=== PATIENT | female | born 1955 | race Caucasian/White ===

== ENCOUNTER → 2017-10-07 08:04 | Outpatient (CLI) | payer MEDICAID, SELFPAY ==
[2017-10-07 09:32] LABS: Alanine Aminotransferase 19 U/L (12-78); Albumin Level 3.4 gm/dL (3.4-5.0); Albumin/Globulin Ratio 0.9 (1.1-1.8); Alkaline Phosphatase 82 U/L (46-116); Anion Gap 10.1 mEq/L (5-15); Aspartate Amino Transferase 8 U/L (15-37); Bilirubin,Total 0.5 mg/dL (0.2-1.0); Blood Urea Nitrogen 14 mg/dL (7-18); Calcium 8.8 mg/dL (8.5-10.1); Carbon Dioxide 32 mmol/L (21.0-32.0); Chloride 104 mmol/L (98-107); Chol/HDL Ratio 2.2 (1-3.5); Cholesterol 122 mg/dL (140-200); Creatinine,Serum 0.78 mg/dL (0.55-1.02); Estimated Glomerular Filt Rate 75 ml/min (>60); GFR (African American) 91 ML/MIN (>60); Globulin 3.9 gm/dl (1.3-3.2); Glucose 153 mg/dL (74-106); HDL Cholesterol 55 mg/dL (29-89); LDL Cholesterol 55 mg/dL (0-130); Potassium 4.1 mmoL/L (3.5-5.1); Sodium 142 mmol/L (136-145); Total Protein,Serum 7.3 gm/dL (6.4-8.2); Triglycerides 61 mg/dL (30-200); VLDL Cholesterol 12 mg/dL (0-40)
[2017-10-07 09:44] LABS: Creatinine,Urine Random 97 mg/dL (20-320)
[2017-10-07 09:52] LABS: Hemoglobin A1C 6.4 % (0.0-7.0)
[2017-10-08 17:17] LABS: Microalbumin, Urine 3.2 ug/mL (Not Estab.)
== END ==
PROVIDERS: PCP Nurse Practitioner Family; Visit Provider Nurse Practitioner Family
DX: E11.9 Type 2 diabetes mellitus without complications (principal); E78.2 Mixed hyperlipidemia
CPT/HCPCS: 36415; 80053; 80061; 82043; 82570; 83036

== ENCOUNTER → 2017-10-20 09:16 | Outpatient (CLI) | payer MEDICAID, SELFPAY ==
--- NOTE | 2017-10-20 09:20 | MM_ITS ---
MM Dig screening mamm BI w/CAD CAD Screening ORDERING PHYSICIAN : Sheeba Peterson PATIENT AGE: 62 years GENDER: Female INDICATION: Routine screening no hormones no new complaints. Family history. Mother's half sister with breast cancer age 40s COMPARISON: Previous outside mammograms have finally arrived [facility] April 2015 and July 2011 & March 2008 TECHNIQUE: Standard CC and MLO images were obtained. R2 CAD reviewed. . Additional left breast CC and MLO with nipple in profile FINDINGS: Minimal fibroglandular elements bilaterally Low-density breast bilaterally. With Generalized fatty change. No dominant mass or suspicious calcifications. No significant new findings. No architectural distortion. RIGHT BREAST:No significant appearing findings. Follow-up in one year adequate LEFT BREAST: small most likely benign 6 mm intramammary node at the deep axillary tail left breast. Stable . Follow-up in not over one year would be adequate IMPRESSION: . -------- Basically stable appearance of the breast No new findings of significant concern. Bilateral follow-up in one recommended BI-RADS Category: 2 Benign Finding(s) RECOMMENDED FOLLOW-UP: 1YR - 1 YEAR FOLLOW-UP (A letter has been sent to the patient regarding results of the study.)
== END ==
PROVIDERS: PCP Nurse Practitioner Family; Visit Provider Nurse Practitioner Family
DX: Z12.31 Encounter for screening mammogram for malignant neoplasm of breast (principal)
CPT/HCPCS: 77067

== ENCOUNTER 2017-11-07 06:48 | Day surgery (SDC) | payer MEDICAID, SELFPAY ==
[2017-11-06 14:26] VITALS: BMI 28.1
[2017-11-07 07:16] VITALS: BP 120/80; PULSE 97; RESP 22; TEMP 37.1; O2SAT 94
[2017-11-07 07:39] VITALS: O2SAT 99
[2017-11-07 09:55] VITALS: BP 97/56; PULSE 91; RESP 22; TEMP 36.5; O2SAT 95
--- NOTE | 2017-11-07 10:00 | P.PCN_ITS ---
- Procedure: Date: 11/07/17 Procedure Performed:: Total colonoscopy to terminal ileum with numerous polypectomy by hot snare, cold snare, and biopsy forceps Indications:: Patient is a 62-year-old white female. 6 months ago she was sent for surgical consultation for colonoscopy after she had a positive colo-guard. She underwent colonoscopy at that time which revealed greater than 2 dozen polyps. Most of these were tubular adenomas although she did have serrated adenomas and a tubulovillous adenomas well. Plan was made for six-month follow-up due to the numerous precancerous polyps. Performing Provider:: Jose Luis Youssef MD Referring Provider:: Bella Peterson, Sedation:: Propofol Procedure:: Consent was obtained and patient was taken to same-day surgery endoscopy procedure room. She was positioned in a lateral decubitus position. Adequate intravenous sedation was achieved with anesthesia titration of propofol. Digital examination revealed minimal hemorrhoids. Variable stiffness Olympus colonoscope was inserted via the anus and advanced to the cecum with moderate difficulty due to floppiness of the sigmoid colon. Within the cecum the ileocecal valve and appendiceal were clearly identified. Colonoscope was advanced into the terminal ileum which was grossly normal. Within the cecum there was a small adenomatous appearing polyp removed with hot snare. Colonoscope was withdrawn through the colon and careful surveillance was carried out. Numerous polyps were encountered. Most of these were in the left call. There was an area of mucosal irregularity within the cecum which was biopsied with cold biopsy forceps. Polyps were encountered and polypectomy was performed on the cecal polyp, hepatic flexure polyp ?2, splenic flexure polyp ?3 , descending colon polyp, proximal sigmoid colon polyp ?2, sigmoid polyp ?2 #2, distal sigmoid polyp times, rectosigmoid polyps and rectal polyp ?5. She did have internal hemorrhoids. Scope was withdrawn. Findings:: Diverticulosis Around 20 polyps Mucosal irregularity at the cecum Specimens:: Numerous polyps and biopsy at cecum Recommendations:: Follow-up on histopathology. Likely plan for repeat colonoscopy within 6 months pending pathology. If there is adenomatous component to the biopsy at the cecum plan for follow-up earlier. Complications:: None immediate Estimated blood obtained (mL): 10
--- NOTE | 2017-11-07 10:04 | HMH.ANESCL ---
[facility] Anesthesia Checklist - Patient Identification Patient Identification: Arm Band - Structural Data Admitted From: Home Planned Operative Procedure/s: colonoscopy Consent for Planned Operative Procedure(s) Verified: Yes Verified Documents: Surgical Consent, History and Physical - NPO Status Verified Time NPO: 00:00 - Additional verifications Anesthesia Reactions: No - Airway Assessment C-Spine Mobility Assessed: Yes (mp2) TMJ Mobility Assessed: Yes Dentition: Dentures-good fit - Neurological Assessment Level of Consciousness: Awake, Alert - Anesthesia Plan Anesthesia Risk discussed: Yes Anesthesia Plan: Verified ASA Class: III Anesthesia Type: MAC [facility] Anesthesia HX I have reviewed the patient's past medical history: Yes Medical History: Reports:: Aneurysm (AAA per pt about 4.4cm), Chronic Obstructive Pulmonary Disease (COPD), Diabetes Mellitus Type 2, Hyperlipidemia Denies:: Diabetes Mellitus Type 1, Internal Pacemaker, Lung Disease (copd), Seizures Other Surgeries: Yes: Colonoscopy, . No: Pacemaker *Family Hx:: No significant family history
[2017-11-07 10:05] VITALS: BP 109/80; PULSE 86; RESP 20; TEMP 36.5; O2SAT 95
[2017-11-07 10:07] LABS: POC Glucose,Bedside 120 mg/dL (70-110)
[2017-11-07 10:15] VITALS: BP 113/73; PULSE 87; RESP 20; TEMP 36.5; O2SAT 93
[2017-11-07 10:25] VITALS: BP 117/67; PULSE 88; RESP 20; TEMP 36.5; O2SAT 94
== END 2017-11-07 10:25 | disposition home or self-care (01) ==
LOC: OUTP 06:49
PROVIDERS: PCP Nurse Practitioner Family; Visit Provider Surgery
PROC: 0DJD8ZZ Inspection of Lower Intestinal Tract, Via Natural or Artificial Opening Endoscopic (ICD-10-PCS; CPT 45385; principal; 2017-11-07 07:30)
DX: K63.5 Polyp of colon (principal); K64.9 Unspecified hemorrhoids; K57.30 Diverticulosis of large intestine without perforation or abscess without bleeding; Z86.010 Personal history of colon polyps
CPT/HCPCS: 45385; 45380; 82962; J2704

== ENCOUNTER → 2018-10-11 08:09 | Outpatient (CLI) | payer MEDICAID, SELFPAY ==
[2018-10-11 08:34] LABS: Basophils # 0.1 K/mm3 (0-0.2); Eosinophils # 0.1 K/mm3 (0.0-0.4); Eosinophils % 0.9 % (0.1-12.0); Hematocrit 42.5 % (37.0-47.0); Hemoglobin 13.8 g/dL (12.2-16.2); Lymphocytes # 1.4 K/mm3 (0.7-4.5); Lymphocytes % 22.8 % (10-50); Mean Corpuscular HGB Conc 32.5 g/dL (31.8-35.4); Mean Corpuscular Hemoglobin 30.6 pg (27.0-31.2); Mean Corpuscular Volume 94.1 fl (81-99); Monocytes # 0.3 K/mm3 (0.1-1.0); Monocytes % 4.8 % (1.7-9.3); Neutrophils # 4.3 K/mm3 (1.8-7.8); Neutrophils % 70.6 % (37.0-80.0); Platelet Count 205 K/mm3 (142-424); Red Blood Count 4.51 M/mm3 (4.20-5.40); Red Cell Distribution Width 15.2 % (11.5-17.5); White Blood Count 6.1 K/mm3 (4.8-10.8)
[2018-10-11 09:01] LABS: Alanine Aminotransferase 16 U/L (12-78); Albumin Level 3.5 gm/dL (3.4-5.0); Alkaline Phosphatase 87 U/L (46-116); Anion Gap 12.4 mEq/L (5-15); Aspartate Amino Transferase 7 U/L (15-37); Bilirubin,Total 0.6 mg/dL (0.2-1.0); Blood Urea Nitrogen 15 mg/dL (7-18); Calcium 8.9 mg/dL (8.5-10.1); Carbon Dioxide 31 mmol/L (21.0-32.0); Chloride 101 mmol/L (98-107); Chol/HDL Ratio 2.2 (1-3.5); Cholesterol 91 mg/dL (140-200); Creatinine,Serum 0.88 mg/dL (0.55-1.02); Estimated Glomerular Filt Rate 65 ml/min (>60); GFR (African American) 79 ML/MIN (>60); Globulin 3.4 gm/dl (1.3-3.2); Glucose 141 mg/dL (74-106); HDL Cholesterol 41 mg/dL (29-89); LDL Cholesterol 39 mg/dL (0-130); Potassium 4.4 mmoL/L (3.5-5.1); Sodium 140 mmol/L (136-145); Total Protein,Serum 6.9 gm/dL (6.4-8.2); Triglycerides 55 mg/dL (30-200); VLDL Cholesterol 11 mg/dL (0-40)
[2018-10-11 09:43] LABS: Hemoglobin A1C 7.3 % (0.0-7.0)
[2018-10-12 10:15] LABS: Creatinine, Urine 68.1 mg/dL (Not Estab.)
== END ==
PROVIDERS: Visit Provider Nurse Practitioner Family
DX: E11.9 Type 2 diabetes mellitus without complications (principal); E78.2 Mixed hyperlipidemia; J43.9 Emphysema, unspecified
CPT/HCPCS: 36415; 80053; 80061; 82043; 82570; 83036; 85025

== ENCOUNTER → 2018-10-22 08:55 | Outpatient (CLI) | payer MEDICAID, SELFPAY ==
--- NOTE | 2018-10-22 08:59 | MM_ITS ---
MM Dig screening mamm BI w/CAD CAD Screening COMPARISON: Digital mammograms with CAD 10/20/2017 and 04/24/2015 INDICATION: There is a history of breast cancer in patient's mother and half-sister both diagnosed before menopause. TECHNIQUE: Standard CC and MLO images were obtained. R2 CAD reviewed. FINDINGS: Scattered fibroglandular densities are seen throughout both breasts. There is a stable tiny nodular density upper outer quadrant left breast. There are a few benign-appearing microcalcifications in each breast. There is a small asymmetric density inner quadrant right breast only deftly seen on the cc view. This may been present previously but has shown slight interval increase in size. Recommend the patient return for spot compression view in the CC projection and 90 degrees lateral view and ultrasound may be necessary as well. There are no suspicious microcalcifications. IMPRESSION: Fibrofatty parenchyma with possible change in density right breast BI-RADS Category: 0 Need Additional Imaging Evaluation RECOMMENDED FOLLOW-UP: IMM - IMMEDIATE FOLLOW-UP RECOMMENDED (A letter has been sent to the patient regarding results of the study.)
== END ==
PROVIDERS: PCP Nurse Practitioner Family; Visit Provider Nurse Practitioner Family
DX: Z12.31 Encounter for screening mammogram for malignant neoplasm of breast (principal)
CPT/HCPCS: 77067

== ENCOUNTER → 2018-11-07 13:14 | Outpatient (CLI) | payer MEDICAID, SELFPAY ==
--- NOTE | 2018-11-07 13:18 | MM_ITS ---
MM Dig mamm DX unilat RT CAD, US breast RT complete INDICATION: Follow-up abnormal screening mammogram ORDERING PHYSICIAN: Sheeba Peterson PATIENT AGE: 63 years COMPARISON: 10/22/2018, 10/20/2017 TECHNIQUE: Problem-solving views of the right breast along with right breast ultrasound FINDINGS: Spot compression view demonstrates a 3 mm nodule in the medial aspect of the right breast at the 4:00 region. This has probably benign features. Right breast ultrasound: No cystic or solid lesions evident. There are small nodes in the axilla. IMPRESSION: Probably benign nodule medial aspect of the right breast. Suggest 6 month follow-up due to the slight increase in size BI-RADS Category: 3 Probably Benign Finding Short Term Follow-up RECOMMENDED FOLLOW-UP: 6M - 6 MONTH FOLLOW-UP (A letter has been sent to the patient regarding results of the study.)
== END ==
PROVIDERS: PCP Nurse Practitioner Family; Visit Provider Nurse Practitioner Family
DX: R92.8 Other abnormal and inconclusive findings on diagnostic imaging of breast (principal)
CPT/HCPCS: 76641; 77065

== ENCOUNTER → 2018-12-03 10:34 | Outpatient (CLI) | payer MEDICAID, SELFPAY ==
--- NOTE | 2018-12-03 12:45 | XR_ITS ---
XR chest 2V HISTORY: ITS.REASON: COPD EXACERBATION ORDERING PHYSICIAN: Jose Luis Youssef MD PATIENT AGE: 63 years COMPARISON: PA and lateral chest 08/29/2018 FINDINGS: The lung carrion are well expanded and appear clear of infiltrate. There is minimal discoid atelectasis or postinflammatory scarring at the left base. There is minimal blunting of left costophrenic angle. Cardiac size is normal and the vascularity is normal. There is generalized osteopenia the thoracic spinal with mild kyphotic curvature. There is a stable mild old compression fracture mid thoracic spine. IMPRESSION: Negative chest, no acute finding
== END ==
PROVIDERS: PCP Internal Medicine Adolescent Medicine; Visit Provider Surgery
DX: Z01.818 Encounter for other preprocedural examination (principal); Z12.11 Encounter for screening for malignant neoplasm of colon
CPT/HCPCS: 71046; 93005

== ENCOUNTER → 2019-02-04 09:31 | Outpatient (CLI) | payer MEDICAID, SELFPAY ==
[2019-02-04 10:31] LABS: Basophils # 0.1 K/mm3 (0-0.2); Basophils % 1.1 % (0.1-2.0); Eosinophils # 0.2 K/mm3 (0.0-0.4); Eosinophils % 3.4 % (0.1-12.0); Hematocrit 42.4 % (37.0-47.0); Lymphocytes # 1.6 K/mm3 (0.7-4.5); Mean Corpuscular HGB Conc 30.7 g/dL (31.8-35.4); Mean Corpuscular Hemoglobin 27.7 pg (27.0-31.2); Mean Corpuscular Volume 90.1 fl (81-99); Mean Platelet Volume 8.4 fl (7.4-10.4); Monocytes # 0.4 K/mm3 (0.1-1.0); Neutrophils % 63.5 % (37.0-80.0); Platelet Count 210 K/mm3 (142-424); Red Cell Distribution Width 13.9 % (11.5-17.5); White Blood Count 6.2 K/mm3 (4.8-10.8)
[2019-02-04 11:20] LABS: Alanine Aminotransferase 20 U/L (12-78); Albumin Level 3.6 gm/dL (3.4-5.0); Alkaline Phosphatase 89 U/L (46-116); Anion Gap 14.5 mEq/L (5-15); Aspartate Amino Transferase 15 U/L (15-37); Bilirubin,Total 0.6 mg/dL (0.2-1.0); Blood Urea Nitrogen 15 mg/dL (7-18); Calcium 9.2 mg/dL (8.5-10.1); Carbon Dioxide 30 mmol/L (21.0-32.0); Chloride 102 mmol/L (98-107); Chol/HDL Ratio 2.9 (1-3.5); Cholesterol 145 mg/dL (140-200); Creatinine,Serum 0.82 mg/dL (0.55-1.02); Estimated Glomerular Filt Rate 70 ml/min (>60); GFR (African American) 85 ML/MIN (>60); Globulin 3.5 gm/dl (1.3-3.2); Glucose 113 mg/dL (74-106); HDL Cholesterol 50 mg/dL (29-89); LDL Cholesterol 72 mg/dL (0-130); Potassium 4.5 mmoL/L (3.5-5.1); Sodium 142 mmol/L (136-145); Thyroid Stimulating Hormone 1.58 uIU/ml (0.358-3.740); Total Protein,Serum 7.1 gm/dL (6.4-8.2); Triglycerides 113 mg/dL (30-200); VLDL Cholesterol 23 mg/dL (0-40)
[2019-02-05 12:43] LABS: Hemoglobin A1C 6.6 % (0.0-7.0)
== END ==
PROVIDERS: Visit Provider Nurse Practitioner Family
DX: E11.9 Type 2 diabetes mellitus without complications (principal); Z79.84 Long term (current) use of oral hypoglycemic drugs; E78.2 Mixed hyperlipidemia; K59.04 Chronic idiopathic constipation
CPT/HCPCS: 36415; 80053; 80061; 83036; 84443; 85025

== ENCOUNTER → 2019-04-23 12:41 | Outpatient (CLI) | payer MEDICAID, SELFPAY ==
--- NOTE | 2019-04-23 12:43 | MM_ITS ---
PROCEDURE: MM DIG MAMM DX UNILAT RT CAD CLINICAL INDICATION: 6 MO FU Follow-up nodule COMPARISON: AB MAMM SCREEN BILAT DIG PNL from 04/24/2015 [facility] MM Dig screening mamm BI w/CAD from 10/20/2017 [facility] MM Dig screening mamm BI w/CAD from 10/22/2018 [facility] MM Dig mamm DX unilat RT CAD from 11/07/2018 BREASTRT US breast RT complete from 11/07/2018 US BREAST RT COMPLETE from 04/25/2019 TECHNIQUE: Standard images performed along with spot compression views and right breast ultrasound FINDINGS: Average fibroglandular tissue. Benign-appearing nodular density once again noted in the medial and inferior aspect of the right breast overall not significantly changed. No malignant appearing microcalcification or malignant-appearing mass evident. The nodule measures approximately 3 mm. Right breast ultrasound: Initially there was a 7 mm area of decreased echogenicity in the outer aspect of the right breast at 5 o'clock. This may very well represent an area of asymmetric fibroglandular tissue appearing have internal breast markings. The small nodule at the 3 o'clock region of the right breast is not demonstrated. IMPRESSION: No change in the benign-appearing nodule in the medial aspect of the right breast. On the ultrasound there is an area of decreased echogenicity in the 5 o'clock region of the right breast not previously demonstrated may be due to an area of asymmetric fibroglandular tissue. Continued six-month follow-up suggested. At that time the patient will need a screening exam on the left. BI-RAD Category: 3 Probably Benign Finding Short Term Follow-up FOLLOW-UP: 6M 6Month Follow-up (A letter has been sent to the patient regarding results of the study.) Dictated by: Zuhair Tolbert MD 04/26/2019 13:09 Electronically signed by Zuhair Tolbert MD in [place] 04/26/2019 13:09
== END ==
PROVIDERS: PCP Internal Medicine Adolescent Medicine; Visit Provider Internal Medicine Adolescent Medicine
DX: R92.8 Other abnormal and inconclusive findings on diagnostic imaging of breast (principal)
CPT/HCPCS: 77065

== ENCOUNTER → 2019-04-25 09:23 | Outpatient (CLI) | payer MEDICAID, SELFPAY ==
--- NOTE | 2019-04-25 09:28 | US_ITS ---
PROCEDURE: US BREAST RT COMPLETE CLINICAL INDICATION: ABN MAMM COMPARISON: BREASTRT US breast RT complete from 11/07/2018 MM DIG MAMM DX UNILAT RT CAD from 04/23/2019 FINDINGS: At the 5 o'clock region of the right breast there is an area of decreased echogenicity that measures 7 x 4 mm. This shows enhanced through transmission of sound. Under of visualization this had more the appearance of fibroglandular tissue as a compared to a breast nodule along gating in the sagittal plane and having some internal echogenicity similar to the surrounding breast tissue. No other significant anomalies are evident IMPRESSION: Probable hypoechoic fibroglandular tissue 5 o'clock region of the right breast. No sonographic abnormality that would correspond to the 3 mm mammographic abnormality. Probably benign. Recommend six-month sonographic follow-up Dictated by: Zuhair Tolbert MD 04/26/2019 13:13 Electronically signed by Zuhair Tolbert MD in [place] 04/26/2019 13:13
== END ==
PROVIDERS: PCP Internal Medicine Adolescent Medicine; Visit Provider Internal Medicine Adolescent Medicine
DX: R92.8 Other abnormal and inconclusive findings on diagnostic imaging of breast (principal)
CPT/HCPCS: 76641

== ENCOUNTER → 2019-06-06 09:16 | Outpatient (CLI) | payer OTHER, SELFPAY ==
--- NOTE | 2019-06-06 09:23 | XR_ITS ---
PROCEDURE: XR KNEE LT 3V CLINICAL INDICATION: ACUTE LT KNEE PAIN COMPARISON: No exams were available for comparison FINDINGS: No fracture or dislocation. No lytic or blastic change. There is normal mineralization. There are minimal osteoarthritic changes of the medial compartment and patellofemoral joint. Other findings:Vascular calcification IMPRESSION: Minimal osteoarthritic change Dictated by: Zuhair Tolbert MD 06/06/2019 15:31 Electronically signed by Zuhair Tolbert MD in [place] 06/06/2019 15:31
== END ==
PROVIDERS: PCP Internal Medicine Adolescent Medicine; Visit Provider Nurse Practitioner Family
DX: M25.562 Pain in left knee (principal)
CPT/HCPCS: 73562

== ENCOUNTER → 2019-06-18 08:15 | Outpatient (CLI) | payer OTHER, SELFPAY ==
[2019-06-18 08:43] LABS: Basophils # 0.1 K/mm3 (0-0.2); Basophils % 0.9 % (0.1-2.0); Eosinophils # 0.2 K/mm3 (0.0-0.4); Eosinophils % 2.2 % (0.1-12.0); Hemoglobin 12.8 g/dL (12.2-16.2); Lymphocytes # 2.5 K/mm3 (0.7-4.5); Lymphocytes % 27.9 % (10-50); Mean Corpuscular Hemoglobin 30.4 pg (27.0-31.2); Mean Corpuscular Volume 95.2 fl (81-99); Mean Platelet Volume 8.9 fl (7.4-10.4); Monocytes # 0.4 K/mm3 (0.1-1.0); Monocytes % 4.7 % (1.7-9.3); Neutrophils # 5.7 K/mm3 (1.8-7.8); Neutrophils % 64.2 % (37.0-80.0); Platelet Count 218 K/mm3 (142-424); Red Cell Distribution Width 14.6 % (11.5-17.5); White Blood Count 8.9 K/mm3 (4.8-10.8)
[2019-06-18 09:21] LABS: Alanine Aminotransferase 17 U/L (12-78); Albumin Level 3.7 gm/dL (3.4-5.0); Albumin/Globulin Ratio 1.2 (1.1-1.8); Alkaline Phosphatase 86 U/L (46-116); Anion Gap 13.3 mEq/L (5-15); Aspartate Amino Transferase 6 U/L (15-37); Bilirubin,Total 0.5 mg/dL (0.2-1.0); Blood Urea Nitrogen 27 mg/dL (7-18); Calcium 9.2 mg/dL (8.5-10.1); Carbon Dioxide 29 mmol/L (21.0-32.0); Chloride 104 mmol/L (98-107); Cholesterol 120 mg/dL (140-200); Creatinine,Serum 0.97 mg/dL (0.55-1.02); Estimated Glomerular Filt Rate 58 ml/min (>60); GFR (African American) 70 ML/MIN (>60); Globulin 3.2 gm/dl (1.3-3.2); Glucose 133 mg/dL (74-106); HDL Cholesterol 60 mg/dL (29-89); LDL Cholesterol 40 mg/dL (0-130); Potassium 4.3 mmoL/L (3.5-5.1); Sodium 142 mmol/L (136-145); Total Protein,Serum 6.9 gm/dL (6.4-8.2); Triglycerides 99 mg/dL (30-200); Uric Acid 4.6 mg/dL (2.6-7.2); VLDL Cholesterol 20 mg/dL (0-40)
[2019-06-18 10:11] LABS: Hemoglobin A1C 6.7 % (0.0-7.0)
[2019-06-18 10:18] LABS: Erythrocyte Sedimentation Rate 17 mm/hr (0-30)
[2019-06-19 11:10] LABS: Microalbumin, Urine 6.9 ug/mL (Not Estab.)
== END ==
PROVIDERS: Visit Provider Nurse Practitioner Family
DX: E78.5 Hyperlipidemia, unspecified (principal); E11.9 Type 2 diabetes mellitus without complications; M25.562 Pain in left knee; Z79.84 Long term (current) use of oral hypoglycemic drugs
CPT/HCPCS: 36415; 80053; 80061; 82043; 82570; 83036; 84550; 85025; 85651

== ENCOUNTER → 2019-06-27 09:05 | Outpatient (CLI) | payer OTHER, SELFPAY ==
--- NOTE | 2019-06-27 09:10 | XR_ITS ---
PROCEDURE: XR PELVIS 1-2V CLINICAL INDICATION: lower back pain Low back pain COMPARISON: No exams were available for comparison TECHNIQUE: XR Pelvis AP View FINDINGS: There are mild osteoarthritic changes of the hips and SI joints. No fracture or dislocation. Generalized vascular calcification noted. IMPRESSION: Mild osteoarthritic change, no acute Dictated by: Zuhair Tolbert MD 06/27/2019 16:20 Electronically signed by Zuhair Tolbert MD in [place] 06/27/2019 16:20
--- NOTE | 2019-06-27 09:10 | XR_ITS ---
PROCEDURE: XR KNEE LT 4V CLINICAL INDICATION: Left knee pain COMPARISON: XR KNEE LT 3V from 06/06/2019 FINDINGS: There is mild lateral patellar subluxation. No fracture or dislocation. Minimal osteoarthritic changes are present involving the medial compartment. There is generalized vascular calcification. No fracture or dislocation. No lytic or blastic change IMPRESSION: Mild osteoarthritic change medial compartment with mild lateral patellar subluxation Dictated by: Zuhair Tolbert MD 06/27/2019 16:14 Electronically signed by Zuhair Tolbert MD in [place] 06/27/2019 16:14
--- NOTE | 2019-06-27 11:02 | XR_ITS ---
PROCEDURE: XR LUMBAR SPINE 2-3V CLINICAL INDICATION: back pain COMPARISON: No exams were available for comparison FINDINGS: There is normal alignment. Degenerative disc disease is present at T12-L1. Mild wedge compression changes involve the L2. There is wedging along the inferior endplate of L2. Mild degenerative disc disease is present at L1-L2 L2-L3 L3-L4 and L5-S1. The there is an aortic stent in the upper aorta and the aortoiliac stent inferiorly within abdominal aortic aneurysm. IMPRESSION: 1. Wedge compression changes of L2 and L3 which are age indeterminate and may be better dated with MRI. 2. Degenerative changes Dictated by: Zuhair Tolbert MD 06/27/2019 15:21 Electronically signed by Zuhair Tolbert MD in [place] 06/27/2019 15:21
== END ==
PROVIDERS: PCP Internal Medicine Adolescent Medicine; Visit Provider Orthopaedic Surgery
DX: M54.9 Dorsalgia, unspecified (principal); M25.561 Pain in right knee
CPT/HCPCS: 72100; 72170; 73564

== ENCOUNTER → 2019-08-15 09:44 | Outpatient (CLI) | payer MEDICARE, SELFPAY ==
[2019-08-15 10:31] LABS: Basophils # 0.1 K/mm3 (0-0.2); Basophils % 0.9 % (0.1-2.0); Eosinophils # 0.2 K/mm3 (0.0-0.4); Eosinophils % 2.1 % (0.1-12.0); Hematocrit 39.4 % (37.0-47.0); Hemoglobin 13.2 g/dL (12.2-16.2); Lymphocytes # 1.9 K/mm3 (0.7-4.5); Lymphocytes % 25.1 % (10-50); Mean Corpuscular HGB Conc 33.5 g/dL (31.8-35.4); Mean Corpuscular Hemoglobin 30.6 pg (27.0-31.2); Mean Corpuscular Volume 91.4 fl (81-99); Mean Platelet Volume 8.8 fl (7.4-10.4); Monocytes # 0.4 K/mm3 (0.1-1.0); Monocytes % 5.2 % (1.7-9.3); Neutrophils % 66.8 % (37.0-80.0); Platelet Count 248 K/mm3 (142-424); Red Blood Count 4.31 M/mm3 (4.20-5.40); Red Cell Distribution Width 14.3 % (11.5-17.5); White Blood Count 7.5 K/mm3 (4.8-10.8)
[2019-08-15 10:41] LABS: Hemoglobin A1C 6.5 % (0.0-7.0)
[2019-08-15 11:10] LABS: Anion Gap 4.3 mEq/L (5-15); Calcium 9.1 mg/dL (8.5-10.1); Carbon Dioxide 28 mmol/L (21.0-32.0); Chloride 98 mmol/L (98-107); Creatinine,Serum 0.88 mg/dL (0.55-1.02); Estimated Glomerular Filt Rate 65 ml/min (>60); GFR (African American) 78 ML/MIN (>60); Glucose 101 mg/dL (74-106); Potassium 4.3 mmoL/L (3.5-5.1); Sodium 126 mmol/L (136-145); Thyroid Stimulating Hormone 1.45 uIU/ml (0.358-3.740)
[2019-08-15 11:23] LABS: Blood Urea Nitrogen 18 mg/dL (7-18)
== END ==
PROVIDERS: Visit Provider Nurse Practitioner Family
DX: E11.9 Type 2 diabetes mellitus without complications (principal); R53.81 Other malaise; R11.0 Nausea; Z79.84 Long term (current) use of oral hypoglycemic drugs
CPT/HCPCS: 36415; 80048; 83036; 84443; 85025

== ENCOUNTER → 2019-09-05 09:37 | Outpatient (CLI) | payer MEDICARE, SELFPAY ==
[2019-09-05 10:42] LABS: Anion Gap 15.2 mEq/L (5-15); Blood Urea Nitrogen 16 mg/dL (7-18); Calcium 8.9 mg/dL (8.5-10.1); Carbon Dioxide 25 mmol/L (21.0-32.0); Chloride 104 mmol/L (98-107); Creatinine,Serum 0.98 mg/dL (0.55-1.02); Estimated Glomerular Filt Rate 57 ml/min (>60); GFR (African American) 69 ML/MIN (>60); Glucose 137 mg/dL (74-106); Potassium 4.2 mmoL/L (3.5-5.1); Sodium 140 mmol/L (136-145)
== END ==
PROVIDERS: Visit Provider Nurse Practitioner Family
DX: E87.1 Hypo-osmolality and hyponatremia (principal); E11.9 Type 2 diabetes mellitus without complications; Z79.84 Long term (current) use of oral hypoglycemic drugs
CPT/HCPCS: 36415; 80048

== ENCOUNTER → 2019-12-12 07:59 | Outpatient (CLI) | payer MEDICARE, SELFPAY ==
[2019-12-12 08:37] LABS: Basophils # 0.1 K/mm3 (0-0.2); Basophils % 1.1 % (0.1-2.0); Eosinophils # 0.2 K/mm3 (0.0-0.4); Eosinophils % 3.5 % (0.1-12.0); Hematocrit 38.5 % (37.0-47.0); Hemoglobin 12.5 g/dL (12.2-16.2); Lymphocytes # 1.3 K/mm3 (0.7-4.5); Lymphocytes % 25.2 % (10-50); Mean Corpuscular HGB Conc 32.5 g/dL (31.8-35.4); Mean Corpuscular Hemoglobin 29.8 pg (27.0-31.2); Mean Corpuscular Volume 91.6 fl (81-99); Mean Platelet Volume 9.2 fl (7.4-10.4); Monocytes # 0.3 K/mm3 (0.1-1.0); Monocytes % 5.1 % (1.7-9.3); Neutrophils # 3.4 K/mm3 (1.8-7.8); Platelet Count 188 K/mm3 (142-424); Red Blood Count 4.21 M/mm3 (4.20-5.40); White Blood Count 5.3 K/mm3 (4.8-10.8)
[2019-12-12 08:52] LABS: Chloride 101 mmol/L (98-107); Sodium 138 mmol/L (136-145)
[2019-12-12 08:53] LABS: Potassium 4.7 mmoL/L (3.5-5.1)
[2019-12-12 08:55] LABS: Alanine Aminotransferase 13 U/L (12-78); Albumin/Globulin Ratio 1.5 (1.1-1.8); Alkaline Phosphatase 87 U/L (38-126); Anion Gap 11.7 mEq/L (5-15); Aspartate Amino Transferase 19 U/L (14-36); Bilirubin,Total 0.5 mg/dl (0.2-1.3); Blood Urea Nitrogen 10 mg/dl (7-17); Carbon Dioxide 30 mmol/L (22.0-30.0); Cholesterol 86 mg/dl (140-200); Estimated Glomerular Filt Rate 84 ml/min (>60); GFR (African American) 102 ML/MIN (>60); Globulin 2.6 g/dL (1.3-3.2); Total Protein,Serum 6.6 g/dl (6.3-8.2); Triglycerides 58 mg/dl (30-150); VLDL Cholesterol 12 mg/dL (0-40)
[2019-12-12 08:56] LABS: Calcium 9.5 mg/dl (8.4-10.2); Chol/HDL Ratio 1.5 (1-3.5); Glucose 151 mg/dl (74-100); HDL Cholesterol 56 mg/dl (40-60)
[2019-12-12 09:05] LABS: Hemoglobin A1C 5.9 % (4.0-6.0)
[2019-12-12 09:07] LABS: Direct LDL Cholesterol 36.18 mg/dL (100-129)
[2019-12-13 09:29] LABS: Creatinine, Urine 70.7 mg/dL (Not Estab.); Microalbumin, Urine 3.6 ug/mL (Not Estab.)
== END ==
PROVIDERS: Visit Provider Nurse Practitioner Family
DX: E78.2 Mixed hyperlipidemia (principal); J43.9 Emphysema, unspecified; E11.9 Type 2 diabetes mellitus without complications; Z79.4 Long term (current) use of insulin
CPT/HCPCS: 36415; 80053; 80061; 82043; 82570; 83036; 85025

== ENCOUNTER → 2019-12-26 08:36 | Outpatient (CLI) | payer MEDICARE, SELFPAY ==
--- NOTE | 2019-12-26 08:41 | MM_ITS ---
PROCEDURE: MM DIG SCREENING MAMM BI W/CAD Digital Breast Tomosynthesis Included CLINICAL INDICATION: SCREENING There is a history of breast cancer patient's mother's half sister diagnosed in her 40s. COMPARISON: [facility] MM Dig screening mamm BI w/CAD from 10/22/2018 DXRT MM Dig mamm DX unilat RT CAD from 11/07/2018 MM DIG MAMM DX UNILAT RT CAD from 04/23/2019 TECHNIQUE: Standard CC and MLO images and 3D Tomosynthesis was obtained. R2 CAD reviewed. FINDINGS: Scattered fibroglandular densities are seen throughout both breasts. There is a stable tiny nodular density near the axillary tail left breast. There is a stable small nodular density inner quadrant right breast. There couple of benign-appearing microcalcifications right breast. There is no suspicious lesion and no suspicious microcalcifications. IMPRESSION: Fibrofatty parenchyma with no suspicious lesions seen BI-RAD Category: 2 Benign Finding(s) FOLLOW-UP: 1YR 1 Year Follow-up (A letter has been sent to the patient regarding results of the study.) Dictated by: Dr. Arslan Chamorro MD 12/26/2019 16:[address] Arslan Chamorro MD in [place] 12/26/2019 16:42
== END ==
PROVIDERS: PCP Internal Medicine Adolescent Medicine; Visit Provider Nurse Practitioner Family
DX: Z12.31 Encounter for screening mammogram for malignant neoplasm of breast (principal)
CPT/HCPCS: 77063; 77067

== ENCOUNTER → 2020-02-17 08:40 | Outpatient (CLI) | payer MEDICARE, SELFPAY ==
[2020-02-17 10:40] LABS: Coronavirus 19 IgG Antibody Negative (Negative); Coronavirus 19 IgM Antibody Negative (Negative)
== END ==
PROVIDERS: Visit Provider Surgery
DX: Z01.818 Encounter for other preprocedural examination (principal)
CPT/HCPCS: 36415; 86328

== ENCOUNTER 2020-02-18 06:22 | Day surgery (SDC) | payer MEDICARE, SELFPAY ==
--- NOTE | 2020-02-14 09:36 | SUR.PREOP ---
02/14/2020 @ 4630--PHONE CALL MADE TO PATIENT. PATIENT UNDERSTANDS THAT LAB WORK AND COVID TESTING NEEDS TO BE COMPLETED @ 0900 ON 02/17/2020 . PATIENT UNDERSTANDS IF LAB WORK AND COVID-19 TESTS ARE NOT COMPLETED BY 12PM ON THAT DATE, THE SURGERY SCHEDULED WILL BE CANCELLED AND RESCHEDULED FOR ANOTHER TIME.
[2020-02-17 12:00] VITALS: BMI 27.1
[2020-02-18 06:41] VITALS: BP 133/64; PULSE 103; RESP 22; TEMP 36.8; O2SAT 96
[2020-02-18 06:52] LABS: POC Glucose,Bedside 123 (70-110)
[2020-02-18 07:23] VITALS: O2SAT 98
--- NOTE | 2020-02-18 07:45 | HMH.ANESCL ---
[facility] Anesthesia Checklist - Patient Identification Patient Identification: Arm Band - Structural Data Admitted From: Home Planned Operative Procedure/s: colonoscopy Consent for Planned Operative Procedure(s) Verified: Yes Verified Documents: Surgical Consent, History and Physical - NPO Status Verified Time NPO: 00:00 - Additional verifications Anesthesia Reactions: No - Airway Assessment C-Spine Mobility Assessed: Yes (mp2) TMJ Mobility Assessed: Yes Dentition: Dentures-good fit - Neurological Assessment Level of Consciousness: Awake, Alert - Anesthesia Plan Anesthesia Risk discussed: Yes Anesthesia Plan: Verified ASA Class: III Anesthesia Type: MAC [facility] History I have reviewed the patient's past medical history: Yes Medical History: Reports:: Aneurysm, Asthma, Chronic Obstructive Pulmonary Disease (COPD), Diabetes Mellitus Type 2, Hyperlipidemia, Lung Disease Denies:: Cancer, Diabetes Mellitus Type 1, Internal Pacemaker, MRSA, Seizures *Have you ever received a pneumonia vaccine?: Yes *Have you received a flu vaccine this season?: Yes Anesthesia experience/problems:: nac Other Surgeries: Yes: Colonoscopy, , Other. No: Pacemaker Amputation: No Fractures: No - *Social History Last grade of school completed: Some college Smoking Status: Current every day smoker Tobacco Type: cigarettes # Packs/Day (cigarettes): 1 Alcohol Intake: never Substance Use Type: denies use *Occupational Status:: disabled Housing: house Household Members: family *Travel in the last 8 weeks: None Family Hx:: No significant family history
[2020-02-18 08:30] VITALS: BP 117/75; PULSE 97; RESP 18; TEMP 36.8; O2SAT 97
--- NOTE | 2020-02-18 08:33 | HMH.SCOPE ---
- Procedure: Date: 02/18/20 Procedure Performed:: Total colonoscopy to terminal ileum with multiple polypectomy Indications:: Patient presents for scheduled colonoscopy. Her primary care provider is Alex Zepeda MD. She is a 64-year-old white female who is well known to me. She has multiple comorbidities. I had originally seen her for a positive Cologuard test. Colonoscopy on 04/18/17 and she had greater than 2 dozen adenomatous polyps. Colonoscopy on 11/07/17 revealed a half dozen tubular adenomas. Colonoscopy on 04/17/18 revealed a total of 5 serrated adenomas in 2 tubular adenomas. Most notable was some irregularity at the hepatic flexure likely from prior polypectomy which was biopsied and returned as tubular adenoma. Colonoscopy on 12/18/18 revealed multiple polyps, total of approximately 23. However, she only had 6 tubular adenomas. Most distal polyps were hyperplastic, lymphoid aggregate, and mucosal prolapse. Recommendation was for colonoscopy in one year. Performing Provider:: Jose Luis Youssef MD Referring Provider:: Alex Zepeda MD Sedation:: Propofol Procedure:: Patient was taken to endoscopy procedure room. She was positioned in a lateral decubitus position. Adequate intravenous sedation was achieved with anesthesia titration of propofol. Variable stiffness Olympus colonoscope was inserted via the anus. Upon advancement small polyp was encountered and removed with cold cutting snare. This was proven to be in the sigmoid colon. With some difficulty due to floppiness of the sigmoid colon the colonoscope was ultimately advanced to the cecum. Ileocecal valve and appendiceal orifice were clearly identified. Colonoscope was advanced into the terminal ileum which appeared grossly normal. Colonoscope was slowly withdrawn through the colon with careful surveillance. Several polyps were encountered. Please see findings below. She had appreciable distal sigmoid diverticuli. Retroflexion within the rectum revealed prolapsing hemorrhoids. Colonoscope was withdrawn. Findings:: Sigmoid polyp x2 (1 removed with cold cutting snare and 1 with biopsy forceps) Proximal transverse polyp x2 (1 removed with cold snare and one removed with biopsy forceps Mid transverse polyp removed with biopsy forceps Distal sigmoid polyp removed with biopsy forceps Distal sigmoid polyp x3 removed with biopsy forceps Rectal polyp removed with biopsy forceps Total of 10 polyps removed Sigmoid diverticuli Prolapsing internal hemorrhoids Recommendations:: Likely repeat colonoscopy 1 to 2 years pending pathology Complications:: None immediately apparent Estimated blood obtained (mL): 3
[2020-02-18 08:40] VITALS: BP 116/56; PULSE 98; RESP 18; O2SAT 97
[2020-02-18 08:50] VITALS: BP 114/57; PULSE 97; RESP 18; O2SAT 96
[2020-02-18 09:00] VITALS: BP 119/74; PULSE 101; RESP 18; O2SAT 97
== END 2020-02-18 09:00 | disposition home or self-care (01) ==
LOC: OUTP 06:24
PROVIDERS: PCP Internal Medicine Adolescent Medicine; Visit Provider Surgery
PROC: 0DJD8ZZ Inspection of Lower Intestinal Tract, Via Natural or Artificial Opening Endoscopic (ICD-10-PCS; CPT 45380; principal; 2020-02-18 07:30)
DX: Z12.11 Encounter for screening for malignant neoplasm of colon (principal); K63.5 Polyp of colon; K57.30 Diverticulosis of large intestine without perforation or abscess without bleeding; K64.8 Other hemorrhoids; Z86.010 Personal history of colon polyps; Z87.19 Personal history of other diseases of the digestive system; E11.9 Type 2 diabetes mellitus without complications; J44.9 Chronic obstructive pulmonary disease, unspecified; I72.9 Aneurysm of unspecified site; E78.5 Hyperlipidemia, unspecified; Z72.0 Tobacco use; Z79.899 Other long term (current) drug therapy
CPT/HCPCS: 45380; 45385; 82962; 88305

== ENCOUNTER → 2020-08-22 08:28 | Outpatient (CLI) | payer MEDICARE, SELFPAY ==
[2020-08-22 09:55] LABS: Basophils # 0.1 K/mm3 (0-0.2); Basophils % 0.9 % (0.1-2.0); Eosinophils # 0.2 K/mm3 (0.0-0.4); Eosinophils % 2.7 % (0.1-12.0); Hematocrit 44.9 % (37.0-47.0); Hemoglobin 14.6 g/dL (12.2-16.2); Lymphocytes # 1.7 K/mm3 (0.7-4.5); Lymphocytes % 20.4 % (10-50); Mean Corpuscular HGB Conc 32.6 g/dL (31.8-35.4); Mean Corpuscular Hemoglobin 30.3 pg (27.0-31.2); Mean Corpuscular Volume 92.7 fl (81-99); Mean Platelet Volume 8.8 fl (7.4-10.4); Monocytes # 0.4 K/mm3 (0.1-1.0); Monocytes % 4.2 % (1.7-9.3); Neutrophils % 71.9 % (37.0-80.0); Platelet Count 265 K/mm3 (142-424); Red Blood Count 4.84 M/mm3 (4.20-5.40); Red Cell Distribution Width 14.9 % (11.5-17.5); White Blood Count 8.4 K/mm3 (4.8-10.8)
[2020-08-22 10:32] LABS: Hemoglobin A1C 7.1 % (4.0-6.0)
[2020-08-22 10:58] LABS: Alanine Aminotransferase 24 U/L (12-78); Albumin Level 4.6 g/dl (3.5-5.0); Albumin/Globulin Ratio 1.4 (1.1-1.8); Alkaline Phosphatase 111 U/L (38-126); Anion Gap 15.3 mEq/L (5-15); Aspartate Amino Transferase 20 U/L (14-36); Bilirubin,Total 0.7 mg/dl (0.2-1.3); Blood Urea Nitrogen 13 mg/dl (7-17); Calcium 9.7 mg/dl (8.4-10.2); Carbon Dioxide 31 mmol/L (22.0-30.0); Chloride 94 mmol/L (98-107); Chol/HDL Ratio 2.3 (1-3.5); Cholesterol 131 mg/dl (140-200); Estimated Glomerular Filt Rate 63 ml/min (>60); GFR (African American) 76 ML/MIN (>60); Globulin 3.2 g/dL (1.3-3.2); Glucose 156 mg/dl (74-100); HDL Cholesterol 56 mg/dl (40-60); Potassium 4.3 mmoL/L (3.5-5.1); Sodium 136 mmol/L (136-145); Total Protein,Serum 7.8 g/dl (6.3-8.2); Triglycerides 112 mg/dl (30-150); VLDL Cholesterol 22 mg/dL (0-40)
[2020-08-22 11:09] LABS: Direct LDL Cholesterol 51.27 mg/dL (100-129)
[2020-08-22 11:17] LABS: 25-OH Vitamin D, Total < 12.8 ng/mL (30-100); Creatinine,Urine Random 56 mg/dL (Not Estab.); Microalbumin < 6.000 mg/L (0-16.7)
== END ==
PROVIDERS: Visit Provider Nurse Practitioner Family
DX: E11.9 Type 2 diabetes mellitus without complications (principal); E78.2 Mixed hyperlipidemia; M51.36 Other intervertebral disc degeneration, lumbar region; Z79.84 Long term (current) use of oral hypoglycemic drugs; Z72.0 Tobacco use; E55.9 Vitamin D deficiency, unspecified
CPT/HCPCS: 36415; 80053; 80061; 82043; 82306; 82570; 83036; 85025

== ENCOUNTER → 2020-12-30 08:12 | Outpatient (CLI) | payer MEDICARE, SELFPAY ==
--- NOTE | 2020-12-30 08:15 | XR_ITS ---
PROCEDURE: XR DEXA AXIAL SKELETON CLINICAL HISTORY: POST MENOPAUSAL COMPARISON: No exams were available for comparison FINDINGS: The right hip BMD is 0.495 with a T-score of -3.2. The left hip BMD is 0.600 with a T-score of -2.8. The lumbar spine BMD is 0.938 with a T-score of -1.0. IMPRESSION: This patient is considered osteoporotic according to the World Health Organization criteria. Fracture risk is high. Treatment is advised. Based on these results a follow-up exam is recommended in 1 year. Dictated by: Zuhair Tolbert MD 12/31/2020 08:21 Zuhair Tolbert MD in [place] 12/31/2020 08:21
--- NOTE | 2020-12-30 08:16 | MM_ITS ---
PROCEDURE INFORMATION: Exam: MG Screening 3D Mammography Exam date and time: 12/30/2020 8:16 AM Age: 65 years old Clinical indication: Encounter for screening mammogram for malignant neoplasm of breast TECHNIQUE: Imaging protocol: Screening tomosynthesis and 2D mammography including computer-aided detection (CAD) when performed. COMPARISON: 1. MG MM DIG SCREENING MAMM BI W/CAD 12/26/2019 8:55 AM 2. MG MM DIG MAMM DX UNILAT RT CAD 04/23/2019 1:16 PM FINDINGS: MAMMOGRAPHY: Breast composition: The breast tissue is composed of scattered areas of fibroglandular density. Mass: None. Architectural distortion: None. Calcifications: No suspicious calcifications. Asymmetric density: None. Skin thickening: None. Axillary adenopathy: None. IMPRESSION: No mammographic evidence of malignancy. Annual screening is recommended unless otherwise clinically indicated. ASSESSMENT: BI-RADS Category 1: Negative
== END ==
PROVIDERS: PCP Internal Medicine Adolescent Medicine; Visit Provider Nurse Practitioner Family
DX: Z12.31 Encounter for screening mammogram for malignant neoplasm of breast (principal); Z13.820 Encounter for screening for osteoporosis; Z78.0 Asymptomatic menopausal state
CPT/HCPCS: 77063; 77067; 77080

== ENCOUNTER → 2021-03-02 09:13 | Outpatient (POV) | payer MEDICARE, SELFPAY | PROVIDERS: Visit Provider Dermatology | DX: Z00.00 Encounter for general adult medical examination without abnormal findings (principal) ==

== ENCOUNTER → 2021-04-19 07:48 | Outpatient (CLI) | payer MEDICARE, MEDICAID, SELFPAY ==
[2021-04-19 08:32] LABS: Basophils # 0.1 K/mm3 (0-0.2); Eosinophils # 0.1 K/mm3 (0.0-0.4); Hematocrit 37.9 % (37.0-47.0); Lymphocytes # 1.4 K/mm3 (0.7-4.5); Lymphocytes % 24.3 % (10-50); Mean Corpuscular HGB Conc 31.7 g/dL (31.8-35.4); Mean Corpuscular Hemoglobin 30.5 pg (27.0-31.2); Mean Platelet Volume 9.1 fl (7.4-10.4); Monocytes # 0.3 K/mm3 (0.1-1.0); Monocytes % 4.7 % (1.7-9.3); Neutrophils # 3.8 K/mm3 (1.8-7.8); Neutrophils % 67.9 % (37.0-80.0); Platelet Count 195 K/mm3 (142-424); Red Blood Count 3.94 M/mm3 (4.20-5.40); Red Cell Distribution Width 14.3 % (11.5-17.5); White Blood Count 5.6 K/mm3 (4.8-10.8)
[2021-04-19 09:02] LABS: Alanine Aminotransferase 12 U/L (12-78); Albumin Level 3.7 g/dl (3.5-5.0); Albumin/Globulin Ratio 1.3 (1.1-1.8); Anion Gap 13.5 mEq/L (5-15); Aspartate Amino Transferase 19 U/L (14-36); Blood Urea Nitrogen 8 mg/dl (7-17); Calcium 9.1 mg/dl (8.4-10.2); Carbon Dioxide 30 mmol/L (22.0-30.0); Chloride 99 mmol/L (98-107); Estimated Glomerular Filt Rate 72 ml/min (>60); GFR (African American) 87 ML/MIN (>60); Globulin 2.8 g/dL (1.3-3.2); Glucose 154 mg/dl (74-100); HDL Cholesterol 50 mg/dl (40-60); Potassium 4.5 mmoL/L (3.5-5.1); Sodium 138 mmol/L (136-145); Total Protein,Serum 6.5 g/dl (6.3-8.2)
[2021-04-19 09:05] LABS: Alkaline Phosphatase 79 U/L (38-126); Bilirubin,Total 0.6 mg/dl (0.2-1.3); Chol/HDL Ratio 2.2 (1-3.5); Cholesterol 112 mg/dl (140-200); Triglycerides 75 mg/dl (30-150); VLDL Cholesterol 15 mg/dL (0-40)
[2021-04-19 09:14] LABS: Direct LDL Cholesterol 49.52 mg/dL (100-129)
[2021-04-19 09:19] LABS: 25-OH Vitamin D, Total 47.5 ng/mL (30-100)
[2021-04-21 04:28] LABS: Hemoglobin A1C 6.7 % (4.0-6.0)
== END ==
PROVIDERS: PCP Nurse Practitioner Family; Visit Provider Nurse Practitioner Family
DX: Z20.822 Contact with and (suspected) exposure to COVID-19 (principal); J43.9 Emphysema, unspecified; E11.9 Type 2 diabetes mellitus without complications; E78.5 Hyperlipidemia, unspecified; E55.9 Vitamin D deficiency, unspecified; Z79.84 Long term (current) use of oral hypoglycemic drugs
CPT/HCPCS: 36415; 80053; 80061; 82306; 83036; 85025; U0003

== ENCOUNTER 2021-04-21 06:56 | Day surgery (SDC) | payer MEDICARE, MEDICAID, SELFPAY ==
[2021-04-14 11:08] VITALS: BMI 26.9
[2021-04-21 07:21] VITALS: BP 146/79; PULSE 81; RESP 20; TEMP 36.7; O2SAT 97
[2021-04-21 07:28] LABS: POC Glucose,Bedside 110 (70-110)
[2021-04-21 07:36] VITALS: O2SAT 97
--- NOTE | 2021-04-21 07:55 | HMH.ANESCL ---
[facility] Anesthesia Checklist - Patient Identification Patient Identification: Arm Band - Structural Data Admitted From: Home Planned Operative Procedure/s: colonoscopy Consent for Planned Operative Procedure(s) Verified: Yes Verified Documents: Surgical Consent, History and Physical - NPO Status Verified Time NPO: 00:00 - Additional verifications Anesthesia Reactions: No - Airway Assessment C-Spine Mobility Assessed: Yes (mp2) TMJ Mobility Assessed: Yes Dentition: Dentures-good fit - Neurological Assessment Level of Consciousness: Awake, Alert - Anesthesia Plan Anesthesia Risk discussed: Yes Anesthesia Plan: Verified ASA Class: III Anesthesia Type: MAC [facility] History I have reviewed the patient's past medical history: Yes Medical History: Reports:: Aneurysm, Asthma, Chronic Obstructive Pulmonary Disease (COPD), Diabetes Mellitus Type 2, Hyperlipidemia, Lung Disease Denies:: Cancer, Diabetes Mellitus Type 1, Internal Pacemaker, MRSA, Seizures *Have you ever received a pneumonia vaccine?: Yes *Have you received a flu vaccine this season?: Yes Anesthesia experience/problems:: nac Other Surgeries: Yes: Colonoscopy, Coronary Stent, , Other. No: Pacemaker Amputation: No Fractures: No - *Social History Last grade of school completed: High school graduate Smoking Status: Current every day smoker Tobacco Type: cigarettes # Packs/Day (cigarettes): 1 Alcohol Intake: never Substance Use Type: denies use *Occupational Status:: retired Housing: house Household Members: family *Travel in the last 8 weeks: None Family Hx:: Cancer, Stroke
--- NOTE | 2021-04-21 08:23 | HMH.SCOPE ---
- Procedure: Date: 04/21/21 Patient Date of :: 1955 Procedure Performed:: Total colonoscopy with polypectomy Indications:: Patient presents for follow-up colonoscopy. Her primary care provider is Alex Zepeda MD. She is a 66-year-old white female who is well known to me. She has multiple comorbidities. I had originally seen her for a positive Cologuard test and performed colonoscopy on 04/18/17 and she had greater than 2 dozen adenomatous polyps. Colonoscopy on 11/07/17 (6 months later) revealed a half dozen tubular adenomas. Colonoscopy on 04/17/18 (6 months later) revealed a total of 5 serrated adenomas and 2 tubular adenomas. Most notable was some irregularity at the hepatic flexure likely from prior polypectomy which was biopsied and returned as tubular adenoma. Colonoscopy on 12/18/18 (8 months later) revealed multiple polyps, total of approximately 23. However, she only had 6 tubular adenomas. Colonoscopy done on 02/18/2020 (14 months later) revealed some sigmoid diverticulosis and internal hemorrhoids. 10 possible polyps were removed and only 4 of these were tubular adenomas. She is without complaints. Performing Provider:: Jose Luis Youssef MD Referring Provider:: Alex Zepeda MD Sedation:: MAC sedation Procedure:: Patient was taken to endoscopy procedure room and positioned in lateral decubitus position. Adequate intravenous sedation was achieved with anesthesia titration of propofol. Variable stiffness Olympus colonoscope was inserted via the anus. Was advanced to the cecum with some minimal difficulty requiring abdominal pressure due to floppiness and redundancy of the sigmoid colon. Ileocecal valve and appendiceal orifice were identified. Within the cecum there was a diminutive polyp removed with cold biopsy forceps. In the transverse colon there was what appeared to be recurrent polyp within a scar from previous polypectomy which was removed with snare with remainder of polyp removed using biopsy forceps. Within the rectosigmoid region there were several likely hyperplastic appearing polyps removed with cold cutting snare. In the rectum there were several likely hyperplastic polyps removed with combination of biopsy and cutting snare. Retroflexion revealed nonpathologic internal hemorrhoids. She did have significant sigmoid diverticulosis. Colonoscope was withdrawn. Findings:: Polyps as noted above Significant sigmoid diverticulosis Recommendations:: Pending the pathology repeat colonoscopy 1 to 2 years Complications:: None immediately apparent Estimated blood obtained (mL): 3
[2021-04-21 08:25] VITALS: BP 158/80; PULSE 79; RESP 18; TEMP 36.6; O2SAT 96
[2021-04-21 08:35] VITALS: BP 149/94; PULSE 79; RESP 18; O2SAT 96
[2021-04-21 08:45] VITALS: BP 120/82; PULSE 85; RESP 18; O2SAT 96
[2021-04-21 08:55] VITALS: BP 146/71; PULSE 85; RESP 18; O2SAT 97
== END 2021-04-21 08:55 | disposition home or self-care (01) ==
LOC: OUTP 06:58
PROVIDERS: PCP Internal Medicine Adolescent Medicine; Visit Provider Surgery
PROC: 0DJD8ZZ Inspection of Lower Intestinal Tract, Via Natural or Artificial Opening Endoscopic (ICD-10-PCS; CPT 45378; principal; 2021-04-21 07:30)
DX: Z12.11 Encounter for screening for malignant neoplasm of colon (principal); Z86.010 Personal history of colon polyps; K63.5 Polyp of colon; K57.32 Diverticulitis of large intestine without perforation or abscess without bleeding; E11.9 Type 2 diabetes mellitus without complications; J44.9 Chronic obstructive pulmonary disease, unspecified; E78.5 Hyperlipidemia, unspecified; J98.4 Other disorders of lung; Z72.0 Tobacco use; Z82.3 Family history of stroke; Z80.9 Family history of malignant neoplasm, unspecified; Z88.1 Allergy status to other antibiotic agents
CPT/HCPCS: 45380; 45385; 82962; 88305; J2704

== ENCOUNTER 2022-03-15 19:39 | Inpatient (IN) | payer MEDICARE, MEDICAID, SELFPAY ==
[2022-03-15] VITALS (7 sets, daily range): BP systolic 91–112; BP diastolic 45–90; PULSE 108–138; RESP 20–32; TEMP 37.2–39.3; O2SAT 92–97; BMI 28.3; BMI 28.4
--- NOTE | 2022-03-15 19:58 | XR_ITS ---
PROCEDURE INFORMATION: Exam: XR Chest Exam date and time: 03/15/2022 8:14 PM Age: 67 years old Clinical indication: Patient HX: Smoker, shortness of breath. ; Additional info: Short of breath TECHNIQUE: Imaging protocol: Radiologic exam of the chest. Views: 1 view. COMPARISON: CR CXR2V XR chest 2V 08/29/2018 12:19 PM FINDINGS: Lungs: Low lung volumes with interstitial coarsening right greater than left. No lobar consolidation. Pleural spaces: No pneumothorax. Heart/Mediastinum: No cardiomegaly. Bones/joints: AC arthrosis. No acute fracture. IMPRESSION: Interstitial coarsening which may in part be hypoventilatory however pneumonitis should be clinically excluded.
--- NOTE | 2022-03-15 19:59 | HMH.EDGENADL ---
ED Disposition Clinical Impression: Severe sepsis, COVID UTI (urinary tract infection) Qualifiers: Urinary tract infection type: acute cystitis Hematuria presence: without hematuria Qualified Code(s): N30.00 - Acute cystitis without hematuria Disposition: Admitted As Inpatient Condition on Discharge: Serious Referrals: Alex Zepeda MD [Primary Care Provider] - Time of Disposition: 21:23 - Critical Care Critical Care Time: Yes Attestation: On 03/15/22, the high probability of a clinically significant, sudden or life threatening deterioration of the following system(s) required my full and direct attention, intervention and personal management. The time I documented below is in addition to time spent performing reported procedures but includes the following listed in this critical care notation. Vital system(s) involved:: Circulatory Failure, Respiratory Failure My critical care processes included: Assessment & monitoring of V/S, Initial and Re-exams, Data Review/Interpretation, Coordinating Care, Medication Orders and management, Documentation Medical Decision Making - Medical Records Medical records reviewed: Yes: I reviewed the patient's medical records. - Angel Inquiry Pt receiving controlled substance: No Vital Signs: 03/15/22 19:53 Temperature 102.7 F H Temperature Source Oral Pulse Rate [Apical] 138 H Respiratory Rate 32 H Blood Pressure [Right Arm] 107/90 L Blood Pressure Mean [Right Arm] 95 Blood Pressure Source [Right Arm] Automatic Cuff Blood Pressure Position [Right Arm] Sitting 02 Sat by Pulse Oximetry 92 L Oxygen Delivery Method Nasal Cannula Oxygen Flow Rate (LPM) 3 - Lab Data Lab Results 03/15/22 19:58: VBG pH 7.43 H, VBG pCO2 40.8, VBG pO2 26.3 L, VBG HCO3 26.3, VBG Total CO2 27.5 H, VBG O2 Saturation 48.6 L, VBG Base Excess 1.9 03/15/22 20:00: WBC 17.6 H, RBC 4.33, Hgb 12.6, Hct 39.9, MCV 92.0, MCH 29.1, MCHC 31.6 L, RDW 14.9, Plt Count 275, MPV 9.9, Neut % (Auto) 86.6 H, Lymph % (Auto) 7.4 L, Adams % (Auto) 5.2, Eos % (Auto) 0.4, Baso % (Auto) 0.4, Neut # (Auto) 15.2 H, Lymph # (Auto) 1.3, Adams # (Auto) 0.9, Eos # (Auto) 0.1, Baso # (Auto) 0.1 03/15/22 20:00: Sodium 136, Potassium 3.5, Chloride 92 L, Carbon Dioxide 34 H, Anion Gap 13.5, BUN 20 H, Creatinine 0.90, Estimated Creat Clear 65, Estimated GFR 62, Est GFR ( Amer) 76, Glucose 284 H, Calcium 8.6, Total Bilirubin 1.9 H, AST 29, ALT 26, Alkaline Phosphatase 115, Troponin I < 0.01, NT-Pro-B Natriuret Pep 614 H, Total Protein 7.2, Albumin 3.7, Globulin 3.5 H, Albumin/Globulin Ratio 1.1 03/15/22 20:00: Lactate 2.8 H 03/15/22 20:00: Procalcitonin 0.284 03/15/22 20:06: SARS-CoV-2 (PCR) Detected A, Influenza A Untype (PCR) Not detected, Influenza Type B (PCR) Not detected 03/15/22 20:40: Urine Color [place], Urine Appearance Clear, Urine pH 5.5, Ur Specific [place] >= 1.030, Urine Protein 2+, Urine Glucose (UA) Trace, Urine Ketones 1+, Urine Blood Trace-i, Urine Nitrate Positive, Urine Bilirubin Negative, Urine Urobilinogen 2.0, Ur Leukocyte Esterase Negative Result diagrams: 03/15/22 20:00 03/15/22 20:00 Orders (Tests/Meds): ED MEDICATIONS Generic Name Dose Route Start Last Admin Trade Name Jennifer PRN Reason Stop Dose Admin Sodium Chloride 1,000 mls @ 999 mls/hr 03/15/22 20:15 03/15/22 20:08 Sod Chlor 0.9% 1000ml Bag IV 03/15/22 21:15 999 mls/hr .Q1H1M GUILLE Administration Azithromycin 500 mg/ Sodium 250 mls @ 250 mls/hr 03/15/22 20:30 Chloride IV 03/29/22 20:29 Q24H GUILLE Ceftriaxone Sodium 2 gm/ 50 mls @ 100 mls/hr 03/15/22 20:30 03/15/22 20:47 Sodium Chloride IV 03/29/22 20:29 100 mls/hr Q24H GUILLE Administration Discontinued Medications Generic Name Dose Route Start Last Admin Trade Name Freq PRN Reason Stop Dose Admin Acetaminophen 650 mg 03/15/22 20:03 03/15/22 20:08 Acetaminophen 325mg Tab PO 03/15/22 20:04 650 mg ONCE ONE Administration Methylprednisolone Sodium Succin
--- NOTE | 2022-03-15 20:02 | ECG_ITS ---
APPROVED REPORT Exam: Resting ECG HR:129 bpm ECG Measurements Heart Rate 129 AXES NH 155 P 66 QRSd 90 QRS -40 QT 309 T 61 QTc 385 Conclusion SINUS TACHYCARDIA LEFT AXIS DEVIATION [QRS AXIS < -30] PATTERN CONSISTENT WITH PULMONARY DISEASE MODERATE VOLTAGE CRITERIA FOR LVH, CONSIDER NORMAL VARIANT [MEETS CRITERIA IN ONE OF: R(aVL), S(V1), R(V5), R(V5/V6)+S(V1)] MINIMAL ST DEPRESSION [0.025+ mV ST DEPRESSION] ABNORMAL ECG UNCONFIRMED REPORT Electronically signed by : Alex Zepeda MD 03/16/2022 21:03:02
[2022-03-15 20:10] LABS: Basophils # 0.1 K/mm3 (0-0.2); Basophils % 0.4 % (0.1-2.0); Eosinophils # 0.1 K/mm3 (0.0-0.4); Eosinophils % 0.4 % (0.1-12.0); Hematocrit 39.9 % (37.0-47.0); Hemoglobin 12.6 g/dL (12.2-16.2); Lymphocytes # 1.3 K/mm3 (0.7-4.5); Lymphocytes % 7.4 % (10-50); Mean Corpuscular HGB Conc 31.6 g/dL (31.8-35.4); Mean Corpuscular Hemoglobin 29.1 pg (27.0-31.2); Mean Platelet Volume 9.9 fl (7.4-10.4); Monocytes # 0.9 K/mm3 (0.1-1.0); Monocytes % 5.2 % (1.7-9.3); Neutrophils # 15.2 K/mm3 (1.8-7.8); Neutrophils % 86.6 % (37.0-80.0); Platelet Count 275 K/mm3 (142-424); Red Blood Count 4.33 M/mm3 (4.20-5.40); Red Cell Distribution Width 14.9 % (11.5-17.5); White Blood Count 17.6 K/mm3 (4.8-10.8)
[2022-03-15 20:12] LABS: MANUAL DIFFERENTIAL MANUAL DIFFERENTIAL (MANUAL DIFF)
[2022-03-15 20:12] LABS: Influenza A, PCR Not Detected (NotDetected); Influenza B, PCR Not Detected (NotDetected)
[2022-03-15 20:19] LABS: Alanine Aminotransferase 26 U/L (12-78); Albumin Level 3.7 g/dl (3.5-5.0); Albumin/Globulin Ratio 1.1 (1.1-1.8); Alkaline Phosphatase 115 U/L (38-126); Anion Gap 13.5 mEq/L (5-15); Aspartate Amino Transferase 29 U/L (14-36); Bilirubin,Total 1.9 mg/dl (0.2-1.3); Blood Urea Nitrogen 20 mg/dl (7-17); Calcium 8.6 mg/dl (8.4-10.2); Carbon Dioxide 34 mmol/L (22.0-30.0); Chloride 92 mmol/L (98-107); Creatinine Clearance Estimated 65 mL/min (50-200); Estimated Glomerular Filt Rate 62 ml/min (>60); GFR (African American) 76 ML/MIN (>60); Globulin 3.5 g/dL (1.3-3.2); Glucose 284 mg/dl (74-100); Lactic Acid 2.8 mmol/L (0.7-2.1); Potassium 3.5 mmoL/L (3.5-5.1); Sodium 136 mmol/L (136-145); Total Protein,Serum 7.2 g/dl (6.3-8.2)
[2022-03-15 20:32] LABS: NT Pro Brain Natriuretic Pep. 614 pg/mL (0-125)
[2022-03-15 20:36] LABS: Procalcitonin 0.284 ng/mL (0.0-2.0); Troponin I < 0.01 ng/ml (0.00-0.034)
[2022-03-15 20:44] LABS: VBG Base Excess 1.9 mmol/L (-2.4-2.3); VBG HCO3 26.3 mmol/L (23-30); VBG Oxygen Saturation 48.6 % (50-70); VBG PCO2 40.8 mmol/L (35-51); VBG PH 7.43 mmol/L (7.31-7.41); VBG PO2 26.3 mmol/L (28-40); VBG Total CO2 27.5 mmol/L (23-27)
[2022-03-15 20:46] LABS: Coronavirus 19, PCR Detected (NotDetected)
[2022-03-15 20:47] LABS: Microscopic, Urine URINE MICROSCOPIC (MICROSCOPIC)
[2022-03-15 21:04] LABS: Appearance,Urine CLEAR (Clear); Blood, Urine TRACE-I (Negative); Glucose,Urine (UA) TRACE (Negative); Ketones,Urine 1+ (Negative); Leukocyte Esterase,Urine Negative (Negative); Nitrate,Urine POSITIVE (Negative); PH,Urine 5.5 (5.0-8.5); Protein,Urine 2+ (Negative); Specific Gravity, Urine >= 1.030 (1.005-1.030)
[2022-03-15 21:11] LABS: Color,Urine Orange (Yellow)
[2022-03-15 21:15] LABS: Bilirubin,Urine Negative (Negative)
[2022-03-15 21:23] LABS: Bacteria,Urine 4+ /lpf; WBC,Urine Occasional #/hpf (0-3)
--- NOTE | 2022-03-15 21:32 | PC.NURSE ---
Ice water given to family member, patient states she feels much better
[2022-03-15 21:59] LABS: Lymphocytes % 11 % (10-50); Monocytes % 5 % (2-9); Neutrophils % 84 % (42-76); Total Cells Counted 100
[2022-03-15 22:00] LABS: Hypochromasia 1+; Platelet Estimate Normal
--- NOTE | 2022-03-15 22:34 | PC.NURSE ---
Dr Katelyn sharpe for ED doctor
--- NOTE | 2022-03-15 22:36 | PC.NURSE ---
Dr. Carias sawmill production worker for doctor Katelyn, ED doctor on phone with Dr. Carias at this time re: admitting
--- NOTE | 2022-03-15 22:38 | PC.NURSE ---
supervisor fabrication notified of admission
[2022-03-15 23:32] LABS: Reflex Lactic Add Lactic Reflex
--- NOTE | 2022-03-15 23:34 | PC.NURSE ---
patient up to floor via wheelchair @ this time.
[2022-03-15 23:45] LABS: Lactic Acid Follow Up (RFLX 1) 1.5 mmol/L (0.7-2.1)
[2022-03-15 23:58] LABS: Troponin I < 0.01 ng/ml (0.00-0.034)
[2022-03-16] VITALS (9 sets, daily range): BP systolic 98–125; BP diastolic 50–74; PULSE 87–115; RESP 17–23; TEMP 36.4–36.9; O2SAT 90–99; BMI 28.3
--- NOTE | 2022-03-16 05:33 | PC.NURSE ---
Patient admitted to floor this shift. Patient is A&O x4. Patient is positive for covid precautions in place. Patient tolerating 3l nc (patient baseline) with o2 sat above 90%. Wheezes noted when listening to lung sounds. Patient does have productive intermitted cough patient states this is not new for her. Patient received remaining amount of sepsis protocol fluids see oct. No temp noted since admitted to floor thus far. No other compliments voiced at this time.
[2022-03-16 06:38] LABS: Basophils % 0.2 % (0.1-2.0); Eosinophils % 0.1 % (0.1-12.0); Hematocrit 33.3 % (37.0-47.0); Lymphocytes # 0.6 K/mm3 (0.7-4.5); Lymphocytes % 6.5 % (10-50); Mean Corpuscular HGB Conc 32.1 g/dL (31.8-35.4); Mean Corpuscular Hemoglobin 29.7 pg (27.0-31.2); Mean Corpuscular Volume 92.5 fl (81-99); Mean Platelet Volume 9.9 fl (7.4-10.4); Monocytes # 0.2 K/mm3 (0.1-1.0); Monocytes % 1.8 % (1.7-9.3); Neutrophils # 8.6 K/mm3 (1.8-7.8); Neutrophils % 91.4 % (37.0-80.0); Platelet Count 196 K/mm3 (142-424); Red Cell Distribution Width 14.8 % (11.5-17.5); White Blood Count 9.4 K/mm3 (4.8-10.8)
[2022-03-16 06:43] LABS: Chloride 98 mmol/L (98-107); Sodium 136 mmol/L (136-145)
[2022-03-16 06:45] LABS: Blood Urea Nitrogen 20 mg/dl (7-17); Creatinine Clearance Estimated 65 mL/min (50-200); Estimated Glomerular Filt Rate 100 ml/min (>60); GFR (African American) 121 ML/MIN (>60); Lactic Acid 1.9 mmol/L (0.7-2.1)
[2022-03-16 06:46] LABS: Calcium 7.6 mg/dl (8.4-10.2); Carbon Dioxide 30 mmol/L (22.0-30.0); Glucose 385 mg/dl (74-100)
[2022-03-16 06:53] LABS: Hemoglobin 10.8 g/dL (12.2-16.2); MANUAL DIFFERENTIAL MANUAL DIFFERENTIAL (MANUAL DIFF)
[2022-03-16 07:05] LABS: Anisocytosis 1+; Hypochromasia 1+; Lymphocytes % 6 % (10-50); Macrocytosis 1+; Monocytes % 2 % (2-9); Neutrophils % 92 % (42-76); Ovalocytes 1+; Platelet Estimate Normal; Total Cells Counted 100
--- NOTE | 2022-03-16 07:13 | P.CONPHA_ITS ---
[facility] Pharmacy VTE Monitoring - Patient Demographics Admission date: 03/15/22 Report Date: 03/16/22 Time: 07:13 Allergies/Adverse Reactions: Patient Allergies erythromycin base [ERYTHROMYCIN BASE] Allergy (Unknown, Verified 04/21/21 07:13) NA-NAUSEA/VOMITING Height: 1.63 m Weight: 75.098 kg Patient Problems: Current Active Problems Severe sepsis (Acute) UTI (urinary tract infection) (Acute) COVID (Acute) - VTE Risk Labs: VTE Related Lab Results Hgb 10.8 g/dL (12.2-16.2) L D 03/16/22 06:24 Hct 33.3 % (37.0-47.0) L 03/16/22 06:24 Plt Count 196 K/mm3 (142-424) D 03/16/22 06:24 BUN 20 mg/dl (7-17) H 03/16/22 06:24 Creatinine 0.60 mg/dl (0.52-1.04) D 03/16/22 06:24 Estimated Creat Clear 65 mL/min (50-200) 03/16/22 06:24 Was VTE Risk Assessment Performed: Yes VTE Score: 9 VTE Risk Level: Moderate Risk - Prophylaxis VTE Prophylaxis Ordered?: Yes Types of VTE Prophylaxis: TEDS Knee High, Pharmacological Location of Applied Device: Bilateral Lower Extremeties Pharmacologic Type: Enoxaparin
--- NOTE | 2022-03-16 08:04 | HMH.PHAINT ---
MEDICATION RECONCILIATION COMPLETED ON PATIENT USING EXTERNAL FILL HISTORY FROM PHARMACY AND CECELIA REPORT. -LYNDON BOSSD
--- NOTE | 2022-03-16 08:31 | HMH.HP ---
*Admission Date: 03/15/22 *Chief complaint: Cough, shortness of air *History of present illness: In summary this is a 67-year-old female with history of COPD and CHF presenting to the emergency department with cough, shortness of breath, generalized malaise. Patient appears unwell on arrival. Elevated respiratory rate. Hypoxic on room air. She was taken to a critical room and placed on the monitor. Placed on 3 L by nasal cannula. Patient febrile to 102 Fahrenheit. Tachycardic. Blood pressure soft, but no hypotension. Will obtain CBC, CMP, chest x-ray, EKG, troponin profile, procalcitonin, lactic acid, blood cultures, COVID testing. Patient given 1 L IV fluids. 650 mg p.o. acetaminophen. EKG shows sinus tachycardia. No ST segment changes. No arrhythmia. Meeting SIRS criteria. Given 1 L IV fluids. Will cover with 2 g Rocephin and 500 mg azithromycin. Initial laboratory results show elevated white blood cell count at 17,000. Elevated lactic acid at 2.8. Renal function is adequate. Glucose elevated at 230. No anion gap. No acidosis on VBG. COVID testing positive. Urinalysis shows nitrite positive urinary tract infection. Sent for urine culture. Patient is receiving Rocephin. Reassessment, patient says she is feeling much better after fluids and acetaminophen. Tachycardia improved. Patient receiving remainder of 30 cc/kg IV fluids. No evidence of septic shock. Will cover with remdesivir. Patient has already received steroids. Will need admission Above note per ER. Agree with admission. Patient reports that she is feeling much better after 1 night of IV fluids. A little bit low potassium this morning. Otherwise has eaten breakfast well. [facility] History I have reviewed the patient's past medical history: Yes Medical History: Reports:: Aneurysm, Asthma, Congestive Heart Failure, Chronic Obstructive Pulmonary Disease (COPD), Diabetes Mellitus Type 2, Hyperlipidemia, Lung Disease Denies:: Cancer, Diabetes Mellitus Type 1, Internal Pacemaker, MRSA, Seizures *Have you ever received a pneumonia vaccine?: Yes *Have you received a flu vaccine this season?: Yes Other Medical History: Reports: Cataracts, Sinus Problems Other Surgeries: Yes: Cardiac Catheterization, Colonoscopy, Coronary Stent, , Other. No: Pacemaker Amputation: No Fractures: No - *Social History Last grade of school completed: GED Smoking Status: Current every day smoker Tobacco Type: cigarettes # Packs/Day (cigarettes): 1 Alcohol Intake: never Substance Use Type: denies use *Occupational Status:: retired Housing: house Household Members: family *Travel in the last 8 weeks: None Family Hx:: Cancer, Coronary Artery Disease, Diabetes, Stroke Review of Systems - Review of Systems Review of systems:: pertinent systems reviewed and negative unless documented below - *Neurologic Reports weakness, Denies confusion, Denies headache(s), Denies fainting, Denies dizziness Meds Home Medications Medication Instructions Recorded Confirmed Type linaclotide 72 mcg capsule 72 mcg PO Q48H 11/05/18 03/16/22 History Alendronate Sodium 70 mg PO PORTER 04/14/21 03/16/22 History Aspirin [Adult Aspirin Regimen] 81 mg PO DAILY 04/14/21 03/15/22 History Fluticasone/Umeclidin/Vilanter 1 puff IH DAILY 04/14/21 03/16/22 History [Trelegy Ellipta 100-62.5-25] Albuterol Sulfate [Albuterol 2 puff IH Q4HP PRN 04/21/21 03/16/22 History Sulfate Hfa] Cholecalciferol (Vitamin D3) 2,000 unit PO DAILY 03/15/22 03/15/22 History [Vitamin D3 1,000 Unit Cap] Atorvastatin Calcium [Lipitor 40mg 40 mg PO DAILY 03/16/22 03/16/22 History Tab] Furosemide [Furosemide 20mg Tab*] 20 mg PO DAILY 03/16/22 03/16/22 History Loratadine [Claritin 10mg 10 mg PO DAILY 03/16/22 03/16/22 History Tablet] Metformin HCl 500 mg PO BIDWMEAL 03/16/22 03/16/22 History Allergies Allergy/AdvReac Type Severity Reaction Status Date / Time erythromycin base Allergy Unknown NA
--- NOTE | 2022-03-16 11:18 | HMH.OTEV ---
OT Inpatient Evaluation Rehab OT IP Evaluation Start: 03/16/22 08:35 Freq: ONCE Status: Complete Protocol: Document 03/16/22 10:56 MAOJ (Rec: 03/16/22 11:17 MAJO [id number]) Rehab OT IP Assessment Subjective History In summary this is a 67-year- old female with history of COPD and CHF presenting to the emergency department with cough, shortness of breath, generalized malaise. Patient appears unwell on arrival. Elevated respiratory rate. Hypoxic on room air. She was taken to a critical room and placed on the monitor. Placed on 3 L by nasal cannula. Patient febrile to 102 Fahrenheit. Tachycardic. Blood pressure soft, but no hypotension. Will obtain CBC, CMP, chest x-ray, EKG, troponin profile, procalcitonin, lactic acid, blood cultures, COVID testing. Patient given 1 L IV fluids. 650 mg p.o. acetaminophen. EKG shows sinus tachycardia. No ST segment changes. No arrhythmia. Meeting SIRS criteria. Given 1 L IV fluids. Will cover with 2 g Rocephin and 500 mg azithromycin. Initial laboratory results show elevated white blood cell count at 17,000. Elevated lactic acid at 2.8. Renal function is adequate. Glucose elevated at 230. No anion gap. No acidosis on VBG. COVID testing positive. Urinalysis shows nitrite positive urinary tract infection. Sent for urine culture. Patient is receiving Rocephin. Reassessment, patient says she is feeling much better after fluids and acetaminophen. Tachycardia improved. Patient receiving remainder of
--- NOTE | 2022-03-16 11:22 | HMH.PTEV ---
Physical Therapy Evaluation Rehab PT IP Evaluation Start: 03/16/22 08:35 Freq: ONCE Status: Active Protocol: Document 03/16/22 11:18 PHORNE (Rec: 03/16/22 11:22 PHORNE [id number]) Subjective/History History History 67 yowf adm to [facility] with UTI and SOA, found to be COVID+. She reports she lives with family, 2-3 steps to enter the home, and she is generally independent with all mobility without AD at home. Subjective Subjective She reports feeling much better this am, getting stronger. remains on 3 L/min O2 via NC. Saturation 97% prior to treatment, 82% with walking, 90% after return to chair. Rehab PT IP Eval Objective Appearance Patient Behavior Appropriate Patient Orientation Person,Place,Time Difficulty following instructions none Speech Pattern Clear Ambulation Patient Able to Ambulate Yes Ambulation Observation IP General Gait Pattern Observation Wide Based Gait Ambulation Distance (feet) 30 Ambulation Assistive Device Rolling Walker Ambulation Ability Supervision/Stand by Balance Ability to Arise Able, uses arms to help Sitting Balance Steady, safe Standing Balance Steady, wide stance Dynamic Sitting Balance Ability Good Dynamic Standing Balance Ability Good Transfers Bed Transfer Ability Contact Guard/Hand Hold Chair Transfer Ability Supervision/Stand by Sit to Stand Bed Transfer Ability Supervision/Stand by Sit to Stand Chair Transfer Ability Supervision/Stand by ROM All Extremities PT ROM Status WFL MMT All Extremities PT MMT WFL Rehab PT IP prob,goals,plan Problems Date of Evaluation: 03/16/22 PT IP Problems Bed Mobility,Transfers,Gait Rehab Potential Rehab Potential Good Plan PT Intervention Plan Bed Mobility,Transfers,Gait, Therapeutic Exercise PT Plan Frequency BID Duration LOS Discharge Goals Bed Transfer Ability Independent Sit to Stand Chair Transfer Ability Independent Ambulation Assistive Device Rolling Walker Ambulation Distance (feet) 40 Discharge Plan PT Discharge Plan Pt is appropriate to return home once medically stable. G -code Required No Eval Complexity Eval Charge Codes
--- NOTE | 2022-03-16 17:40 | PC.NURSE ---
pt is A&OX4. pt. has ambulated to and from the bathroom using a walker with standby assistance. tolerating 3L O2 via nasal canula (baseline), O2 sats >90%, occasionally dropping to 80s but quickly recovering. pt has not complained of SOB or pain this shift. call light is in reach, bed in lowest position and wheels locked.
[2022-03-17] VITALS: BP 106/68; PULSE 91; RESP 19; TEMP 36.7; O2SAT 95
[2022-03-17 03:35] VITALS: BP 112/69; PULSE 97; RESP 20; TEMP 36.8; O2SAT 90
--- NOTE | 2022-03-17 04:53 | PC.NURSE ---
Patient is A&O x4. Patient tolerating 3l nc (patient baseline) with o2 sat above 90%. [place] noted when listening to lung sounds. Patient does have productive intermitted cough. Patient use is RW when ambulated to the restroom. No other compliments voiced at this time.
[2022-03-17 06:17] LABS: Basophils % 0.4 % (0.1-2.0); Eosinophils # 0.1 K/mm3 (0.0-0.4); Eosinophils % 1.2 % (0.1-12.0); Hematocrit 31.1 % (37.0-47.0); Hemoglobin 9.9 g/dL (12.2-16.2); Lymphocytes % 9.2 % (10-50); Mean Corpuscular HGB Conc 31.8 g/dL (31.8-35.4); Mean Corpuscular Hemoglobin 30.3 pg (27.0-31.2); Mean Corpuscular Volume 95.2 fl (81-99); Monocytes # 0.7 K/mm3 (0.1-1.0); Monocytes % 6.9 % (1.7-9.3); Neutrophils # 8.7 K/mm3 (1.8-7.8); Neutrophils % 82.2 % (37.0-80.0); Platelet Count 201 K/mm3 (142-424); Red Blood Count 3.26 M/mm3 (4.20-5.40); Red Cell Distribution Width 14.8 % (11.5-17.5); White Blood Count 10.5 K/mm3 (4.8-10.8)
[2022-03-17 06:38] LABS: Chloride 106 mmol/L (98-107); Potassium 3.5 mmoL/L (3.5-5.1); Sodium 137 mmol/L (136-145)
[2022-03-17 06:40] LABS: Alanine Aminotransferase 22 U/L (12-78); Aspartate Amino Transferase 34 U/L (14-36); Bilirubin,Total 0.2 mg/dl (0.2-1.3)
[2022-03-17 06:41] LABS: Albumin Level 2.5 g/dl (3.5-5.0); Alkaline Phosphatase 100 U/L (38-126); Anion Gap 8.5 mEq/L (5-15); Calcium 7.7 mg/dl (8.4-10.2); Carbon Dioxide 26 mmol/L (22.0-30.0); Globulin 2.4 g/dL (1.3-3.2); Total Protein,Serum 4.9 g/dl (6.3-8.2)
[2022-03-17 06:46] LABS: Blood Urea Nitrogen 25 mg/dl (7-17); Creatinine Clearance Estimated 65 mL/min (50-200); Estimated Glomerular Filt Rate 123 ml/min (>60); GFR (African American) 149 ML/MIN (>60)
[2022-03-17 06:47] LABS: Glucose 405 mg/dl (74-100)
--- NOTE | 2022-03-17 07:41 | HMH.DCSUM ---
General - General Admission date:: 03/15/22 Discharge date: 03/17/22 HPI HPI: In summary this is a 67-year-old female with history of COPD and CHF presenting to the emergency department with cough, shortness of breath, generalized malaise. Patient appears unwell on arrival. Elevated respiratory rate. Hypoxic on room air. She was taken to a critical room and placed on the monitor. Placed on 3 L by nasal cannula. Patient febrile to 102 Fahrenheit. Tachycardic. Blood pressure soft, but no hypotension. Will obtain CBC, CMP, chest x-ray, EKG, troponin profile, procalcitonin, lactic acid, blood cultures, COVID testing. Patient given 1 L IV fluids. 650 mg p.o. acetaminophen. EKG shows sinus tachycardia. No ST segment changes. No arrhythmia. Meeting SIRS criteria. Given 1 L IV fluids. Will cover with 2 g Rocephin and 500 mg azithromycin. Initial laboratory results show elevated white blood cell count at 17,000. Elevated lactic acid at 2.8. Renal function is adequate. Glucose elevated at 230. No anion gap. No acidosis on VBG. COVID testing positive. Urinalysis shows nitrite positive urinary tract infection. Sent for urine culture. Patient is receiving Rocephin. Reassessment, patient says she is feeling much better after fluids and acetaminophen. Tachycardia improved. Patient receiving remainder of 30 cc/kg IV fluids. No evidence of septic shock. Will cover with remdesivir. Patient has already received steroids. Will need admission Above note per ER. Agree with admission. Patient reports that she is feeling much better after 1 night of IV fluids. A little bit low potassium this morning. Otherwise has eaten breakfast well. Hospital Course Hospital Course: Patient was admitted. She was given remdesivir, IV fluids, pulmonary toilet with nebulizers and oxygen as well as antibiotics to cover community-acquired pneumonia and possible UTI. She perked up very quickly and yesterday evening was already feeling much better, eating and wishing to go home. This morning she was still improving. Sitting up in a chair, doing most of her ADLs activities and sitting comfortably with oxygen. She was eating vigorously. Exam improved. Interestingly patient has not been taking her nebulizer treatments at home because she is not sure of the location of her machine. Plan we did discharge home today. She does qualify for antiviral therapy for COVID with molnupiravir and we will treat her with this. Also treat for community-acquired pneumonia with beta-lactam and azithromycin, no steroids given her lack of wheezing. We will renew a prescription for nebulizer treatments, and her DuoNeb vials. We will schedule short-term follow-up in our office. Objective Vital signs: Temp Pulse Resp BP Pulse Ox 98.2 F 97 H 20 112/69 90 L 03/17/22 03:35 03/17/22 03:35 03/17/22 03:35 03/17/22 03:35 03/17/22 03:35 no acute distress - *Routine HEENT Exam Head: Present: normocephalic Eye: Present: EOMI, PERRL ENT: Present: mucous membranes moist - *Routine Neck Exam Present: supple - *Routine Respiratory Exam Present: rhonchi - *Routine Cardiovascular Exam Present: RRR - *Routine Abdominal Exam Present: soft, normoactive bowel sounds. Absent: tenderness - *Routine Extremities Exam Absent: cyanosis, clubbing, edema - *Routine Skin Exam Present: warm. Absent: rash - Detailed Eye Exam Eyelids: Bilateral normal inspection Results Labs on day of discharge: Labs from last 24 hours 03/17/22 03/17/22 06:04 06:04 WBC 10.5 RBC 3.26 L Hgb 9.9 L Hct 31.1 L MCV 95.2 MCH 30.3 MCHC 31.8 RDW 14.8 Plt Count 201 MPV 11.0 H Neut % (Auto) 82.2 H Lymph % (Auto) 9.2 L [place] % (Auto) 6.9 Eos % (Auto) 1.2 Baso % (Auto) 0.4 Neut # (Auto) 8.7 H Lymph # (Auto) 1.0 [place] # (Auto) 0.7 Eos # (Auto) 0.1 Baso # (Auto) 0.0 Sodium 137 Potassium 3.5 Ch
[2022-03-17 08:00] VITALS: BP 109/57; PULSE 94; RESP 26; TEMP 36.3; O2SAT 95
--- NOTE | 2022-03-17 09:53 | CARE MANAGER ---
Ordered nebulizer from [facility]. They will deliver to patient's home. PATRICK Gupta
[2022-03-17 11:02] LABS: POC Glucose,Bedside 374 (70-110)
[2022-03-17 12:00] VITALS: BP 119/63; PULSE 94; RESP 26; TEMP 36.4; O2SAT 100
--- NOTE | 2022-03-17 13:36 | PC.NURSE ---
Pt left floor approx. 1330 via WC accompanied by RN. IV was removed without difficulty with catheter intact. No bruising/swelling noted to site. Discharge instructions discussed with pt, verbalized understanding. Condition stable at D/C.
--- NOTE | 2022-03-21 15:46 | CARE MANAGER ---
Attempted to contact patient x2 goes straight to VM with not VM option. PATRICK Gupta
== END 2022-03-17 13:30 | disposition home or self-care (01) | DRG 178 ==
LOC: ER 21:23 → 2ND 23:11
PROVIDERS: Admitting Provider Family Medicine; Emergency Provider Emergency Medicine; PCP Internal Medicine Adolescent Medicine; Visit Provider Internal Medicine Adolescent Medicine
DX: U07.1 COVID-19 (principal); J44.0 Chronic obstructive pulmonary disease with (acute) lower respiratory infection; J44.1 Chronic obstructive pulmonary disease with (acute) exacerbation; N30.00 Acute cystitis without hematuria; N39.0 Urinary tract infection, site not specified; I50.9 Heart failure, unspecified; E11.8 Type 2 diabetes mellitus with unspecified complications; E78.5 Hyperlipidemia, unspecified; Z79.84 Long term (current) use of oral hypoglycemic drugs; F17.210 Nicotine dependence, cigarettes, uncomplicated; J20.9 Acute bronchitis, unspecified; E87.6 Hypokalemia; R53.81 Other malaise
CPT/HCPCS: 36415; 71045; 80048; 80053; 81001; 82803; 82962; 83605; 83880; 84145; 84484; 85007; 85025; 87040; 87070; 87086; 87205; 93005; 94640; 97162; 97165; 97530; 99285; C9803; J0456; J0696; U0003; U0005

== ENCOUNTER → 2022-09-28 08:09 | Outpatient (CLI) | payer MEDICARE, MEDICAID, SELFPAY ==
--- NOTE | 2022-09-28 08:16 | XR_ITS ---
FINAL REPORT TECHNIQUE: Bone densitometry calculations of the lumbar spine and left hip were obtained. CLINICAL HISTORY: post menopausal COMPARISON: 12/30/2020 FINDINGS: DEXA BONE DENSITY AXIAL SKELETON Using L1-4, the bone mineral density of the spine is 1.025 g/cm2, corresponding to T-score of 0.2 with a Z-score of 1.7. Previously measured 0.938 g/cm2, corresponding to T-score of -1.0 with a Z-score of 0.8. This is improved. Using the left hip, the bone mineral density of the femoral neck is 0.563 g/cm2, corresponding to a T-score of -3.1 with a Z-score of -1.7. Previously measured 0.495 g/cm2, corresponding to T-score of -3.2 with a Z-score of -1.6. This is stable. NOTE: T-score: Standard deviation compared with peak bone mass of young adult mean. *Following the recommendations of the International Society of Bone Densitometry, classification of hip BMD is based on the lower of two T-scores; total hip or femoral neck. IMPRESSION: Osteoporosis: Lowest T-score is at or below -2.5. This patient's T-score meets the World Health Organization criteria for osteoporosis. Normal bone mineral density of the lumbar spine. FRAX not reported because: Some T-score for Spine Total or hip Total or femoral neck at or below -2.5. Treated for osteoporosis. Reviewed, Interpreted and Dictated by Miryam Lawrence MD Transcribed by Ericka Segovia Authenticated and [facility]
--- NOTE | 2022-09-28 08:16 | MM_ITS ---
PROCEDURE INFORMATION: Exam: MG Bilateral Screening 3D Mammography Exam date and time: 09/28/2022 8:21 AM Age: 67 years old Clinical indication: Screening mammogram TECHNIQUE: Imaging protocol: Bilateral Screening tomosynthesis and 2D mammography including computer-aided detection (CAD) when performed. COMPARISON: 1. MG MM DIG SCREENING MAMM BI W/CAD 12/30/2020 8:32 AM 2. MG MM DIG SCREENING MAMM BI W/CAD 12/26/2019 8:55 AM 3. MG MM DIG MAMM DX UNILAT RT CAD 04/23/2019 1:16 PM 4. MG DXRT MM Dig mamm DX unilat RT CAD 11/07/2018 1:46 PM FINDINGS: MAMMOGRAPHY: Breast composition: There are scattered areas of fibroglandular density. Mass: None. Architectural distortion: No new or suspicious architectural distortion. Calcifications: No new or suspicious calcifications are present Asymmetric density: No new or suspicious asymmetric density is present Skin thickening: None. Axillary adenopathy: None. IMPRESSION: No mammographic evidence of malignancy. Recommend annual screening mammography unless otherwise clinically indicated. ASSESSMENT: BI-RADS category 1: Negative
== END ==
PROVIDERS: PCP Internal Medicine Adolescent Medicine; Visit Provider Nurse Practitioner Family
DX: Z12.31 Encounter for screening mammogram for malignant neoplasm of breast (principal); Z78.0 Asymptomatic menopausal state
CPT/HCPCS: 77063; 77067; 77080

== ENCOUNTER 2023-10-19 09:07 | Outpatient (CLI) | payer MEDICARE, MEDICAID, SELFPAY ==
[2023-10-19 09:35] LABS: Basophils # 0.1 K/mm3 (0-0.2); Basophils % 1.1 % (0.1-2.0); Eosinophils # 0.2 K/mm3 (0.0-0.4); Eosinophils % 2.8 % (0.1-12.0); Hematocrit 40.1 % (37.0-47.0); Lymphocytes # 1.4 K/mm3 (0.7-4.5); Lymphocytes % 17.9 % (10-50); Mean Corpuscular HGB Conc 32.5 g/dL (31.8-35.4); Mean Corpuscular Hemoglobin 31.5 pg (27.0-31.2); Mean Corpuscular Volume 96.9 fl (81-99); Mean Platelet Volume 9.5 fl (7.4-10.4); Monocytes # 0.3 K/mm3 (0.1-1.0); Monocytes % 3.8 % (1.7-9.3); Neutrophils % 74.5 % (37.0-80.0); Platelet Count 172 K/mm3 (142-424); Red Blood Count 4.13 M/mm3 (4.20-5.40); Red Cell Distribution Width 14.3 % (11.5-17.5); White Blood Count 8.1 K/mm3 (4.8-10.8)
[2023-10-19 10:00] LABS: Alanine Aminotransferase 16 U/L (12-78); Albumin Level 3.9 g/dl (3.5-5.0); Albumin/Globulin Ratio 1.4 (1.1-1.8); Alkaline Phosphatase 123 U/L (38-126); Anion Gap 11.5 mEq/L (5-15); Aspartate Amino Transferase 20 U/L (14-36); Bilirubin,Total 0.9 mg/dl (0.2-1.3); Blood Urea Nitrogen 12 mg/dl (7-17); Calcium 9.1 mg/dl (8.4-10.2); Carbon Dioxide 28 mmol/L (22.0-30.0); Chloride 101 mmol/L (98-107); Chol/HDL Ratio 2.3 (1-3.5); Cholesterol 107 mg/dl (140-200); Estimated Glomerular Filt Rate 99 ml/min (>60); GFR (African American) 120 ML/MIN (>60); Globulin 2.8 g/dL (1.3-3.2); Glucose 209 mg/dl (74-100); HDL Cholesterol 46 mg/dl (40-60); Potassium 4.5 mmoL/L (3.5-5.1); Sodium 136 mmol/L (136-145); Total Protein,Serum 6.7 g/dl (6.3-8.2); Triglycerides 71 mg/dl (30-150); VLDL Cholesterol 14 mg/dL (0-40)
[2023-10-19 10:07] LABS: Hemoglobin A1C 8.3 % (4.0-6.0)
[2023-10-19 10:11] LABS: Direct LDL Cholesterol 49.57 mg/dL (100-129)
[2023-10-19 10:17] LABS: 25-OH Vitamin D, Total 19.4 ng/mL (30-100)
[2023-10-19 10:33] LABS: Thyroid Stimulating Hormone < 0.02 uIU/mL (0.465-4.68)
[2023-10-23 19:05] LABS: Free T4 (Free Thyroxine) 3.24 ng/dl (0.78-2.19)
== END 2023-10-19 23:59 ==
LOC: LAB 09:10
PROVIDERS: Internal Medicine Adolescent Medicine; PCP Nurse Practitioner Family; Visit Provider Nurse Practitioner Family
DX: E11.9 Type 2 diabetes mellitus without complications (principal); E55.9 Vitamin D deficiency, unspecified; E05.90 Thyrotoxicosis, unspecified without thyrotoxic crisis or storm; E78.2 Mixed hyperlipidemia; R60.0 Localized edema; J43.9 Emphysema, unspecified
CPT/HCPCS: 36415; 80053; 80061; 82306; 83036; 84439; 84443; 85025

== ENCOUNTER 2023-12-19 08:49 | Outpatient (CLI) | payer MEDICARE, MEDICAID, SELFPAY ==
--- NOTE | 2023-12-19 08:58 | US_ITS ---
FINAL REPORT TECHNIQUE: Real-time grayscale and color ultrasound of the thyroid was performed. CLINICAL HISTORY: HYPERTHROIDISM COMPARISON: None FINDINGS: The thyroid gland measures 35 x 18 x 16 mm on the right and 28 x 18 x 16 mm on the left. The isthmus measures 5 mm. The parenchyma is unremarkable . Nodules: Right 8 x 5 x 5 mm solid hypoechoic TR 4 nodule. Right 7 x 6 x 4 mm solid hypoechoic TR 4 nodule. Left 16 x 13 x 10 mm solid hypoechoic TR 4 nodule. IMPRESSION: Bilateral TR 4 thyroid nodules. Recommend ultrasound-guided biopsy of the dominant nodule on the left per TI-RADS criteria. Reviewed, Interpreted and Dictated by Jose Luis Johnston III, MD Transcribed by Reena Fofana Authenticated and [facility]
--- NOTE | 2023-12-19 09:31 | CA_ITS ---
APPROVED REPORT EXAM: Comprehensive 2D, Doppler, and color-flow Echocardiogram Hearing Healthcare Practitioner: Carmencita Savage RVT Ht: 5 ft 3 in Wt: 144lbs BSA: 1.68 BP: 116/52 mmHg Indications: SOA,COPD,SMOKER,DM,CHF,EDEMA VERY TDS-PT SCANNED SITTING UPRIGHT R/T SEVERE SOA,BEST WINDOWS POSSIBLE 2D Dimensions IVSd 1.35 cm F: 0.6-1.0 LVEF (Visual) 65.30 % PWd 0.78 cm F: 0.6 - 1.0 LA Volume 22.50 mL LVDd 4.20 cm F: 3.9 - 5.3 LA Volume Index 13.39 mL/m2 (M/F) 16-34 LVDs 2.71 cm F: 2.2 - 3.5 M-Mode Dimensions LA Diam 3.13 cm (1.9-4.0) LV Diastology E Decel Time 150 (160-240 msec) E/A Ratio 0.6 Aortic Valve LC Index 1.52 cm2/m2 AoV Peak Ayad. 110.0 (50-130 cm/s) AO Peak GR. 4.80 mmHg AO Mean GR. 2.70 (<5 mmHg) AO VTI 20.7 (18-25 cm) LC (VTI) 2.61 (2.5-4.5 cm2) Mitral Valve MV E Max Ayad. 57.0 (40-130 cm/s) MV A Velocity 94.0 (40-130 cm/s) E/A Ratio 0.61 MV PHT 44.0 ms Pulmonary Valve PV Peak Velocity 88.0 (50-150 cm/s) Left Ventricle The left ventricle is normal size. The left ventricular systolic function is normal. The left ventricular ejection fraction is within the normal range. There is marked increase in LV wall thickness (IVSd 1.5 cm). There is no LVOT obstruction at rest or with Valsalva. There is normal LV segmental wall motion. Transmitral Doppler flow pattern suggests impaired LV relaxation. LVEF is 65%. Right Ventricle The right ventricle is normal size. The right ventricular systolic function is normal. Atria The left atrium size is normal. The right atrium size is normal. The interatrial septum is not well visualized. Aortic Valve The aortic valve is mildly thickened. There is no aortic valvular stenosis. No aortic regurgitation is present. Mitral Valve The mitral valve is mildly thickened. There is systolic anterior motion (JACKIE) but with no septal contact. No evidence of mitral valve stenosis. There is no mitral valve regurgitation noted. Tricuspid Valve The tricuspid valve leaflets are thin and pliable. Trace tricuspid regurgitation. There is insufficient TR jet to estimate RVSP. Pulmonic Valve The pulmonic valve is not well visualized. Great Vessels The aortic root is not well visualized. The IVC is not well visualized. Pericardium There is no pericardial effusion. Other Information Study Quality: Technically Difficult Conclusion Technically difficult study due to poor accoustic windows. Normal biventricular systolic function. Marked increase in LV wall thickness (IVSd 1.5 cm). JACKIE without septal contact. No significant valvular stenosis or regurgitation. In the setting of presence of CHF symptoms, marked increase in LV wall thickness, and presence of JACKIE, further evaluation with outpatient cardiac MRI (HCM protocol) is recommended. Electronically signed by : Alina Estevez MD 12/22/2023 19:45:14
== END 2023-12-19 23:59 | disposition home or self-care (01) ==
LOC: RAD 08:50
PROVIDERS: PCP Nurse Practitioner Family; Visit Provider Nurse Practitioner Family
DX: E05.90 Thyrotoxicosis, unspecified without thyrotoxic crisis or storm (principal); I10 Essential (primary) hypertension
CPT/HCPCS: 76536; 93306

== ENCOUNTER 2025-02-20 10:06 | Outpatient (CLI) | payer MEDICARE, MEDICAID, SELFPAY ==
--- OUTSIDE RECORDS SUMMARY | 2024-11-16 17:30 | XMS_ITS ---
Author Organization [facility] Address [address] [place] [address] Care Team Providers Care Mutual Fund Analyst Name Role Phone Alex Zepeda Primary Care Provider [phone] Alex Zepeda Unavailable Unavailable Migration, Provider Unavailable Unavailable Allergies Allergen (clinical drug ingredient) Drug/Non Drug Allergy documented on EMR Reaction Allergy Type Onset Date Status erythromycin Erythromycin stomach upset Drug Allergy Active [facility] Conversion Encounter Medications Medication SIG (Take, Route, [...] review and pick correct strength-formulatio n from [employer] options. If intended option is not shown, [...] review and pick correct strength-formulatio n from [employer] options. If intended option is not shown, discontinue and re-order from Quick Search* Active NEBULIZER SET-UP W/ ADULT MASK *Please review for potential replacement for e-prescription and drug interaction check* 05/03/2018 Active FREESTYLE LT/GLUCOSE MONITORING NFRS - *Please review for potential replacement for e-prescription and drug interaction check* 11/08/2018 Active Encounters Encounter Location Date Provider Diagnosis [facility] [address] [place] [address] 11/16/2024 Provider Migration Pulmonary emphysema, unspecified emphysema [...] *Please review and pick correct strength[facility]formulation [facility] options. If intended option is not shown, discontinue and re-order from Quick Search* Progress Notes * Sabra OSEI SDOB: [birth year] (69 yo F)Acc No.[id number]:11/16/2024 Patient: Sabra EDUARDO Provider: Santiago Sheets :1955 A ge:69 Y S ex:Female Date:11/16/2024 Address:[address] [place] [address] [id number] Pcp:Alex Zepeda Subjective: * Chief Complaints: * [...] *Please review and pick correct strength-formulation from [employer] options. If intended option is not shown, [...] Refills 5. * * Electronic signature of William abarca Migration on 02/20/2025 at 10:11 AM EDT Sign off status: Pending * Provider: Santiago leo Migration Date: 0 11/16/2024 Generated for Rad sampson/Eligio/Marcus on: 0 02/20/2025 10:11 AM EDT
--- OUTSIDE RECORDS SUMMARY | 2025-02-06 04:15 | XMS_ITS ---
Author Organization [facility] Address [address] [place] [address] Care Team Providers Care M[employer]ers [employer] Ac[employer] Manager Name Role Phone Alex Zepeda Primary Care Provider Alex Zepeda Unavailable Unavailable Sheeba Peterson Unavailable [phone] Allergies Allergen (clinical drug ingredient) Drug/Non Drug Allergy documented on EMR Reaction Allergy Type Onset Date Status erythromycin Erythromycin stomach upset Drug Allergy Active Results Component Value Reference Range Notes LIPID PANEL, STANDARD (7600) Reviewed date:02/10/2025 09:09:39 AM Interpretation: Performing Lab:DANIAL, [facility] [id number] [facility], [facility] CenterDuqjGB[address] Ezekiel Vered Notes/Report: NON-FASTING; NON-FASTING; NON-FASTING; NON-FASTING; NON-FAST FASTING:YES FASTING: YES CHOLESTEROL, TOTAL 104 <200 mg/dL HDL CHOLESTEROL 54 > OR = 50 mg/dL TRIGLYCERIDES 65 <150 mg/dL LDL-CHOLESTEROL 36 Reference range: <100 Desirable range <100 mg/dL for primary prevention; <70 mg/dL for patients with CHD or diabetic patients with > or = 2 CHD risk factors. LDL-C is now calculated using the Matt calculation, which is a validated novel method providing better accuracy than the Friedewald equation in the estimation of LDL-C. Cale LAWRENCE et al. HAMILTON. 2013;310(19): 6326-4294 (http://education.Conversation Media.com/faq/ZHD544) CHOL/HDLC RATIO 1.9 <5.0 (calc) NON HDL CHOLESTEROL 50 <130 mg/dL (calc) For patients with diabetes plus 1 major ASCVD risk factor, treating to a non-HDL-C goal of <100 mg/dL (LDL-C of <70 mg/dL) is considered a therapeutic option. COMPREHENSIVE METABOLIC PANMart Eckert ([id number]) Reviewed date:02/10/2025 09:09:40 AM Interpretation: Performing Lab:DANIAL, [facility] [id number] [employer] (P) [email or web address], SourcebazaarQvycXB[address] Ezekiel Verde Notes/Report: NON-FASTING; NON-FASTING; NON-FASTING; NON-FASTING; NON-FAST FASTING:YES FASTING: YES GLUCOSE 102 65-99 mg/dL Fasting reference interval For someone without known diabetes, a glucose value between 100 and 125 mg/dL is consistent with prediabetes and should be confirmed with a follow-up test. UREA NITROGEN (BUN) 14 7-25 mg/dL CREATININE 0.69 0.50-1.05 mg/dL EGFR 94 > OR = 60 mL/min/1.73m2 BUN/CREATININE RATIO SEE NOTE: 6-22 (calc) Not Reported: BUN and Creatinine are within reference range. SODIUM 138 135-146 mmol/L POTASSIUM 4.4 3.5-5.3 mmol/L CHLORIDE 97 98-110 mmol/L CARBON DIOXIDE 29 20-32 mmol/L CALCIUM 9.0 8.6-10.4 mg/dL PROTEIN, TOTAL 7.1 6.1-8.1 g/dL ALBUMIN 4.1 3.6-5.1 g/dL GLOBULIN 3.0 1.9-3.7 g/dL (calc) ALBUMIN/GLOBULIN RATIO 1.4 1.0-2.5 (calc) BILIRUBIN, TOTAL 0.5 0.2-1.2 mg/dL ALKALINE PHOSPHATASE 68 37-153 U/L AST 13 10-35 U/L ALT 10 6-29 U/L MAGNESIUM (622) Reviewed date:02/10/2025 09:09:40 AM Interpretation: Performing Lab:DANIAL, [facility] [id number] [employer] ([employer]tel Knovd, SourcebazaarOaqvAG[address] Ezekiel Verde Notes/Report: NON-FASTING; NON-FASTING; NON-FASTING; NON-FASTING; NON-FAST FASTING:YES FASTING: YES MAGNESIUM 2.0 1.5-2.5 mg/dL CBC (INCLUDES DIFF/PLT) (639 9) Reviewed date:02/10/2025 09:09:40 AM Interpretation: Performing Lab:DANIAL [facility] [id number] [employer] Ltdtel Kno, [facility] HospitalVfkpYO[address] Ezekiel eVrde Notes/Report: NON-FASTING; NON-FASTING; NON-FASTING; NON-FASTING; NON-FAST FASTING:YES FASTING: YES WHITE BLOOD CELL COUNT 8.3 3.8-10.8 Thousand/ uL RED BLOOD CELL COUNT 4.62 3.80-5.10 Million/uL HEMOGLOBIN 14.0 11.7-15.5 g/dL HEMATOCRIT 44.7 35.0-45.0 % MCV 96.8 80.0-100.0 fL MCH 30.3 27.0-33.0 pg MCHC 31.3 32.0-36.0 g/dL For adults, a slight decrease in the calculated MCHC value (in the range of 30 to 32 g/dL) is most likely not clinically significant; however, it should be interpreted with caution in correlation with other red cell parameters and the patient's clinical condition. RDW 13.2 11.0-15.0 % PLATELET COUNT 177 140-400 Thousand/uL MPV 11.2 7.5-12.5 fL ABSOLUTE NEUTROPHILS 5968 0321-9322 cells/uL ABSOLUTE LYMPHOCYTES 4336 051-7149 cells/uL ABSOLUTE MONOCYTES 415 200-950 cells/uL ABSOLUTE EOSINOPHILS 158 15-500 cells/uL ABSOLUTE BASOPHILS 66 0-200 cells/uL NEUTROPHILS 71.9 LYMPHOCYTES 20.4 MONOCYTES 5.0 EOSINOPHILS 1.9 BASOPHILS 0.8 HEMOGLOBIN A1c (496) Reviewed date:02/10/2025 09:09:40 AM Interpretation: Performing Lab:DANIAL [facility] [id number] [employer]) Ltdtel [facility], [facility] CenterHxcvFV[address] Ezekiel Verde Notes/Report: NON-FASTING; NON-FASTING; NON-FASTING; NON-FASTING; NON-FAST FASTING:YES FASTING: YES HEMOGLOBIN A1c 6.3 <5.7 % For someone without known diabetes, a hemoglobin A1c value between 5.7% and 6.4% is consistent with prediabetes and should be confirmed with a follow-up test. For someone with known diabetes, a value <7% indicates that their diabetes is well controlled. A1c targets should be individualized based on duration of diabetes, age, comorbid conditions, and other considerations. This assay result is consistent with an increased risk of diabetes. Currently, no consensus exists regarding use of hemoglobin A1c for diagnosis of diabetes for children. TSH W/REFLEX TO FT4 (25486) Reviewed date:02/10/2025 09:09:40 AM Interpretation: Performing Lab:DANIAL [address] [employer] SourcebazaarAtsoLV[address] Ezekiel Verde Notes/Report: NON-FASTING; NON-FASTING; NON-FASTING; NON-FASTING; NON-FAST FASTING:YES FASTING: YES TSH W/REFLEX TO FT4 0.50 0.40-4.50 mIU/L VITAMIN D,25-OH,TOTAL,IA (17 306) Reviewed date:02/10/2025 09:09:40 AM Interpretation: Performing Lab:DANIAL [address] [email or web address], SourcebazaarVcqdWJ[address] Ezekiel Verde Notes/Report: NON-FASTING; NON-FASTING; NON-FASTING; NON-FASTING; NON-FAST FASTING:YES FASTING: YES VITAMIN D,25-OH,TOTAL,IA 50 30-100 ng/mL Vitamin D Status 25-OH Vitamin D: Deficiency: <20 ng/mL Insufficiency: 20 - 29 ng/mL Optimal: > or = 30 ng/mL For 25-OH Vitamin D testing on patients on D2-supplementation and patients for whom quantitation of D2 and D3 fractions is required, the [facility]() 25-OH VIT D, (D2,D3), LC/MS/MS is recommended: order code 68734 (patients >2yrs). See Note 1 Note 1 For additional information, please refer to http://education.Dealflicks.com/faq/MKB309 (This link is being provided for informational/ educational purposes only.) Reason For Referral Reason CT chest without con trast Diagnosis 1 Mediastinal mass (J9 8.59) Referral Organization [facility] Referring Provider First Name Sheeba Referring Provider Last Name Kristen Referring Provider Speciality [facility] Referred Organization [facility] Referred Address [address],[address],[place] Referred Provider Specialty Diagnostic R adiology General Notes Leslie Steinberg 2024 11:23:03 AM >sent to [facility] to schedule Referral Priority Routine Reason [facility] for PT/OT/Nursing eval. and county home demonstrator if available service Diagnosis 1 Physical debility (R 53.81) Referral Organization [facility] Referring Provider First Name Sheeba Referring Provider Last Name Kristen Referring Provider Speciality Family Pra ctice Referred Organization [facility] Referred Address [address],[place], [place],[address],[place] Referred Provider Specialty Home Health General Notes Leslie Steinberg 2024 11:53:24 AM >sent to [facility] Referral Priority Routine REASON FOR VISIT Med Check and labs Medications Medication SIG (Take, Route, Frequency, Duration) Notes Start Date End Date Status Atorvastatin Calcium 40 MG 1 tab(s) orally once a day; Duration: 90 Active metFORMIN HCl 1000 MG 1 tab orally 2 times a day; Duration: 30 days Active Diclofenac Sodium 1 % as directed applied topically 4 times a day; Duration: 30 day(s) Active Trelegy Ellipta 200 MCG-62.5 MCG-25 MCG/INH INHALE 1 PUFF BY MOUTH EVERY DAY; Duration: 30 *Please review and pick correct strength-formulatio n from Publicatean options. If intended option is not shown, discontinue and re-order from Quick Search* Active Lasix 20 MG 1 tab(s) orally every other day; Duration: 30 days Active FREESTYLE LANCET - USE TO CHECKBLOOD SUGAR ONCE DAILY; Duration: 30 DAYS Dx:E11.9 *Please review for potential replacement for e-prescription and drug interaction check* 11/09/2018 Active GLUCOMETER NA USE FOR ONCE A DAY FSBS TESTING NA ONCE A DAY; Duration: 30 DAYS DX: E11.9 *Please review for potential replacement for e-prescription and drug interaction check* 06/23/2022 Active TEST STRIPS AND LANCETS NA FOR ONCE A DAY FSBS TESTING NA ONCE A DAY DX: E11.9 *Please review for potential replacement for e-prescription and drug interaction check* 06/23/2022 Active Claritin 10 MG 1 tab(s) orally once a day; Duration: 90 days Active FREESTYLE LITE STRIPS NFRS - USE TO CHECK BLOODSUGAR ONCE DAILY; Duration: 30 DAYS Dx:E11.9 *Please review for potential replacement for e-prescription and drug interaction check* 11/09/2018 Active Albuterol Sulfate (2.5 MG/3ML) 0.083% 3 mL by nebulizer every 6 hours prn; Duration: 90 days Active Ventolin HFA 108 (90 Base) MCG/ACT 2 puff(s) inhaled every 4 hours; Duration: 30 days Active Omeprazole 20 MG 1 cap(s) orally once a day; Duration: 30 day(s) 02/19/2020 Active Vitamin D3 25 MCG 1 tab(s) orally once a day; Duration: 30 day(s) 11/26/2021 Active Linzess 72 MCG 1 cap(s) orally every other day prn; Duration: 90 days Active FREESTYLE LT/GLUCOSE MONITORING NFRS - *Please review for potential replacement for e-prescription and drug interaction check* 11/08/2018 Active NEBULIZER SET-UP W/ ADULT MASK *Please review for potential replacement for e-prescription and drug interaction check* 05/03/2018 Active PORTABLE OXYGEN CONCENTRATOR DX: COPD prn *Please review for potential replacement for e-prescription and drug interaction check* Active OXYGEN 2 LITERS DIRECTED DAILY prn *Please re view for potential replacement for e-prescription and drug interaction check* Active Aspirin 81 MG 1 TAB(S) ORALLY ONCE A DAY; Duration: 30 DAY(S) *Please review and pick correct strength-formulatio n from Medispan options. If intended option is not shown, discontinue and re-order from Quick Search* Active Alendronate Sodium 70 MG 1 tab(s) orally once a week; Duration: 28 days Active TRELEGY ELLIPTA 200 mcg-62.5 mcg-25 mcg/inh 1 puff(s) inhaled once a day; Duration: 30 days Active Farxiga 5 mg TAKE ONE TABLET BY MOUTH EVERY DAY; Duration: 30 Active Social History Tobacco Use: Social History Observation Description Date Details (start date - stop date) Current Smoker NA - NA Smoking: Question Answer Notes Are you a: current smoker How often do you smoke cigarettes? every day How many cigarettes a day do you smoke? 21-30 Problems Problem Type SNOMED Code ICD Code Onset Dates Problem Status W/U Status Risk Notes Problem Chronic hypoxic respiratory failure (J96.11) Active confirmed Vital Signs Temperature 98.1 degrees Fahrenheit 02/07/20 25 Blood pressure systolic 110 mm Hg 02/07/20 25 Blood pressure diastolic 48 mm Hg 025 Heart Rate 100 /min 02/06/2025 Height 62.75 in 02/06/2025 Weight 131.8 lbs 02/06/2025 BMI 23.53 kg/m2 02/06/2025 Oximetry 85 02/06/2025 RA Encounters Encounter Location Date Provider Diagnosis [facility] P[facility] [address] [place], [place] [address] 02/06/2025 Sheeba Peterson Hyperthyroidism E05. 90 ; Uncontrolled type 2 diabetes mellitus with hyperglycemia E11.65 ; Lower extremity edema R60.0 ; Pulmonary emphysema, unspecified emphysema type J43.9 ; Vitamin D deficiency E55.9 ; Chronic hypoxic respiratory failure J96.11 ; Thyroid mass E07.9 ; Mediastinal mass J98.59 ; Tobacco user Z72.0 and Physical debility R53.81 Assessments Encounter Date Diagnosis (ICD Code) Assessment Notes Treatment Notes Treatment Clinical Notes Section Notes 02/06/2025 Hyperthyroidism (ICD-10 - E05.90) Repeat labs today. Consider methimazole, propranolol. Refused uptake scan previously 02/06/2025 Uncontrolled type 2 diabetes mellitus with hyperglycemia (ICD-10 - E11.65) Last labs were over a year ago and she has not been monitoring her glucose at home, we will obtain labs today to help guide additional management 02/06/2025 Lower extremity edema (ICD-10 - R60.0) Improved with taking Lasix every other day 02/06/2025 Pulmonary emphysema, unspecified emphysema type (ICD-10 - J43.9) Advanced COPD, we will request additional oxygen supplies in the home so that she can use it continuously if needed. Continue Trelegy 02/06/2025 Vitamin D deficiency (ICD-10 - E55.9) 02/06/2025 Chronic hypoxic respiratory failure (ICD-10 - J96.11) 02/06/2025 Thyroid mass (ICD-10 - E07.9) Has refused biopsy 02/06/2025 Mediastinal mass (ICD-10 - J98.59) She is overdue for imaging of her lungs as well as known mediastinal mass, we will arrange for that at [facility] for her convenience 02/06/2025 Tobacco user (ICD-10 - Z72.0) Encouraged cessation 02/06/2025 Physical debility (ICD-10 - R53.81) Plan Of Treatment Medication Medication Name Sig Start Date Stop Date Notes TRELEGY ELLIPTA 200 mcg-62.5 mcg-25 mcg/inh 1 puff(s) inhaled once a day; Duration: 30 days Referrals Referral Date Details 02/06/2025 02/06/2025, CT chest without contrast, [address] [facility] [address] [facility], [place], [address], 02/06/2025 02/06/2025, [facility] for PT/OT/Nursing eval. and county home demonstrator if available service, [address] [place] [address], [place], [address], Next Appt Details Follow Up: 6 Weeks, Reason: AWV Progress Notes * Sabra OSEI SDOB: [birth year] (69 yo F)Acc No.[id number]:02/06/2025 Progress Notes Patient: Sabra EDUARDO Provider: GENARO Drummond :1955 A ge:69 Y S ex:Female Date:02/06/2025 Address:[address] [place] [id number] Pcp:Alex Zepeda Subjective: * Chief Complaints: * 1 . Med Check and labs. * HPI: g en: 69-year-old female presents today to follow-up regarding chronic disease. Last seen just over a year ago, missed her last appts because her daughter was ill and in the hospital for extended period of time. Weight is down. Daughter reports she isn't showering, because of fear of falling, and refuses to allow anyone else to help her. Due for labs to eval glucose control and thyroid function, etc. Had had a suppressed TSH and elevated free T4 consistent with possible hyperthyroidism. Vitamin D was low at 19.4. Have recommended a thyroid uptake scan but she refused secondary to unable to lie flat and did not want IV contrast. ENT consult obtained and they recommended repeat US in 6 months, poor surgical candidate Tolerating farxiga. taking lasix every other day with improved edema. She did see pulm at [facility] in June but did not have her CT scan done. She continues to smoke around a pack per day. Short of breath, using her O2 at night and occasionally during the day. Using Trelegy every day as well as nebulizer/rescue inhaler multiple times per day. Congested cough with sputum production most days. * ROS: R ESPIRATORY: See HPI Y es. C ARDIOLOGY: no C hest pain. n o P alpitations. L eg edema?yes, m ore at the end of the day, takes lasix occasionally. C ONSTITUTIONAL: no L oss of appetite. n o F ever. D ERMATOLOGY: no R suzie. G ASTROENTEROLOGY: no V omiting. n o A bdominal pain. n o D iarrhea. C onstipation y es, o n Linzess. M USCULOSKELETAL: Joint stiffness y es. J oint pain y es, w orse in bilat shoulders recently. N EUROLOGY: no T ingling numbness. P SYCHOLOGY: Reviewed, No Symptoms Reported: Y es. U ROLOGY: Reviewed, No Symptoms Reported: Y es. * Medical History: t ubular adenoma on colonoscopy April 2017 - multiple TA on repeat 10/29 and repeat again 2018 - repeated 03/02 with tubular adenomas, DM, HLD, Emphysema, abdominal aortic aneurysm - followed by Dr Padilla, Tobacco use, Thymoma, followed by Dr Bowie at . * Surgical History: c -section x 4 , colonoscopy 04/18/2017, colonoscopy with multiple polyps 10/2017, Triple A surgery 01/2019, Bilateral cataract surgery 03/19 and 04/04/2019. * Hospitalization/Major Diagno stic Procedure: c hild , Triple A surgery 01/2019, [facility] 03/2022. * Family History: F ather: , diagnosed with Diabetes, Hypertension. M other: , hemorrhagic stroke, diagnosed with Heart Disease, Stroke. P aternal Grand Father: . P aternal Grand Mother: , diagnosed with Diabetes. M aternal Grand Father: . M aternal Grand Mother: , diagnosed with Diabetes, Heart Disease. P aternal uncle: . P aternal aunt: . M aternal uncle: . M aternal aunt: , breast ca, diagnosed with Cancer. Nadiya gallardo: alive, fibromyalgia, diagnosed with Heart Disease. Karina titus: alive. 1 brother(s) , 2 sister(s) . 2 son(s) , 1 daughter(s) . . Family history thyroid disease. * Social History: S moking A re you a: c urrent smoker, H ow often do you smoke cigarettes? e very day, H ow many cigarettes a day do you smoke? 2 1-30. R ecreational drug use: no. Exercise: no. Home smoke detector use: yes. Caffeine: yes, 3+ lg coffee daily. Living Will: No, discussed, encouraged, daughter would make decisions. Alcohol: no. Sexually active: no. Travel outside [place]: no. Occupation: disability. * Medications: T aking FREESTYLE LT/GLUCOSE MONITORING [...] *Please review and pick correct strength-formulation from Big Screen Toolsspan options. If intended option is not shown, [...] directed applied topically 4 times a day , Taking Trelegy Ellipta 200 MCG-62.5 MCG-25 MCG/INH POWDER INHALE 1 PUFF BY MOUTH EVERY DAY , Notes to Pharmacist: *Please review and pick correct strength-formulation from Reactful options. If intended option is not shown, discontinue and re-order from Quick Search*, Taking Lasix 20 MG Tablet 1 tab(s) orally every other day , Taking Atorvastatin Calcium 40 MG Tablet 1 tab(s) orally once a day , Taking metFORMIN HCl 1000 MG Tablet 1 tab orally 2 times a day , Taking Alendronate Sodium 70 MG Tablet 1 tab(s) orally once a week , Taking Farxiga 5 mg Tablet TAKE ONE TABLET BY MOUTH EVERY DAY , Medication List reviewed and reconciled with the patient * Allergies: E rythromycin: stomach upset. Objective: * Vitals: N urse: KJ, Pain: 0, Temp: 98.1, Pulse O2: 85, RR: 22, HR: 100, BP: 110/48, Ht: 62.75, Wt: 131.8, BMI:23.53. RA. * Examination: G eneral Examination: General P leasant and Cooperative, NAD on RA, mild conversational dyspnea. Chest: n ormal shape and expansion. Heart: R RR, No m/r/g/h, Nl S1S2. Lungs: r honchi bilat. Abdomen: s oft, BS+. Neurologic Exam: Alert and oriented x 3. Skin: w ithout acute rashes. Peripheral pulses: n ormal (2+) bilaterally. Extremities: no edema. neck s upple,. Psych N ormal Mood/Affect. Assessment: * Assessment: 1. U ncontrolled type 2 diabetes mellitus with hyperglycemia - E11.65 (Primary) ?2. H yperthyroidism - E05.90 3 . L ower extremity edema - R60.0 4 . P ulmonary emphysema, unspecified emphysema type - J43.9 5 . V itamin D deficiency - E55.9 6 . C hronic hypoxic respiratory failure - J96.11 ? 7 . T hyroid mass - E07.9 8 . M ediastinal mass - J98.59 ? 9 . T obacco user - Z72.0 1 0. P hysical debility - R53.81 ? Plan: * Treatment: Value Reference Range T RIGLYCERIDES 65 <150 - mg/dL * C HOLESTEROL, TOTAL 104 <200 - mg/dL * H DL CHOLESTEROL 54 > OR = 50 - mg/dL * L DL-CHOLESTEROL 36 - mg/dL (calc) * C HOL/HDLC RATIO 1.9 <5.0 - (calc) * N ON HDL CHOLESTEROL 50 <130 - mg/dL (calc) * Stefany Mc 02/10/2025 09: 09:16 AM EDT > pt informed-daughter will call back and make appt.This lab was reviewed by Stefany Mc on 02/10/2025 at 09:09 AM EDT ?LAB: COMPREHENSIVE METABOLIC PANEL (65703)* Value Reference Range G LUCOSE 102 H 65-99 - mg/dL * U BLAINE NITROGEN (BUN) 14 7-25 - mg/dL * C REATININE 0.69 0.50-1.05 - mg/dL * B UN/CREATININE RATIO SEE NOTE: 6-22 - (calc) * S ODIUM 138 135-146 - mmol/L * P OTASSIUM 4.4 3.5-5.3 - mmol/L * C HLORIDE 97 L 98-110 - mmol/L * C ARBON DIOXIDE 29 20-32 - mmol/L * C ALCIUM 9.0 8.6-10.4 - mg/dL * P ROTEIN, TOTAL 7.1 6.1-8.1 - g/dL * A LBUMIN 4.1 3.6-5.1 - g/dL * G LOBULIN 3.0 1.9-3.7 - g/dL (calc ) * A LBUMIN/GLOBULIN RATIO 1.4 1.0-2.5 - (calc) * B ILIRUBIN, TOTAL 0.5 0.2-1.2 - mg/dL * A LKALINE PHOSPHATASE 68 37-153 - U/L * A ST 13 10-35 - U/L * A LT 10 6-29 - U/L * E GFR 94 > OR = 60 - mL/min/1 .73m2 * Stefany Mc 02/10/2025 09: 09:16 AM EDT > pt informed-daughter will call back and make appt.This lab was reviewed by Stefany Mc on 02/10/2025 at 09:09 AM EDT ?LAB: MAGNESIUM (622)* Value Reference Range M AGNESIUM 2.0 1.5-2.5 - mg/dL * Stefany Mc 02/10/2025 09: 09:16 AM EDT > pt informed-daughter will call back and make appt.This lab was reviewed by Stefany Mc on 02/10/2025 at 09:09 AM EDT ?LAB: CBC (INCLUDES DIFF/PLT) (0858)* Value Reference Range W DEBBIE BLOOD CELL COUNT 8.3 3.8-10.8 - Thousan d/uL * R ED BLOOD CELL COUNT 4.62 3.80-5.10 - Million/ uL * H EMOGLOBIN 14.0 11.7-15.5 - g/dL * H EMATOCRIT 44.7 35.0-45.0 - % * M CV 96.8 80.0-100.0 - fL * M CH 30.3 27.0-33.0 - pg * M CHC 31.3 L 32.0-36.0 - g/dL * R DW 13.2 11.0-15.0 - % * P LATELET COUNT 177 140-400 - Thousand/u L * N EUTROPHILS 71.9 - % * A BSOLUTE NEUTROPHILS 5968 1780-3904 - cells/uL * L YMPHOCYTES 20.4 - % * A BSOLUTE LYMPHOCYTES 4817 501-0412 - cells/uL * M ONOCYTES 5.0 - % * A BSOLUTE MONOCYTES 415 200-950 - cells/uL * E OSINOPHILS 1.9 - % * A BSOLUTE EOSINOPHILS 158 15-500 - cells/uL * B ASOPHILS 0.8 - % * A BSOLUTE BASOPHILS 66 0-200 - cells/uL * M PV 11.2 7.5-12.5 - fL * Stefany Mc 02/10/2025 09: 09:16 AM EDT > pt informed-daughter will call back and make appt.This lab was reviewed by Stefany Mc on 02/10/2025 at 09:09 AM EDT ?LAB: HEMOGLOBIN A1c (496)* Value Reference Range H EMOGLOBIN A1c 6.3 H <5.7 - % * Stefany Mc 02/10/2025 09: 09:16 AM EDT > pt informed-daughter will call back and make appt.This lab was reviewed by Stefany Mc on 02/10/2025 at 09:09 AM EDT ?LAB: TSH W/REFLEX TO FT4 (34981)* Value Reference Range T SH W/REFLEX TO FT4 0.50 0.40-4.50 - mIU/L * Stefany Mc 02/10/2025 09: 09:16 AM EDT > pt informed-daughter will call back and make appt.This lab was reviewed by Stefany Mc on 02/10/2025 at 09:09 AM EDT ?LAB: VITAMIN D,25-OH,TOTAL,IA (75865)* Value Reference Range V ITAMIN D,25-OH,TOTAL,IA 50 30-100 - ng/mL * Stefany Mc 02/10/2025 09: 09:16 AM EDT > pt informed-daughter will call back and make appt.This lab was reviewed by Stefany Mc on 02/10/2025 at 09:09 AM EDT Clinical Notes: Last labs were over a year ago and she has not been monitoring her glucose at home,we will obtain labs today to help guide additional management??2.?Hyperthyroidism?LAB: LIPID PANEL, STANDARD (7600)* Value Reference Range T RIGLYCERIDES 65 <150 - mg/dL * C HOLESTEROL, TOTAL 104 <200 - mg/dL * H DL CHOLESTEROL 54 > OR = 50 - mg/dL * L DL-CHOLESTEROL 36 - mg/dL (calc) * C HOL/HDLC RATIO 1.9 <5.0 - (calc) * N ON HDL CHOLESTEROL 50 <130 - mg/dL (calc) * Stefany Mc 02/10/2025 09: 09:16 AM EDT > pt informed-daughter will call back and make appt.This lab was reviewed by Stefany Mc on 02/10/2025 at 09:09 AM EDT ?LAB: COMPREHENSIVE METABOLIC PANEL (34317)* Value Reference Range G LUCOSE 102 H 65-99 - mg/dL * U BLAINE NITROGEN (BUN) 14 7-25 - mg/dL * C REATININE 0.69 0.50-1.05 - mg/dL * B UN/CREATININE RATIO SEE NOTE: 6-22 - (calc) * S ODIUM 138 135-146 - mmol/L * P OTASSIUM 4.4 3.5-5.3 - mmol/L * C HLORIDE 97 L 98-110 - mmol/L * C ARBON DIOXIDE 29 20-32 - mmol/L * C ALCIUM 9.0 8.6-10.4 - mg/dL * P ROTEIN, TOTAL 7.1 6.1-8.1 - g/dL * A LBUMIN 4.1 3.6-5.1 - g/dL * G LOBULIN 3.0 1.9-3.7 - g/dL (calc ) * A LBUMIN/GLOBULIN RATIO 1.4 1.0-2.5 - (calc) * B ILIRUBIN, TOTAL 0.5 0.2-1.2 - mg/dL * A LKALINE PHOSPHATASE 68 37-153 - U/L * A ST 13 10-35 - U/L * A LT 10 6-29 - U/L * E GFR 94 > OR = 60 - mL/min/1 .73m2 * Stefany Mc 02/10/2025 09: 09:16 AM EDT > pt informed-daughter will call back and make appt.This lab was reviewed by Stefany Mc on 02/10/2025 at 09:09 AM EDT ?LAB: MAGNESIUM (622)* Value Reference Range M AGNESIUM 2.0 1.5-2.5 - mg/dL * Stefany Mc 02/10/2025 09: 09:16 AM EDT > pt informed-daughter will call back and make appt.This lab was reviewed by Stefany Mc on 02/10/2025 at 09:09 AM EDT ?LAB: CBC (INCLUDES DIFF/PLT) (1777)* Value Reference Range W DEBBIE BLOOD CELL COUNT 8.3 3.8-10.8 - [place] d/uL * R ED BLOOD CELL COUNT 4.62 3.80-5.10 - Million/ uL * H EMOGLOBIN 14.0 11.7-15.5 - g/dL * H EMATOCRIT 44.7 35.0-45.0 - % * M CV 96.8 80.0-100.0 - fL * M CH 30.3 27.0-33.0 - pg * M CHC 31.3 L 32.0-36.0 - g/dL * R DW 13.2 11.0-15.0 - % * P LATELET COUNT 177 140-400 - Thousand/u L * N EUTROPHILS 71.9 - % * A BSOLUTE NEUTROPHILS 5968 8620-6975 - cells/uL * L YMPHOCYTES 20.4 - % * A BSOLUTE LYMPHOCYTES [phone] - cells/uL * M ONOCYTES 5.0 - % * A BSOLUTE MONOCYTES 415 200-950 - cells/uL * E OSINOPHILS 1.9 - % * A BSOLUTE EOSINOPHILS 158 15-500 - cells/uL * B ASOPHILS 0.8 - % * A BSOLUTE BASOPHILS 66 0-200 - cells/uL * M PV 11.2 7.5-12.5 - fL * Stefany Mc 02/10/2025 09: 09:16 AM EDT > pt informed-daughter will call back and make appt.This lab was reviewed by Stefany Mc on 02/10/2025 at 09:09 AM EDT ?LAB: HEMOGLOBIN A1c (496)* Value Reference Range H EMOGLOBIN A1c 6.3 H <5.7 - % * Stefany Mc 02/10/2025 09: 09:16 AM EDT > pt informed-daughter will call back and make appt.This lab was reviewed by Stefany Mc on 02/10/2025 at 09:09 AM EDT ?LAB: TSH W/REFLEX TO FT4 (32237)* Value Reference Range T SH W/REFLEX TO FT4 0.50 0.40-4.50 - mIU/L * Stefany Mc 02/10/2025 09: 09:16 AM EDT > pt informed-daughter will call back and make appt.This lab was reviewed by Stefany Mc on 02/10/2025 at 09:09 AM EDT ?LAB: VITAMIN D,25-OH,TOTAL,IA (61963)* Value Reference Range V ITAMIN D,25-OH,TOTAL,IA 50 30-100 - ng/mL * Stefany Mc 02/10/2025 09: 09:16 AM EDT > pt informed-daughter will call back and make appt.This lab was reviewed by Stefany Mc on 02/10/2025 at 09:09 AM EDT Clinical Notes: Repeat labs today. Consider methimazole, propranolol. Refused uptake scan previously??3.?Lower extremity edema? Clinical Notes: Improved with taking Lasix every other day??4.?Pulmonary emphysema, unspecified emphysema type? Start TRELEGY ELLIPTA powder, 200 mcg-62.5 mcg-25 mcg/inh, 1 puff(s), inhaled, once a day, 30 days,1, Refills 5.?LAB: LIPID PANEL, STANDARD (7600)* Value Reference Range T RIGLYCERIDES 65 <150 - mg/dL * C HOLESTEROL, TOTAL 104 <200 - mg/dL * H DL CHOLESTEROL 54 > OR = 50 - mg/dL * L DL-CHOLESTEROL 36 - mg/dL (calc) * C HOL/HDLC RATIO 1.9 <5.0 - (calc) * N ON HDL CHOLESTEROL 50 <130 - mg/dL (calc) * Stefany Mc 02/10/2025 09: 09:16 AM EDT > pt informed-daughter will call back and make appt.This lab was reviewed by Stefany Mc on 02/10/2025 at 09:09 AM EDT ?LAB: COMPREHENSIVE METABOLIC PANEL (21779)* Value Reference Range G LUCOSE 102 H 65-99 - mg/dL * U BLAINE NITROGEN (BUN) 14 7-25 - mg/dL * C REATININE 0.69 0.50-1.05 - mg/dL * B UN/CREATININE RATIO SEE NOTE: 6-22 - (calc) * S ODIUM 138 135-146 - mmol/L * P OTASSIUM 4.4 3.5-5.3 - mmol/L * C HLORIDE 97 L 98-110 - mmol/L * C ARBON DIOXIDE 29 20-32 - mmol/L * C ALCIUM 9.0 8.6-10.4 - mg/dL * P ROTEIN, TOTAL 7.1 6.1-8.1 - g/dL * A LBUMIN 4.1 3.6-5.1 - g/dL * G LOBULIN 3.0 1.9-3.7 - g/dL (calc ) * A LBUMIN/GLOBULIN RATIO 1.4 1.0-2.5 - (calc) * B ILIRUBIN, TOTAL 0.5 0.2-1.2 - mg/dL * A LKALINE PHOSPHATASE 68 37-153 - U/L * A ST 13 10-35 - U/L * A LT 10 6-29 - U/L * E GFR 94 > OR = 60 - mL/min/1 .73m2 * Stefany Mc 02/10/2025 09: 09:16 AM EDT > pt informed-daughter will call back and make appt.This lab was reviewed by Stefany Mc on 02/10/2025 at 09:09 AM EDT ?LAB: MAGNESIUM (622)* Value Reference Range M AGNESIUM 2.0 1.5-2.5 - mg/dL * Stefany Mc 02/10/2025 09: 09:16 AM EDT > pt informed-daughter will call back and make appt.This lab was reviewed by Stefany Mc on 02/10/2025 at 09:09 AM EDT ?LAB: CBC (INCLUDES DIFF/PLT) (4537)* Value Reference Range W DEBBIE BLOOD CELL COUNT 8.3 3.8-10.8 - [place] d/uL * R ED BLOOD CELL COUNT 4.62 3.80-5.10 - Million/ uL * H EMOGLOBIN 14.0 11.7-15.5 - g/dL * H EMATOCRIT 44.7 35.0-45.0 - % * M CV 96.8 80.0-100.0 - fL * M CH 30.3 27.0-33.0 - pg * M CHC 31.3 L 32.0-36.0 - g/dL * R DW 13.2 11.0-15.0 - % * P LATELET COUNT 177 140-400 - Thousand/u L * N EUTROPHILS 71.9 - % * A BSOLUTE NEUTROPHILS 5968 5673-4816 - cells/uL * L YMPHOCYTES 20.4 - % * A BSOLUTE LYMPHOCYTES 7319 093-3121 - cells/uL * M ONOCYTES 5.0 - % * A BSOLUTE MONOCYTES 415 200-950 - cells/uL * E OSINOPHILS 1.9 - % * A BSOLUTE EOSINOPHILS 158 15-500 - cells/uL * B ASOPHILS 0.8 - % * A BSOLUTE BASOPHILS 66 0-200 - cells/uL * M PV 11.2 7.5-12.5 - fL * Stefany Mc 02/10/2025 09: 09:16 AM EDT > pt informed-daughter will call back and make appt.This lab was reviewed by Stefany Mc on 02/10/2025 at 09:09 AM EDT ?LAB: HEMOGLOBIN A1c (496)* Value Reference Range H EMOGLOBIN A1c 6.3 H <5.7 - % * Stefany Mc 02/10/2025 09: 09:16 AM EDT > pt informed-daughter will call back and make appt.This lab was reviewed by Stefany Mc on 02/10/2025 at 09:09 AM EDT ?LAB: TSH W/REFLEX TO FT4 (66559)* Value Reference Range T SH W/REFLEX TO FT4 0.50 0.40-4.50 - mIU/L * Stefany Mc 02/10/2025 09: 09:16 AM EDT > pt informed-daughter will call back and make appt.This lab was reviewed by Stefany Mc on 02/10/2025 at 09:09 AM EDT ?LAB: VITAMIN D,25-OH,TOTAL,IA (75338)* Value Reference Range V ITAMIN D,25-OH,TOTAL,IA 50 30-100 - ng/mL * Stefany Mc 02/10/2025 09: 09:16 AM EDT > pt informed-daughter will call back and make appt.This lab was reviewed by Stefany Mc on 02/10/2025 at 09:09 AM EDT Clinical Notes: Advanced COPD, we will request additional oxygen supplies in the home so that she can use it continuously if needed. Continue Trelegy??5.?Vitamin D deficiency?LAB: LIPID PANEL, STANDARD (7600)* Value Reference Range T RIGLYCERIDES 65 <150 - mg/dL * C HOLESTEROL, TOTAL 104 <200 - mg/dL * H DL CHOLESTEROL 54 > OR = 50 - mg/dL * L DL-CHOLESTEROL 36 - mg/dL (calc) * C HOL/HDLC RATIO 1.9 <5.0 - (calc) * N ON HDL CHOLESTEROL 50 <130 - mg/dL (calc) * Stefany Mc 02/10/2025 09: 09:16 AM EDT > pt informed-daughter will call back and make appt.This lab was reviewed by Stefany Mc on 02/10/2025 at 09:09 AM EDT ?LAB: COMPREHENSIVE METABOLIC PANEL (00663)* Value Reference Range G LUCOSE 102 H 65-99 - mg/dL * U BLAINE NITROGEN (BUN) 14 7-25 - mg/dL * C REATININE 0.69 0.50-1.05 - mg/dL * B UN/CREATININE RATIO SEE NOTE: 6-22 - (calc) * S ODIUM 138 135-146 - mmol/L * P OTASSIUM 4.4 3.5-5.3 - mmol/L * C HLORIDE 97 L 98-110 - mmol/L * C ARBON DIOXIDE 29 20-32 - mmol/L * C ALCIUM 9.0 8.6-10.4 - mg/dL * P ROTEIN, TOTAL 7.1 6.1-8.1 - g/dL * A LBUMIN 4.1 3.6-5.1 - g/dL * G LOBULIN 3.0 1.9-3.7 - g/dL (calc ) * A LBUMIN/GLOBULIN RATIO 1.4 1.0-2.5 - (calc) * B ILIRUBIN, TOTAL 0.5 0.2-1.2 - mg/dL * A LKALINE PHOSPHATASE 68 37-153 - U/L * A ST 13 10-35 - U/L * A LT 10 6-29 - U/L * E GFR 94 > OR = 60 - mL/min/1 .73m2 * Stefany Mc 02/10/2025 09: 09:16 AM EDT > pt informed-daughter will call back and make appt.This lab was reviewed by Stefany Mc on 02/10/2025 at 09:09 AM EDT ?LAB: MAGNESIUM (622)* Value Reference Range M AGNESIUM 2.0 1.5-2.5 - mg/dL * Stefany Mc 02/10/2025 09: 09:16 AM EDT > pt informed-daughter will call back and make appt.This lab was reviewed by Stefany Mc on 02/10/2025 at 09:09 AM EDT ?LAB: CBC (INCLUDES DIFF/PLT) (5399)* Value Reference Range W DEBBIE BLOOD CELL COUNT 8.3 3.8-10.8 - [place] d/uL * R ED BLOOD CELL COUNT 4.62 3.80-5.10 - Million/ uL * H EMOGLOBIN 14.0 11.7-15.5 - g/dL * H EMATOCRIT 44.7 35.0-45.0 - % * M CV 96.8 80.0-100.0 - fL * M CH 30.3 27.0-33.0 - pg * M CHC 31.3 L 32.0-36.0 - g/dL * R DW 13.2 11.0-15.0 - % * P LATELET COUNT 177 140-400 - Thousand/u L * N EUTROPHILS 71.9 - % * A BSOLUTE NEUTROPHILS 5968 0833-6727 - cells/uL * L YMPHOCYTES 20.4 - % * A BSOLUTE LYMPHOCYTES 1682 226-9408 - cells/uL * M ONOCYTES 5.0 - % * A BSOLUTE MONOCYTES 415 200-950 - cells/uL * E OSINOPHILS 1.9 - % * A BSOLUTE EOSINOPHILS 158 15-500 - cells/uL * B ASOPHILS 0.8 - % * A BSOLUTE BASOPHILS 66 0-200 - cells/uL * M PV 11.2 7.5-12.5 - fL * Stefany Mc 02/10/2025 09: 09:16 AM EDT > pt informed-daughter will call back and make appt.This lab was reviewed by Stefany Mc on 02/10/2025 at 09:09 AM EDT ?LAB: HEMOGLOBIN A1c (496)* Value Reference Range H EMOGLOBIN A1c 6.3 H <5.7 - % * Stefany Mc 02/10/2025 09: 09:16 AM EDT > pt informed-daughter will call back and make appt.This lab was reviewed by Stefany Mc on 02/10/2025 at 09:09 AM EDT ?LAB: TSH W/REFLEX TO FT4 (71614)* Value Reference Range T SH W/REFLEX TO FT4 0.50 0.40-4.50 - mIU/L * Stefany Mc 02/10/2025 09: 09:16 AM EDT > pt informed-daughter will call back and make appt.This lab was reviewed by Stefany Mc on 02/10/2025 at 09:09 AM EDT ?LAB: VITAMIN D,25-OH,TOTAL,IA (75514)* Value Reference Range V ITAMIN D,25-OH,TOTAL,IA 50 30-100 - ng/mL * Stefany Mc 02/10/2025 09: 09:16 AM EDT > pt informed-daughter will call back and make appt.This lab was reviewed by Stefany Mc on 02/10/2025 at 09:09 AM EDT 6.?Thyroid mass? Clinical Notes: Has refused biopsy??7.?Mediastinal mass? Clinical Notes: She is overdue for imaging of her lungs as well as known mediastinal mass, we will arrange for that at [facility] for her convenience? Referral To: ?Reason:CT chestwithout contrast 8.?Tobacco user? Clinical Notes: Encouraged cessation??9.?Physical debility? Referral To: ?Reason:[facility] for PT/OT/Nursing eval. and county home demonstrator if available service * Follow Up: 6 Weeks (Reason: AWV) * * Sign off status: Completed true * Provider: GENARO Drummond Date: 0 02/06/2025 Generated for Rad sampson/Eligio/Marcus on: 0 02/20/2025 10:11 AM EDT History and Physical Notes * Examination Category Sub-Category Detail Notes Category Not es General Examination Heart: RRR, No m/r/g/h, Nl S 1S2 Lungs: rhonchi bilat Abdomen: soft, BS+ Extremities: no edema Skin: without acute rashes Neurologic Exam: Alert and oriented x 3 Peripheral pulses: normal (2+) bilatera lly Chest: normal shape and exp ansion neck supple, General Pleasant and [place] tive, NAD on RA, mild conversational dyspnea Psych Normal Mood/Affect Consultation Request Notes Referral Date Referring Provider Referred Provider Not es 02/06/2025 Sheeba Peterson , CT chest wit hout contrast 02/06/2025 Sheeba Peterson , [facility] for PT/OT/Nursing eval. and county home demonstrator if available service
--- OUTSIDE RECORDS SUMMARY | 2025-02-10 07:23 | XMS_ITS ---
Author Organization [facility] Address [address] [facility] [address] [facility] [address] [place] [address] Care Team Providers Care Supervisor [employer] Name Role Phone Alex Zepeda Primary Care Provider Alex Zepeda Unavailable Unavailable Sheeba Peterson Unavailable [phone] Encounters Encounter Location Date Provider Diagnosis [facility] [address] [place], [place] [address] 02/10/2025 Sheeba Kristen Mediastinal mass J98.59 Assessments Encounter Date Diagnosis (ICD Code) Assessment Notes Treatment Notes Treatment Clinical Notes Section Notes 02/10/2025 Mediastinal mass (ICD-10 - J98.59) Plan Of Treatment Pending Test Test Name Order Date CT Scan : Chest, Without Contrast 2024 Progress Notes * Sabra OSEI SDOB: [birth year] (69 yo F)Acc No.[id number]:02/10/2025 Patient: Sabra EDUARDO :1955 A ge:69 Y S ex:Female Address:[address] [place] [address] [place], [address] Subjective: * Chief Complaints: * * Medical History: * Surgical History: * Hospitalization/Major Diagno stic Procedure: * Medications: Objective: * Vitals: * Physical Examination: Assessment: * Assessment: 1. M ediastinal mass - J98.59 Plan: * Treatment: * * Procedure Codes: * true * Date: Generated for Rad sampson/Eligio/Marcus on: 0 02/20/2025 10:11 AM EDT
--- NOTE | 2025-02-20 10:08 | CT_ITS ---
FINAL REPORT TECHNIQUE: Axial images were obtained through the chest without contrast. Coronal and sagittal images were obtained and reviewed. This study was performed with techniques to keep radiation doses as low as reasonably achievable, (ALARA). Individualized dose reduction techniques using automated exposure control or adjustment of mA and/or kV according to the patient's size were employed. CLINICAL HISTORY: MEDIASTINAL MASS COMPARISON: None FINDINGS: The patient is severely kyphotic. There are moderate vascular calcifications in the aortic arch. The heart size is normal. There is no pericardial or pleural effusion. Lobular mass in the anterior mediastinum measures 2.6 cm AP and transverse dimensions and up to 5.0 cm craniocaudal on image 52 of series 602. The mass is fairly homogeneous and demonstrates lobular margins. There are moderate changes of centrilobular emphysema. Scarring is noted in the lung bases. Limited images of the upper abdomen demonstrate multiple gallstones and sludge in the gallbladder. Abdominal aortic endograft is partially visualized. IMPRESSION: 2.6 x 5.0 cm lobular anterior mediastinal mass which does not appear to be residual thymic tissue. Other etiology could include thymoma or lymphoma. PET-CT is recommended for further evaluation. Reviewed, Interpreted and Dictated by Devin Sotelo MD Transcribed by Reena Fofana Authenticated and [facility]
--- OUTSIDE RECORDS SUMMARY | 2025-02-20 10:12 | XMS_ITS | Patient Health Record ---
Author Organization [facility] Address [address] [place] [address] Care Team Providers Care Human Services Manager Name Role Phone Alex Zepeda Primary Care Provider Alex Zepeda Unavailable Unavailable Sheeba Peterson Unavailable [phone] Migration, Provider Unavailable Unavailable Allergies Allergen (clinical drug ingredient) Drug/Non Drug Allergy documented on EMR Reaction Allergy Type Onset Date Status erythromycin Erythromycin stomach upset Drug Allergy Active Results Component Value Reference Range Notes CBC (INCLUDES DIFF/PLT) (639 9) Reviewed date:02/10/2025 09:09:40 AM Interpretation: Performing Lab:CB, [facility] [id number] [facility], [facility] [id number] [place] Notes/Report: NON-FASTING; NON-FASTING; NON-FASTING; NON-FASTING; [...] MPV 11.2 7.5-12.5 fL ABSOLUTE NEUTROPHILS 5968 8730-2007 cells/uL ABSOLUTE LYMPHOCYTES 3602 492-9701 cells/uL ABSOLUTE MONOCYTES 415 200-950 cells/uL ABSOLUTE EOSINOPHILS 158 15-500 cells/uL ABSOLUTE BASOPHILS 66 0-200 cells/uL NEUTROPHILS 71.9 LYMPHOCYTES 20.4 MONOCYTES 5.0 EOSINOPHILS 1.9 BASOPHILS 0.8 LIPID PANEL, STANDARD (7600) Reviewed date:02/10/2025 09:09:39 AM Interpretation: Performing Lab:DANIAL, [facility], [place] SRORhjwNE[address] [place] Notes/Report: NON-FASTING; NON-FASTING; NON-FASTING; NON-FASTING; NON-FAST FASTING:YES FASTING: YES CHOLESTEROL, TOTAL 104 <200 mg/dL HDL CHOLESTEROL 54 > OR = 50 mg/dL TRIGLYCERIDES 65 <150 mg/dL LDL-CHOLESTEROL 36 Reference range: <100 Desirable range <100 mg/dL for primary prevention; <70 mg/dL for patients with CHD or diabetic patients with > or = 2 CHD risk factors. LDL-C is now calculated using the Cale-Allen calculation, which is a validated novel method providing better accuracy than the Friedewald equation in the estimation of LDL-C. Cale SS et al. HAMILTON. 2013;310(19): 3147-6733 (http://education.Pitzi.com/faq/HCU745) CHOL/HDLC RATIO 1.9 <5.0 (calc) NON HDL CHOLESTEROL 50 <130 mg/dL (calc) For patients with diabetes plus 1 major ASCVD risk factor, treating to a non-HDL-C goal of <100 mg/dL (LDL-C of <70 mg/dL) is considered a therapeutic option. VITAMIN D,25-OH,TOTAL,IA (17 395) Reviewed date:02/10/2025 09:09:40 AM Interpretation: Performing Lab:DANIAL, [facility] [address], [place] SignZdzkCY[address] [place] Notes/Report: NON-FASTING; NON-FASTING; NON-FASTING; NON-FASTING; NON-FAST FASTING:YES FASTING: YES VITAMIN D,25-OH,TOTAL,IA 50 30-100 ng/mL Vitamin D Status 25-OH Vitamin D: Deficiency: <20 ng/mL Insufficiency: 20 - 29 ng/mL Optimal: > or = 30 ng/mL For 25-OH Vitamin D testing on patients on D2-supplementation and patients for whom quantitation of D2 and D3 fractions is required, the QuestAssureD(TM) 25-OH VIT D, (D2,D3), LC/MS/MS is recommended: order code 88763 (patients >2yrs). See Note 1 Note 1 For additional information, please refer to http://education.Relay.SavvySystems/faq/YYT042 (This link is being provided for informational/ educational purposes only.) TSH W/REFLEX TO FT4 (93203) Reviewed date:02/10/2025 09:09:40 AM Interpretation: Performing Lab:[facility], [place] SignVmreMV[address] [place] Notes/Report: NON-FASTING; NON-FASTING; NON-FASTING; NON-FASTING; NON-FAST FASTING:YES FASTING: YES TSH W/REFLEX TO FT4 0.50 0.40-4.50 mIU/L HEMOGLOBIN A1c (496) Reviewed date:02/10/2025 09:09:40 AM Interpretation: Performing Lab:DANIAL [facility] [address], [place] SignHuonDA[address] [place] Notes/Report: NON-FASTING; NON-FASTING; NON-FASTING; NON-FASTING; [...] A1c for diagnosis of diabetes for children. MAGNESIUM (622) Reviewed date:02/10/2025 09:09:40 AM Interpretation: Performing Lab:CB, [facility] [address], [facility] CenterRtlcIA[address] [place] Notes/Report: NON-FASTING; NON-FASTING; NON-FASTING; NON-FASTING; NON-FAST FASTING:YES FASTING: YES MAGNESIUM 2.0 1.5-2.5 mg/dL COMPREHENSIVE METABOLIC PANE L (56335) Reviewed date:02/10/2025 09:09:40 AM Interpretation: Performing Lab:CB, [facility] [address], [facility] CenterDnvzVN[address] Ezekiel Verde Notes/Report: NON-FASTING; NON-FASTING; NON-FASTING; NON-FASTING; [...] 13 10-35 U/L ALT 10 6-29 U/L Reason For Referral Reason medical records for Tiffanie GOLDSMITH Referral Organization [facility] Referring Provider First Name Alex Referring Provider Last Name Katelyn Referring Provider Speciality Internal M edicine Referral Priority Routine Reason medical records for [facility] Referral Organization [facility] Referring Provider First Name Alex Referring Provider Last Name Katelyn [facility] M edicine Referral Priority Routine Reason CT chest without con trast Diagnosis 1 Mediastinal mass (J9 8.59) Referral Organization [facility] MEGHAN DUMONT Referring Provider First Name Sheeba Referring Provider Last Name Kristen Referring Provider [facility] [place] ctice Referred Organization [facility] Referred Address [address] [facility] [address] [facility], [place], [place],[address],[place] Referred Provider Specialty Diagnostic R adiology General Notes Leslie Steinberg 2024 11:23:03 AM >sent to [facility] to schedule Referral Priority Routine Reason [facility] for PT/OT/Nursing eval. and home health care case manager if available service Diagnosis 1 Physical debility (R 53.81) Referral Organization [facility] MEGHAN DUMONT Referring Provider First Name Sheeba Referring Provider Last Name Kristen Referring Provider [facility] Tin ctice Referred Organization [facility] Referred Address [address] [place], [place],[address],[place] Referred Provider Specialty Home Health General Notes Leslie Steinberg 2024 11:53:24 AM >sent to [facility] Referral Priority Routine Medications Medication SIG (Take, Route, Frequency, Duration) Notes Start Date End Date Status Aspirin 81 MG 1 TAB(S) ORALLY ONCE A DAY; Duration: 30 DAY(S) *Please review and pick correct strength-formulatio n from ProtectWise options. If intended option is not shown, discontinue and re-order from Quick Search* Active Diclofenac Sodium 1 % as directed applied topically 4 times a day; Duration: 30 day(s) Active Omeprazole 20 MG 1 cap(s) orally once a day; Duration: 30 day(s) 02/19/2020 Active Trelegy Ellipta 200 MCG-62.5 MCG-25 MCG/INH INHALE 1 PUFF BY MOUTH EVERY DAY; Duration: 30 *Please review and pick correct strength-formulatio n from ProtectWise options. If intended option is not shown, discontinue and re-order from Quick Search* Active Vitamin D3 25 MCG 1 tab(s) orally once a day; Duration: 30 day(s) 11/26/2021 Active Lasix 20 MG 1 tab(s) orally every other day; Duration: 30 days Active Linzess 72 MCG 1 cap(s) orally every other day prn; Duration: 90 days Active FREESTYLE LT/GLUCOSE MONITORING NFRS - *Please review for potential replacement for e-prescription and drug interaction check* 11/08/2018 Active FREESTYLE LANCET - USE TO CHECKBLOOD SUGAR ONCE DAILY; Duration: 30 DAYS Dx:E11.9 *Please review for potential replacement for e-prescription and drug interaction check* 11/09/2018 Active NEBULIZER SET-UP W/ ADULT MASK *Please review for potential replacement for e-prescription and drug interaction check* 05/03/2018 Active GLUCOMETER NA USE FOR ONCE A DAY FSBS TESTING NA ONCE A DAY; Duration: 30 DAYS DX: E11.9 *Please review for potential replacement for e-prescription and drug interaction check* 06/23/2022 Active PORTABLE OXYGEN CONCENTRATOR DX: COPD prn *Please review for potential replacement for e-prescription and drug interaction check* Active TEST STRIPS AND LANCETS NA FOR ONCE A DAY FSBS TESTING NA ONCE A DAY DX: E11.9 *Please review for potential replacement for e-prescription and drug interaction check* 06/23/2022 Active OXYGEN 2 LITERS DIRECTED DAILY prn *Please re view for potential replacement for e-prescription and drug interaction check* Active Claritin 10 MG 1 tab(s) orally once a day; Duration: 90 days Active Atorvastatin Calcium 40 MG 1 tab(s) orally once a day; Duration: 90 Active Albuterol Sulfate (2.5 MG/3ML) 0.083% 3 mL by nebulizer every 6 hours prn; Duration: 90 days Active metFORMIN HCl 1000 MG 1 tab orally 2 times a day; Duration: 30 days Active Ventolin HFA 108 (90 Base) MCG/ACT 2 puff(s) inhaled every 4 hours; Duration: 30 days Active Alendronate Sodium 70 MG 1 tab(s) orally once a week; Duration: 28 days Active TRELEGY ELLIPTA 200 mcg-62.5 mcg-25 mcg/inh 1 puff(s) inhaled once a day; Duration: 30 days Active FREESTYLE LITE STRIPS NFRS - USE TO CHECK BLOODSUGAR ONCE DAILY; Duration: 30 DAYS Dx:E11.9 *Please review for potential replacement for e-prescription and drug interaction check* 11/09/2018 Active Farxiga 5 mg TAKE ONE TABLET BY MOUTH EVERY DAY; Duration: 30 Active Immunizations Vaccine Route Administration Date Status Comme nts Prevnar PCV-20 (Pneumococcal conjugate 20) IM Intramuscular 08/18/2022 Administered Pneumovax 23 IM Intramuscular 05/28/2020 Administered Influenza-Fluzone 3+years (NON-MEDICARE) IM Intramuscular 04/28/2017 Administered Hep A Adult 2 Dose Unknown 06/06/2018 Administered Fluzone High Dose IM Intramuscular 05/28/2020 Administered Fluzone High Dose IM Intramuscular 04/26/2021 Administered Social History Tobacco Use: Social History Observation Description Date Details (start date - stop date) Current Smoker NA - NA Smoking: Question Answer Notes Are you a: current smoker How often do you smoke cigarettes? every day How many cigarettes a day do you smoke? 21-30 Problems Problem Type SNOMED Code ICD Code Onset Dates Problem Status W/U Status Risk Notes Problem Mixed hyperlipidemia (894271140) Mixed hyperlipidemia (E78.2) Active confirmed Problem Tobacco user (225681561) Nicotine dependence, cigarettes, uncomplicated (F17.210) Active confirmed Problem Cholelithiasis without obstruction (91119157) Calculus of gallbladder without cholecystitis without obstruction (K80.20) Active confirmed Problem Age-related osteoporosis (309275320) Age-related osteoporosis without current pathological fracture (M81.0) Active confirmed Problem Tobacco use (326184406) Tobacco use (Z72.0) Active confirmed Problem Acute exacerbation of chronic obstructive airways disease (452299711) COPD with exacerbation (J44.1) Active confirmed Problem Vitamin D deficiency (37432223) Vitamin D deficiency (E55.9) Active confirmed Problem Body mass index 25-29 - overweight (557025184) BMI 25.0-25.9,adult (Z68.25) Active confirmed Problem BMI 25-29 - overweight (131859918) BMI 27.0-27.9,adult (Z68.27) Active confirmed Problem Acute exacerbation of chronic obstructive airways disease (940530701) COPD exacerbation (J44.1) Active confirmed Problem Allergic rhinitis (13244009) Chronic allergic rhinitis (J30.9) Active confirmed Problem Hyperlipidemia (62149234) Hyperlipidemia, unspecified (E78.5) Active confirmed Problem Benign essential hypertension (2175996) Benign essential hypertension (I10) Active confirmed Problem Osteoarthritis of knee (028235061) Primary osteoarthritis of both knees (M17.0) Active confirmed Problem Pulmonary emphysema (09492354) Pulmonary emphysema, unspecified emphysema type (J43.9) Active confirmed Problem Peripheral edema (87085098) Peripheral edema (R60.9) Active confirmed Problem Hyperthyroidism (55068008) Hyperthyroidism (E05.90) Active confirmed Problem Degeneration of lumbar intervertebral disc (32118413) Lumbar degenerative disc disease (M51.36) Active confirmed Problem Reactive depression (situational) (94762010) Situational depression (F43.21) Active confirmed Problem Diverticular disease of colon (606592489) Diverticulosis large intestine w/o perforation or abscess w/o bleeding (K57.30) Active confirmed Problem Lymphadenopathy (98406133) Mediastinal adenopathy (R59.0) Active confirmed Problem Dependence on supplemental oxygen (581557298212) Supplemental oxygen dependent (Z99.81) Active confirmed Problem Type II diabetes mellitus without complication (172760745) Type 2 diabetes mellitus without complication, without long-term current use of insulin (E11.9) Active confirmed Problem Abdominal aortic aneurysm without rupture (disorder) (89256671) Abdominal aortic aneurysm (AAA) without rupture (I71.4) Active confirmed Problem Chronic idiopathic constipation (70431451) Chronic idiopathic constipation (K59.04) Active confirmed Problem Personal history of tobacco use (Z87.891) Active confirmed Problem Allergic rhinitis (61226767) Acute allergic rhinitis (J30.9) Active confirmed Problem Benign neoplasm of colon (95745845) Multiple polyps of sigmoid colon (D12.5) Active confirmed Problem Hyperglycemia due to type 2 diabetes mellitus (741327129443889) Uncontrolled type 2 diabetes mellitus with hyperglycemia (E11.65) Active confirmed Problem Thymoma (687793919) Thymoma (D15.0) Active confirmed Problem Chronic obstructive pulmonary disease with acute lower respiratory infection (510555276) Chronic obstructive pulmonary disease with (acute) lower respiratory infection (J44.0) Active confirmed Problem Heart failure (76249929) Acute congestive heart failure, unspecified heart failure type (I50.9) Active confirmed Problem COVID-19 (048342917) COVID-19 (U07.1) Active confirmed Problem Disorder due to type 2 diabetes mellitus (386533375) Controlled type 2 diabetes mellitus with complication, without long-term current use of insulin (E11.8) Active confirmed Problem Chronic respiratory failure (91937301) Chronic hypoxic respiratory failure (J96.11) Active confirmed Vital Signs Heart Rate 100 /min 02/06/2025 RA Temperature 98.1 degrees Fahrenheit 02/06/2025 RA Oximetry 85 02/06/2025 RA Blood pressure diastolic 48 mm Hg 02/06/2025 RA Height 62.75 in 02/06/2025 RA Blood pressure systolic 110 mm Hg 02/06/2025 RA Weight 131.8 lbs 02/06/2025 RA BMI 23.53 kg/m2 02/06/2025 RA Encounters Encounter Location Date Provider Diagnosis [facility] [address] [place] [address] 11/16/2024 Provider Migration Pulmonary emphysema, unspecified emphysema type J43.9 [facility] [address] [facility] [address] [place] [address] 02/06/2025 Sheeba Kristen Hyperthyroidism E05. 90 ; Uncontrolled type 2 diabetes mellitus with hyperglycemia E11.65 ; Lower extremity edema R60.0 ; Pulmonary emphysema, unspecified emphysema type J43.9 ; Vitamin D deficiency E55.9 ; Chronic hypoxic respiratory failure J96.11 ; Thyroid mass E07.9 ; Mediastinal mass J98.59 ; Tobacco user Z72.0 and Physical debility R53.81 [facility] [address] [address] 07/17/2024 Alex Besson [facility] [address] [facility] [address] [place] [address] 10/04/2024 Sheeba Kristen [facility] [address] [address] 11/01/2024 Sheeba Kristen [facility] [address] [place] [address] 02/06/2025 Sheeba Kristen [facility] [address] [place] [address] 02/10/2025 Sheeba Kristen Mediastinal mass J98 .59 [facility] [address] [facility] [address] [place] [address] 02/17/2025 Alex Besson [facility] [address] [place] [address] 02/17/2025 Sheeba Peterson Assessments Encounter Date Diagnosis (ICD Code) Assessment Notes Treatment Notes Treatment Clinical Notes Section Notes 11/16/2024 Pulmonary emphysema, unspecified emphysema type (ICD-10 - J43.9) 02/06/2025 Hyperthyroidism (ICD-10 - E05.90) Repeat labs today. Consider methimazole, propranolol. Refused uptake scan previously 02/06/2025 Uncontrolled type 2 diabetes mellitus with hyperglycemia (ICD-10 - E11.65) Last labs were over a year ago and she has not been monitoring her glucose at home, we will obtain labs today to help guide additional management 02/10/2025 Mediastinal mass (ICD-10 - J98.59) 02/06/2025 Lower extremity edema (ICD-10 - R60.0) [...] mass, we will arrange for that at [facility] for her convenience 02/06/2025 Tobacco user (ICD-10 - Z72.0) Encouraged cessation 02/06/2025 Physical debility (ICD-10 - R53.81) Plan Of Treatment Pending Test Test Name Order Date X ray : Chest 12/03/2018 CT Scan : Chest, Without Contrast 2024 Mammogram : Right Breast 04/16/2019 NUCLEAR MED : Thyroid Uptake Scan 2023 H-MICROALB/SENIOR SYSTEM OPERATOR UR 10/06/2017 M-Complete Blood Count Auto Diff 019 M-Erythrocyte Sedimentation Rate 019 M-Comprehensive Metabolic Panel 06/06/20 19 M-Comprehensive Metabolic Panel 01/05/20 21 M-Hemoglobin A1C 01/04/2021 M-Hemoglobin A1C 06/06/2019 M-Uric Acid 06/06/2019 M-Lipid Panel 06/06/2019 M-Free T4 (Free Thyroxine) 10/23/2023 M-Vitamin D 25 Hydroxy 04/16/2021 M-Vitamin D 25 Hydroxy 10/19/2023 M-Vitamin D 25 Hydroxy 01/04/2021 M-Vitamin D 25 Hydroxy 08/21/2020 M-Microalb/Creat Ratio, [facility] Ur 021 M-Microalb/Creat Ratio, [facility] Ur 019 Insurance Providers Payer Name Payer Address Payer Phone Subscriber Number Group Number Insured Name Patient Relationship to Insured Coverage Start Date Coverage End Date [employer] [address] [place] [address] [id number] Sabra Phoenix Self - patient is the insured Medical (General) History Medical History History ICD Code tubular adenoma on colonosco py April 2017 - multiple TA on repeat 10/29 and repeat again 2018 - repeated 03/02 with tubular adenomas DM HLD emphysema abdominal aortic aneurysm - followed by Dr Padilla Tobacco use Thymoma, followed by Dr Bowie at Surgical History Surgery Date(Month/Year) x 4 colonoscopy 04/18/2017 colonoscopy with multiple polyps 10/2017 Triple A surgery 01/2019 Bilateral cataract surgery 03/19 and 2018 Hospitalization History Reason Date(Month/Year) Triple A surgery 01/2019 child [facility] 03/2022
== END 2025-02-20 23:59 | disposition home or self-care (01) ==
LOC: RAD 10:06
PROVIDERS: PCP Nurse Practitioner Family; Visit Provider Nurse Practitioner Family
DX: J98.59 Other diseases of mediastinum, not elsewhere classified (principal)
CPT/HCPCS: 71250

== ENCOUNTER 2025-07-02 22:35 | Inpatient (IN) | payer MEDICARE, MEDICAID, SELFPAY ==
--- OUTSIDE RECORDS SUMMARY | 2024-02-20 03:00 | XMS_ITS ---
Author Organization [facility] Address [address] [facility] [address] [place], [place] [address] Care Team Providers Care Registered Dietitian Name Role Phone Alex Zepeda Primary Care Provider Alex Zepeda Unavailable Unavailable Sheeba Peterson Unavailable [phone] REASON FOR VISIT 4 month Encounters Encounter Location Date Provider Diagnosis [facility] [address] [place], [place] [address] 02/20/2024 Sheeba Peterson Plan Of Treatment Next Appt Details Provider Name:Sheeba Lofton ce, 11/20/2025 08:30:00 AM, [address] [facility], [address], [place], [place], [address], Progress Notes * Sabra OSEI SDOB: [birth year] (70 yo F)Acc No.[id number]:02/20/2024 Progress Notes Patient: Mart AARONSabra Nadiya Provider: GENARO Drummond :1955 A ge:68 Y S ex:Female Date:02/20/2024 Address:[id number] Pcp:Alex Zepeda Subjective: * Chief Complaints: * 1 . 4 month. * Medical History: Objective: * Vitals: Assessment: Plan: * Treatment: * * Electronic signature of Radha Peterson APRN on 07/02/2025 at 10:41 PM EST Sign off status: Pending * Provider: GENARO Drummond Date: 0 02/20/2024 Generated for Rad sampson/Eligio/Marcus on: 09/01/2024 10:41 PM EST
--- OUTSIDE RECORDS SUMMARY | 2024-11-16 16:30 | XMS_ITS ---
Author Organization [facility] Address [address] [place] [address] Care Team Providers Care Entry Rep Name Role Phone Alex Zepeda Primary Care Provider Alex Zepeda Unavailable Unavailable Migration, Provider Unavailable Unavailable Allergies Allergen (clinical drug ingredient) Drug/Non Drug Allergy documented on EMR Reaction Allergy Type Onset Date Status erythromycin Erythromycin stomach upset Drug Allergy [facility] Conversion Encounter Medications Medication SIG (Take, Route, Frequency, Duration) Notes Start Date End Date Status Alendronate Sodium 70 MG 1 tab(s) orally once a week; Duration: 28 days Active TEST STRIPS AND LANCETS NA FOR ONCE A DAY FSBS TESTING NA ONCE A DAY DX: E11.9 *Please review for potential replacement for e-prescription and drug interaction check* 06/23/2022 Active Diclofenac Sodium 1 % as directed applied topically 4 times a day; Duration: 30 day(s) Active Claritin 10 MG 1 tab(s) orally once a day; Duration: 90 days Active metFORMIN HCl 1000 MG 1 tab orally 2 times a day; Duration: 30 days Active Lasix 20 MG 1 tab(s) orally every other day; Duration: 30 days Active FREESTYLE LITE STRIPS NFRS - USE TO CHECK BLOODSUGAR ONCE DAILY; Duration: 30 DAYS Dx:E11.9 *Please review for potential replacement for e-prescription and drug interaction check* 11/09/2018 Active Ventolin HFA 108 (90 Base) MCG/ACT 2 puff(s) inhaled every 4 hours; Duration: 30 days Active GLUCOMETER NA USE FOR ONCE A DAY FSBS TESTING NA ONCE A DAY; Duration: 30 DAYS DX: E11.9 *Please review for potential replacement for e-prescription and drug interaction check* 06/23/2022 Active FREESTYLE LANCET - USE TO CHECKBLOOD SUGAR ONCE DAILY; Duration: 30 DAYS Dx:E11.9 *Please review for potential replacement for e-prescription and drug interaction check* 11/09/2018 Active Aspirin 81 MG 1 TAB(S) ORALLY ONCE A DAY; Duration: 30 DAY(S) *Please review and pick correct strength-formulatio n from [employer] options. If intended option is not shown, discontinue and re-order from Quick Search* Active Vitamin D3 25 MCG 1 tab(s) orally once a day; Duration: 30 day(s) 11/26/2021 Active Omeprazole 20 MG 1 cap(s) orally once a day; Duration: 30 day(s) 02/19/2020 Active Albuterol Sulfate (2.5 MG/3ML) 0.083% 3 mL by nebulizer every 6 hours prn; Duration: 90 days Active Linzess 72 MCG 1 cap(s) orally every other day prn; Duration: 90 days Active OXYGEN 2 LITERS DIRECTED DAILY prn *Please re view for potential replacement for e-prescription and drug interaction check* Active Atorvastatin Calcium 40 MG 1 tab(s) orally once a day; Duration: 90 Active PORTABLE OXYGEN CONCENTRATOR DX: COPD prn *Please review for potential replacement for e-prescription and drug interaction check* Active Farxiga 5 MG 1 tab(s) orally once a day; Duration: 30 days Active Trelegy Ellipta 200 MCG-62.5 MCG-25 MCG/INH INHALE 1 PUFF BY MOUTH EVERY DAY; Duration: 30 *Please review and pick correct strength-formulatio n from [employer] options. If intended option is not shown, discontinue and re-order from Quick Search* Active NEBULIZER SET-UP W/ ADULT MASK *Please review for potential replacement for e-prescription and drug interaction check* 05/03/2018 Active FREESTYLE LT/GLUCOSE MONITORING NFRS - *Please review for potential replacement for e-prescription and drug interaction check* 11/08/2018 Active Encounters Encounter Location Date Provider Diagnosis [facility] [address] [place] [address] 11/16/2024 Provider Migration Pulmonary emphysema, unspecified emphysema type J43.9 Assessments Encounter Date Diagnosis (ICD Code) Assessment Notes Treatment Notes Treatment Clinical Notes Section Notes 11/16/2024 Pulmonary emphysema, unspecified emphysema type (ICD-10 - J43.9) Plan Of Treatment Medication Medication Name Sig Start Date Stop Date Notes Alendronate Sodium 70 MG 1 tab(s) orally once a week; Duration: 28 days metFORMIN HCl 1000 MG 1 tab orally 2 times a day; Duration: 30 days Lasix 20 MG 1 tab(s) orally every other day; Duration: 30 days Atorvastatin Calcium 40 MG 1 tab(s) orally once a day; Duration: 90 Farxiga 5 MG 1 tab(s) orally once a day; Duration: 30 days Trelegy Ellipta 200 MCG-62.5 MCG-25 MCG/INH INHALE 1 PUFF BY MOUTH EVERY DAY; Duration: 30 *Please review and pick correct strength-formulation from [employer] options. If intended option is not shown, discontinue and re-order from Quick Search* Next Appt Details Provider Name:Sheeba Tomeka Lofton , 11/20/2025 08:30:00 AM, [address] [facility] [address] [facility], [address], [place], [address], Progress Notes * Sabra OSEI SDOB: [birth year] (70 yo F)Acc No.[id number]:11/16/2024 Patient: Sabra EDUARDO Provider: Santiago Sheets :1955 A ge:69 Y S ex:Female Date:11/16/2024 Address:[place] [id number] Pcp:Alex Zepeda Subjective: * Chief Complaints: * 1 . [facility] Conversion Encounter. * Medical History: * Medications: T aking FREESTYLE LT/GLUCOSE MONITORING NFRS - , Notes to Pharmacist: *Please review for potential replacement for e-prescription and drug interaction check*, Taking NEBULIZER SET-UP W/ ADULT MASK , Notes to Pharmacist: *Please review for potential replacement for e-prescription and drug interaction check*, Taking PORTABLE OXYGEN CONCENTRATOR DX: COPD , Notes to Pharmacist: prn *Please review for potential replacement for e-prescription and drug interaction check*, Taking OXYGEN 2 LITERS NASAL CANNULA DIRECTED DAILY , Notes to Pharmacist: prn *Please review for potential replacement for e-prescription and drug interaction check*, Taking Aspirin 81 MG TABLET 1 TAB(S) ORALLY ONCE A DAY , Notes to Pharmacist: *Please review and pick correct strength-formulation from [employer] options. If intended option is not shown, discontinue and re-order from Quick Search*, Taking Omeprazole 20 MG Capsule Delayed Release 1 cap(s) orally once a day , Taking Vitamin D3 25 MCG Tablet 1 tab(s) orally once a day , Taking Linzess 72 MCG Capsule 1 cap(s) orally every other day prn , Taking Albuterol Sulfate (2.5 MG/3ML) 0.083% Nebulization Solution 3 mL by nebulizer every 6 hours prn , Taking Ventolin HFA 108 (90 Base) MCG/ACT Aerosol Solution 2 puff(s) inhaled every 4 hours , Taking FREESTYLE LITE STRIPS NFRS - USE TO CHECK BLOODSUGAR ONCE DAILY , Notes to Pharmacist: Dx:E11.9 *Please review for potential replacement for e-prescription and drug interaction check*, Taking FREESTYLE LANCET - USE TO CHECKBLOOD SUGAR ONCE DAILY , Notes to Pharmacist: Dx:E11.9 *Please review for potential replacement for e-prescription and drug interaction check*, Taking GLUCOMETER NA PER INSURANCE COVERAGE USE FOR ONCE A DAY FSBS TESTING NA ONCE A DAY , Notes to Pharmacist: DX: E11.9 *Please review for potential replacement for e-prescription and drug interaction check*, Taking TEST STRIPS AND LANCETS NA PER INSURANCE COVERAGE WITH GLUCOMETER FOR ONCE A DAY FSBS TESTING NA ONCE A DAY , Notes to Pharmacist: DX: E11.9 *Please review for potential replacement for e-prescription and drug interaction check*, Taking Claritin 10 MG Tablet 1 tab(s) orally once a day , Taking Diclofenac Sodium 1 % Gel as directed applied topically 4 times a day * Allergies: E rythromycin: stomach upset. Objective: * Vitals: Assessment: * Assessment: 1. P ulmonary emphysema, unspecified emphysema type - J43.9 Plan: * Treatment: 2. O thers Refill Lasix Tablet, 20 MG, 1 tab(s), orally, every other day, 30 days, 15, Refills 2; S tart Atorvastatin Calcium Tablet, 40 MG, 1 tab(s), orally, once a day, 90, 90, Refills 3; R efill Farxiga Tablet, 5 MG, 1 tab(s), orally, once a day, 30 days, 30 Tablet, Refills 2; S tart metFORMIN HCl Tablet, 1000 MG, 1 tab, orally, 2 times a day, 30 days, 60 Tablet, Refills 5; S tart Alendronate Sodium Tablet, 70 MG, 1 tab(s), orally, once a week, 28 days, 4, Refills 5. * * Electronic signature of Prov ider Migration on 07/02/2025 at 10:41 PM EST Sign off status: Pending * Provider: Santiago leo Migration Date: 0 11/16/2024 Generated for Rad sampson/Eligio/Marcus on: 1 09/01/2024 10:41 PM EST
--- OUTSIDE RECORDS SUMMARY | 2025-05-08 03:30 | XMS_ITS ---
Author Organization [facility] Address [address] [facility] [address] [place], [place] [address] Care Team Providers Care Die Finisher Name Role Phone Alex Zepeda Primary Care Provider Alex Zepeda Unavailable Unavailable Sheeba Peterson [phone] REASON FOR VISIT AWV, 3 mo FU Encounters Encounter Location Date Provider Diagnosis [facility] [address] [place], [place] [address] 05/08/2025 Sheeba Peterson Plan Of Treatment Next Appt Details Provider Name:Sheeba Lofton ce, 11/20/2025 08:30:00 AM, [address], [place], [place], [address], Progress Notes * Sabra OSEI SDOB: [birth year] (70 yo F)Acc No.[id number]:05/08/2025 Progress notes Patient: Conner EDUARDOie Nadiya Provider: GENARO Drummond :1955 A ge:70 Y S ex:Female Date:05/08/2025 Address:[place] Pcp:Alex Zepeda Subjective: * Chief Complaints: * 1 . AWV, 3 mo FU. * Medical History: Objective: * Vitals: Assessment: Plan: * Treatment: * * Electronic signature of Radha Peterson APRN on 07/02/2025 at 10:41 PM EST Sign off status: Pending * Provider: GENARO Drummond Date: 0 05/08/2025 Generated for Rad sampson/Eligio/Marcus on: 1 09/01/2024 10:41 PM EST
--- OUTSIDE RECORDS SUMMARY | 2025-05-15 05:00 | XMS_ITS ---
Author Organization [facility] ANGIE Address [address] [place] [address] Care Team Providers Care Quality Engineer Name Role Phone Alex Zepeda Primary Care Provider Alex Zepeda Unavailable Unavailable Sheeba Peterson Unavailable [phone] Allergies Allergen (clinical drug ingredient) Drug/Non Drug Allergy documented on EMR Reaction Allergy Type Onset Date Status erythromycin Erythromycin stomach upset Drug Allergy Active Results Component Value Reference Range Notes COMPREHENSIVE METABOLIC PANE L (49948) Reviewed date:05/19/2025 09:49:11 AM Interpretation: Performing Lab:CB, [facility] [id number] [employer] [employer], [facility] [id number] Ezekiel Verde Notes/Report: NON-FASTING; NON-FASTING; NON-FASTING; NON-FASTING GLUCOSE 100 65-99 mg/dL Fasting reference interval For someone without known diabetes, a glucose value between 100 and 125 mg/dL is consistent with prediabetes and should be confirmed with a follow-up test. UREA NITROGEN (BUN) 13 7-25 mg/dL CREATININE 0.68 0.60-1.00 mg/dL EGFR 94 > OR = 60 mL/min/1.73m2 BUN/CREATININE RATIO SEE NOTE: 6-22 (calc) Not Reported: BUN and Creatinine are within reference range. SODIUM 140 135-146 mmol/L POTASSIUM 4.4 3.5-5.3 mmol/L CHLORIDE 99 98-110 mmol/L CARBON DIOXIDE 29 20-32 mmol/L CALCIUM 9.2 8.6-10.4 mg/dL PROTEIN, TOTAL 7.1 6.1-8.1 g/dL ALBUMIN 4.1 3.6-5.1 g/dL GLOBULIN 3.0 1.9-3.7 g/dL (calc) ALBUMIN/GLOBULIN RATIO 1.4 1.0-2.5 (calc) BILIRUBIN, TOTAL 0.7 0.2-1.2 mg/dL ALKALINE PHOSPHATASE 74 37-153 U/L AST 11 10-35 U/L ALT 9 6-29 U/L CBC (INCLUDES DIFF/PLT) ([id number] 9) Reviewed date:05/19/2025 09:49:11 AM Interpretation: Performing Lab:DANIAL, [facility] [id number] [facility], [facility] [id number] Ezekiel Verde Notes/Report: NON-FASTING; NON-FASTING; NON-FASTING; NON-FASTING WHITE BLOOD CELL COUNT 8.6 3.8-10.8 Thousand/ uL RED BLOOD CELL COUNT 4.58 3.80-5.10 Million/uL HEMOGLOBIN 13.7 11.7-15.5 g/dL HEMATOCRIT 43.0 35.0-45.0 % MCV 93.9 80.0-100.0 fL MCH 29.9 27.0-33.0 pg MCHC 31.9 32.0-36.0 g/dL For adults, a slight decrease in the calculated MCHC value (in the range of 30 to 32 g/dL) is most likely not clinically significant; however, it should be interpreted with caution in correlation with other red cell parameters and the patient's clinical condition. RDW 13.5 11.0-15.0 % PLATELET COUNT 233 140-400 Thousand/uL MPV 10.6 7.5-12.5 fL ABSOLUTE NEUTROPHILS 6037 7749-5225 cells/uL ABSOLUTE LYMPHOCYTES 5236 212-7817 cells/uL ABSOLUTE MONOCYTES 430 200-950 cells/uL ABSOLUTE EOSINOPHILS 155 15-500 cells/uL ABSOLUTE BASOPHILS 69 0-200 cells/uL NEUTROPHILS 70.2 LYMPHOCYTES 22.2 MONOCYTES 5.0 EOSINOPHILS 1.8 BASOPHILS 0.8 HEMOGLOBIN A1c (496) Reviewed date:05/19/2025 09:49:11 AM Interpretation: Performing Lab:DANIAL [facility] [id number], Promine[facility] [id number] Ezekiel Verde Notes/Report: NON-FASTING; NON-FASTING; NON-FASTING; NON-FASTING HEMOGLOBIN A1c 6.2 <5.7 % For someone without known diabetes, [...] diabetes for children. TSH W/REFLEX TO FT4 (40866) Reviewed date:05/19/2025 09:49:11 AM Interpretation: Performing Lab:DANIAL, [facility] [id number] [facility] [id number] Ezekiel Verde Notes/Report: NON-FASTING; NON-FASTING; NON-FASTING; NON-FASTING TSH W/REFLEX TO FT4 0.42 0.40-4.50 mIU/L REASON FOR VISIT AWV, 3 mo FU-fasting, had a fall x 2 weeks ago-sore back, flu shot, needs refill on Diclofenac Sodium gel Medications Medication SIG (Take, Route, Frequency, Duration) Notes Start Date End Date Status Farxiga 5 mg TAKE ONE TABLET BY MOUTH EVERY DAY; Duration: 60 Active Lasix 20 MG 1 tab(s) orally every other day; Duration: 30 days Active metFORMIN HCl 1000 MG TAKE ONE TABLET BY MOUTH TWICE DAILY; Duration: 60 Active Alendronate Sodium 70 mg TAKE ONE TABLET BY MOUTH ONCE WEEKLY; Duration: 28 Active TRELEGY ELLIPTA 200 mcg-62.5 mcg-25 mcg/inh 1 puff(s) inhaled once a day; Duration: 30 days Active Claritin 10 MG 1 tab(s) orally once a day; Duration: 90 days Active Trelegy Ellipta 200 MCG-62.5 MCG-25 MCG/INH INHALE 1 PUFF BY MOUTH EVERY DAY; Duration: 30 Active Diclofenac Sodium 1 % as directed applied topically 4 times a day; Duration: 30 day(s) Active Atorvastatin Calcium 40 MG 1 tab(s) orally once a day; Duration: 90 Active Ventolin HFA 108 (90 Base) MCG/ACT 2 puff(s) inhaled every 4 hours; Duration: 30 days Active FREESTYLE LANCET - USE TO CHECKBLOOD SUGAR ONCE DAILY; Duration: 30 DAYS 11/09/2018 Active FREESTYLE LITE STRIPS NFRS - USE TO CHECK BLOODSUGAR ONCE DAILY; Duration: 30 DAYS 11/09/2018 Active TEST STRIPS AND LANCETS NA FOR ONCE A DAY FSBS TESTING NA ONCE A DAY 06/23/2022 Active GLUCOMETER NA USE FOR ONCE A DAY FSBS TESTING NA ONCE A DAY; Duration: 30 DAYS 06/23/2022 Active Albuterol Sulfate (2.5 MG/3ML) 0.083% 3 mL by nebulizer every 6 hours prn; Duration: 90 days Active Aspirin 81 MG 1 TAB(S) ORALLY ONCE A DAY; Duration: 30 DAY(S) Active Omeprazole 20 MG 1 cap(s) orally once a day; Duration: 30 day(s) 02/19/2020 Active Linzess 72 MCG 1 cap(s) orally every other day prn; Duration: 90 days Active Vitamin D3 25 MCG 1 tab(s) orally once a day; Duration: 30 day(s) 11/26/2021 Active FREESTYLE LT/GLUCOSE MONITORING NFRS - *Please review for potential replacement for e-prescription and drug interaction check* 11/08/2018 Active PORTABLE OXYGEN CONCENTRATOR DX: COPD prn Active NEBULIZER SET-UP W/ ADULT MASK 05/03/2018 Active OXYGEN 2 LITERS DIRECTED DAILY prn Active Immunizations Vaccine Route Administration Date Status Comme nts Fluzone High Dose IM Intramuscular 05/15/2025 Administered Social History Tobacco Use: Social History Observation Description Date Details (start date - stop date) Current Smoker NA - NA Smoking: Question Answer Notes Are you a: current smoker How often do you smoke cigarettes? every day How many cigarettes a day do you smoke? 21-30 Vital Signs Temperature 97.7 degrees Fahrenheit 05/15/20 25 Blood pressure systolic 116 mm Hg 05/15/20 25 Blood pressure diastolic 50 mm Hg 025 Heart Rate 94 /min 05/15/2025 Height 62.75 in 05/15/2025 Weight 134.4 lbs 05/15/2025 BMI 24 kg/m2 05/15/2025 Encounters Encounter Location Date Provider Diagnosis [facility] [place] [address] [place] [address] 05/15/2025 Sheeba Peterson Uncontrolled type 2 diabetes mellitus with hyperglycemia E11.65 ; Medicare annual wellness visit, subsequent Z00.00 ; Hyperthyroidism E05.90 ; Lower extremity edema R60.0 ; Pulmonary emphysema, unspecified emphysema type J43.9 ; Vitamin D deficiency E55.9 ; Chronic hypoxic respiratory failure J96.11 ; Thyroid mass E07.9 ; Mediastinal mass J98.59 ; Tobacco user Z72.0 ; Physical debility R53.81 ; BMI 24.0-24.9, adult Z68.24 and Immunization(s) administered Z23 Assessments Encounter Date Diagnosis (ICD Code) Assessment Notes Treatment Notes Treatment Clinical Notes Section Notes 05/15/2025 Uncontrolled type 2 diabetes mellitus with hyperglycemia (ICD-10 - E11.65) most recent labs stable, improved. encouraged annual eye exam and regular foot evaluation. CC diet. 05/15/2025 Medicare annual wellness visit, subsequent (ICD-10 - Z00.00) flu vaccination today as noted. will need RSV and Shingrix at pharmacy and we discussed that today. She wants to hold off on mamm and DEXA until her mediastinal mass is addressed 05/15/2025 Hyperthyroidism (ICD-10 - E05.90) Repeat labs today. Consider methimazole, propranolol. Refused uptake scan previously 05/15/2025 Lower extremity edema (ICD-10 - R60.0) Improved with taking Lasix every other day 05/15/2025 Pulmonary emphysema, unspecified emphysema type (ICD-10 - J43.9) Advanced COPD, Continue Trelegy and supplemental O2 05/15/2025 Vitamin D deficiency (ICD-10 - E55.9) 05/15/2025 Chronic hypoxic respiratory failure (ICD-10 - J96.11) 05/15/2025 Thyroid mass (ICD-10 - E07.9) Has refused biopsy 05/15/2025 Mediastinal mass (ICD-10 - J98.59) Encouraged FU with [facility] 05/15/2025 Tobacco user (ICD-10 - Z72.0) Encouraged cessation 05/15/2025 Physical debility (ICD-10 - R53.81) Home Health ordered previously but home is in poor repair and they refused to improve conditions, etc. 05/15/2025 BMI 24.0-24.9, adult (ICD-10 - Z68.24) 05/15/2025 Immunization(s) administered (ICD-10 - Z23) Plan Of Treatment Medication Medication Name Sig Start Date Stop Date Notes TRELEGY ELLIPTA 200 mcg-62.5 mcg-25 mcg/inh 1 puff(s) inhaled once a day; Duration: 30 days Next Appt Details Follow Up: 6 Months, Reason: Provider Name:Sheeba Lofton ce, 11/20/2025 08:30:00 AM, [address], [address], [place], [address], Progress Notes * Sabra OSEI SDOB: [birth year] (70 yo F)Acc No.[id number]:05/15/2025 Progress notes Patient: Sabra EDUARDO Provider: GENARO Drummond :1955 A ge:70 Y S ex:Female Date:05/15/2025 Address:[place] [id number] Pcp:Alex Zepeda Subjective: * Chief Complaints: * 1 . AWV, 3 mo FU-fasting. 2. Had a fall x 2 weeks ago-sore back. 3. Flu shot. 4. needs refill on Diclofenac Sodium gel. * HPI: g en: 70-year-old female presents today to follow-up regarding chronic disease and for AWV. No significant changes since her last visit but does report a fall about 2 weeks ago. Tripped. Has had some persisting back pain in the upper back but no injuries otherwise and was not evaluated in the ED Labs last visit were stable despite a long absence from our office. CT chest imaging indicated enlarging chest mass/mediastinal, did not tolerate PET scan so they are planning to call and FU with Dr Bowie. Weight is stable this visit. Appetite stable but reports that most things don't taste good. She is still smoking heavily. Edema is improved. * ROS: F UNCTIONAL STATUS: ADLS I mpaired ADL/IADL. R ESPIRATORY: See HPI Y es. C [...] c hild , Triple A surgery 01/2019, [facility] 03/2022. * Family History: F ather: , diagnosed with Diabetes, Hypertension. M other: , hemorrhagic stroke, diagnosed with Heart Disease, Stroke. P aternal Grand Father: . P aternal Grand Mother: , diagnosed with Diabetes. M aternal Grand Father: . M aternal Grand Mother: , diagnosed with Heart Disease, Diabetes. P aternal uncle: . P aternal aunt: . M aternal uncle: . M aternal aunt: , breast ca, diagnosed with Cancer. S iblings: alive, fibromyalgia, diagnosed with Heart Disease. C ariela: alive. 1 brother(s) , 2 sister(s) . [...] Taking NEBULIZER SET-UP W/ ADULT MASK , Taking PORTABLE OXYGEN CONCENTRATOR DX: COPD , Notes to Pharmacist: prn, Taking OXYGEN 2 LITERS NASAL CANNULA DIRECTED DAILY , Notes to Pharmacist: prn, Taking Aspirin 81 MG TABLET 1 TAB(S) ORALLY ONCE A DAY , Taking Omeprazole 20 MG Capsule Delayed Release [...] USE TO CHECK BLOODSUGAR ONCE DAILY , Taking FREESTYLE LANCET - USE TO CHECKBLOOD SUGAR ONCE DAILY , Taking GLUCOMETER NA PER INSURANCE COVERAGE USE FOR ONCE A DAY FSBS TESTING NA ONCE A DAY , Taking TEST STRIPS AND LANCETS NA PER INSURANCE COVERAGE WITH GLUCOMETER FOR ONCE A DAY FSBS TESTING NA ONCE A DAY , Taking Claritin 10 MG Tablet 1 tab(s) orally once a day , Taking Diclofenac Sodium 1 % Gel as directed applied topically 4 times a day , Taking Trelegy Ellipta 200 MCG- 62.5 MCG-25 MCG/INH POWDER INHALE 1 PUFF BY MOUTH EVERY DAY , Taking Atorvastatin Calcium 40 MG Tablet 1 tab(s) orally once a day , Taking Lasix 20 MG Tablet 1 tab(s) orally every other day , Taking Farxiga 5 mg Tablet TAKE ONE TABLET BY MOUTH EVERY DAY , Taking Alendronate Sodium 70 mg Tablet TAKE ONE TABLET BY MOUTH ONCE WEEKLY , Taking metFORMIN HCl 1000 MG Tablet TAKE ONE TABLET BY MOUTH TWICE DAILY , Discontinued TRELEGY ELLIPTA 200 mcg-62.5 mcg-25 mcg/inh powder 1 puff(s) inhaled once a day , Medication List reviewed and reconciled with the patient * Allergies: E rythromycin: stomach upset. Objective: * Vitals: N urse: jl, Pain: 5-lt side, Temp: 97.7, RR: 20, HR: 94, BP: 116/50, Ht: 62.75, Wt: 134.4, BMI:24. * Examination: G eneral Examination: General P leasant and Cooperative, NAD on RA, mild conversational dyspnea. Chest: n ormal shape and expansion. Heart: R RR, No m/r/g/h, Nl S1S2. Lungs: c lear but diffusely diminished. Abdomen: s oft, BS+. Neurologic Exam: Alert and oriented x 3. Skin: w ithout acute rashes. Peripheral pulses: n ormal (2+) bilaterally. Extremities: no edema. neck s upple,. Psych N ormal Mood/Affect. Assessment: * Assessment: [facility]. [facility] subsequent - Z00.00 (Primary) 2 . U ncontrolled type 2 diabetes mellitus with hyperglycemia - E11.65 3 . H yperthyroidism - E05.90 4 . L ower extremity edema - R60.0 5 . P ulmonary emphysema, unspecified emphysema type - J43.9 6 . V itamin D deficiency - E55.9 7 . C hronic hypoxic respiratory failure - J96.11 8 . T hyroid mass - E07.9 9 . M ediastinal mass - J98.59 1 0. T obacco user - Z72.0 1 1. P hysical debility - R53.81 1 2. B NJ 24.0-24.9, adult - Z68.24 1 3. I mmunization(s) administered - Z23 ? Plan: * Treatment: 2. U ncontrolled type 2 diabetes mellitus with hyperglycemia L AB: COMPREHENSIVE METABOLIC PANEL (92493) (Collection Date & Time - 05/15/2025 11:09 AM) Value Reference Range G LUCOSE 100 H 65-99 - mg/dL * U BLAINE NITROGEN (BUN) 13 7-25 - mg/dL * C REATININE 0.68 0.60-1.00 - mg/dL * B UN/CREATININE RATIO SEE NOTE: 6-22 - (calc) * S ODIUM 140 135-146 - mmol/L * P OTASSIUM 4.4 3.5-5.3 - mmol/L * C HLORIDE 99 98-110 - mmol/L * C ARBON DIOXIDE 29 20-32 - mmol/L * C ALCIUM 9.2 8.6-10.4 - mg/dL * P ROTEIN, TOTAL 7.1 6.1-8.1 - g/dL * A LBUMIN 4.1 3.6-5.1 - g/dL * G LOBULIN 3.0 1.9-3.7 - g/dL (calc ) * A LBUMIN/GLOBULIN RATIO 1.4 1.0-2.5 - (calc) * B ILIRUBIN, TOTAL 0.7 0.2-1.2 - mg/dL * A LKALINE PHOSPHATASE 74 37-153 - U/L * A ST 11 10-35 - U/L * A LT 9 6-29 - U/L * E GFR 94 > OR = 60 - mL/min/1 .73m2 * Stefany Mc Edin 05/19/2025 09: 48:56 AM EDT > pt informed ?LAB: CBC (INCLUDES DIFF/PLT) (0942) (Collection Date & Time - 05/15/2025 11:09 AM)* Value Reference Range W DEBBIE BLOOD CELL COUNT 8.6 3.8-10.8 - Thousan d/uL * R ED BLOOD CELL COUNT 4.58 3.80-5.10 - Million/ uL * H EMOGLOBIN 13.7 11.7-15.5 - g/dL * H EMATOCRIT 43.0 35.0-45.0 - % * M CV 93.9 80.0-100.0 - fL * M CH 29.9 27.0-33.0 - pg * M CHC 31.9 L 32.0-36.0 - g/dL * R DW 13.5 11.0-15.0 - % * P LATELET COUNT 233 140-400 - Thousand/u L * N EUTROPHILS 70.2 - % * A BSOLUTE NEUTROPHILS 6037 5906-8916 - cells/uL * L YMPHOCYTES 22.2 - % * A BSOLUTE LYMPHOCYTES 4034 713-5043 - cells/uL * M ONOCYTES 5.0 - % * A BSOLUTE MONOCYTES 430 200-950 - cells/uL * E OSINOPHILS 1.8 - % * A BSOLUTE EOSINOPHILS 155 15-500 - cells/uL * B ASOPHILS 0.8 - % * A BSOLUTE BASOPHILS 69 0-200 - cells/uL * M PV 10.6 7.5-12.5 - fL * Stefany Mc 05/19/2025 09: 48:56 AM EDT > pt informed ?LAB: HEMOGLOBIN A1c (496) (Collection Date & Time - 05/15/2025 11:09 AM)* Value Reference Range H EMOGLOBIN A1c 6.2 H <5.7 - % * Stefany Mc 05/19/2025 09: 48:56 AM EDT > pt informed ?LAB: TSH W/REFLEX TO FT4 (37787) (Collection Date & Time - 05/15/2025 11:09 AM)* Value Reference Range T SH W/REFLEX TO FT4 0.42 0.40-4.50 - mIU/L * Stefany Mc 05/19/2025 09: 48:56 AM EDT > pt informed Clinical Notes: most recent labs stable, improved. encouraged annual eye exam and regular foot evaluation. CC diet. ??3.?Hyperthyroidism?LAB: COMPREHENSIVE METABOLIC PANEL (85374) (Collection Date & Time - 05/15/2025 11:09 AM)* Value Reference Range G LUCOSE 100 H 65-99 - mg/dL * U BLAINE NITROGEN (BUN) 13 7-25 - mg/dL * C REATININE 0.68 0.60-1.00 - mg/dL * B UN/CREATININE RATIO SEE NOTE: 622 - (calc) * S ODIUM 140 135-146 - mmol/L * P OTASSIUM 4.4 3.5-5.3 - mmol/L * C HLORIDE 99 98-110 - mmol/L * C ARBON DIOXIDE 29 20-32 - mmol/L * C ALCIUM 9.2 8.6-10.4 - mg/dL * P ROTEIN, TOTAL 7.1 6.1-8.1 - g/dL * A LBUMIN 4.1 3.6-5.1 - g/dL * G LOBULIN 3.0 1.9-3.7 - g/dL (calc ) * A LBUMIN/GLOBULIN RATIO 1.4 1.0-2.5 - (calc) * B ILIRUBIN, TOTAL 0.7 0.2-1.2 - mg/dL * A LKALINE PHOSPHATASE 74 37-153 - U/L * A ST 11 10-35 - U/L * A LT 9 6-29 - U/L * E GFR 94 > OR = 60 - mL/min/1 .73m2 * Stefany Mc 05/19/2025 09: 48:56 AM EDT > pt informed ?LAB: CBC (INCLUDES DIFF/PLT) (6399) (Collection Date & Time - 05/15/2025 11:09 AM)* Value Reference Range W DEBBIE BLOOD CELL COUNT 8.6 3.8-10.8 - Thousan d/uL * R ED BLOOD CELL COUNT 4.58 3.80-5.10 - Million/ uL * H EMOGLOBIN 13.7 11.7-15.5 - g/dL * H EMATOCRIT 43.0 35.0-45.0 - % * M CV 93.9 80.0-100.0 - fL * M CH 29.9 27.0-33.0 - pg * M CHC 31.9 L 32.0-36.0 - g/dL * R DW 13.5 11.0-15.0 - % * P LATELET COUNT 233 140-400 - Thousand/u L * N EUTROPHILS 70.2 - % * A BSOLUTE NEUTROPHILS 6037 4677-6179 - cells/uL * L YMPHOCYTES 22.2 - % * A BSOLUTE LYMPHOCYTES 7505 302-6579 - cells/uL * M ONOCYTES 5.0 - % * A BSOLUTE MONOCYTES 430 200-950 - cells/uL * E OSINOPHILS 1.8 - % * A BSOLUTE EOSINOPHILS 155 15-500 - cells/uL * B ASOPHILS 0.8 - % * A BSOLUTE BASOPHILS 69 0-200 - cells/uL * M PV 10.6 7.5-12.5 - fL * Stefany Mc 05/19/2025 09: 48:56 AM EDT > pt informed ?LAB: HEMOGLOBIN A1c (496) (Collection Date & Time - 05/15/2025 11:09 AM)* Value Reference Range H EMOGLOBIN A1c 6.2 H <5.7 - % * Stefany Mc 05/19/2025 09: 48:56 AM EDT > pt informed ?LAB: TSH W/REFLEX TO FT4 (91715) (Collection Date & Time - 05/15/2025 11:09 AM)* Value Reference Range T SH W/REFLEX TO FT4 0.42 0.40-4.50 - mIU/L * Stefany Mc 05/19/2025 09: 48:56 AM EDT > pt informed Clinical Notes: Repeat labs today. Consider methimazole, propranolol. Refused uptake scan previously??4.?Lower extremity edema? Clinical Notes: Improved with taking Lasix every other day??5.?Pulmonary emphysema, unspecified emphysema type? Start TRELEGY ELLIPTA powder, 200 mcg-62.5 mcg-25 mcg/inh, 1 puff(s), inhaled, once a day, 30 days,1, Refills 5.?LAB: COMPREHENSIVE METABOLIC PANEL (27442) (Collection Date & Time - 05/15/2025 11:09 AM)* Value Reference Range G LUCOSE 100 H 65-99 - mg/dL * U BLAINE NITROGEN (BUN) 13 7-25 - mg/dL * C REATININE 0.68 0.60-1.00 - mg/dL * B UN/CREATININE RATIO SEE NOTE: 622 - (calc) * S ODIUM 140 135-146 - mmol/L * P OTASSIUM 4.4 3.5-5.3 - mmol/L * C HLORIDE 99 98-110 - mmol/L * C ARBON DIOXIDE 29 20-32 - mmol/L * C ALCIUM 9.2 8.6-10.4 - mg/dL * P ROTEIN, TOTAL 7.1 6.1-8.1 - g/dL * A LBUMIN 4.1 3.6-5.1 - g/dL * G LOBULIN 3.0 1.9-3.7 - g/dL (calc ) * A LBUMIN/GLOBULIN RATIO 1.4 1.0-2.5 - (calc) * B ILIRUBIN, TOTAL 0.7 0.2-1.2 - mg/dL * A LKALINE PHOSPHATASE 74 37-153 - U/L * A ST 11 10-35 - U/L * A LT 9 6-29 - U/L * E GFR 94 > OR = 60 - mL/min/1 .73m2 * Stefany Mc Edin 05/19/2025 09: 48:56 AM EDT > pt informed ?LAB: CBC (INCLUDES DIFF/PLT) (8399) (Collection Date & Time - 05/15/2025 11:09 AM)* Value Reference Range W DEBBIE BLOOD CELL COUNT 8.6 3.8-10.8 - Thousan d/uL * R ED BLOOD CELL COUNT 4.58 3.80-5.10 - Million/ uL * H EMOGLOBIN 13.7 11.7-15.5 - g/dL * H EMATOCRIT 43.0 35.0-45.0 - % * M CV 93.9 80.0-100.0 - fL * M CH 29.9 27.0-33.0 - pg * M CHC 31.9 L 32.0-36.0 - g/dL * R DW 13.5 11.0-15.0 - % * P LATELET COUNT 233 140-400 - Thousand/u L * N EUTROPHILS 70.2 - % * A BSOLUTE NEUTROPHILS 6037 2632-5773 - cells/uL * L YMPHOCYTES 22.2 - % * A BSOLUTE LYMPHOCYTES 2852 854-1004 - cells/uL * M ONOCYTES 5.0 - % * A BSOLUTE MONOCYTES 430 200-950 - cells/uL * E OSINOPHILS 1.8 - % * A BSOLUTE EOSINOPHILS 155 15-500 - cells/uL * B ASOPHILS 0.8 - % * A BSOLUTE BASOPHILS 69 0-200 - cells/uL * M PV 10.6 7.5-12.5 - fL * Stefany Mc Edin 05/19/2025 09: 48:56 AM EDT > pt informed ?LAB: HEMOGLOBIN A1c (496) (Collection Date & Time - 05/15/2025 11:09 AM)* Value Reference Range H EMOGLOBIN A1c 6.2 H <5.7 - % * Stefany Mc 05/19/2025 09: 48:56 AM EDT > pt informed ?LAB: TSH W/REFLEX TO FT4 (47707) (Collection Date & Time - 05/15/2025 11:09 AM)* Value Reference Range T SH W/REFLEX TO FT4 0.42 0.40-4.50 - mIU/L * Stefany Mc 05/19/2025 09: 48:56 AM EDT > pt informed Clinical Notes: Advanced COPD, Continue Trelegy and supplemental O2??6.?Thyroid mass?LAB: COMPREHENSIVE METABOLIC PANEL (57279) (Collection Date & Time - 05/15/2025 11:09 AM)* Value Reference Range G LUCOSE 100 H 65-99 - mg/dL * U BLAINE NITROGEN (BUN) 13 7-25 - mg/dL * C REATININE 0.68 0.60-1.00 - mg/dL * B UN/CREATININE RATIO SEE NOTE: 6-22 - (calc) * S ODIUM 140 135-146 - mmol/L * P OTASSIUM 4.4 3.5-5.3 - mmol/L * C HLORIDE 99 98-110 - mmol/L * C ARBON DIOXIDE 29 20-32 - mmol/L * C ALCIUM 9.2 8.6-10.4 - mg/dL * P ROTEIN, TOTAL 7.1 6.1-8.1 - g/dL * A LBUMIN 4.1 3.6-5.1 - g/dL * G LOBULIN 3.0 1.9-3.7 - g/dL (calc ) * A LBUMIN/GLOBULIN RATIO 1.4 1.0-2.5 - (calc) * B ILIRUBIN, TOTAL 0.7 0.2-1.2 - mg/dL * A LKALINE PHOSPHATASE 74 37-153 - U/L * A ST 11 10-35 - U/L * A LT 9 6-29 - U/L * E GFR 94 > OR = 60 - mL/min/1 .73m2 * Stefany Mc 05/19/2025 09: 48:56 AM EDT > pt informed ?LAB: CBC (INCLUDES DIFF/PLT) (6399) (Collection Date & Time - 05/15/2025 11:09 AM)* Value Reference Range W DEBBIE BLOOD CELL COUNT 8.6 3.8-10.8 - [place]an d/uL * R ED BLOOD CELL COUNT 4.58 3.80-5.10 - Million/ uL * H EMOGLOBIN 13.7 11.7-15.5 - g/dL * H EMATOCRIT 43.0 35.0-45.0 - % * M CV 93.9 80.0-100.0 - fL * M CH 29.9 27.0-33.0 - pg * M CHC 31.9 L 32.0-36.0 - g/dL * R DW 13.5 11.0-15.0 - % * P LATELET COUNT 233 140-400 - Thousand/u L * N EUTROPHILS 70.2 - % * A BSOLUTE NEUTROPHILS 6037 5629-2946 - cells/uL * L YMPHOCYTES 22.2 - % * A BSOLUTE LYMPHOCYTES 8571 064-9100 - cells/uL * M ONOCYTES 5.0 - % * A BSOLUTE MONOCYTES 430 200-950 - cells/uL * E OSINOPHILS 1.8 - % * A BSOLUTE EOSINOPHILS 155 15-500 - cells/uL * B ASOPHILS 0.8 - % * A BSOLUTE BASOPHILS 69 0-200 - cells/uL * M PV 10.6 7.5-12.5 - fL * Stefany Mc 05/19/2025 09: 48:56 AM EDT > pt informed ?LAB: HEMOGLOBIN A1c (496) (Collection Date & Time - 05/15/2025 11:09 AM)* Value Reference Range H EMOGLOBIN A1c 6.2 H <5.7 - % * Stefany Mc 05/19/2025 09: 48:56 AM EDT > pt informed ?LAB: TSH W/REFLEX TO FT4 (13744) (Collection Date & Time - 05/15/2025 11:09 AM)* Value Reference Range T SH W/REFLEX TO FT4 0.42 0.40-4.50 - mIU/L * Stefany Mc 05/19/2025 09: 48:56 AM EDT > pt informed Clinical Notes: Has refused biopsy??7.?Mediastinal mass? Clinical Notes: Encouraged FU with [facility]??8.?Tobacco user? Clinical Notes: Encouraged cessation??9.?Physical debility? Clinical Notes: Home Health ordered previously but home is in poor repair and they refused to improve conditions, etc. ?? * Immunizations: Fluzone High Dose : 0.5 mL (Route: Intramuscular) given by SUDHIR Lion on Right Deltoid (Immunization(s) administered) * Procedure Codes: G 0439 ANNUAL WELLNESS VST; PPS SUBSQT VST, M1371 Mst rec gsa<7, G8399 PT W/DXA DOCUMENT OR ORDER, 1124F ADVANCED DIRECTIVE - NO LIVING WILL, G9899 Screening diagnostic,film,digital results documented and reviewed, 3017F COLORECTAL CA SCREEN DOC REV, G8420 BMI documented as normal, no follow up required., G8510 NEGATIVE SCREENING F/U NOT REQUIRED, G9902 Pt scrn tbco and id as user, G0030 PET MYOCARD IMAG FLW PREV PET; 1, G8783 NORMAL BP READING DOC F/U NOT RQR, 11500 Influenza High Dose Vaccine >65 Years Old, G0008 ADMINISTRATION-FLU VACCINE MEDICARE ONLY * Preventive Medicine: Counseling: S moking . L iving will . S moking P atient counselled on the dangers of tobacco use and urged to quit. 1 . NALINI Screening: F alls: Future screening for fall risks H ave you had two or more falls in the past year? N o, H ave you had any falls with injury in the past year? N o. Depression Screening: P HQ 2 F eeling down depressed or hopeless N o. Immunizations: i nfluenza H ave you had a flu shot since the most recent April 14 ? Y es. P neumonia vaccine: Status for Older Adults A re you up-to-date on your pneumonia vaccine? yes or no y es. S hingrix D iscussed and will consider. R SV vaccination D iscussed, will consider. Screening / Special Tests: M ammogram n eeds to be scheduled but declines. C olonoscopy U TD, followed by Dr Youssef. B one mineral Density r epeat needed but declines for now. L leslye Cancer Screening f ollowed by [facility] Pul[facility]. A AA screen h as AAA, followed by vascular. * Follow Up: 6 Months * * Sign off status: Completed true * Provider: GENARO Drummond Date: Generated for Rad sampson/Eligio/Lawsmitting on: 09/01/2024 10:41 PM EST History and Physical Notes * Examination Category Sub-Category Detail Notes Category Not es General Examination Heart: RRR, No m/r/g/h, Nl S 1S2 Lungs: clear but diffusely diminished Abdomen: soft, BS+ Extremities: no edema Skin: without acute rashes Neurologic Exam: Alert and oriented x 3 Peripheral pulses: normal (2+) bilatera lly Chest: normal shape and exp ansion neck supple, General Pleasant and Coopera tive, NAD on RA, mild conversational dyspnea Psych Normal Mood/Affect
--- OUTSIDE RECORDS SUMMARY | 2025-06-18 09:00 | XMS_ITS | Encounter Summary ---
Author Organization [facility] Address [address] [place] [address] Care Team Providers Care Fiber Picker Name Role Phone Alex Zepeda MD Primary Care Provider + [phone] Reason for Visit * Reason Comments Mediastinal Mass Referred for follow up of mediastinal mass,complains of a cough and shortness of breath. Encounter Details Date Type Department Care Team (Late st Contact Info) Description 06/18/2025 9:00 AM EST Office Visit [facility] [address] [phone] Kathy Villarreal, COUNTERSINKER [address] [address] Mediastinal mass (Primary Dx); Stage 4 very severe COPD by GOLD classification Social History Tobacco Use Types Packs/Day Years Used Date Smoking Tobacco: Every Day Cigarettes 1 59.5 Started: 01/15/1966 Smokeless Tobacco: Never Tobacco Cessation:Ready to Q uit: Not Asked; Counseling Given: Not Answered Comments:Pt states that she is smoking 1 ppd Alcohol Use Standard Drinks/Week Comments No 0 (1 standard drink = 0.6 oz pur e alcohol) Comments No Sex and Gender Information Value Date Recorded Sex Assigned at Female 06/16/2025 9:35 AM EST Legal Sex Female 11:39 AM EDT Gender Identity Not on file Sexual Orientation Not on file 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 Not on file Not on file Not o n file documented as of this encounter Last Filed Vital Signs Vital Sign Reading Time Taken Comments Blood Pressure 122/75 06/18/2025 9:17 AM EST Pulse 55 06/18/2025 9:17 AM EST Temperature 36.4 C (97.6 F) 06/18/2025 9:17 AM EST Respiratory Rate - - Oxygen Saturation 88% 06/18/2025 9:17 AM EST Inhaled Oxygen Concentration - - Weight 59.4 kg (131 lb) 06/18/2025 9:17 AM EST Height 160 cm (5' 3 ) 06/18/2025 9:17 AM EST Body Mass Index 23.21 06/18/2025 9:17 AM EST documented in this encounter Progress Notes * [place], Kathy M, COUNTERSINKER - 06/18/2025 9:00 AM EST Images from the original note were not included. [facility] Cardiothoracic Surgery New Patient Office Note Date of Encounter: 06/02/2025 Name: Sabra Phoenix : 1955 Referred By: No ref. provider found PCP: Alex Zepeda MD Chief Complaint: Chief Complaint Patient presents with Mediastinal Mass Referred for follow up of mediastinal mass,complains of a cough and shortness of breath. Subjective History of Present Illness: Sabra Phoenix is a 70 y.o. female referred back to CT Surgery for mediastinal mass. Last seen by our service 11/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 Bowie. PMH: severe COPD/oxygen dependent, AAA s/p EVAR (Dr. Cameron 2018), type 2 DM, active tobacco use, and mediastinal mass. In review of Dr. Bowie' notesbeginning 2017, mass has ranged in size 3.8 cm - 4.6 cm. Presents back to CT Surgery per PCP request with updated CT chest. Last PFT per pulmonary medicine 01/08/2019 demonstrated severe obstruction with reduced DLCO (FVC 1.6 L @52% predicted, FEV1 0.7 L @ 30% predicted, and DLCO 8.8 mL/mmHg/min @ 43% predicted). Patient denies new constitutional symptoms such as night sweats, unintentional weightloss, cough, hemoptysis, or unusual fatigue. Review of Systems: Review of Systems Constitutional: Positive for malaise/fatigue and weight loss. Negative for chills, decreased appetite, diaphoresis, fever and night sweats. HENT: Negative. Negative for congestion, hoarse voice and sore throat. Cardiovascular: Positive for dyspnea on exertion. Negative for chest pain, leg swelling, near-syncope, orthopnea, palpitations, paroxysmal nocturnal dyspnea and syncope. Respiratory: Positive for cough and shortness of breath. Negative for hemoptysis, sleep disturbances due to breathing, snoring, sputum production and wheezing. Hematologic/Lymphatic: Negative for adenopathy and bleeding problem. Bruises/bleeds easily. Skin: Negative. Negative for color change, dry skin, itching, poor wound healing and rash. Musculoskeletal: Positive for falls. Negative for muscle weakness. Gastrointestinal: Positive for diarrhea. Negative for abdominal pain, anorexia, constipation, nausea and vomiting. Genitourinary: Negative. Negative for dysuria and frequency. Neurological: Positive for loss of balance. Negative for difficulty with concentration, dizziness, headaches, numbness, paresthesias, seizures and weakness. Psychiatric/Behavioral: Negative. Negative for altered mental status, depression and memory loss. The patient does not have insomnia and is not nervous/anxious. Allergic/Immunologic: Negative. Negative for persistent infections. I have reviewed the following portions of the patient's history: problem list, current medications,allergies, past surgical history, past medical history, past social history, past family history, and ROS and confirm it's accurate. Allergies: Allergies[1] Medications: Current Medications[2] History: Past Medical History: Diagnosis Date Aneurysm Arthritis Cataract COPD (chronic obstructive pulmonary disease) Diabetes mellitus Elevated cholesterol Gallstones GERD (gastroesophageal reflux disease) History of transfusion Wears dentures both upper and lower Wears glasses Past Surgical History: Procedure Laterality Date ABDOMINAL AORTIC ANEURYSM REPAIR WITH ENDOGRAFT N/A 01/14/2019 Procedure: ABDOMINAL AORTIC ANEURYSM REPAIR WITH ENDOGRAFT; Surgeon: Ammon Poe MD; Location: [place] [address]; Service: Vascular SECTION x 4 COLONOSCOPY 12/18/2018 POLYPECTOMY Social History[3] Family History Problem Relation Name Age of Onset Stroke Mother Hypertension Mother Hypertension Father Leukemia Father Objective Physical Exam: Vitals: 06/18/25 0917 BP: 122/75 BP Location: Right arm Patient Position: Sitting Pulse: 55 Temp: 97.6 ??F (36.4 ??C) SpO2: (!) 88% Weight: 59.4 kg (131 lb) Height: 160 cm (63 ) Body mass index is 23.21 kg/m??. Physical Exam Vitals reviewed. Constitutional: General: She is not in acute distress. Appearance: She is not toxic-appearing. Comments: Seated in WC. HENT: Head: Normocephalic and atraumatic. Eyes: General: Lids are normal. Conjunctiva/sclera: Conjunctivae normal. Pupils: Pupils are equal, round, and reactive to light. Neck: Vascular: No JVD. Trachea: Trachea and phonation normal. Cardiovascular: Rate and Rhythm: Normal rate and regular rhythm. Pulses: Radial pulses are 2+ on the right side and 2+ on the left side. Dorsalis pedis pulses are 1+ on the right side and 1+ on the left side. Posterior tibial pulses are 1+ on the right side and 1+ on the left side. Heart sounds: S1 normal and S2 normal. No murmur heard. Pulmonary: Effort: Pulmonary effort is normal. Prolonged expiration present. No respiratory distress. Breath sounds: Decreased breath sounds present. No wheezing, rhonchi or rales. Chest: Comments: Not currently using supplemental oxygen Musculoskeletal: General: Normal range of motion. Cervical back: Normal range of motion and neck supple. Right lower leg: No edema. Left lower leg: No edema. Lymphadenopathy: Cervical: No cervical adenopathy. Upper Body: Right upper body: No supraclavicular or axillary adenopathy. Left upper body: No supraclavicular or axillary adenopathy. Skin: General: Skin is warm and dry. Capillary Refill: Capillary refill takes less than 2 seconds. Neurological: General: No focal deficit present. Mental Status: She is alert and oriented to person, place, and time. Psychiatric: Attention and Perception: Attention normal. Mood and Affect: Mood normal. Speech: Speech normal. Behavior: Behavior normal. Behavior is cooperative. Judgment: Judgment normal. Imaging/Labs: Personally reviewed. On sagittal views, lobular mediastinal mass measures 2.[address] CHEST W WO CONTRAST DIAGNOSTIC: 11/04/2022 Findings: Anterior mediastinal mass has significantly decreased in size and now measures 1.7 x 1.6 x 3.8 cm, previously 4.3 x 3.8 x 5.3 cm. No hilar or axillary lymphadenopathy is seen. Heart size is normal. There is no pleural or pericardial effusion. Lungs are clear. 3 mm left lower lobe nodule on axial image 53 is stable. Moderate centrilobular emphysematous changes are upper lobe predominant. Mucous plugging is noted, greatest in the lower lobes. Left upper renal cyst measures 2.4 cm. Abdominal aortic stent graft is partially included. No acute osseous abnormality is identified. IMPRESSION: 1.Significantly decreased size of anterior mediastinal mass, with measurements as above. 2.Moderate emphysematous changes. Recommend evaluation of patient history and risk factors to see if patient qualifies for low dose lung cancer screening based upon evidence of emphysema. Electronically Signed: Sugey Jimenez 11/04/2022 CT CHEST WITH AND WITHOUT CONTRAST DIAGNOSTIC- 10/18/2021 FINDINGS: Patient history indicates COPD, dyspnea, previous abnormal scan with pulmonary nodule. Previous exam report from 10/13/2020 indicates interval resolution of micronodular disease seen on earlier scan. Today's study shows moderate upper lobe bullous disease. There is a small fat- only containing hernia of the posterior right hemidiaphragm as on a prior study. Small area of linear scarring in the lingula is stable. There is no evidence of new pulmonary parenchymal disease and in particular, no evidence of micronodular disease pattern is appreciated. There is no pleural effusion. Mediastinal window images again show a rounded hyperdense well-defined mass in the anterior mediastinal fat approximately 45 mm x 42 mm in maximal oblique AP and oblique transverse diameters, previously 41 x 35 mm. No new mediastinal disease is seen. There is no evidence of pericardial effusion. Incidental note is made of moderate coronary artery calcification. Included images of the upper abdomen show mild fatty liver change, and multiple gallstones. Aortoiliac endo stent is noted. Review of the bony structures shows relatively marked T5 and T12 compression deformities, with some bony sclerotic change, but no acute features. These appear to have occurred since 10/13/2020 exam however. IMPRESSION: 1. Very slowly enlarging anterior mediastinal mass present since at least 2015. Please correlate with patient's history. 2. No evidence of recurrent micronodular disease or other new pulmonary parenchymal disease. 3. Gallstones again noted. This report was finalized on 10/18/2021 8:[address] Jonah Christianson MD. CT ANGIOGRAM CHEST W WO CONTRAST-12/20/2018: COMPARISON: 12/09/2016 FINDINGS: Slight decrease seen in size of the anterior mediastinal mass today measuring 3.0 x 2.3 cm and previously measuring 3.6 x 3.2 cm. There is a central low density identified to suggest possible area of necrosis. The remainder of the mediastinum is unremarkable. Cardiac chambers are within normal limits. No pericardial effusion. No bulky hilar or axillary adenopathy. The largest hilar lymph node measures 1.3 cm on the right. No left hilar adenopathy. Largest left lymph node measures 0.9 cm. Vascular calcification seen within the abdominal aorta and iliac vessels. The lung parenchyma reveals no parenchymal consolidation, pulmonary mass or other nodule. There is a 4 mm noncalcified nodule seen posteriorly within the left lung base which is stable. No parenchymal consolidation, pulmonary mass or other nodule identified. Degenerative changes seen within the spine. The visualized portions of the upper abdomen reveal an infrarenal abdominal aortic aneurysm, largest AP dimension is 5.1 cm, and transverse dimension 5.2 cm in its visualized portions. There are stones seen within the gallbladder with a cyst identified on the left kidney. IMPRESSION: 1. Decreasing size of a soft tissue mass in the anterior mediastinum. 2. Stable 4 mm nodule at the left lung base. No acute intrathoracic abnormality identified. 3. Stones in the gallbladder with infrarenal abdominal aortic aneurysm 5.2 cm. This report was finalized on 12/20/2018 2:[address] Genesis Yeung MD. Personally reviewed all available CT chest imaging Assessment / Plan Assessment / Plan: 1. Mediastinal mass 2. Stage 4 very severe COPD by GOLD classification - 70 y.o. female referred back to CT Surgery for mediastinal mass. - PMH: Severe COPD/oxygen dependent, AAA s/p EVAR (Dr. Cameron 2018), type 2 DM, active tobacco use, and mediastinal mass. 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 Bowie. - In review of Dr. Bowie' notes beginning 2017, mass has ranged in size 3.8 cm - 4.6 cm. - Presents back to CT Surgery per PCP request with updated CT chest: Mediastinal mass 2.6 x 4.7 cm. - Denies new constitutional symptoms such as night sweats, unintentional weight loss, cough, hemoptysis, or unusual fatigue. - Given increase in mass size since last scan 2022, concern for malignant process - Obtain NM PET and updated PFT - Return to clinic after further testing - Patient states she is not interested in any surgical intervention should it be indicated or offered. - Should she be unable to obtain PET (as it is difficult to lie flat), she states she does not wishto pursue further surveillance or consideration for treatment. Follow Up: Return in about 4 weeks (around 07/16/2025) for NM PET, PFT. Or sooner for any further concerns or worsening sign and symptoms. If unable to reach us in the office please dial 911 or go to the nearest emergency department. Kathy Villarreal COUNTERSINKER [facility] Cardiothoracic Surgery Time Spent: I spent 35 minutes caring for Sabra on this date of service. This time includes time spent by me in the following activities: preparing for the visit, reviewing tests, obtaining and/or reviewing a separately obtained history, performing a medically appropriate examination and/or evaluation, counseling and educating the patient/family/caregiver, ordering medications, tests, or procedures, documenting information in the medical record, independently interpreting results and communicating that information with the patient/family/caregiver, and care coordination. [1] Allergies Allergen Reactions Erythromycin Nausea Only [2] Current Outpatient Medications: albuterol (PROVENTIL) (2.5 MG/3ML) 0.083% nebulizer solution, INHALE THE CONTENTS OF 1 VIAL VIA NEBULIZER BY MOUTH EVERY 4 HOURS NEEDED FOR WHEEZING, Disp: 120 mL, Rfl: 0 albuterol sulfate HFA 108 (90 Base) MCG/ACT inhaler, INHALE TWO PUFFS BY MOUTH EVERY 4 HOURS NEEDED FOR WHEEZING, Disp: 18 g, Rfl: 1 alendronate (FOSAMAX) 70 MG tablet, Take by mouth 1 (One) Time Per Week., Disp: , Rfl: atorvastatin (LIPITOR) 40 MG tablet, Take 1 tablet by mouth Every Night., Disp: , Rfl: calcium citrate-vitamin d (CITRACAL) 200-250 MG-UNIT tablet tablet, Take by mouth Daily., Disp: , Rfl: Ertugliflozin L-PyroglutamicAc (STEGLATRO) 5 MG tablet, Take 1 tablet by mouth Every Morning., Disp: , Rfl: Hxymahwwwnn-Tockddztp-Hcecpo (Trelegy Ellipta) 100-62.5-25 MCG/ACT inhaler, Inhale 1 puff Daily., Disp: 180 each, Rfl: 3 metFORMIN (GLUCOPHAGE) 1000 MG tablet, Take 0.5 tablets by mouth 2 (Two) Times a Day With Meals., Disp: , Rfl: O2 (OXYGEN), Inhale Every Night., Disp: , Rfl: [3] Social History Socioeconomic History Marital status: Single Number of children: 3 Tobacco Use Smoking status: Former Current packs/day: 0.00 Average packs/day: 1 pack/day for 53.0 years (53.0 ttl pk-yrs) Types: Cigarettes Start date: 01/15/1966 Quit date: 01/15/2019 Years since quittin.3 Smokeless tobacco: Never Tobacco comments: Pt states that she is smoking 1 ppd Vaping Use Vaping status: Never Used Substance and Sexual Activity Alcohol use: No Drug use: No Sexual activity: Defer documented in this encounter Plan of Treatment Upcoming Encounters Date Type Department Care Team (Late st Contact Info) Description 12/19/2025 10:30 AM EDT Telemedicine [facility] [address] [facility] [address] [place] [id number] Lucretia Shaikh APRN [address] [place] [address] documented as of this encounter Visit Diagnoses Diagnosis Mediastinal mass- Primary Swelling, mass, or lump in chest Stage 4 very severe COPD by GOLD classification documented in this encounter Care Teams Fiber Picker Relationship Specialty Start Date End Date Alex Zepeda MD [address] [facility] [address] [facility] [address] [place] [address] PCP - General Adolescent Medicine 11/30/18 documented as of this encounter
--- OUTSIDE RECORDS SUMMARY | 2025-06-20 11:00 | XMS_ITS | Encounter Summary ---
[facility] Address [address] [place] [address] Care Team Providers Care Electrician Maintenance Name Role Phone Alex Zepeda MD Primary Care Provider + [phone] Encounter Details Date Type Department Care Team (Late st Contact Info) Description 06/20/2025 11:00 AM EST Telemedicine [facility] PULMONARY & CRITICAL CARE MEDICINE [address] [facility] [address] [place] [address] Lucretia Shaikh, ADMINISTRATIVE ASSOCIATE [address] [place] [address] Cigarette nicotine dependence without complication (Primary Dx); Stage 4 very severe COPD by GOLD classification; Non-seasonal allergic rhinitis, unspecified trigger Social History Tobacco Use Types Packs/Day Years Used Date Smoking Tobacco: Every Day Cigarettes 1 59.5 Started: 01/15/1966 Smokeless Tobacco: Never Comments:Pt states that she is smoking 1 [...] 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 She reports no significant changes in her health status. She has a scheduled follow-up appointment with the CT surgeon. She had had a CT scan of the chest that showed an enlarging mediastinal mass. They had recommended a PET in the past but she was unable to complete this she was unable to completedue to severe coughing, and additional tests are planned, including a repeat PET scan and pulmonaryfunction test. She has declined surgical intervention, citing her unsuitability as a candidate. She reports no recent illnesses or lung infections within the past 6 months. She experiences constant coughing, producing only mucus, and does not report any hemoptysis or colored sputum. She also reports no recent fevers or chills but notes a persistent feeling of coldness. She is not experiencingany chest pain or irregular heartbeats. S he occasionally experiences leg and ankle swelling and is currently on a diuretic regimen every other day. She continues to smoke approximately one pack per day. She does not require any medication refills at this time. She receives two rescue inhalers per month and reports an adequate supply of nebulizermedication. She has received her influenza vaccine during her last checkup. Her current treatment regimen includes daily use of Trelegy inhaler and intermittent breathing treatments. She also utilizes oxygen therapy at night, administered at 2 liters. She reports chronic sleep disturbances, necessitating sleep in a recliner position. She is able to achieve approximately 4 hours of sleep before awakening. SOCIAL HISTORY The patient admits to smoking about a pack a day. IMMUNIZATIONS She received her influenza vaccine during her last checkup. Patient Active Problem List Diagnosis Stage 4 very severe COPD by GOLD classification Abdominal aortic aneurysm (AAA) without rupture Mediastinal mass Cigarette nicotine dependence without complication Allergic rhinitis AAA without rupture s/p repair 01/14/2019 Allergies Allergen Reactions Erythromycin Nausea Only Current Outpatient Medications: Agzzytnljlf-Plvbbbxhi-Bbrxmh (Trelegy Ellipta) 100-62.5-25 MCG/ACT inhaler, Inhale 1 puff Daily., Disp: 180 each, Rfl: 3 albuterol (PROVENTIL) (2.5 MG/3ML) 0.083% nebulizer solution, [...] (One) Time Per Week., Disp: , Rfl: aspirin 81 MG chewable tablet, Chew 1 tablet Daily., Disp: , Rfl: atorvastatin (LIPITOR) 40 MG tablet, Take 1 tablet by mouth Every Night., Disp: , Rfl: calcium citrate-vitamin d (CITRACAL) 200-250 MG-UNIT tablet tablet, Take by mouth Daily., Disp: , Rfl: Ertugliflozin L-PyroglutamicAc (STEGLATRO) 5 MG tablet, Take 1 tablet by mouth Every Morning., Disp: , Rfl: metFORMIN (GLUCOPHAGE) 1000 MG tablet, Take 0.5 tablets by mouth 2 (Two) Times a Day With Meals., Disp: , Rfl: O2 (OXYGEN), Inhale Every Night., Disp: , Rfl: MEDICATION LIST AND ALLERGIES REVIEWED. Social History Tobacco Use Smoking status: Every Day Current packs/day: 1.00 Average packs/day: 1 pack/day for 59.4 years (59.4 ttl pk-yrs) Types: Cigarettes Start date: 01/15/1966 Smokeless tobacco: Never Tobacco comments: Pt states that she is smoking 1 ppd Vaping Use Vaping status: Never Used Substance Use Topics Alcohol use: No Drug use: No FAMILY AND SOCIAL HISTORY REVIEWED. Review of Systems Constitutional: Positive for fatigue. Negative for activity change, appetite change, fever and unexpected weight change. HENT: Negative for congestion, postnasal drip, rhinorrhea, sinus pressure, sore throat and voice change. Eyes: Negative for visual disturbance. Respiratory: Positive for shortness of breath. Negative for cough, chest tightness and wheezing. Cardiovascular: Negative for chest pain, palpitations and leg swelling. Gastrointestinal: Negative for abdominal distention, abdominal pain, nausea and vomiting. Endocrine: Negative for cold intolerance and heat intolerance. Genitourinary: Negative for difficulty urinating and urgency. Musculoskeletal: Negative for arthralgias, back pain and neck pain. Skin: Negative for color change and pallor. Allergic/Immunologic: Negative for environmental allergies and food allergies. Neurological: Negative for dizziness, syncope, weakness and light-headedness. Hematological: Negative for adenopathy. Does not bruise/bleed easily. Psychiatric/Behavioral: Negative for agitation and behavioral problems. . LMP (LMP Unknown) Immunization History Administered Date(s) Administered Influenza, Unspecified 06/05/2020 Pneumococcal, Unspecified 06/02/2020 Unable to do physical exam due to telemedicine visit, patient was in no respiratory distress throughout the entire visit. RESULTS PROBLEM LIST Problem List Items Addressed This Visit ENT Allergic rhinitis Pulmonary and Pneumonias Stage 4 very severe COPD by GOLD classification Relevant Medications Mksgvpttqmz-Kuelzouni-Jpyzay (Trelegy Ellipta) 100-62.5-25 MCG/ACT inhaler Tobacco Cigarette nicotine dependence without complication - Primary DISCUSSION Assessment & Plan 1. Chronic Obstructive Pulmonary Disease (COPD). She continues to use her Trelegy inhaler daily and has rescue inhalers available. She uses her nebulizer treatments occasionally as needed. She is on 2 L of oxygen every night. She is advised to cut back on smoking, as she currently smokes about a pack a day. A PET scan and pulmonary function test will be conducted soon to further evaluate her condition. The prescription for Trelegy will be renewed and [facility]. 2. Insomnia. She reports difficulty sleeping flat and sleeps in a recliner, getting at least 4 hours of sleep before waking up. She continue to wear oxygen at nighttime at 2 L. 3. Cigarette nicotine dependence We discussed smoking cessation in office for 3 minutes. She does not stop date plan. Follow-up The patient will follow up in 6 months. I personally spent a total of 32 minutes on patient visit today including chart review, face to face with the patient obtaining the history and physical exam, review of pertinent images and tests, counseling and discussion and/or coordination of care as described above, and documentation. Total time excludes time spent on other separate services such as performing procedures or test interpretation, if applicable. Lucretia Shaikh APRN 511:54 EST Electronically signed Patient or patient underwriting account representative verbalized consent for the use of Ambient Listening during the visit with Lucretia Shaikh APRN for chart documentation. 06/20/2025 11:58 EST Please note that portions of this note were completed with a voice recognition program. CC: Alex Zepeda MD documented in this encounter Plan of Treatment Upcoming Encounters Date Type Department Care Team (Late st Contact Info) Description 12/19/2025 10:30 AM EDT Telemedicine [facility] PULMONARY & CRITICAL CARE MEDICINE [address] [facility] [address] [place] [address] Lucretia Shaikh APRN [address] [place] [address] documented as of this encounter Visit Diagnoses Diagnosis Cigarette nicotine dependence without complication- Primary Stage 4 very severe COPD by GOLD classification Non-seasonal allergic rhinitis, unspecified trigger documented in this encounter Care Teams Electrician Maintenance Relationship Specialty Start Date End Date Alex Zepeda MD [address] [facility] [address] [place] [address] PCP - General Adolescent Medicine 11/30/18 documented as of this encounter
--- NOTE | 2025-07-02 22:39 | XR_ITS ---
PROCEDURE INFORMATION: Exam: XR Chest Exam date and time: 07/02/2025 10:43 PM Age: 70 years old Clinical indication: Shortness of breath; Additional info: SOB TECHNIQUE: Imaging protocol: Radiologic exam of the chest. Views: 1 view. COMPARISON: CT CHEST WO CON 02/20/2025 10:12 AM FINDINGS: Lungs: Left lower lobe airspace disease concerning for severe pneumonia. Coarse interstitial lung markings likely chronic. COPD. Pleural spaces: Unremarkable. No pleural effusion. No pneumothorax. Heart/Mediastinum: Unremarkable. No cardiomegaly. Bones/joints: Unremarkable. IMPRESSION: Left lower lobe pneumonia.
--- OUTSIDE RECORDS SUMMARY | 2025-07-02 22:40 | XMS_ITS | Encounter Summary ---
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 Not o n file documented as of this encounter Plan of Treatment Upcoming Encounters Date Type Department Care Team (Late st Contact Info) Description 12/19/2025 10:30 AM EDT Telemedicine [facility] PULMONARY & CRITICAL CARE MEDICINE [address] [facility] [address] [place] [address] Lucretia Shaikh, QUALITATIVE EXECUTIVE RESEARCHER [address] [place] [id number] documented as of this encounter Visit Diagnoses Not on filedocumented in this encounter Care Teams Chucker Relationship Specialty Start Date End Date Alex Zepeda MD [address] [facility] [address] [place] [address] PCP - General Adolescent Medicine 11/30/18 documented as of this encounter
--- OUTSIDE RECORDS SUMMARY | 2025-07-02 22:40 | XMS_ITS | Encounter Summary ---
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 n file documented as of this encounter Plan of Treatment Upcoming Encounters Date Type Department Care Team (Late st Contact Info) Description 12/19/2025 10:30 AM EDT Telemedicine [facility] PULMONARY & CRITICAL CARE MEDICINE [address] [facility] [address] [place] [address] Lucretia Shaikh, HOTEL HOUSEMAN [address] [place] [phone] documented as of this encounter Visit Diagnoses Not on filedocumented in this encounter Care Teams Professor Sculpture Relationship Specialty Start Date End Date Alex Zepeda MD [address] [facility] [address] [place] [address] PCP - General Adolescent Medicine 11/30/18 documented as of this encounter
--- OUTSIDE RECORDS SUMMARY | 2025-07-02 22:40 | XMS_ITS | Encounter Summary ---
[facility] [address] [place] [address] Care Team Providers Care Securities And Real Estate Director Name Role Phone Alex Zepeda MD Primary Care Provider + [phone] Reason for Visit * Reason Comments Med Refill Encounter Details Date Type Department Care Team (Late st Contact Info) Description 05/30/2025 Refill [facility]ICAL [facility] PULMONARY & CRITICAL CARE MEDICINE [address] [facility] [address] [place] [address] Lucretia Shaikh, FABRICATION OPERATOR [address] [place] [address] Stage 4 very severe COPD by GOLD classification Social History Tobacco Use Types Packs/Day Years Used Date Smoking Tobacco: Former Cigarettes 1 53 0 01/15/1966 - 01/15/2019 Smokeless Tobacco: Never Comments:Pt states that she [...] 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 documented in this encounter Plan of Treatment Upcoming Encounters Date Type Department Care Team (Late st Contact Info) Description 12/19/2025 10:30 AM EDT Telemedicine [facility] PULMONARY & CRITICAL CARE MEDICINE [address] [facility] [address] [place] [address] Lucretia Shaikh, FABRICATION OPERATOR [address] [place] [address] documented as of this encounter Visit Diagnoses Diagnosis Stage 4 very severe COPD by GOLD classification documented in this encounter Care Teams Securities And Real Estate Director Relationship Specialty Start Date End Date Alex Zepeda MD [address] [facility] [address] [facility] [address] [place] [address] PCP - General Adolescent Medicine 11/30/18 documented as of this encounter
--- OUTSIDE RECORDS SUMMARY | 2025-07-02 22:40 | XMS_ITS | Encounter Summary ---
[facility] Address [address] [place] [address] Care Team Providers Care Retail Equipment Associate Name Role Phone Alex Zepeda MD Primary Care Provider + [phone] Reason for Visit * Reason Onset Date Comments DR GONZALEZ REQUEST 05/26/2025 Encounter Details Date Type Department Care Team (Late st Contact Info) Description 05/26/[address] 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 Not o n file documented as of this encounter Miscellaneous Notes * Telephone Encounter - Zhane Parra RegSched Rep - 05/27/2025 12:36 PM EDT TALKED TO ENRIQUE AND PATIENT'S ESTEBAN - PT SCHEDULED FOR SATURDAY 06/02 * Telephone Encounter - Zhane Parra RegSched Rep - 05/27/2025 11:09 AM EDT [facility] FAXING REPORT NOW TO US * Telephone Encounter - Zhane Parra RegSched Rep - 05/26/2025 1:32 PM EDT HAVE CALLED [facility] 3 TIMES TODAY - STRAIGHT TO THEIR VM EVERY TIME - LEFT 3 MESSAGES FORCT REPORT * Telephone Encounter - Zhane Parra RegSched Rep - 05/26/2025 9:42 AM EDT REQUESTED IMAGING FROM [facility] * Telephone Encounter - Lisa Whitaker RegSched Rep - 05/26/2025 8:06 AM EDT Caller: Kanchan Phoenix Relationship: Emergency Contact Best call back number: [phone] What is the best time to reach you: ANY Who are you requesting to speak with (clinical staff, provider, specific staff member): [facility]LE TEAM Do you know the name of the person who called: PTS DAUGHTER What was the call regarding: PT HAD CT COMPLETED AND PROVIDER THINKS SHE NEEDS TO SEE DR THOMAS AGAIN-PLEASE CALL PTS DAUGHTER-PT HAD CT COMPLETED AT [facility] Is it okay if the provider responds through MyChart: NO documented in this encounter Plan of Treatment Upcoming Encounters Date Type Department Care Team (Late st Contact Info) Description 12/19/2025 10:30 AM EDT Telemedicine [facility] PULMONARY & CRITICAL CARE MEDICINE [address] [facility] [address] [place] [address] Lucretia Shaikh, CUTTER OUT [address] [place] [address] documented as of this encounter Visit Diagnoses Not on filedocumented in this encounter Care Teams Retail Equipment Associate Relationship Specialty Start Date End Date Alex Zepeda MD [address] [facility] [address] [place] [address] PCP - General Adolescent Medicine 11/30/18 documented as of this encounter
--- OUTSIDE RECORDS SUMMARY | 2025-07-02 22:40 | XMS_ITS | Encounter Summary ---
[facility] Address [address] [place] [address] Care Team Providers Care Operation Shift Supervisor Name Role Phone Alex Zepeda MD Primary Care Provider + [phone] Reason for Visit * Reason Comments Med Refill Encounter Details Date Type Department Care Team (Late st Contact Info) Description 05/08/2025 Refill [facility] MEDICAL [facility] PULMONARY & CRITICAL CARE MEDICINE [address] [facility] [address] [place] [address] Lucretia Shaikh, PAYROLL ACCOUNTANT [address] [place] [address] Stage 4 very severe COPD by GOLD [...] 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 documented in this encounter Plan of Treatment Upcoming Encounters Date Type Department Care Team (Late st Contact Info) Description 12/19/2025 10:30 AM EDT Telemedicine [facility] PULMONARY & CRITICAL CARE MEDICINE [address] [facility] [address] [place] [address] Lucretia Shaikh, PAYROLL ACCOUNTANT [address] [place] [address] documented as of this encounter Visit Diagnoses Diagnosis Stage 4 very severe COPD by GOLD classification documented in this encounter Care Teams Operation Shift Supervisor Relationship Specialty Start Date End Date Alex Zepeda MD [address] [facility] [address] [facility] [address] [place] [address] PCP - General Adolescent Medicine 11/30/18 documented as of this encounter
--- OUTSIDE RECORDS SUMMARY | 2025-07-02 22:40 | XMS_ITS | Encounter Summary ---
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 n file documented as of this encounter Plan of Treatment Upcoming Encounters Date Type Department Care Team (Late st Contact Info) Description 12/19/2025 10:30 AM EDT Telemedicine [facility] PULMONARY & CRITICAL CARE MEDICINE [address] [facility] [address] [place] [address] Lucretia Shaikh, DIETETIC TECH [address] [place] [phone] documented as of this encounter Visit Diagnoses Not on filedocumented in this encounter Care Teams Test Baker Relationship Specialty Start Date End Date Alex Zepeda MD [address] [facility] [address] [place] [address] PCP - General Adolescent Medicine 11/30/18 documented as of this encounter
--- OUTSIDE RECORDS SUMMARY | 2025-07-02 22:41 | XMS_ITS | Clinical Summary ---
[facility] Address [address] [place] [address] Care Team Providers Care Market Developer Name Role Phone Alex Zepeda MD Primary Care Provider + [phone] Allergies Active Allergy Reactions Criticality Noted Date Comments Erythromycin Nausea Only Low 12/09/2016 Medications metFORMIN (GLUCOPHAGE) 1000 MG tablet Take 0.5 tablets by mouth 2 (Two) Times a Day With Meals. Active atorvastatin (LIPITOR) 40 MG tablet Take 1 tablet by mouth Every Night. Active Ertugliflozin L-PyroglutamicAc (STEGLATRO) 5 MG tablet Take 1 tablet by mouth Every Morning. Active O2 (OXYGEN) Inhale Every Night. Active calcium citrate-vitamin d (CITRACAL) 200-250 MG-UNIT tablet tablet Take by mouth Daily. Active alendronate (FOSAMAX) 70 MG tablet Take by mouth 1 (One) Time Per Week. 10/11/19 23 Active albuterol (PROVENTIL) (2.5 MG/3ML) 0.083% nebulizer solutionIndication s:Stage 4 very severe COPD by GOLD classification INHALE THE CONTENTS OF 1 VIAL VIA NEBULIZER BY MOUTH EVERY 4 HOURS NEEDED FOR WHEEZING 120 mL 02/11/20 25 Active albuterol sulfate HFA 108 (90 Base) MCG/ACT inhalerIndications :Stage 4 very severe COPD by GOLD classification INHALE TWO PUFFS BY MOUTH EVERY 4 HOURS NEEDED FOR WHEEZING 18 g 1 05/30/20 25 Active aspirin 81 MG chewable tablet Chew 1 tablet Daily. Active Fluticasone-Umecli din-Vilant (Trelegy Ellipta) 100-62.5-25 MCG/ACT inhalerIndications :Stage 4 very severe COPD by GOLD classification Inhale 1 puff Daily. 180 each 3 06/20/20 25 Active Fluticasone-Umecli din-Vilant (Trelegy Ellipta) 100-62.5-25 MCG/ACT inhalerIndications :Stage 4 very severe COPD by GOLD classification Inhale 1 puff Daily. 180 each 3 06/17/20 24 025 Discontin ued(Reord er) Active Problems Problem Noted Date Diagnosed Date AAA without rupture s/p repair 01/14/20192018 Stage 4 very severe COPD by GOLD classification 01/08/2019 Abdominal aortic aneurysm (AAA) without rupture 01/08/2019 Mediastinal mass 01/08/2019 Cigarette nicotine dependence without complicati on 01/08/2019 Allergic rhinitis 01/08/2019 Resolved Problems Problem Noted Date Diagnosed Date Resolved Date Personal history of smoking 04/10/2019 06/20/2025 Encounters Date Type Department Care Team Description 06/25/2025 Travel 06/23/2025 Travel 06/20/2025 11:00 AM EST Telemedicine [facility] [address] [facility] [facility] [address] [place] [address] Lucretia Shaikh APRN Cigarette nicotine dependence without complication (Primary Dx); Stage 4 very severe COPD by GOLD classification; Non-seasonal allergic rhinitis, unspecified trigger 06/18/2025 9:00 AM EST Office Visit [facility] [address] [place] [phone] Kathy Villarreal APRN Mediastinal mass (Primary Dx); Stage 4 very severe COPD by GOLD classification 06/18/2025 Travel 05/30/2025 Refill [facility] [address] [facility] [address] [place] [address] Lucretia Shaikh APRN Stage 4 very severe COPD by GOLD classification 05/26/2025 Telephone [facility] [address] [place] [phone] CHANEY-GUILLE REQUEST 05/08/2025 Refill [facility] [address] [facility] [address] [place] [address] Lucretia Shaikh APRN Stage 4 very severe COPD by GOLD classification 04/08/2025 Refill [facility] [address] [facility] [address] [place] [address] Lucretia Shaikh [employer]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 Stage 4 very severe COPD by GOLD classification from Last 3 Months Immunizations Immunization Administration Dates Next Due Influenza, Unspecified 06/05/2020 Pneumococcal, Unspecified 06/02/2020 Family History Medical History Relation Name Comments Hypertension Father Leukemia Father Hypertension Mother Stroke Mother Relation Name Status Comments Brother Alive Father Maternal Grandfather Maternal Grandmother Mother Paternal Grandfather Paternal Grandmother Sister Alive Social History Tobacco Use Types Packs/Day Years [...] 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 Not on file Not o n file Last Filed Vital Signs Vital Sign Reading Time Taken Comments Blood Pressure 122/75 06/18/2025 9:17 AM EST Pulse 55 06/18/2025 9:17 AM EST Temperature 36.4 C (97.6 F) 06/18/2025 9:17 AM EST Respiratory Rate 22 01/15/2019 11:00 AM EDT Oxygen Saturation 88% 06/18/2025 9:17 AM EST Inhaled Oxygen Concentration - - Weight 59.4 kg (131 lb) 06/18/2025 9:17 AM EST Height 160 cm (5' 3 ) 06/18/2025 9:17 AM EST Body Mass Index 23.21 06/18/2025 9:17 AM EST Plan of Treatment Upcoming Encounters Date Type Department Care Team (Late st Contact Info) Description 12/19/2025 10:30 AM EDT Telemedicine [facility] PUL[facility]ITICAL CARE MEDICINE [address] [place] [address] Neel Lucretia Tomeka, [employer]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 [address] [place] [id number] Health Maintenance Due Date Last Done Comments DXA SCAN 1955 COVID-19 Vaccine (#1) 02/29/1960 DIABETIC EYE EXAM 1965 DIABETIC FOOT EXAM 1965 URINE MICROALBUMIN-CREATININ E RATIO (uACR) 1965 TDAP/TD VACCINES (1 - Tdap) 1974 COLOGUARD 02/29/2000 COLON CANCER SCREENING 5 YEA R SIGMOIDOSCOPY 02/29/2000 COLONOSCOPY 02/29/2000 COLORECTAL CANCER SCREENING 02/29/2000 CT COLONOGRAPHY 02/29/2000 FECAL OCCULT BLOOD TEST 02/29/2000 FIT Testing (1 year) 02/29/2000 MAMMOGRAM 04/24/2017 04/24/2015 ANNUAL WELLNESS VISIT 05/24/2018 HEPATITIS C SCREENING 05/24/2018 HEMOGLOBIN A1C 07/11/2019 01/08/2019 LUNG CANCER SCREENING 11/05/2023 11/04/2022 , 10/18/2021, 10/13/2020, Additional history exists ZOSTER VACCINE Completed 01/04/2021, 08/24/2020 Pneumococcal Vaccine 50+ Completed 023, 06/02/2020, 05/28/2020 INFLUENZA VACCINE Completed 05/15/2025, , 04/26/2021, Additional history exists Medical Devices Implanted Type Area [employer]course Barrier Attendant Device Identifier Shelf Expiration Date Model / Serial / Lot Stentgr Aort Ovationix Pma 23mm - [id number] Implanted:Qty: 1 on 01/14/2019 by Ammon Poe MD at [facility] Implant N/A: Aorta ENDOLOGIX 12/19/2020 [id number] / / [id number] Stentgr Iliac Ovationix [id number] - [id number] Implanted:Qty: 1 on 01/14/2019 by Ammon Poe MD at [facility] Implant N/A: Aorta ENDOLOGIX 01/09/2021 [id number] / / [id number] Stentgr Iliac Ovationix [id number] - [id number] Implanted:Qty: 1 on 01/14/2019 by Ammon Poe MD at [facility] Implant N/A: Aorta ENDOLOGIX 03/23/2021 [id number] / / [id number] Polymr Cust Seal Kt 14/Minute - [id number] Implanted:Qty: 1 on 01/14/2019 by Ammon Poe MD at [facility] Implant ENDOLOGIX [id number] / / Procedures Procedure Name Priority Date/Time Associated Diagnosis Comments CT CHEST W WO CONTRAST DIAGNOSTIC Routine 11/04/2022 10:55 AM EDT Mediastinal mass HEMOGLOBIN A1C Routine 01/08/2019 8:45 AM EDT MAMMO SCREENING BILATERAL W CAD Routine 04/24/2015 9:30 AM EDT from Last 3 Months or Most Recently Relevant to Health Maintenance Results * CT Chest With & Without Contrast Diagnostic (11/04/2022 10:55 AM EDT) Anatomical Region Laterality Modality Chest N/A Computed Tomogra phy 11/04/2022 4:38 PM EDT Impressions 11/04/2022 4:47 PM EDT Impression: 1.Significantly decreased size of anterior mediastinal mass, with measurements as above. 2.Moderate emphysematous changes. Recommend evaluation of patient history and risk factors to see if patient qualifies for low dose lung cancer screening based upon evidence of emphysema. Electronically Signed: Sugey Jimenez 11/04/2022 4:47 PM EDT Workstation ID: [id number] [place] 11/04/2022 4:[address] CHEST W WO CONTRAST DIAGNOSTIC Date of Exam: 11/04/2022 10:30 AM EDT Indication: mediastinal mass follow-up Comparison: CT chest 10/18/2021 Technique: Axial CT images were obtained of the chest before and after the uneventful intravenous administration of 95 mL Isovue-300. Reconstructed coronal and sagittal images were also obtained. Automated exposure control and iterative construction methods were used. Findings: Anterior mediastinal mass has significantly decreased [...] included. No acute osseous abnormality is identified. Procedure Note Sugey Jimenez MD - 11/04/2022 CT CHEST W WO CONTRAST DIAGNOSTIC Date of Exam: 11/04/2022 10:30 AM EDT Indication: mediastinal mass follow-up Comparison: CT chest 10/18/2021 Technique: Axial CT images were obtained of the chest before and after theuneventful intravenous administration of 95 mL Isovue-300. Reconstructedcoronal and sagittal images were also obtained. Automated exposure controland iterative construction methods were used. Findings: Anterior mediastinal mass has significantly decreased in size and nowmeasures 1.7 x 1.6 x 3.8 cm, previously 4.3 x 3.8 x 5.3 cm. No hilar oraxillary lymphadenopathy is seen. Heart size is normal. There is nopleural or pericardial effusion. Lungs are clear. 3 mm left lower lobe nodule on axial image 53 is stable. Moderatecentrilobular emphysematous changes are upper lobe predominant. Mucousplugging is noted, greatest in the lower lobes. Left upper renal cystmeasures 2.4 cm. Abdominal aortic stent graft is partially included. No acute osseous abnormality is identified. IMPRESSION: Impression: 1.Significantly decreased size of anterior mediastinal mass, withmeasurements as above. 2.Moderate emphysematous changes. Recommend evaluation of patient history and risk factors to see if patientqualifies for low dose lung cancer screening based upon evidence ofemphysema. Electronically Signed: Sugey Jimenez 11/04/2022 4:47 PM EDT Workstation ID: [id number] Leatha Alvarez TRISHA IMG CT ORDERABLES Final Result * (ABNORMAL) Hemoglobin A1c (01/08/2019 8:45 AM EDT) Hemoglobin A1C 6.00(H) 4.80 - 5.60 % 01/08/2019 9:35 AM EDT [facility] Blood Venipuncture / Unknown 01/08/2019 8:45 AM EDT 01/08/2019 9:10 AM EDT Narrative [facility] - 01/08/2019 9:35 AM EDT Hemoglobin A1C Ranges: Increased Risk for Diabetes 5.7% to 6.4% Diabetes >= 6.5% Diabetic Goal < 7.0% Ammon Poe MD LAB BLOOD ORDERABLES Final Result [facility]
[address] [place] [address], * MAMMOGRAPHY SCREENING BILATERAL (04/24/2015 9:30 AM EDT) Anatomical Region Laterality Modality Breast Bilateral Mammography 04/24/2015 9:30 AM EDT Narrative 04/24/2015 10:39 AM EDT Exam Room: [facility] 1 Exam Start: [id number] Exam Stop: [id number] EXAMINATION- BILATERAL SCREENING DIGITAL MAMMOGRAM WITH TOMOSYNTHESIS- HISTORY- Routine screening. IMAGE COMPARISON- 08/04/2011 and 04/11/2008. TECHNIQUE- Low dose full field digital breast tomosynthesis examination was performed with 2D and 3D acquisitions. FINDINGS- There are a few scattered areas of fibroglandular density. The fibroglandular pattern is stable. There are several groups of punctate calcifications in the left breast which are stable. There is no mass, worrisome microcalcifications, or architectural distortion to suggest development of malignancy. IMPRESSION- Benign screening mammogram. No findings suspicious for malignancy. ACR BI-RADS CATEGORY- II, BENIGN RECOMMENDATION- Yearly mammogram, yearly physical exam, and monthly self breast exam. CAD was used. The standard false negative rate of mammography is between 10% and 25%. Complex patterns or increased breast density will markedly elevate the false negative rate of mammography. A letter, in lay terminology, with the results of this exam will be mailed to the patient. If there is a palpable area of concern, biopsy should be considered regardless of imaging findings. DT- 04/24/2015 DE- 04/24/2015 Reading Radiologist- SOWMYA DIAS Releasing Radiologist- SOWMYA DIAS Released Date Time- 04/24/15 1407 System Auditor- Pricila Read By: SOWMYA DIAS Released By: SOWMYA DIAS Procedure Note Sowmya Ellsworth MD - 06/07/2015 Exam Room: [facility] 1 Exam Start: [id number] Exam Stop: [id number] EXAMINATION- BILATERAL SCREENING DIGITAL MAMMOGRAM WITH TOMOSYNTHESIS- HISTORY- Routine screening. IMAGE COMPARISON- 08/04/2011 and 04/11/2008. TECHNIQUE- Low dose full field digital breast tomosynthesis examination was performed with 2D and 3D acquisitions. FINDINGS- There are a few scattered areas of fibroglandular density. The fibroglandular pattern is stable. There are several groups of punctate calcifications in the left breast which are stable. There is no mass, worrisome microcalcifications, or architectural distortion to suggest development of malignancy. IMPRESSION- Benign screening mammogram. No findings suspicious for malignancy. ACR BI-RADS CATEGORY- II, BENIGN RECOMMENDATION- Yearly mammogram, yearly physical exam, and monthly self breast exam. CAD was used. The standard false negative rate of mammography is between 10% and 25%. Complex patterns or increased breast density will markedly elevate the false negative rate of mammography. A letter, in lay terminology, with the results of this exam will be mailed to the patient. If there is a palpable area of concern, biopsy should be considered regardless of imaging findings. DT- 04/24/2015 DE- 04/24/2015 Reading Radiologist- SOWMYA DIAS Releasing Radiologist- SOWMYA DIAS Released Date Time- 04/24/15 3025 System Auditor- Pricila Read By: SOWMYA DIAS Released By: SOWMYA DIAS Emma Montilla MD IMG MAMMOGRAPHY ORDERABLES Fi nal Result from Last 3 Months or Most Recently Relevant to Health Maintenance Insurance [facility] MEDICARE ADVANTAGE HMO Advance Directives * CPR (Attempt to Resuscitate) (Latest Code Status on File) Date Activated Date Inactivated Comments 01/14/2019 4:20 PM 01/15/2019 1:49 PM Question Answer Comments Code Status (Patient has no pulse and is not breathing): CPR (Attempt to Resuscitate) Medical Interventions (Patie nt has pulse or is breathing): Full Level Of Support Discussed With: Patient Care Teams Market Developer Relationship Specialty Start Date End Date Alex Zepeda MD [address] [facility] [address] [place] [id number] PCP - General Adolescent Medicine 11/30/18
--- OUTSIDE RECORDS SUMMARY | 2025-07-02 22:41 | XMS_ITS | Patient Health Record ---
Author Organization [facility] ANGIE Address [address] [place] [address] Care Team Providers Care Forging Engineer Name Role Phone Alex Zepeda Primary Care Provider [phone] Alex Zepeda Unavailable Unavailable Sheeba Peterson Unavailable [phone] Migration, Provider Unavailable Unavailable Allergies Allergen (clinical drug ingredient) Drug/Non Drug Allergy documented on EMR Reaction Allergy Type Onset Date Status erythromycin Erythromycin stomach upset Drug Allergy Active Results Component Value Reference Range Notes TSH W/REFLEX TO FT4 (24969) Reviewed date:02/10/2025 09:09:40 AM Interpretation: Performing Lab:[facility], [facility] [id number] [address], SubitecJruiPA[address] Ezekiel Verde Notes/Report: NON-FASTING; NON-FASTING; NON-FASTING; NON-FASTING; NON-FAST FASTING:YES FASTING: YES TSH W/REFLEX TO FT4 0.50 0.40-4.50 mIU/L HEMOGLOBIN A1c (496) Reviewed date:02/10/2025 09:09:40 AM Interpretation: Performing Lab:[facility] [id number] [address], eMoovJmpgCO[address] Ezekiel Verde Notes/Report: NON-FASTING; NON-FASTING; NON-FASTING; NON-FASTING; NON-FAST FASTING:YES FASTING: YES HEMOGLOBIN A1c 6.3 <5.7 % follow-up test. For someone with known diabetes, a value <7% indicates that their diabetes is well controlled. A1c targets should be individualized based on duration of For someone without known diabetes, a hemoglobin A1c value between 5.7% and 6.4% is consistent with prediabetes and should be confirmed with a diabetes, age, comorbid conditions, and other considerations. This assay result is consistent with an increased risk of diabetes. Currently, no consensus exists regarding use of hemoglobin A1c for diagnosis of diabetes for children. MAGNESIUM (622) Reviewed date:02/10/2025 09:09:40 AM Interpretation: Performing Lab:[facility]Trip[facility]te[address], SubitecKyiiTM[address] Ezekiel Verde Notes/Report: NON-FASTING; NON-FASTING; NON-FASTING; NON-FASTING; NON-FAST FASTING:YES FASTING: YES MAGNESIUM 2.0 1.5-2.5 mg/dL COMPREHENSIVE METABOLIC PANE L (71460) Reviewed date:02/10/2025 09:09:40 AM Interpretation: Performing Lab:[facility]te[address], SubitecKzigJO[address] Ezekiel Verde Notes/Report: NON-FASTING; NON-FASTING; NON-FASTING; NON-FASTING; NON-FAST FASTING:YES FASTING: YES GLUCOSE 102 65-99 mg/dL For someone without known diabetes, a glucose value between 100 and 125 mg/dL is consistent with prediabetes and should be confirmed with a follow-up test. Fasting reference interval UREA NITROGEN (BUN) 14 7-25 mg/dL CREATININE [...] 13 10-35 U/L ALT 10 6-29 U/L CT Scan : Chest, Without Con trast Reviewed date:03/03/2025 08:34:30 AM Interpretation: Performing Lab: Notes/Report: TSH W/REFLEX TO FT4 (72731) Reviewed date:05/19/2025 09:49:11 AM Interpretation: Performing Lab:[facility] [id number], eMoovBzthJM[address] Ezekiel Verde Notes/Report: NON-FASTING; NON-FASTING; NON-FASTING; NON-FASTING TSH W/REFLEX TO FT4 0.42 0.40-4.50 mIU/L HEMOGLOBIN A1c (496) Reviewed date:05/19/2025 09:49:11 AM Interpretation: Performing Lab:[facility], SubitecQcgnVQ[address] Ezekiel Verde Notes/Report: NON-FASTING; NON-FASTING; NON-FASTING; NON-FASTING [...] A1c for diagnosis of diabetes for children. CBC (INCLUDES DIFF/PLT) (639 9) Reviewed date:05/19/2025 09:49:11 AM Interpretation: Performing Lab:[facility], [facility] [id number], Wood OleuRQ[address] Ezekiel Verde Notes/Report: NON-FASTING; NON-FASTING; NON-FASTING; NON-FASTING [...] MPV 10.6 7.5-12.5 fL ABSOLUTE NEUTROPHILS 6037 [phone] cells/uL ABSOLUTE LYMPHOCYTES [phone] cells/uL ABSOLUTE MONOCYTES 430 200-950 cells/uL ABSOLUTE EOSINOPHILS 155 15-500 cells/uL ABSOLUTE BASOPHILS 69 0-200 cells/uL NEUTROPHILS 70.2 LYMPHOCYTES 22.2 MONOCYTES 5.0 EOSINOPHILS 1.8 BASOPHILS 0.8 COMPREHENSIVE METABOLIC PANE L (01783) Reviewed date:05/19/2025 09:49:11 AM Interpretation: Performing Lab:[facility], [facility] [id number] [facility], [place] LtyxWG[address] Ezekiel Verde Notes/Report: NON-FASTING; NON-FASTING; NON-FASTING; NON-FASTING [...] 11 10-35 U/L ALT 9 6-29 U/L VITAMIN D,25-OH,TOTAL,IA (17 306) Reviewed date:02/10/2025 09:09:40 AM Interpretation: Performing Lab:[facility]T[address]te[address], [facility] HealthGmliNB[address] Ezekiel Verde Notes/Report: NON-FASTING; NON-FASTING; NON-FASTING; NON-FASTING; NON-FAST FASTING:YES FASTING: YES VITAMIN D,25-OH,TOTAL,IA 50 30-100 ng/mL For 25-OH Vitamin D testing on patients on D2-supplementation and patients for whom quantitation of D2 and D3 fractions is required, the QuestAssureD(TM) 25-OH VIT D, (D2,D3), LC/MS/MS is recommended: order code 45649 (patients >2yrs). See Note 1 Note 1 For additional information, please refer to http://education.[employer]faq/LXP563 (This link is being provided for informational/ educational purposes only.) Vitamin D Status 25-OH Vitamin D: Deficiency: <20 ng/mL Insufficiency: 20 - 29 ng/mL Optimal: > or = 30 ng/mL CBC (INCLUDES DIFF/PLT) (639 9) Reviewed date:02/10/2025 09:09:40 AM Interpretation: Performing Lab:[facility] [id number] yetu [facility], Essent[facility] HealthLymeWB[address] Ezekiel Verde Notes/Report: NON-FASTING; NON-FASTING; NON-FASTING; NON-FASTING; [...] MPV 11.2 7.5-12.5 fL ABSOLUTE NEUTROPHILS [phone] cells/uL ABSOLUTE LYMPHOCYTES [phone] cells/uL ABSOLUTE MONOCYTES 415 200-950 cells/uL ABSOLUTE EOSINOPHILS 158 15-500 cells/uL ABSOLUTE BASOPHILS 66 0-200 cells/uL NEUTROPHILS 71.9 LYMPHOCYTES 20.4 MONOCYTES 5.0 EOSINOPHILS 1.9 BASOPHILS 0.8 LIPID PANEL, STANDARD (7600) Reviewed date:02/10/2025 09:09:39 AM Interpretation: Performing Lab:DANIAL, [facility]Raji [address], Raji LevineZdymBL[address] Ezekiel Verde Notes/Report: NON-FASTING; NON-FASTING; NON-FASTING; NON-FASTING; NON-FAST FASTING:YES FASTING: YES CHOLESTEROL, TOTAL 104 <200 mg/dL HDL CHOLESTEROL 54 > OR = 50 mg/dL TRIGLYCERIDES 65 <150 mg/dL LDL-CHOLESTEROL 36 Desirable range <100 mg/dL for primary prevention; <70 mg/dL for patients with CHD or diabetic patients with > or = 2 CHD risk factors. LDL-C is now calculated using the Cale-Allen calculation, which is a validated novel method providing better accuracy than the Friedewald equation in the estimation of LDL-C. Cale SS et al. HAMILTON. 2013;310(19): 2207-3551 (http://education.[employer].com/faq/OAW163) Reference range: <100 CHOL/HDLC RATIO 1.9 <5.0 (calc) NON HDL CHOLESTEROL 50 <130 mg/dL (calc) For patients with diabetes plus 1 major ASCVD risk factor, treating to a non-HDL-C goal of <100 mg/dL (LDL-C of <70 mg/dL) is considered a therapeutic option. Reason For Referral Reason CT chest without con trast Diagnosis 1 Mediastinal mass (J9 8.59) Referral Organization [facility] Referring Provider First Name Sheeba Referring Provider Last Name Kristen Referring Provider Speciality [facility] Referred Organization [facility] Referred Address [address] [facility] [address] [facility], [place], [place],[address],[place] Referred Provider Specialty Diagnostic R adiology General Notes Leslie Steinberg 2024 11:23:03 AM >sent to [facility] to schedule Referral Priority Routine Reason [facility] for PT/OT/Nursing eval. and nurse practitioner home assessments if available service Diagnosis 1 Physical debility (R 53.81) Referral Organization [facility] Referring Provider First Name Sheeba Referring Provider Last Name Kristen Referring Provider Speciality [facility] Referred Organization [facility] Referred Address [address] [place], [place],[address],[place] Referred Provider Specialty Home Health General Notes Leslie Steinberg 2024 11:53:24 AM >sent to [facility] Referral Priority Routine Medications Medication SIG (Take, Route, Frequency, Duration) Notes Start Date End Date Status Ventolin HFA 108 (90 Base) MCG/ACT 2 puff(s) inhaled every 4 hours; Duration: 30 days Active Farxiga 5 mg TAKE ONE TABLET BY MOUTH EVERY DAY; Duration: 60 Active Albuterol Sulfate (2.5 MG/3ML) 0.083% 3 mL by nebulizer every 6 hours prn; Duration: 90 days Active Lasix 20 MG 1 tab(s) orally every other day; Duration: 30 days Active FREESTYLE LT/GLUCOSE MONITORING NFRS - *Please review for potential replacement for e-prescription and drug interaction check* 11/08/2018 Active FREESTYLE LANCET - USE TO CHECKBLOOD SUGAR ONCE DAILY; Duration: 30 DAYS 11/09/2018 Active metFORMIN HCl 1000 MG TAKE ONE TABLET BY MOUTH TWICE DAILY; Duration: 60 Active FREESTYLE LITE STRIPS NFRS - USE TO CHECK BLOODSUGAR ONCE DAILY; Duration: 30 DAYS 11/09/2018 Active Alendronate Sodium 70 mg TAKE ONE TABLET BY MOUTH ONCE WEEKLY; Duration: 28 Active PORTABLE OXYGEN CONCENTRATOR DX: COPD prn Active TEST STRIPS AND LANCETS NA FOR ONCE A DAY FSBS TESTING NA ONCE A DAY 06/23/2022 Active NEBULIZER SET-UP W/ ADULT MASK 05/03/2018 Active GLUCOMETER NA USE FOR ONCE A DAY FSBS TESTING NA ONCE A DAY; Duration: 30 DAYS 06/23/2022 Active Aspirin 81 MG 1 TAB(S) ORALLY ONCE A DAY; Duration: 30 DAY(S) Active OXYGEN 2 LITERS DIRECTED DAILY prn Active Claritin 10 MG 1 tab(s) orally once a day; Duration: 90 days Active Omeprazole 20 MG 1 cap(s) orally once a day; Duration: 30 day(s) 02/19/2020 Active Trelegy Ellipta 200 MCG-62.5 MCG-25 MCG/INH INHALE 1 PUFF BY MOUTH EVERY DAY; Duration: 30 Active Diclofenac Sodium 1 % as directed applied topically 4 times a day; Duration: 30 day(s) Active Linzess 72 MCG 1 cap(s) orally every other day prn; Duration: 90 days Active TRELEGY ELLIPTA 200 mcg-62.5 mcg-25 mcg/inh 1 puff(s) inhaled once a day; Duration: 30 days Active Vitamin D3 25 MCG 1 tab(s) orally once a day; Duration: 30 day(s) 11/26/2021 Active Atorvastatin Calcium 40 MG 1 tab(s) orally once a day; Duration: 90 Active Immunizations Vaccine Route Administration Date Status Comme nts Fluzone High Dose IM Intramuscular 05/28/2020 Administered Fluzone High Dose IM Intramuscular 04/26/2021 Administered Fluzone High Dose IM Intramuscular 05/15/2025 Administered Hep A Adult 2 Dose Unknown 06/06/2018 Administered Influenza-Fluzone 3+years (NON-MEDICARE) IM Intramuscular 04/28/2017 Administered Pneumovax 23 IM Intramuscular 05/28/2020 Administered Prevnar PCV-20 (Pneumococcal conjugate 20) IM Intramuscular 08/18/2022 Administered Social History Tobacco Use: Social History [...] W/U Status Risk Notes Problem Mixed hyperlipidemia (406100649) Mixed hyperlipidemia (E78.2) Active confirmed Problem Tobacco user (144383311) Nicotine dependence, cigarettes, uncomplicated (F17.210) Active confirmed Problem Cholelithiasis without obstruction (28137810) Calculus of gallbladder without cholecystitis without obstruction (K80.20) Active confirmed Problem Age-related osteoporosis (453583286) Age-related osteoporosis without current pathological fracture (M81.0) Active confirmed Problem Tobacco use (935063509) Tobacco use (Z72.0) Active confirmed Problem Acute exacerbation of chronic obstructive airways disease (298990831) COPD with exacerbation (J44.1) Active confirmed Problem Vitamin D deficiency (74515605) Vitamin D deficiency (E55.9) Active confirmed Problem Body mass index 25-29 - overweight (559130990) BMI 25.0-25.9,adult (Z68.25) Active confirmed Problem BMI 25-29 - overweight (989713837) BMI 27.0-27.9,adult (Z68.27) Active confirmed Problem Acute exacerbation of chronic obstructive airways disease (634417617) COPD exacerbation (J44.1) Active confirmed Problem Allergic rhinitis (04417310) Chronic allergic rhinitis (J30.9) Active confirmed Problem Hyperlipidemia (98333527) Hyperlipidemia, unspecified (E78.5) Active confirmed Problem Benign essential hypertension (1293759) Benign essential hypertension (I10) Active confirmed Problem Osteoarthritis of knee (494093074) Primary osteoarthritis of both knees (M17.0) Active confirmed Problem Pulmonary emphysema (88610500) Pulmonary emphysema, unspecified emphysema type (J43.9) Active confirmed Problem Peripheral edema (82891199) Peripheral edema (R60.9) Active confirmed Problem Hyperthyroidism (99647919) Hyperthyroidism (E05.90) Active confirmed Problem Degeneration of lumbar intervertebral disc (56623363) Lumbar degenerative disc disease (M51.36) Active confirmed Problem Reactive depression (situational) (13989906) Situational depression (F43.21) Active confirmed Problem Diverticular disease of colon (538235324) Diverticulosis large intestine w/o perforation or abscess w/o bleeding (K57.30) Active confirmed Problem Lymphadenopathy (95114196) Mediastinal adenopathy (R59.0) Active confirmed Problem Dependence on supplemental oxygen (609721390961) Supplemental oxygen dependent (Z99.81) Active confirmed Problem Type II diabetes mellitus without complication (708883745) Type 2 diabetes mellitus without complication, without long-term current use of insulin (E11.9) Active confirmed Problem Abdominal aortic aneurysm without rupture (disorder) (35582931) Abdominal aortic aneurysm (AAA) without rupture (I71.4) Active confirmed Problem Chronic idiopathic constipation (28504372) Chronic idiopathic constipation (K59.04) Active confirmed Problem Ex-tobacco user (finding) (004743604) Personal history of tobacco use (Z87.891) Active confirmed Problem Allergic rhinitis (09439163) Acute allergic rhinitis (J30.9) Active confirmed Problem Benign neoplasm of colon (41084148) Multiple polyps of sigmoid colon (D12.5) Active confirmed Problem Hyperglycemia due to type 2 diabetes mellitus (046597076295013) Uncontrolled type 2 diabetes mellitus with hyperglycemia (E11.65) Active confirmed Problem Thymoma (034660638) Thymoma (D15.0) Active confirmed Problem Chronic obstructive pulmonary disease with acute lower respiratory infection (333819504) Chronic obstructive pulmonary disease with (acute) lower respiratory infection (J44.0) Active confirmed Problem Heart failure (33187744) Acute congestive heart failure, unspecified heart failure type (I50.9) Active confirmed Problem COVID-19 (584063513) COVID-19 (U07.1) Active confirmed Problem Disorder due to type 2 diabetes mellitus (411545837) Controlled type 2 diabetes mellitus with complication, without long-term current use of insulin (E11.8) Active confirmed Problem Chronic respiratory failure (75795806) Chronic hypoxic respiratory failure (J96.11) Active confirmed Vital Signs Heart Rate 94 /min 05/15/2025 Temperature 97.7 degrees Fahrenheit 05/15/2025 Oximetry 85 02/06/2025 RA Blood pressure diastolic 50 mm Hg 05/15/2025 Height 62.75 in 05/15/2025 Blood pressure systolic 116 mm Hg 05/15/2025 Weight 134.4 lbs 05/15/2025 BMI 24 kg/m2 05/15/2025 Encounters Encounter Location Date Provider Diagnosis [facility] [address] [facility] [address] [place] [address] 11/16/2024 Provider Migration Pulmonary emphysema, unspecified emphysema type J43.9 [facility] [address] [place], [employer] [address] 02/06/2025 Sheeba Peterson Hyperthyroidism E05. 90 ; Uncontrolled type 2 diabetes mellitus with hyperglycemia E11.65 ; Lower extremity edema R60.0 ; Pulmonary emphysema, unspecified emphysema type J43.9 ; Vitamin D deficiency E55.9 ; Chronic hypoxic respiratory failure J96.11 ; Thyroid mass E07.9 ; Mediastinal mass J98.59 ; Tobacco user Z72.0 and Physical debility R53.81 [facility] [address] [place], [place] [address] 05/15/2025 Sheebagiuliano PoolKristen Uncontrolled type 2 diabetes mellitus with hyperglycemia [...] 24.0-24.9, adult Z68.24 and Immunization(s) administered Z23 [facility] [place] [address] [address] 07/17/2024 Alex Besson [facility] [address] [facility] [address] [place], [place] [address] 10/04/2024 Sheeba Kristen [facility] [place] [address] [address] 11/01/2024 Sheeba Kristen [facility] [address] [place] [address] 02/06/2025 Sheeba Kristen [facility] [address] [place] [address] 02/10/2025 Sheeba Kristen Mediastinal mass J98 .59 [facility] [address] [place] [address] 02/17/2025 Alex Besson [facility] [address] [place] [address] 02/17/2025 Sheeba Kristen [facility] [address] [place] [address] 03/03/2025 Sheeba Kristen Lung mass R91.8 and Chest mass R22.2 [facility] [address] [facility] [address] [place], [place] [address] 03/06/2025 Alex Zepeda Assessments Encounter Date Diagnosis (ICD Code) Assessment [...] management 02/10/2025 Mediastinal mass (ICD-10 - J98.59) 03/03/2025 Lung mass (ICD-10 - R91.8) 05/15/2025 Medicare annual wellness visit, subsequent (ICD-10 - Z00.00) flu vaccination today as noted. will need RSV and Shingrix at pharmacy and we discussed that today. She wants to hold off on mamm and DEXA until her mediastinal mass is addressed 05/15/2025 Uncontrolled type 2 diabetes mellitus with hyperglycemia (ICD-10 - E11.65) most recent labs stable, improved. encouraged annual eye exam and regular foot evaluation. CC diet. 03/03/2025 Chest mass (ICD-10 - R22.2) 05/15/2025 Hyperthyroidism (ICD-10 - E05.90) Repeat labs today. Consider methimazole, propranolol. Refused uptake scan previously 02/06/2025 Lower extremity edema (ICD-10 - R60.0) Improved with taking Lasix every other day 02/06/2025 Pulmonary emphysema, unspecified emphysema type (ICD-10 - J43.9) Advanced COPD, we will request additional oxygen supplies in the home so that she can use it continuously if needed. Continue Trelegy 05/15/2025 Lower extremity edema (ICD-10 - R60.0) Improved with taking Lasix every other day 05/15/2025 Pulmonary emphysema, unspecified emphysema type (ICD-10 - J43.9) Advanced COPD, Continue Trelegy and supplemental O2 02/06/2025 Vitamin D deficiency (ICD-10 - E55.9) 05/15/2025 Vitamin D deficiency (ICD-10 - E55.9) 02/06/2025 Chronic hypoxic respiratory failure (ICD-10 - J96.11) 02/06/2025 Thyroid mass (ICD-10 - E07.9) Has refused biopsy 05/15/2025 Chronic hypoxic respiratory failure (ICD-10 - J96.11) 02/06/2025 Mediastinal mass (ICD-10 - J98.59) She is overdue for imaging of her lungs as well as known mediastinal mass, we will arrange for that at [facility] for her convenience 05/15/2025 Thyroid mass (ICD-10 - E07.9) Has refused biopsy 02/06/2025 Tobacco user (ICD-10 - Z72.0) Encouraged cessation 05/15/2025 Mediastinal mass (ICD-10 - J98.59) Encouraged FU with [employer] C[facility] 05/15/2025 Tobacco user (ICD-10 - Z72.0) Encouraged cessation 02/06/2025 Physical debility (ICD-10 - R53.81) 05/15/2025 Physical debility (ICD-10 - R53.81) Home Health ordered previously but home is in poor repair and they refused to improve conditions, etc. 05/15/2025 BMI 24.0-24.9, adult (ICD-10 - Z68.24) 05/15/2025 Immunization(s) administered (ICD-10 - Z23) Plan Of Treatment Pending Test Test Name Order Date X ray : Chest 12/03/2018 Mammogram : Right Breast 04/16/2019 NUCLEAR MED : Thyroid Uptake Scan 2023 H-MICROALB/FOOD AND BEVERAGE SERVER UR 10/06/2017 M-Complete Blood Count Auto Diff 019 M-Erythrocyte Sedimentation Rate M-Comprehensive Metabolic Panel 06/06/20 19 M-Comprehensive Metabolic Panel 01/05/20 21 M-Hemoglobin A1C 01/04/2021 M-Hemoglobin A1C 06/06/2019 M-Uric Acid 06/06/2019 M-Lipid Panel 06/06/2019 M-Free T4 (Free Thyroxine) 10/23/2023 M-Vitamin D 25 Hydroxy 04/16/2021 M-Vitamin D 25 Hydroxy 01/04/2021 M-Vitamin D 25 Hydroxy 10/19/2023 M-Vitamin D 25 Hydroxy 08/21/2020 M-Microalb/Creat Ratio, Randm Ur 021 M-Microalb/Creat Ratio, Rand Ur 019 PET/CT Scan Skull Base to Mid Thigh 02/12 Next Appt Details Provider Name:Sheeba Lofton ce, 11/20/2025 08:30:00 AM, [address], [place], [address], Insurance Providers Payer Name Payer Address Payer Phone Subscriber Number Group Number Insured Name Patient Relationship to Insured Coverage Start Date Coverage End Date [employer] [address] [place] [address] [id number] [place] Self - patient is the [...] 03/19 and 2018 Hospitalization History Reason Date(Month/Year) [facility] 03/2022 Triple A surgery 01/2019 child
[2025-07-02 22:44] LABS: VBG HCO3 17.8 mmol/L (23-30); VBG PCO2 43.9 mmol/L (35-51); VBG PH 7.23 mmol/L (7.31-7.41); VBG PO2 31.9 mmol/L (28-40)
[2025-07-02 22:45] LABS: Lactate Venous 3.0 mmol/L (0.4-2.0)
[2025-07-02] MEDS: MAGNESIUM SULFATE IN WATER 2 GM/50 ML PIGGYBACK IV (22:45)
[2025-07-02 22:50] VITALS: BP 115/93; PULSE 137; RESP 32; TEMP 38.6; O2SAT 98; BMI 24.7
[2025-07-02 22:56] LABS: Hematocrit 41.7 % (37.0-47.0); Hemoglobin 13.2 g/dL (12.2-16.2); Immature Granulocytes % 5.5 %; Mean Corpuscular HGB Conc 31.7 g/dL (31.8-35.4); Mean Corpuscular Hemoglobin 30.5 pg (27.0-31.2); Mean Corpuscular Volume 96.3 fl (81-99); Nucleated Red Blood Cells % 0 %; Platelet Count 184 K/mm3 (142-424); Red Blood Count 4.33 M/mm3 (4.20-5.40); Red Cell Distribution Width-SD 54.4 fL; White Blood Count 27.9 K/mm3 (4.8-10.8)
[2025-07-02 23:01] LABS: Albumin Level 4.1 g/dl (3.5-5.0); Chloride 95 mmol/L (98-107)
[2025-07-02 23:02] LABS: Potassium 4.3 mmoL/L (3.5-5.1); Sodium 136 mmol/L (136-145)
[2025-07-02 23:04] LABS: Alanine Aminotransferase 25 U/L (12-78); Anion Gap 27.3 mEq/L (5-15); Aspartate Amino Transferase 26 U/L (14-36); Blood Urea Nitrogen 38 mg/dl (7-17); Carbon Dioxide 18 mmol/L (22.0-30.0); Creatinine,Serum 1.40 mg/dl (0.52-1.04); Estimated Glomerular Filt Rate 37 ml/min (>60); GFR (African American) 45 ML/MIN (>60)
[2025-07-02 23:05] LABS: Albumin/Globulin Ratio 1.2 (1.1-1.8); Alkaline Phosphatase 77 U/L (38-126); Bilirubin,Total 1.8 mg/dl (0.2-1.3); Calcium 8.1 mg/dl (8.4-10.2); Globulin 3.4 g/dL (1.3-3.2); Glucose 185 mg/dl (74-100); Total Protein,Serum 7.5 g/dl (6.3-8.2)
--- NOTE | 2025-07-02 23:06 | ECG_ITS ---
APPROVED REPORT Exam: Resting ECG HR:122 bpm ECG Measurements Heart Rate 122 AXES QRSd 98 QRS -43 QT 315 T 74 QTc 388 Conclusion SUPRAVENTRICULAR TACHYCARDIA LEFT AXIS DEVIATION [QRS AXIS < -30] POSSIBLE ANTERIOR MYOCARDIAL INFARCTION , OF INDETERMINATE AGE [30 ms Q WAVE IN V3/V4, OR R < 0.2 mV IN V4] Significant artifact limits interpretation. Within the limits of the interpretation, no obvious STEMI Electronically signed by : JEFF RIVERS, 07/03/2025 07:12:51
[2025-07-02 23:14] LABS: NT Pro Brain Natriuretic Pep. 2620 pg/mL (0-125)
[2025-07-02] MEDS: LACTATED RINGERS 1000ML 1,910 ML 955 ML IV (23:16)
[2025-07-02 23:20] LABS: Troponin I < 0.01 ng/ml (0.00-0.034)
--- NOTE | 2025-07-02 23:21 | [facility].EDGENADL ---
Discharge Plan Disposition Patient Disposition: Admitted Condition: Critical Prescriptions Prescriptions: No Action Linzess 72 mcg capsule 72 mcg PO Q48H alendronate 70 MG tablet 70 mg PO PORTER aspirin 81 MG tablet,delayed release (DR/EC) 81 mg PO DAILY [id number] 1 EACH blister with device 1 puff inhalation DAILY albuterol sulfate 8.5 GM HFA aerosol inhaler 2 puff inhalation Q4HP PRN (Reason: Shortness Of Breath) cholecalciferol (vitamin D3) 1,000 UNIT capsule 2,000 unit PO DAILY atorvastatin 40 MG tablet 40 mg PO DAILY metformin 500 MG tablet 500 mg PO BIDWMEAL furosemide 20 MG tablet 20 mg PO DAILY loratadine 10 MG tablet 10 mg PO DAILY ipratropium-albuterol 3 ML solution for nebulization 3 ml IH TID Qty: 90 0RF Rx Instructions: Please dispense vials of duoneb molnupiravir 200 MG capsule 800 mg PO BID Qty: 40 0RF Referrals Follow up/Referrals: Sheeba Peterson APRN [Primary Care Provider, Medical] - See instructions Clinical Impressions Clinical Impression: Severe sepsis, Pneumonia, JOEY (acute kidney injury), Hyperbilirubinemia, Acute exacerbation of chronic obstructive pulmonary disease, Acute hypoxic respiratory failure Print Language Print Language: Portuguese Discharge ED Provider: Olivia Ellsworth General Adult HPI <Olivia Ellsworth MD - Last Filed: 07/02/25 23:30> General Chief complaint: Shortness of Breath/Dyspnea Stated complaint: Respiratory Distress Time Seen by Provider: 07/02/25 22:42 Mode of Arrival: EMS Source of Information: EMS Description of Symptoms (Recalled from ER Triage Doc. by RN): Pt presents to ER via EMS from home with hypoxia and tailbone pain. Per EMS pt had a fall yesterday (- blood thinners) and pt endorses tailbone pain, pt's baseline O2 requirement is 2LNC and was found at home satting 75% on 2LNC. Initial BP in route to ER was 73/40. Upon arrival pt is noted to have labored breathing with noteable retractions with inspiration/expiration History of Present Illness HPI narrative: Patient is a 70-year-old female brought in by EMS and extremis for respiratory distress. She was reportedly hypoxic with sats in the 70s prehospital and hypotension at that time. Patient is in respiratory distress and in extremis and history is unable to be obtained from her. Related Data Home Medications ?Medication ?Instructions ?Recorded ?Confirmed linaclotide 72 mcg capsule 72 mcg PO Q48H CONSTIPATION 11/05/18 01/03/24 (Linzess) alendronate 70 mg tablet 70 mg PO PORTER Osteoporosis 04/14/21 01/03/24 aspirin 81 mg tablet,delayed 81 mg PO DAILY heart health 04/14/21 01/03/24 release fluticasone fur. 100 mcg-umeclid 1 puff inhalation DAILY Breathing 04/14/21 01/03/24 62.5 mcg-vilant 25 mcg problems inhalat.powder albuterol sulfate 90 mcg/actuation 2 puff inhalation Q4HP PRN 04/21/21 01/03/24 aerosol inhaler Shortness Of Breath cholecalciferol (vitamin D3) 25 2,000 unit PO DAILY Supplement 03/15/22 01/03/24 mcg (1,000 unit) capsule atorvastatin 40 mg tablet 40 mg PO DAILY Cholesterol 03/16/22 01/03/24 furosemide 20 mg tablet 20 mg PO DAILY Fluid 03/16/22 01/03/24 loratadine 10 mg tablet 10 mg PO DAILY Allergy symptoms 03/16/22 01/03/24 metformin 500 mg tablet 500 mg PO BIDWMEAL Diabetes 03/16/22 01/03/24 Previous Rx's ?Medication ?Instructions ?Recorded ipratropium 0.5 mg-albuterol 3 mg 3 ml inhalation TID ##90 03/17/22 (2.5 mg base)/3 mL nebulization soln molnupiravir 200 mg capsule (EUA) 800 mg (4 x 200 mg) PO BID #40 caps 03/17/22 Allergies Allergy/AdvReac Type Severity Reaction Status Date / Time erythromycin base Allergy Unknown NA-NAUSEA/V Verified 01/03/24 15:26 (ERYTHROMYCIN BASE) OMITING [facility] <Olivia Ellsworth MD - Last Filed: 07/02/25 23:30> [facility] Disclaimer: The information contained in this section may have been updated after the patient was seen, as this information can be updated by other users. Medical History (Updated 07/02/25 @ 23:20 by Olivia Ellsworth MD) Thyroid nodule Social History Smoking Status: Current every day smoker tobacco type: cigarettes packs per day: 1 second hand exposure: No alcohol intake: never substance use type: denies use current occupational status: retired Travel in the last 8 weeks?: None household members: family housing: house current occupational exposures/hazards: No caffeine: Yes Have you lived/traveled outside [place] in past 30 days?: No Contact w/someone who lives/traveled outside US past 30 days?: No Exposure to someone with infectious disease in past 14 days?: No Do you have a fever (greater than 100.4 F or 38 C)?: No Have you tested positive for COVID-19?: No Exposed to someone with COVID-19 in past 14 days?: No Do you have a sore throat?: No Do you have a cough?: No Do you have any weakness?: No Do you have any diarrhea?: No Are you experiencing any unusual bleeding?: No Do you have any muscle aches/pain?: No Do you have any abdominal pain?: No Are you experiencing loss of taste or smell?: No Other Medical History Have you received the Flu Vaccine for this season: No Have you received the Pneumonia Vaccine: Yes <Olivia Ellsworth MD - Last Filed: 07/02/25 23:30> ROS Obtained: Yes All systems reviewed & no additional complaints except as documented Physical Exam <Olivia Ellsworth MD - Last Filed: 07/02/25 23:30> General General appearance: alert and in no apparent distress Respiratory Respiratory exam: Present other (Patient is in distress with severe prolonged prior Tory phase accessory muscle use only able to speak to me in single word sentences) Cardiovascular Cardiovascular exam: Present tachycardia (In the 130s) Neurological Exam Neurological exam: Present alert and other (Moving all extremities nonfocal) Medical Decision Making <Olivia Ellsworth MD - Last Filed: 07/02/25 23:30> Medical Records Screening: Per USPSTF and CDC recommendations, given the prevalence of disease in our region, it is our hospital?s policy to screen for HIV and viral Hepatitis for all patients aged 18 and over and those with ongoing risk factors. Angel Inquiry Pt receiving controlled substance: No Vital Signs: 07/02/25 22:50 07/02/25 23:35 07/02/25 23:51 Temperature 101.5 F H Temperature Source Rectal Pulse Rate 125 H 124 H Pulse Rate [Left Radial] 137 H Respiratory Rate 32 H 20 23 Blood Pressure 115/53 L 123/52 L Blood Pressure [Right Arm] 115/93 H Blood Pressure Mean 61 64 Blood Pressure Mean [Right Arm] 100 Blood Pressure Source [Right Arm] Automatic Cuff Blood Pressure Position [Right Arm] Supine 02 Sat by Pulse Oximetry 98 98 94 L Oxygen Delivery Method Non-Rebreather 07/02/25 23:53 07/02/25 23:57 07/03/25 00:05 Temperature Temperature Source Pulse Rate 120 H 121 H 128 H Pulse Rate [Left Radial] Respiratory Rate 18 20 22 Blood Pressure 153/67 H 152/66 H 109/73 L Blood Pressure [Right Arm] Blood Pressure Mean 79 83 84 Blood Pressure Mean [Right Arm] Blood Pressure Source [Right Arm] Blood Pressure Position [Right Arm] 02 Sat by Pulse Oximetry 100 98 96 Oxygen Delivery Method 07/03/25 00:10 07/03/25 00:21 07/03/25 00:27 Temperature 100.0 F H 100.2 F H Temperature Source Pulse Rate 124 H 127 H 123 H Pulse Rate [Left Radial] Respiratory Rate 24 28 H 33 H Blood Pressure 121/52 L 96/52 L 105/52 L Blood Pressure [Right Arm] Blood Pressure Mean 75 55 65 Blood Pressure Mean [Right Arm] Blood Pressure Source [Right Arm] Blood Pressure Position [Right Arm] 02 Sat by Pulse Oximetry 100 95 95 Oxygen Delivery Method 07/03/25 00:30 07/03/25 00:35 07/03/25 00:38 Temperature 100.2 F H 100.2 F H 100.2 F H Temperature Source Pulse Rate 121 H 115 H 119 H Pulse Rate [Left Radial] Respiratory Rate 25 H 13 25 H Blood Pressure 89/41 L 98/46 L 80/54 L Blood Pressure [Right Arm] Blood Pressure Mean 57 53 62 Blood Pressure Mean [Right Arm] Blood Pressure Source [Right Arm] Blood Pressure Position [Right Arm] 02 Sat by Pulse Oximetry 96 95 95 Oxygen Delivery Method 07/03/25 00:41 Temperature 100.0 F H Temperature Source Pulse Rate 119 H Pulse Rate [Left Radial] Respiratory Rate 26 H Blood Pressure 100/52 L Blood Pressure [Right Arm] Blood Pressure Mean 60 Blood Pressure Mean [Right Arm] Blood Pressure Source [Right Arm] Blood Pressure Position [Right Arm] 02 Sat by Pulse Oximetry 96 Oxygen Delivery Method Lab Data Lab Results 07/02/25 22:34: WBC 27.9 H*, RBC 4.33, Hgb 13.2, Hct 41.7, MCV 96.3, MCH 30.5, MCHC 31.7 L, RDW 15.2, Plt Count 184, MPV 10.8 H, Neut % (Auto) 83.9 H, Lymph % (Auto) 5.3 L, [place] % (Auto) 4.9, Eos % (Auto) 0.0 L, Baso % (Auto) 0.4, Neut # (Auto) 23.4 H, Lymph # (Auto) 1.5, [place] # (Auto) 1.4 H, Eos # (Auto) 0.0, Baso # (Auto) 0.1, Total Counted 100, Neutrophils % (Manual) 85 H, Band Neutrophils % 2.0, Lymphocytes % (Manual) 9 L, Monocytes % (Manual) 3, Myelocytes % 1, Platelet Estimate Normal, Giant Platelets 1+, Polychromasia 1+, Poikilocytosis 1+, Anisocytosis 1+, Macrocytosis 1+, Target Cells 1+, Tear Drop Cells 1+, Ovalocytes 1+, VBG pH 7.23 L, VBG pCO2 43.9, VBG pO2 31.9, VBG HCO3 17.8 L, VBG Total CO2 19.1 L, VBG O2 Saturation 54.9, VBG Base Excess -9.9 L, VBG Lactic Acid 3.0 H, Sodium 136, Potassium 4.3, Chloride 95 L, Carbon Dioxide 18 L, Anion Gap 27.3 H, BUN 38 H, Creatinine 1.40 H, Estimated GFR 37 L, Est GFR ( Amer) 45 L, Glucose 185 H, Calcium 8.1 L, Total Bilirubin 1.8 H, AST 26, ALT 25, Alkaline Phosphatase 77, Troponin I < 0.01, NT-Pro-B Natriuret Pep 2620 H, Total Protein 7.5, Albumin 4.1, Globulin 3.4 H, Albumin/Globulin Ratio 1.2 07/02/25 23:20: VBG pH 7.27 L, VBG pCO2 40.4, VBG pO2 32.5, VBG HCO3 18.1 L, VBG Total CO2 19.3 L, VBG O2 Saturation 58.7, VBG Base Excess -8.8 L, VBG Lactic Acid 3.2 H 07/02/25 22:34 07/02/25 22:34 Orders (Tests/Meds): ED MEDICATIONS Generic Name Dose Route Start Last Admin Trade Name Jennifer PRN Reason Stop Dose Admin Lactated Ringer's 1,910 mls @ 955 mls/hr 07/02/25 23:07 07/02/25 23:16 Lactated Ringer's 1000 Ml Bag 30 ml/kg infuse over 2 hr (1910 ml) 07/03/25 01:06 955 mls/hr IV Administration .Q2H ONE Protocol Vancomycin/PEG/NADA/Lysine/Water 1.25 gm in 250 mls @ 125 mls/hr 07/02/25 23:15 Vancomycin 1.25gm/250ml (Peg) Premix IV 07/03/25 01:14 ONCE ONE Fentanyl Citrate 1,000 mcg/ 100 mls @ 1 mls/hr 07/03/25 00:26 Sodium Chloride IV 08/02/25 00:25 .Q24H GUILLE Protocol 10 MCG/HR Midazolam/Sodium Chloride 50 mg in 50 mls @ 1.27 mls/hr 07/03/25 00:30 Midazolam 50 Mg/50 Ml-0.9%Nacl IV 08/02/25 00:29 .Q24H GUILLE Protocol 0.02 MG/KG/HR Norepinephrine/Dextrose 8 mg in 250 mls @ 15 mls/hr 07/03/25 00:32 Levophed 8mg/250ml-D5w Premix IV 08/02/25 00:31 .[id number] GUILLE Protocol 8 MCG/MIN Miscellaneous 1 each 07/02/25 23:00 Vancomycin Consult Request NOTAPPLIC 08/01/25 22:59 CON[facility]ULT [facility]Y [facility] Discontinued Medications Generic Name Dose Route Start Last Admin Trade Name Jennifer PRN Reason Stop Dose Admin Acetaminophen 650 mg 07/02/25 23:23 Acetaminophen 650mg Suppository RC 07/02/25 23:24 ONCE ONE Albuterol Sulfate 20 mg 07/02/25 23:24 07/02/25 23:30 Albuterol 0.083% 2.5 Mg/3 Ml Neb IH 07/02/25 23:25 20 mg ONCE ONE Administration Albuterol Sulfate 9 mg 07/02/25 23:35 07/02/25 23:38 Albuterol 0.083% 2.5 Mg/3 Ml [facility] 07/02/25 23:36 9 mg ONCE ONE Administration Albuterol/Ipratropium 9 ml 07/02/25 22:42 07/02/25 23:34 Ipratropium/Albuterol 3 Ml [facility] 07/02/25 22:43 Not Given ONCE ONE Magnesium Sulfate 2 gm in 50 mls @ 50 mls/hr 07/02/25 22:41 07/02/25 22:45 Magnesium Sulfate 2gm/50ml Premix IV 07/02/25 23:40 50 mls/hr ONCE ONE Administration Ceftriaxone Sodium 2 gm/ 100 mls @ 200 mls/hr 07/02/25 22:43 07/02/25 23:41 Sodium Chloride IV 07/02/25 23:12 Infused ONCE ONE Infusion Azithromycin 500 mg/ Sodium 250 mls @ 250 mls/hr 07/02/25 22:43 07/02/25 23:28 Chloride IV 07/02/25 22:44 250 mls/hr ONCE ONE Administration ORDERS Category Date Time Status CXR --portable [XR chest portable] Stat Exams 07/02/25 23:54 Completed Chest XR -- portable [XR chest portable] Stat Exams 07/02/25 22:39 Completed BNP [NT Pro Brain Natriuretic Pep.] Stat Lab 07/02/25 22:34 Completed CBC w/Auto Diff [Complete Blood Count Auto Diff] Stat Lab 07/02/25 22:34 Completed CMP [Comprehensive Metabolic Panel] Stat Lab 07/02/25 22:34 Completed Full Resp Panel w/COVID ([facility]) Routine Lab 07/02/25 23:53 Received HIV Combo Stat Lab 07/02/25 22:34 Received Hepatitis C Ab Qual. W/ RFX Stat Lab 07/02/25 22:34 Received Lactate Venous Stat Lab 07/02/25 23:22 Ordered Trop I [Troponin I] Stat Lab 07/02/25 22:34 Completed Troponin I Q3H Lab 07/03/25 01:45 Ordered Troponin I Q3H Lab 07/03/25 04:45 Ordered Urinalysis and Microscopic Stat Lab 07/03/25 00:55 Ordered Blood Culture Stat Micro 07/02/25 23:29 Received Sputum Culture & Gram Stain Stat Micro 07/03/25 00:56 Ordered VBG [Venous Blood Gas] Stat RT 07/02/25 22:34 Completed VBG [Venous Blood Gas] Stat RT 07/03/25 00:52 Ordered Venous Blood Gas Stat RT 07/02/25 23:20 Completed Medical Decision Narrative: Patient is a 70-year-old initially presented today with hypotension and severe hypoxemia prehospital. Her appearance initially looked like a severe COPD exacerbation with her history we immediately started BiPAP she was also started on continuous nebs she had received 2 DuoNebs and route and also Solu-Medrol and route. We immediately also gave 2 g of magnesium over 20 minutes and initiated Rocephin and azithromycin anticipation of treatment for COPD exacerbation. Bedside ultrasound was performed which demonstrated hyperdynamic LV no pericardial effusion no significant pleural effusions or pulmonary edema. At this point we began fluid resuscitation. Patient was also found to be febrile. This all consistent with sepsis likely a pulmonary source. Portable x-ray was performed which demonstrated a very large and new left sided consolidation consistent with pneumonia. Vancomycin was subsequently added. Patient was not improving on BiPAP and family showed up at the bedside I told them that she likely would not improve from a respiratory standpoint with just BiPAP and may need to be intubated with her significant work of breathing. Given the fact that she is 70 has end-stage COPD and is in septic shock labs also are returning showing multiorgan dysfunction her prognosis is poor. This was explained to the family and to the patient who she still seems that she understands what is going on. After shared decision making and discussion with the family and with the patient we all opted that if she continues to worsen or does not improve that she will likely need to be intubated. At this point Dr. Mari Adkins showed up to take over care at the moment we are waiting for more family members to show up to see the patient prior to intubation after which point we may intubate the patient. Labs demonstrate acute kidney injury hyperbilirubinemia elevated BNP likely biomarker strain from heart related pathology troponin is undetectably low however. Patient does have a metabolic acidosis at the moment which is nonspecific. <Shantel Adkins MD - Last Filed: 07/03/25 00:58> Vital Signs: 07/02/25 22:50 07/02/25 23:35 07/02/25 23:51 Temperature 101.5 F H Temperature Source Rectal Pulse Rate 125 H 124 H Pulse Rate [Left Radial] 137 H Respiratory Rate 32 H 20 23 Blood Pressure 115/53 L 123/52 L Blood Pressure [Right Arm] 115/93 H Blood Pressure Mean 61 64 Blood Pressure Mean [Right Arm] 100 Blood Pressure Source [Right Arm] Automatic Cuff Blood Pressure Position [Right Arm] Supine 02 Sat by Pulse Oximetry 98 98 94 L Oxygen Delivery Method Non-Rebreather 07/02/25 23:53 07/02/25 23:57 07/03/25 00:05 Temperature Temperature Source Pulse Rate 120 H 121 H 128 H Pulse Rate [Left Radial] Respiratory Rate 18 20 22 Blood Pressure 153/67 H 152/66 H 109/73 L Blood Pressure [Right Arm] Blood Pressure Mean 79 83 84 Blood Pressure Mean [Right Arm] Blood Pressure Source [Right Arm] Blood Pressure Position [Right Arm] 02 Sat by Pulse Oximetry 100 98 96 Oxygen Delivery Method 07/03/25 00:10 07/03/25 00:21 07/03/25 00:27 Temperature 100.0 F H 100.2 F H Temperature Source Pulse Rate 124 H 127 H 123 H Pulse Rate [Left Radial] Respiratory Rate 24 28 H 33 H Blood Pressure 121/52 L 96/52 L 105/52 L Blood Pressure [Right Arm] Blood Pressure Mean 75 55 65 Blood Pressure Mean [Right Arm] Blood Pressure Source [Right Arm] Blood Pressure Position [Right Arm] 02 Sat by Pulse Oximetry 100 95 95 Oxygen Delivery Method 07/03/25 00:30 07/03/25 00:35 07/03/25 00:38 Temperature 100.2 F H 100.2 F H 100.2 F H Temperature Source Pulse Rate 121 H 115 H 119 H Pulse Rate [Left Radial] Respiratory Rate 25 H 13 25 H Blood Pressure 89/41 L 98/46 L 80/54 L Blood Pressure [Right Arm] Blood Pressure Mean 57 53 62 Blood Pressure Mean [Right Arm] Blood Pressure Source [Right Arm] Blood Pressure Position [Right Arm] 02 Sat by Pulse Oximetry 96 95 95 Oxygen Delivery Method 07/03/25 00:41 Temperature 100.0 F H Temperature Source Pulse Rate 119 H Pulse Rate [Left Radial] Respiratory Rate 26 H Blood Pressure 100/52 L Blood Pressure [Right Arm] Blood Pressure Mean 60 Blood Pressure Mean [Right Arm] Blood Pressure Source [Right Arm] Blood Pressure Position [Right Arm] 02 Sat by Pulse Oximetry 96 Oxygen Delivery Method Lab Data Lab Results 07/02/25 22:34: WBC 27.9 H*, RBC 4.33, Hgb 13.2, Hct 41.7, MCV 96.3, MCH 30.5, MCHC 31.7 L, RDW 15.2, Plt Count 184, MPV 10.8 H, Neut % (Auto) 83.9 H, Lymph % (Auto) 5.3 L, [place] % (Auto) 4.9, Eos % (Auto) 0.0 L, Baso % (Auto) 0.4, Neut # (Auto) 23.4 H, Lymph # (Auto) 1.5, [place] # (Auto) 1.4 H, Eos # (Auto) 0.0, Baso # (Auto) 0.1, Total Counted 100, Neutrophils % (Manual) 85 H, Band Neutrophils % 2.0, Lymphocytes % (Manual) 9 L, Monocytes % (Manual) 3, Myelocytes % 1, Platelet Estimate Normal, Giant Platelets 1+, Polychromasia 1+, Poikilocytosis 1+, Anisocytosis 1+, Macrocytosis 1+, Target Cells 1+, Tear Drop Cells 1+, Ovalocytes 1+, VBG pH 7.23 L, VBG pCO2 43.9, VBG pO2 31.9, VBG HCO3 17.8 L, VBG Total CO2 19.1 L, VBG O2 Saturation 54.9, VBG Base Excess -9.9 L, VBG Lactic Acid 3.0 H, Sodium 136, Potassium 4.3, Chloride 95 L, Carbon Dioxide 18 L, Anion Gap 27.3 H, BUN 38 H, Creatinine 1.40 H, Estimated GFR 37 L, Est GFR ( Amer) 45 L, Glucose 185 H, Calcium 8.1 L, Total Bilirubin 1.8 H, AST 26, ALT 25, Alkaline Phosphatase 77, Troponin I < 0.01, NT-Pro-B Natriuret Pep 2620 H, Total Protein 7.5, Albumin 4.1, Globulin 3.4 H, Albumin/Globulin Ratio 1.2 07/02/25 23:20: VBG pH 7.27 L, VBG pCO2 40.4, VBG pO2 32.5, VBG HCO3 18.1 L, VBG Total CO2 19.3 L, VBG O2 Saturation 58.7, VBG Base Excess -8.8 L, VBG Lactic Acid 3.2 H Orders (Tests/Meds): ED MEDICATIONS Generic Name Dose Route Start Last Admin Trade Name Jennifer PRN Reason Stop Dose Admin Lactated Ringer's 1,910 mls @ 955 mls/hr 07/02/25 23:07 07/02/25 23:16 Lactated Ringer's 1000 Ml Bag 30 ml/kg infuse over 2 hr (1910 ml) 07/03/25 01:06 955 mls/hr IV Administration .Q2H ONE Protocol Vancomycin/PEG/NADA/Lysine/Water 1.25 gm in 250 mls @ 125 mls/hr 07/02/25 23:15 Vancomycin 1.25gm/250ml (Peg) Premix IV 07/03/25 01:14 ONCE ONE Fentanyl Citrate 1,000 mcg/ 100 mls @ 1 mls/hr 07/03/25 00:26 Sodium Chloride IV 08/02/25 00:25 .Q24H GUILLE Protocol 10 MCG/HR Midazolam/Sodium Chloride 50 mg in 50 mls @ 1.27 mls/hr 07/03/25 00:30 Midazolam 50 Mg/50 Ml-0.9%Nacl IV 08/02/25 00:29 .Q24H GUILLE Protocol 0.02 MG/KG/HR Norepinephrine/Dextrose 8 mg in 250 mls @ 15 mls/hr 07/03/25 00:32 Levophed 8mg/250ml-D5w Premix IV 08/02/25 00:31 .[id number] GUILLE Protocol 8 MCG/MIN Miscellaneous 1 each 07/02/25 23:00 Vancomycin Consult Request NOTAPPLIC 08/01/25 22:59 CONSULT PHARMACY [facility] Discontinued Medications Generic Name Dose Route Start Last Admin Trade Name Jennifer PRN Reason Stop Dose Admin Acetaminophen 650 mg 07/02/25 23:23 Acetaminophen 650mg Suppository RC 07/02/25 23:24 ONCE ONE Albuterol Sulfate 20 mg 07/02/25 23:24 07/02/25 23:30 Albuterol 0.083% 2.5 Mg/3 Ml Neb IH 07/02/25 23:25 20 mg ONCE ONE Administration Albuterol Sulfate 9 mg 07/02/25 23:35 07/02/25 23:38 Albuterol 0.083% 2.5 Mg/3 Ml [facility] 07/02/25 23:36 9 mg ONCE ONE Administration Albuterol/Ipratropium 9 ml 07/02/25 22:42 07/02/25 23:34 Ipratropium/Albuterol 3 Ml [facility] 07/02/25 22:43 Not Given ONCE ONE Magnesium Sulfate 2 gm in 50 mls @ 50 mls/hr 07/02/25 22:41 07/02/25 22:45 Magnesium Sulfate 2gm/50ml Premix IV 07/02/25 23:40 50 mls/hr ONCE ONE Administration Ceftriaxone Sodium 2 gm/ 100 mls @ 200 mls/hr 07/02/25 22:43 07/02/25 23:41 Sodium Chloride IV 07/02/25 23:12 Infused ONCE ONE Infusion Azithromycin 500 mg/ Sodium 250 mls @ 250 mls/hr 07/02/25 22:43 07/02/25 23:28 Chloride IV 07/02/25 22:44 250 mls/hr ONCE ONE Administration ORDERS Category Date Time Status CXR --portable [XR chest portable] Stat Exams 07/02/25 23:54 Completed Chest XR -- portable [XR chest portable] Stat Exams 07/02/25 22:39 Completed BNP [NT Pro Brain Natriuretic Pep.] Stat Lab 07/02/25 22:34 Completed CBC w/Auto Diff [Complete Blood Count Auto Diff] Stat Lab 07/02/25 22:34 Completed CMP [Comprehensive Metabolic Panel] Stat Lab 07/02/25 22:34 Completed Full Resp Panel w/COVID ([facility]) Routine Lab 07/02/25 23:53 Received HIV Combo Stat Lab 07/02/25 22:34 Received Hepatitis C Ab Qual. W/ RFX Stat Lab 07/02/25 22:34 Received Lactate Venous Stat Lab 07/02/25 23:22 Ordered Trop I [Troponin I] Stat Lab 07/02/25 22:34 Completed Troponin I Q3H Lab 07/03/25 01:45 Ordered Troponin I Q3H Lab 07/03/25 04:45 Ordered Urinalysis and Microscopic Stat Lab 07/03/25 00:55 Ordered Blood Culture Stat Micro 07/02/25 23:29 Received Sputum Culture & Gram Stain Stat Micro 07/03/25 00:56 Ordered VBG [Venous Blood Gas] Stat RT 07/02/25 22:34 Completed VBG [Venous Blood Gas] Stat RT 07/03/25 00:52 Ordered Venous Blood Gas Stat RT 07/02/25 23:20 Completed Tissue Perfus/Sepsis Re-Eval Sepsis Re-Evaluation Performed: Yes Date Performed: 07/03/25 Time Performed: 00:50 Medical Decision Narrative: Patient is a 70-year-old initially presented today with hypotension and severe hypoxemia prehospital. Her appearance initially looked like a severe COPD exacerbation with her history we immediately started BiPAP she was also started on continuous nebs she had received 2 DuoNebs and route and also Solu-Medrol and route. We immediately also gave 2 g of magnesium over 20 minutes and initiated Rocephin and azithromycin anticipation of treatment for COPD exacerbation. Bedside ultrasound was performed which demonstrated hyperdynamic LV no pericardial effusion no significant pleural effusions or pulmonary edema. At this point we began fluid resuscitation. Patient was also found to be febrile. This all consistent with sepsis likely a pulmonary source. Portable x-ray was performed which demonstrated a very large and new left sided consolidation consistent with pneumonia. Vancomycin was subsequently added. Patient was not improving on BiPAP and family showed up at the bedside I told them that she likely would not improve from a respiratory standpoint with just BiPAP and may need to be intubated with her significant work of breathing. Given the fact that she is 70 has end-stage COPD and is in septic shock labs also are returning showing multiorgan dysfunction her prognosis is poor. This was explained to the family and to the patient who she still seems that she understands what is going on. After shared decision making and discussion with the family and with the patient we all opted that if she continues to worsen or does not improve that she will likely need to be intubated. At this point Dr. Mari Adkins showed up to take over care at the moment we are waiting for more family members to show up to see the patient prior to intubation after which point we may intubate the patient. Labs demonstrate acute kidney injury hyperbilirubinemia elevated BNP likely biomarker strain from heart related pathology troponin is undetectably low however. Patient does have a metabolic acidosis at the moment which is nonspecific. Adkins: I assumed care of this patient at 2315. I agree with the assessment and plan from Dr. Ellsworth. Additional family members were able to come to bedside to see the patient before intubation. Everyone was agreeable to intubation. Eldest daughter, Deborah, signed consent after explanation of risks and benefits. Everyone does understand that she is critically ill with severe sepsis and multiorgan dysfunction. They understand there is a chance she does not come off the ventilator but that we will do everything we can to try to get her better. I intubated the patient. See procedure note for details. Patient tolerated procedure well. She is currently sedated on propofol. Rectal Tylenol being administered for antipyretics. OG tube placed. Chest x-ray personally interpreted after intubation and OG tube placement demonstrates appropriate positioning of the ETT and OG tube. Patient was not tolerating the propofol well for sedation, even on maximum dose she was still fighting the vent. Transitioned to fentanyl and Versed. Patient is doing better with this. Pressures have been slightly more soft, Levophed is ordered but has not yet had to be started. Temperature is improving. I believe patient is appropriate for admission to the ICU at this point. I reached out to the hospitalist and discussed this case with him. Angel graciously accepted this patient for ICU admission. She was admitted in critical condition. Procedures <Shantel Adkins MD - Last Filed: 07/03/25 00:58> Risk/Benefits of Procedure(s) Were Explained: Yes Intubation Mallampati Score:: Class III Time out performed: Yes sedative: Etomidate Mg Given: 20 paralytic: Succinylcholine Mg Given: 70 Laryngoscope: Irish (3, video-assisted laryngoscopy) ET Tube Size: 7.5 ET Tube Uncuffed: No Tube Secured Depth (cm): 22 Tube Secured Location: teeth Tube Placement Confirmation: visualized tube passing through cords, equal breath sounds bilaterally, no breath sounds over epigastrium and confirmation by capnometry Patient Tolerated Procedure: well and no complications Intubation Complications: none Critical Care <Olivia Ellsworth MD - Last Filed: 07/02/25 23:30> Critical Care Time Critical Care Time: Yes Attestation: On 07/02/25, the high probability of a clinically significant, sudden or life threatening deterioration of the following system(s) required my full and direct attention, intervention and personal management. The time I documented below is in addition to time spent performing reported procedures but includes the following listed in this critical care notation. Total Time Total Critical Care Time: 65
[2025-07-02 23:25] LABS: Total Cells Counted 100
[2025-07-02 23:26] LABS: Anisocytosis 1+; Giant Platelets 1+; Macrocytosis 1+; Ovalocytes 1+; Poikilocytosis 1+; Polychromasia 1+; Target Cells 1+; Tear Drop Cells 1+
[2025-07-02] MEDS: AZITHROMYCIN 500 MG in 0.9 % SODIUM CHLORIDE 250 ML 250 MG IV (23:28)
[2025-07-02] MEDS: ALBUTEROL 0.083% 2.5 MG/3 ML NEB 20 MG IH (23:30)
[2025-07-02 23:32] LABS: Lactate Venous 3.2 mmol/L (0.4-2.0); VBG HCO3 18.1 mmol/L (23-30); VBG PCO2 40.4 mmol/L (35-51); VBG PH 7.27 mmol/L (7.31-7.41); VBG PO2 32.5 mmol/L (28-40)
[2025-07-02 23:35] VITALS: BP 115/53; PULSE 125; RESP 20; O2SAT 98
[2025-07-02] MEDS: ALBUTEROL 0.083% 2.5 MG/3 ML NEB 9 MG IH (23:38)
[2025-07-02] MEDS: ETOMIDATE 40MG/20ML VIAL 20 MG IV (23:50)
[2025-07-02 23:51] VITALS: BP 123/52; PULSE 124; PULSE 125; RESP 23; O2SAT 94; O2SAT 95
[2025-07-02] MEDS: SUCCINYLCHOLINE 20MG/ML 10 ML MDV 70 MG IV (23:51)
[2025-07-02 23:52] VITALS: O2SAT 100
[2025-07-02 23:53] VITALS: BP 153/67; PULSE 118; PULSE 120; RESP 13; RESP 18; O2SAT 100
--- NOTE | 2025-07-02 23:54 | XR_ITS ---
PROCEDURE INFORMATION: Exam: XR Chest Exam date and time: 07/03/2025 12:01 AM Age: 70 years old Clinical indication: Device placement; Ett placement (vent status); Et tube/og tube placement; Additional info: Post intubation, g-tube TECHNIQUE: Imaging protocol: Radiologic exam of the chest. Views: 1 view. Total images: 1 COMPARISON: CR XR CHEST PORTABLE 07/02/2025 10:43 PM FINDINGS: Tubes, catheters and devices: Endotracheal tube 4 cm above the seamus. NG tube in the proximal stomach. Lungs: Considerable left basilar airspace consolidation compatible with lobar pneumonia, similar to prior exam. Right lung remains clear. Mild bronchial wall thickening. Pulmonary venous redistribution compatible with recumbent patient positioning. Pleural spaces: Unremarkable. No pleural effusion. No pneumothorax. Heart/Mediastinum: Endovascular stent within the abdominal aorta. Vasculature: Atherosclerotic aortic arch. Bones/joints: Osteopenia. Stable chest wall structures. IMPRESSION: 1. Endotracheal tube 4 cm above the seamus. 2. NG tube in the proximal stomach. 3. Otherwise, stable chest radiograph.
[2025-07-02 23:57] VITALS: BP 152/66; PULSE 121; RESP 20; O2SAT 98
[2025-07-02 23:59] LABS: Adenovirus,PCR Not Detected (NotDetected); Chlamydophila Pneumoniae, PCR Not Detected (NotDetected); Coronavirus 19, PCR Not Detected (NotDetected); Coronovirus HKU1,PCR Not Detected (NotDetected); Influenza A, PCR Not Detected (NotDetected); Influenza AH1, 2009 Not Detected (NotDetected); Influenza AH1, PCR Not Detected (NotDetected); Influenza AH3,PCR Not Detected (NotDetected); Influenza B, PCR Not Detected (NotDetected); Mycoplasma Pneumoniae, PCR Not Detected (NotDetected); Parainfluenza 1, PCR Not Detected (NotDetected); Parainfluenza 2, PCR Not Detected (NotDetected); Parainfluenza 3, PCR Not Detected (NotDetected); Parainfluenza 4, PCR Not Detected (NotDetected)
[2025-07-03] VITALS (79 sets, daily range): BP systolic 80–152; BP diastolic 37–105; PULSE 80–129; RESP 13–33; TEMP 36.2–37.9; O2SAT 86–100; BMI 23.6
[2025-07-03] MEDS: MIDAZOLAM HCL IN 0.9 % NACL/PF 50 MG/50 ML PLAST..BAG IV ×2 (00:34→06:09)
[2025-07-03] MEDS: FENTANYL CITRATE/PF 1,000 MCG in 0.9 % SODIUM CHLORIDE 80 ML 5 MCG IV (00:37)
[2025-07-03 01:02] LABS: Microscopic, Urine URINE MICROSCOPIC (MICROSCOPIC)
[2025-07-03 01:03] LABS: Color,Urine YELLOW (Yellow); Glucose,Urine (UA) 3+ (Negative); Ketones,Urine 1+ (Negative); Leukocyte Esterase,Urine Negative (Negative); PH,Urine 5.5 (5.0-8.5); Protein,Urine TRACE (Negative); Specific Gravity, Urine >= 1.030 (1.005-1.030); Urobilinogen,Urine 0.2 EU/dl (0.2)
[2025-07-03 01:08] LABS: Bilirubin,Urine 2+ (Negative)
[2025-07-03 01:09] LABS: Amorphous Sediment,Urine 1+ /lpf; Bacteria,Urine 1+ /lpf
--- NOTE | 2025-07-03 01:12 | PC.NURSE ---
Report called to Vivian NGUYEN at this time
[2025-07-03] MEDS: VANCOMYCIN CONSULT REQUEST 1 EACH NOTAPPLIC (01:21)
--- NOTE | 2025-07-03 01:27 | P.HP_ITS ---
<Statement entered by Jose Escalante MD - 07/07/25 11:08> Agree with plan of care as outlined by the [facility]. 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 Patient underwent RSI in the emergency room; as a result, her review of systems is limited. The majority of information was obtained from the ER provider and chart review. According to ER provider, patient presented due to respiratory distress. ER provider did inform me that patient fell and hit her coccyx last night but had no significant injury warranting immediate evaluation. She presents today with shortness of air. EMS reports her oxygen saturations was in the 70s on her home O2 regimen, patient's blood pressure was 73/40, she was febrile with a temperature of 101.5, and her heart rate was increased at 137. Due to patient failing noninvasive ventilation, family was in agreeance for patient to undergo RSI. Patient was intubated and imaging of the chest revealed left lower lobe pneumonia. Clinically, patient has a septic picture. As a result, hospital medicine was consulted for further management. During my evaluation of the patient, she could provide no meaningful data. She was resting on the ventilator with some intermittent movements. While in the emergency room, patient was placed on fentanyl and Versed drip. I encouraged nursing staff to titrate to a RASS of -2 or see part of 4. Additional pertinent vitals obtained include a white blood cell count of 27.9, neutrophils 83.9%, venous blood gas revealed a pH of 7.23/bicarb of 17.8, chloride of 95, carbon oxide of 18, BUN of 38, creatinine 1.40, GFR of 37, blood glucose 185, total bilirubin 1.8, BNP 2620, and respiratory panel was negative. [facility] Disclaimer: The information contained in this section may have been updated after the gudelia beatty was seen, as this information can be updated by other users. Medical History (Updated 07/03/25 @ 01:39 by Angel Briones APRN) Thyroid nodule Social History Smoking Status: Current every day smoker tobacco type: cigarettes packs per day: 1 second hand exposure: No alcohol intake: never substance use type: denies use current occupational status: retired Travel in the last 8 weeks?: None household members: family housing: house current occupational exposures/hazards: No caffeine: Yes Have you lived/traveled outside [place] in past 30 days?: No Contact w/someone who lives/traveled outside [place] past 30 days?: No Exposure to someone with infectious disease in past 14 days?: No Do you have a fever (greater than 100.4 F or 38 C)?: No Have you tested positive for COVID-19?: No Exposed to someone with COVID-19 in past 14 days?: No Do you have a sore throat?: No Do you have a cough?: No Do you have any weakness?: No Do you have any diarrhea?: No Are you experiencing any unusual bleeding?: No Do you have any muscle aches/pain?: No Do you have any abdominal pain?: No Are you experiencing loss of taste or smell?: No Other Medical History Have you received the Flu Vaccine for this season: No Have you received the Pneumonia Vaccine: Yes Review of Systems Review of Systems Review of systems:: unable to obtain Meds Home Medications and Allergies Home Medications ?Medication ?Instructions ?Recorded ?Confirmed ?Type linaclotide 72 mcg capsule 72 mcg PO Q48H CONSTIPATION 11/05/18 01/03/24 History (Linzess) alendronate 70 mg tablet 70 mg PO PORTER Osteoporosis 09/0301/03/24 History aspirin 81 mg tablet,delayed 81 mg PO DAILY heart heal th 04/14/21 01/03/24 History release fluticasone fur. 100 mcg-umeclid 1 puff inhalation FELIPE LY Breathing 04/14/21 01/03/24 History 62.5 mcg-vilant 25 mcg problems inhalat.powder albuterol sulfate 90 mcg/actuation 2 puff inhalation Q 4HP PRN 04/21/21 01/03/24 History aerosol inhaler Shortness Of Breath cholecalciferol (vitamin D3) 25 2,000 unit PO DAILY Porter pplement 03/15/22 01/03/24 History mcg (1,000 unit) capsule atorvastatin 40 mg tablet 40 mg PO DAILY Cholesterol 0 03/16/22 01/03/24 History furosemide 20 mg tablet 20 mg PO DAILY Fluid 2 01/03/24 History loratadine 10 mg tablet 10 mg PO DAILY Allergy sympt oms 03/16/22 01/03/24 History metformin 500 mg tablet 500 mg PO BIDWMEAL Diabetes 03/16/22 01/03/24 History ipratropium 0.5 mg-albuterol 3 mg 3 ml inhalation TID ##90 03/17/22 01/03/24 Rx (2.5 mg base)/3 mL nebulization soln molnupiravir 200 mg capsule (EUA) 800 mg (4 x 200 mg) PO BID #40 caps 03/17/22 01/03/24 Rx New Prescriptions to Start Prescriptions: Allergies Allergy/AdvReac Type Severity Reaction Status Date / Time erythromycin base Allergy Unknown NA-NAUSEA/V Verified 01/03/24 15:26 (ERYTHROMYCIN BASE) OMITING Exam Data for Last 24 hours Vital signs and Labs for Last 24 Hours: Temp Pulse Resp BP Pulse Ox O2 Del Method 100.0 F H 119 H 26 H 100/52 L 92 L Mechanical Ventilation 07/03/25 00:41 07/03/25 00:41 07/03/25 00:41 07/03/25 00:41 07/03/25 01:11 07/03/25 01:11 Laboratory Results - last 24 hr 07/02/25 22:34: WBC 27.9 H*, RBC 4.33, Hgb 13.2, Hct 41.7, MCV 96.3, MCH 30.5, MCHC 31.7 L, RDW 15.2, Plt Count 184, MPV 10.8 H, Neut % (Auto) 83.9 H, Lymph % (Auto) 5.3 L, [place] % (Auto) 4.9, Eos % (Auto) 0.0 L, Baso % (Auto) 0.4, Neut # (Auto) 23.4 H, Lymph # (Auto) 1.5, [place] # (Auto) 1.4 H, Eos # (Auto) 0.0, Baso # (Auto) 0.1, Total Counted 100, Neutrophils % (Manual) 85 H, Band Neutrophils % 2.0, Lymphocytes % (Manual) 9 L, Monocytes % (Manual) 3, Myelocytes % 1, Platelet Estimate Normal, Giant Platelets 1+, Polychromasia 1+, Poikilocytosis 1+, Anisocytosis 1+, Macrocytosis 1+, Target Cells 1+, Tear Drop Cells 1+, Ovalocytes 1+, VBG pH 7.23 L, VBG pCO2 43.9, VBG pO2 31.9, VBG HCO3 17.8 L, VBG Total CO2 19.1 L, VBG O2 Saturation 54.9, VBG Base Excess -9.9 L, VBG Lactic Acid 3.0 H, Sodium 136, Potassium 4.3, Chloride 95 L, Carbon Dioxide 18 L, Anion Gap 27.3 H, BUN 38 H, Creatinine 1.40 H, Estimated GFR 37 L, Est GFR ( Amer) 45 L, Glucose 185 H, Calcium 8.1 L, Total Bilirubin 1.8 H, AST 26, ALT 25, Alkaline Phosphatase 77, Troponin I < 0.01, NT-Pro-B Natriuret Pep 2620 H, Total Protein 7.5, Albumin 4.1, Globulin 3.4 H, Albumin/Globulin Ratio 1.2 07/02/25 23:20: VBG pH 7.27 L, VBG pCO2 40.4, VBG pO2 32.5, VBG HCO3 18.1 L, VBG Total CO2 19.3 L, VBG O2 Saturation 58.7, VBG Base Excess -8.8 L, VBG Lactic Acid 3.2 H 07/02/25 23:53: Chlamy pneumoniae PCR Not detected, Adenovirus (PCR) Not detected, B. pertussis DNA (PCR) Not detected, Coronavirus OC43 (PCR) Not detected, Coronavirus HKU1 (PCR) Not detected, Coronavirus 229E (PCR) Not detected, SARS-CoV-2 (PCR) Not detected, Coronavirus NL63 (PCR) Not detected, Human Metapneumovir PCR Not detected, Influenza A (H1) PCR Not detected, Influ A (H1N1/09) PCR Not detected, Influenza A (H3) PCR Not detected, Influenza Type A (PCR) Not detected, Influenza Type B (PCR) Not detected, M. pneumoniae (PCR) Not detected, Parainfluenza 1 (PCR) Not detected, Parainfluenza 2 (PCR) Not detected, Parainfluenza 3 (PCR) Not detected, Parainfluenza 4 (PCR) Not detected, RSV (PCR) Not detected, Entero/Rhino (PCR) Not detected 07/03/25 00:12: Urine Color Yellow, Urine Appearance Clear, Urine pH 5.5, Ur Specific [place] >= 1.030, Urine Protein Trace, Urine Glucose (UA) 3+, Urine Ketones 1+, Urine Blood Negative, Urine Nitrate Negative, Urine Bilirubin 2+ A, Urine Urobilinogen 0.2, Ur Leukocyte Esterase Negative, Urine RBC 3-5, Urine WBC None, Ur Squamous Epith Cells 3-5, Amorphous Sediment 1+, Urine Bacteria 1+, Hyaline Casts 3-5, Fine Granular Casts Occasional I & O for Last 24 hours: Intake & Output 06/30/25 07/01/25 07/02/25 07/03/25 23:59 23:59 23:59 23:59 Intake Total 100 / 100 Balance 100 / 100 Weight 63.503 kg Constitutional Constitutional: no acute distress, thin and chronically ill appearing *Routine HEENT Exam Head: Present normocephalic and atraumatic Eye: Present EOMI ENT: Present mucous membranes moist *Routine Neck Exam Neck: Present supple, full ROM and trachea midline *Routine Respiratory Exam Respiratory: Present patient mechanically ventilated, decreased breath sounds and wheezes *Routine Cardiovascular Exam Cardiovascular: Present RRR, Normal S1, Normal S2 and tachycardia *Routine Abdominal Exam Abdominal: Present soft and normoactive bowel sounds *Routine Rectal Exam Rectal:: deferred *Routine Genitalia Exam Genitalia:: deferred *Routine Extremities Exam Extremities: Present pulses intact and normal capillary refill Routine Back/Spine/Pelvis Exam Back/Spine: Present full ROM *Routine Skin Exam Skin: Present intact, dry and warm *Routine Neurological Exam Neurological: Present CN II-XII intact and moving all extremities Routine Psychiatric Exam Psychiatric: Present unable to assess H&P: Result Impressions 70-year-old female who presents in respiratory distress with COPD exacerbation found to be septic due to left lower lobe pneumonia requiring RSI Assessment and Plan *Assessment and plan (1) Severe sepsis: Status: Acute Category: Medical Code(s): A41.9 - Sepsis, unspecified organism; R65.20 - Severe sepsis without septic shock (2) Pneumonia: Status: Acute Qualifiers: Laterality: left Lung location: lower lobe of lung Pneumonia type: due to unspecified organism Qualified Code(s): J18.9 - Pneumonia, unspecified organism Category: Medical Code(s): J18.9 - Pneumonia, unspecified organism (3) Acute hypoxic respiratory failure: Status: Acute Category: Medical Code(s): J96.01 - Acute respiratory failure with hypoxia (4) Hyperbilirubinemia: Status: Acute Category: Medical Code(s): E80.6 - Other disorders of bilirubin metabolism (5) JOEY (acute kidney injury): Status: Acute Category: Medical Code(s): N17.9 - Acute kidney failure, unspecified (6) COPD exacerbation: Status: Acute Category: Medical Code(s): J44.1 - Chronic obstructive pulmonary disease with (acute) exacerbation (7) Leukocytosis: Status: Acute Qualifiers: Leukocytosis type: unspecified Qualified Code(s): D72.829 - Elevated white blood cell count, unspecified Category: Medical Code(s): D72.829 - Elevated white blood cell count, unspecified (8) Metabolic acidosis: Status: Acute Category: Medical Code(s): E87.20 - Acidosis, unspecified (9) Hyperglycemia: Status: Acute Category: Medical Code(s): R73.9 - Hyperglycemia, unspecified (10) Elevated brain natriuretic peptide (BNP) level: Status: Acute Category: Medical Code(s): R79.89 - Other specified abnormal findings of blood chemistry Plan Assessment: Sepsis: Multiorgan dysfunction Left lower lobe community-acquired pneumonia Acute hypoxic respiratory failure: Requiring mechanical ventilation COPD exacerbation: Most likely Gold stage delta Leukocytosis with left shift Metabolic acidosis Hyperbilirubinemia Lactic acidosis Elevated BNP - Patient is meeting sepsis criteria with high heart rate, elevated white blood cell count, elevated lactic level, and source of pneumonia - She did receive 30 mL/kg of body weight of IV hydration - Sepsis reperfusion screening performed -Will trend patient's white blood cell count daily -Will give 1 amp of sodium bicarbonate. Will monitor bicarbonate daily and if no improvement will consider bicarbonate drip -Hopefully within 48 to 72 hours will be able to liberate patient from mechanical ventilation - Will continue Zosyn 3.375 g IV every 6 hours - 100 mg of doxycycline IV twice daily - DuoNebs every 6 hours - Solu-Medrol 40 mg IV twice daily - Will obtain specimen for Legionella - Blood cultures x 2 - Will repeat venous lactic acid - Will continue mechanical ventilation within tidal volume of 380, respiratory rate 20, assist-control, PEEP of 8 - Will consult pulmonology in a.m. - Sputum culture - Continue Versed/fentanyl drip to maintain RASS of -2 and CPOT 4 - Daily chest x-ray - Daily VBG - Fractionate bilirubin - Patient's BNP is most likely in the setting of stress on the ventricles there is no evidence of large fluid accumulation patient appears to be slightly hypovolemic - Blood pressure did improve with fluid bolus challenge - Will continue normal saline at 125 mL an hour Acute kidney injury - Most likely in the setting of sepsis - Most likely prerenal - Will avoid nephrotoxic drugs - Hold patient's metformin - If patient's renal functioning worsens, will obtain urine studies, renal ultrasound Hyperglycemia - Accu-Cheks every 6 hours with mild scale coverage Plan: Admit patient to the intensive care unit Bed rest Continuous cardiac monitoring SCDs to bilateral lower EXTR Nasogastric tube to low intermittent wall suction Garcia catheter Consult nutrition Keep patient n.p.o. CBC/BMP daily 21 mg nicotine patch daily 4 mg Zofran IV push every 8 hours as needed nausea vomit 40 mg of Protonix IV push daily Full code Total critical care time of 50 minutes I will discussed this attending physician Dr. Escalante and I look forward to more input
[2025-07-03] MEDS: NOREPINEPHRINE BITARTRATE/D5W 8 MG/250 ML PLAST..BAG 15 MG IV (01:58)
--- NOTE | 2025-07-03 01:58 | PC.NURSE ---
Patient arrived to ICU unit via ED stretcher from ED @01:23am
[2025-07-03 02:01] LABS: Reflex Lactic Add Lactic Reflex
--- NOTE | 2025-07-03 02:04 | EXP.SEPSISRE ---
[facility] Tissue Perfusion Eval Sepsis Re-Evaluation Performed: Yes Date Performed: 07/03/25 Time Performed: 02:04
[2025-07-03] MEDS: VANCOMYCIN/WATER FOR INJ (PEG) 1.25 GM/250 ML PIGGYBACK IV (02:08)
[2025-07-03 02:12] LABS: POC Glucose,Bedside 239 gm/dL (70-110)
[2025-07-03 02:20] LABS: ABG HCO3 18.8 mmhg (22.0-26.0); ABG PCO2 48.4 mmhg (35.0-45.0); ABG PH 7.21 mmol/L (7.35-7.45); ABG PO2 77.9 mmhg (80-100); ABG TCO2 20.3 mmhg (23-27)
[2025-07-03 02:22] LABS: PEEP 8; Source Left Radial
[2025-07-03] MEDS: humaLOG 100 UNITS/ML 10ML VIAL (SSI) SUBCUT ×3 (02:30→13:33)
[2025-07-03] MEDS: 0.9 % SODIUM CHLORIDE 1000ML 1,000 ML 125 ML IV (02:31)
[2025-07-03] MEDS: SODIUM BICARB 8.4% 50ML SYRINGE (CRASH CART) 50 MEQ IV ×2 (02:32→03:01)
[2025-07-03 02:48] LABS: Bilirubin,Direct 0.9 mg/dl (0.0-0.4); Bilirubin,Indirect 0.4 mg/dL (0.0-0.9); Bilirubin,Total 1.3 mg/dl (0.2-1.3); Bilirubin,Unconjugated 0.5 mg/dL (0.0-1.1)
[2025-07-03 02:59] LABS: Lactic Acid Follow Up (RFLX 1) 3.0 mmol/L (0.7-2.1)
[2025-07-03 03:07] LABS: Troponin I < 0.01 ng/ml (0.00-0.034)
--- NOTE | 2025-07-03 03:10 | PC.NURSE ---
Time out for intubation performed at 2346 on 07/02/25 Glidescope in at 2350 on 07/02/25 Color change noted on CO2 detector and BVM ventilation began at 2351 on 07/02/25 Pt hooked up to ventilator at 9 on 07/03/25 Facility policies and protocols followed for above intubation and pt consent gained and placed in pt's chart prior to intubation.
[2025-07-03 04:35] LABS: Reflex Lactic (2 hrs) Add Lactic Reflex
[2025-07-03 05:09] LABS: VBG HCO3 22.6 mmol/L (23-30); VBG PCO2 44.1 mmol/L (35-51); VBG PH 7.33 mmol/L (7.31-7.41); VBG PO2 72.7 mmol/L (28-40)
[2025-07-03 05:11] LABS: Lactate Venous 2.6 mmol/L (0.4-2.0)
[2025-07-03] MEDS: IPRATROPIUM/ALBUTEROL 3 ML NEB IH ×3 (05:50→18:21)
[2025-07-03 06:15] LABS: Hematocrit 38.6 % (37.0-47.0); Hemoglobin 12.1 g/dL (12.2-16.2); Immature Granulocytes % 9.2 %; Mean Corpuscular HGB Conc 31.3 g/dL (31.8-35.4); Mean Corpuscular Hemoglobin 30.0 pg (27.0-31.2); Mean Corpuscular Volume 95.5 fl (81-99); Nucleated Red Blood Cells % 0 %; Platelet Count 175 K/mm3 (142-424); Red Blood Count 4.04 M/mm3 (4.20-5.40); Red Cell Distribution Width-SD 53.6 fL
[2025-07-03 06:24] LABS: Hepatitis C Ab Qual. W/ RFX NEGATIVE (Negative)
[2025-07-03 06:27] LABS: White Blood Count 33.2 K/mm3 (4.8-10.8)
[2025-07-03 06:31] LABS: Anion Gap 13.3 mEq/L (5-15); Blood Urea Nitrogen 38 mg/dl (7-17); Calcium 7.8 mg/dl (8.4-10.2); Carbon Dioxide 25 mmol/L (22.0-30.0); Chloride 97 mmol/L (98-107); Creatinine Clearance Estimated 42 mL/min (50-200); Creatinine,Serum 1.20 mg/dl (0.52-1.04); Estimated Glomerular Filt Rate 44 ml/min (>60); GFR (African American) 54 ML/MIN (>60); Glucose 214 mg/dl (74-100); Potassium 3.3 mmoL/L (3.5-5.1); Sodium 132 mmol/L (136-145)
[2025-07-03 06:43] LABS: Lactic Acid Follow up (RFLX 2) 2.4 mmol/L (0.7-2.1); Troponin I < 0.01 ng/ml (0.00-0.034)
[2025-07-03 06:56] LABS: POC Glucose,Bedside 214 gm/dL (70-110)
--- NOTE | 2025-07-03 06:58 | PC.NURSE ---
Pt remains intubated with 7.5 ETT @ 22cm at the teeth. Current vent settings- TV 380, FiO2 60%, RR 22, PEEP 8. OG in place @ 62cm at the lip. Fentanyl and Versed gtt titrated down per protocol for goal RASS -2. Levo titrated up per protocol for goal SBP >90. Pt has been provided oral care and repositioning q2h. Lung sounds diminished this AM. Garcia catheter in place draining clear yellow urine. Pt has been sinus tach with bbb on telemetry. Soft restraints in place to bilateral upper extremities per provider order with q2h circulation checks. Bed in low position. Call light within reach.
--- NOTE | 2025-07-03 07:36 | EXP.PHA.CONS ---
Pharmacy Consult Date: 07/03/25 Time: 07:36 Referring provider: DR. STANTON Reason for Consult:: VANCOMYCIN DOSING Allergies Allergy/AdvReac Type Severity Reaction Status Date / Time erythromycin base Allergy Unknown NA-NAUSEA/V Verified 01/03/24 15:26 (ERYTHROMYCIN BASE) OMITING Home Medications ?Medication ?Instructions ?Recorded ?Confirmed ?Type linaclotide 72 mcg capsule 72 mcg PO Q48H CONSTIPATION 11/05/18 01/03/24 History (Linzess) alendronate 70 mg tablet 70 mg PO PORTER Osteoporosis 04/14/21 01/03/24 History aspirin 81 mg tablet,delayed 81 mg PO DAILY heart health 04/14/21 01/03/24 History release fluticasone fur. 100 mcg-umeclid 1 puff inhalation DAILY Breathing 04/14/21 01/03/24 History 62.5 mcg-vilant 25 mcg problems inhalat.powder albuterol sulfate 90 mcg/actuation 2 puff inhalation Q4HP PRN 04/21/21 07/03/25 History aerosol inhaler Shortness Of Breath cholecalciferol (vitamin D3) 25 2,000 unit PO DAILY Supplement 03/15/22 01/03/24 History mcg (1,000 unit) capsule atorvastatin 40 mg tablet 40 mg PO DAILY Cholesterol 03/16/22 01/03/24 History furosemide 20 mg tablet 20 mg PO DAILY Fluid 03/16/22 07/03/25 History loratadine 10 mg tablet 10 mg PO DAILY Allergy symptoms 03/16/22 01/03/24 History ipratropium 0.5 mg-albuterol 3 mg 3 ml inhalation TID ##90 03/17/22 01/03/24 Rx (2.5 mg base)/3 mL nebulization soln molnupiravir 200 mg capsule (EUA) 800 mg (4 x 200 mg) PO BID #40 caps 03/17/22 01/03/24 Rx dapagliflozin propanediol 5 mg 5 mg PO DAILY 07/03/25 07/03/25 History tablet (Farxiga) metformin 1,000 mg tablet 1,000 mg PO BID 07/03/25 07/03/25 History New Prescriptions to Start Prescriptions: Height: 1.6 m Weight: 60.6 kg Laboratory Results:: Laboratory Results - last 24 hr 07/02/25 22:34: WBC 27.9 H*, RBC 4.33, Hgb 13.2, Hct 41.7, MCV 96.3, MCH 30.5, MCHC 31.7 L, RDW 15.2, Plt Count 184, MPV 10.8 H, Neut % (Auto) 83.9 H, Lymph % (Auto) 5.3 L, [place] % (Auto) 4.9, Eos % (Auto) 0.0 L, Baso % (Auto) 0.4, Neut # (Auto) 23.4 H, Lymph # (Auto) 1.5, [place] # (Auto) 1.4 H, Eos # (Auto) 0.0, Baso # (Auto) 0.1, Total Counted 100, Neutrophils % (Manual) 85 H, Band Neutrophils % 2.0, Lymphocytes % (Manual) 9 L, Monocytes % (Manual) 3, Myelocytes % 1, Platelet Estimate Normal, Giant Platelets 1+, Polychromasia 1+, Poikilocytosis 1+, Anisocytosis 1+, Macrocytosis 1+, Target Cells 1+, Tear Drop Cells 1+, Ovalocytes 1+, VBG pH 7.23 L, VBG pCO2 43.9, VBG pO2 31.9, VBG HCO3 17.8 L, VBG Total CO2 19.1 L, VBG O2 Saturation 54.9, VBG Base Excess -9.9 L, VBG Lactic Acid 3.0 H, Sodium 136, Potassium 4.3, Chloride 95 L, Carbon Dioxide 18 L, Anion Gap 27.3 H, BUN 38 H, Creatinine 1.40 H, Estimated GFR 37 L, Est GFR ( Amer) 45 L, Glucose 185 H, Calcium 8.1 L, Total Bilirubin 1.8 H, AST 26, ALT 25, Alkaline Phosphatase 77, Troponin I < 0.01, NT-Pro-B Natriuret Pep 2620 H, Total Protein 7.5, Albumin 4.1, Globulin 3.4 H, Albumin/Globulin Ratio 1.2, HCV Ab ALESSANDRA w/Rflx PCR Qn Negative, HIV Ag/Ab Combo Qual Negative 07/02/25 23:20: VBG pH 7.27 L, VBG pCO2 40.4, VBG pO2 32.5, VBG HCO3 18.1 L, VBG Total CO2 19.3 L, VBG O2 Saturation 58.7, VBG Base Excess -8.8 L, VBG Lactic Acid 3.2 H 07/02/25 23:53: Chlamy pneumoniae PCR Not detected, Adenovirus (PCR) Not detected, B. pertussis DNA (PCR) Not detected, Coronavirus OC43 (PCR) Not detected, Coronavirus HKU1 (PCR) Not detected, Coronavirus 229E (PCR) Not detected, SARS-CoV-2 (PCR) Not detected, Coronavirus NL63 (PCR) Not detected, Human Metapneumovir PCR Not detected, Influenza A (H1) PCR Not detected, Influ A (H1N1/09) PCR Not detected, Influenza A (H3) PCR Not detected, Influenza Type A (PCR) Not detected, Influenza Type B (PCR) Not detected, M. pneumoniae (PCR) Not detected, Parainfluenza 1 (PCR) Not detected, Parainfluenza 2 (PCR) Not detected, Parainfluenza 3 (PCR) Not detected, Parainfluenza 4 (PCR) Not detected, RSV (PCR) Not detected, Entero/Rhino (PCR) Not detected 07/03/25 00:12: Urine Color Yellow, Urine Appearance Clear, Urine pH 5.5, Ur Specific [place] >= 1.030, Urine Protein Trace, Urine Glucose (UA) 3+, Urine Ketones 1+, Urine Blood Negative, Urine Nitrate Negative, Urine Bilirubin 2+ A, Urine Urobilinogen 0.2, Ur Leukocyte Esterase Negative, Urine RBC 3-5, Urine WBC None, Ur Squamous Epith Cells 3-5, Amorphous Sediment 1+, Urine Bacteria 1+, Hyaline Casts 3-5, Fine Granular Casts Occasional 07/03/25 01:18: Specimen Source Left radial, O2 % 70, ABG pH 7.21 L*, ABG pCO2 48.4 H, ABG pO2 77.9 L, ABG HCO3 18.8 L, ABG Total CO2 20.3 L, ABG O2 Saturation 93, ABG Base Excess -9.1 L, Zuhair Test Patient unable, Vent Rate 20, Tidal Volume 380, PEEP 8 07/03/25 02:05: POC Glucose 239 H 07/03/25 02:30: Lactate 3.0 H, Total Bilirubin 1.3, Direct Bilirubin 0.9 H, Conjugated Bilirubin 0.0, Indirect Bilirubin 0.4, Unconjugated Bilirubin 0.5, Troponin I < 0.01 07/03/25 05:00: WBC 33.2 H*, RBC 4.04 L, Hgb 12.1 L, Hct 38.6, MCV 95.5, MCH 30.0, MCHC 31.3 L, RDW 15.2, Plt Count 175, MPV 11.4 H, Neut % (Auto) 84.1 H, Lymph % (Auto) 1.8 L, [place] % (Auto) 4.5, Eos % (Auto) 0.0 L, Baso % (Auto) 0.4, Neut # (Auto) 27.9 H, Lymph # (Auto) 0.6 L, [place] # (Auto) 1.5 H, Eos # (Auto) 0.0, Baso # (Auto) 0.1, VBG pH 7.33, VBG pCO2 44.1, VBG pO2 72.7 H, VBG HCO3 22.6 L, VBG Total CO2 24.0, VBG O2 Saturation 94.4 H, VBG Base Excess -3.3 L, VBG Lactic Acid 2.6 H, Sodium 132 L, Potassium 3.3 L D, Chloride 97 L, Carbon Dioxide 25, Anion Gap 13.3, BUN 38 H, Creatinine 1.20 H, Estimated Creat Clear 42, Estimated GFR 44 L, Est GFR ( Amer) 54 L, Glucose 214 H, Lactate 2.4 H, Calcium 7.8 L, Troponin I < 0.01 07/03/25 06:48: POC Glucose 214 H Medical History: Medical History (Updated 07/03/25 @ 01:39 by Angel Briones APRN) Thyroid nodule Assessment and Plan Assessment and plan all Dx Assessment and Plan for all problems:: Pharmacokinetic dosing service Objective: Patient: Floor: Age: 70 yo Serum creatinine: 1.2 mg/dL Height: 63.0 Inches Weight (kg): 60.6 Assessment: IBW (kg): 52.40 Dosing wt(kg): 60.6 Estimated Creatinine clearance (ml/min): 36.1 CRCL method: Cockcroft and Gault using ibw(default). Drug selected: Vancomycin Loading dose (mg): 0 Vd (liters): 51.5 (factor used: 0.85 L/kg) Wilmer (hr-1): 0.034 Half life (hrs): 20.39 Recommended dose: 1000 mg Interval: 24 hrs Infusion time (hrs): 2.0 Predicted peak (mcg/mL): 33.7 Predicted trough (mcg/mL): 15.95 Total body weight is being used for vancomycin dosing. Recommendations: Give Vancomycin 1000 mg q 24 hrs with an expected Cpeak of 33.7 mcg/ml and an expected Ctrough of 15.95 mcg/ml ----Vanco only - ignore for aminoglycosides----- CLvanco= 1.75 L/hr AUC 0-24 /CALEB Data: CALEB 0.5 mcg/mL: AUC/CALEB: 1142.9 CALEB 1.0 mcg/mL: AUC/CALEB: 571.4 --------- CALEB 1.5 mcg/mL: AUC/CALEB: 381.0 CALEB 2.0 mcg/mL: AUC/CALEB: 285.7
[2025-07-03 07:59] LABS: Free T4 (Free Thyroxine) 1.53 ng/dl (0.78-2.19)
--- NOTE | 2025-07-03 08:12 | DIET.NUTRFU ---
RD consulted to start tubefeeding, patient intubated secondary to end stage COPD. Patient has hx of hyperglycemia, takes metformin at home and insulin is in place currently. Last A1c on file was 8.3% in 2023. Start Glucerna 1.2 at 20ml/hr and increase by 10ml Q6H to reach goal rate of 50ml/hr providing 1200ml/1400kcal/72gm protein and 966ml free water. She is also receiving propofol and IVF. Labs are Na 132L, K 3.3, BUN 38, Cr 1.2 and glucose 214. Start minimal flush at 50ml [id number]/day for total flush via TF at 1166ml. Once patient is extubated nursing to eval swallowing.
[2025-07-03 08:31] LABS: C-Reactive Protein 305.1 mg/L (0-4); Procalcitonin 12.9 ng/mL (0.0-2.0)
[2025-07-03 08:40] LABS: Hemoglobin A1C 5.9 % (4.0-6.0)
[2025-07-03 08:45] LABS: Thyroid Stimulating Hormone 0.31 uIU/mL (0.465-4.68)
--- NOTE | 2025-07-03 08:53 | HMH.PHAINT1 ---
Pharmacy Intervention Comments: HOME MEDICATION LIST VERIFIED USING LIST FROM OUTPATIENT PHARMACY
[2025-07-03 08:56] LABS: Magnesium 2.1 mg/dl (1.6-2.3)
[2025-07-03] MEDS: HEPARIN SODIUM 5,000 UNIT/ML VIAL 5000 UNIT SUBCUT ×3 (09:17→20:47)
[2025-07-03] MEDS: METHYLPREDNISOLONE SOD SUCC 40MG VIAL 40 MG IV ×2 (09:17→20:47)
[2025-07-03] MEDS: DOXYCYCLINE HYCLATE 100 MG in 0.9 % SODIUM CHLORIDE 250 ML 166.67 MG IV (09:17)
[2025-07-03] MEDS: NICOTINE 21MG/24HR PATCH 21 MG TD (09:18)
--- NOTE | 2025-07-03 09:27 | P.CONS_ITS ---
History of Present Illness History of present illness: Patient intubated and sedated. Much of the history is obtained from chart review and family. Ms. Phoenix is a 70-year-old female with reported history of COPD heart failure preserved action fraction dyslipidemia diabetes presented to the ER with worsening respiratory distress needing intubation mechanical ventilatory support and pulmonary was called for further evaluation and management. [facility] Disclaimer: The information contained in this section may have been updated after the patient was seen, as this information can be updated by other users. Medical History (Updated 07/03/25 @ 10:56 by Chauncey Mims MD) Acute and chronic respiratory failure with hypoxia On mechanically assisted ventilation Thyroid nodule Social History Smoking Status: Current every day smoker tobacco type: cigarettes packs per day: 1 second hand exposure: No alcohol intake: never substance use type: denies use current occupational status: retired Travel in the last 8 weeks?: None household members: family housing: house current occupational exposures/hazards: No caffeine: Yes Have you lived/traveled outside [place] in past 30 days?: No Contact w/someone who lives/traveled outside US past 30 days?: No Exposure to someone with infectious disease in past 14 days?: No Do you have a fever (greater than 100.4 F or 38 C)?: No Have you tested positive for COVID-19?: No Exposed to someone with COVID-19 in past 14 days?: No Do you have a sore throat?: No Do you have a cough?: No Do you have any weakness?: No Do you have any diarrhea?: No Are you experiencing any unusual bleeding?: No Do you have any muscle aches/pain?: No Do you have any abdominal pain?: No Are you experiencing loss of taste or smell?: No Review of Systems Review of Systems Review of systems:: unable to obtain Pulmonology Exam Inpatient Vital signs and Labs for Last 24 Hours: Temp Pulse Resp BP Pulse Ox O2 Del Method FiO2 98.2 F 101 H 22 101/52 L 95 Mechanical Ventilation 60 07/03/25 08:00 07/03/25 08:00 07/03/25 08:00 07/03/25 08:00 07/03/25 08:00 07/03/25 07:15 07/03/25 07:00 Laboratory Results - last 24 hr 07/02/25 22:34: WBC 27.9 H*, RBC 4.33, Hgb 13.2, Hct 41.7, MCV 96.3, MCH 30.5, M CHC 31.7 L, RDW 15.2, Plt Count 184, MPV 10.8 H, Neut % (Auto) 83.9 H, Lymph % (Auto) 5.3 L, [place] % (Auto) 4.9, Eos % (Auto) 0.0 L, Baso % (Auto) 0.4, Neut # (Auto) 23.4 H, Lymph # (Auto) 1.5, [place] # (Auto) 1.4 H, Eos # (Auto) 0.0, Baso # (Auto) 0.1, Total Counted 100, Neutrophils % (Manual) 85 H, Band Neutrophils % 2.0, Lymphocytes % (Manual) 9 L, Monocytes % (Manual) 3, Myelocytes % 1, Platelet Estimate Normal, Giant Platelets 1+, Polychromasia 1+, Poikilocytosis 1+, Anisocytosis 1+, Macrocytosis 1+, Target Cells 1+, Tear Drop Cells 1+, Ovalocytes 1+, VBG pH 7.23 L, VBG pCO2 43.9, VBG pO2 31.9, VBG HCO3 17.8 L, VBG Total CO2 19.1 L, VBG O2 Saturation 54.9, VBG Base Excess -9.9 L, VBG Lactic Acid 3.0 H, Sodium 136, Potassium 4.3, Chloride 95 L, Carbon Dioxide 18 L, Anion Gap 27.3 H, BUN 38 H, Creatinine 1.40 H, Estimated GFR 37 L, Est GFR ( Amer) 45 L, Glucose 185 H, Calcium 8.1 L, Total Bilirubin 1.8 H, AST 26, ALT 25, Alkaline Phosphatase 77, Troponin I < 0.01, NT-Pro-B Natriuret Pep 2620 H, Total Protein 7.5, Albumin 4.1, Globulin 3.4 H, Albumin/Globulin Ratio 1.2, HCV Ab ALESSANDRA w/Rflx PCR Qn Negative, HIV Ag/Ab Combo Qual Negative 07/02/25 23:20: VBG pH 7.27 L, VBG pCO2 40.4, VBG pO2 32.5, VBG HCO3 18.1 L, VBG Total CO2 19.3 L, VBG O2 Saturation 58.7, VBG Base Excess -8.8 L, VBG Lactic Acid 3.2 H 07/02/25 23:53: Chlamy pneumoniae PCR Not detected, Adenovirus (PCR) Not detected, B. pertussis DNA (PCR) Not detected, Coronavirus OC43 (PCR) Not detected, Coronavirus HKU1 (PCR) Not detected, Coronavirus 229E (PCR) Not detected, SARS-CoV-2 (PCR) Not detected, Coronavirus NL63 (PCR) Not detected, Human Metapneumovir PCR Not detected, Influenza A (H1) PCR Not detected, Influ A (H1N1/09) PCR Not detected, Influenza A (H3) PCR Not detected, Influenza Type A (PCR) Not detected, Influenza Type B (PCR) Not detected, M. pneumoniae (PCR) Not detected, Parainfluenza 1 (PCR) Not detected, Parainfluenza 2 (PCR) Not detected, Parainfluenza 3 (PCR) Not detected, Parainfluenza 4 (PCR) Not detected, RSV (PCR) Not detected, Entero/Rhino (PCR) Not detected 07/03/25 00:12: Urine Color Yellow, Urine Appearance Clear, Urine pH 5.5, Ur Specific [place] >= 1.030, Urine Protein Trace, Urine Glucose (UA) 3+, Urine Ketones 1+, Urine Blood Negative, Urine Nitrate Negative, Urine Bilirubin 2+ A, Urine Urobilinogen 0.2, Ur Leukocyte Esterase Negative, Urine RBC 3-5, Urine WBC None, Ur Squamous Epith Cells 3-5, Amorphous Sediment 1+, Urine Bacteria 1+, Hyaline Casts 3-5, Fine Granular Casts Occasional 07/03/25 01:18: Specimen Source Left radial, O2 % 70, ABG pH 7.21 L*, ABG pCO2 48.4 H, ABG pO2 77.9 L, ABG HCO3 18.8 L, ABG Total CO2 20.3 L, ABG O2 Saturation 93, ABG Base Excess -9.1 L, Zuhair Test Patient unable, Vent Rate 20, Tidal Volume 380, PEEP 8 07/03/25 02:05: POC Glucose 239 H 07/03/25 02:30: Lactate 3.0 H, Total Bilirubin 1.3, Direct Bilirubin 0.9 H, Conjugated Bilirubin 0.0, Indirect Bilirubin 0.4, Unconjugated Bilirubin 0.5, Troponin I < 0.01 07/03/25 05:00: WBC 33.2 H*, RBC 4.04 L, Hgb 12.1 L, Hct 38.6, MCV 95.5, MCH 30.0, MCHC 31.3 L, RDW 15.2, Plt Count 175, MPV 11.4 H, Neut % (Auto) 84.1 H, L ymph % (Auto) 1.8 L, [place] % (Auto) 4.5, Eos % (Auto) 0.0 L, Baso % (Auto) 0.4, N eut # (Auto) 27.9 H, Lymph # (Auto) 0.6 L, [place] # (Auto) 1.5 H, Eos # (Auto) 0.0, Baso # (Auto) 0.1, VBG pH 7.33, VBG pCO2 44.1, VBG pO2 72.7 H, VBG HCO3 22.6 L, VBG Total CO2 24.0, VBG O2 Saturation 94.4 H, VBG Base Excess -3.3 L, V BG Lactic Acid 2.6 H, Sodium 132 L, Potassium 3.3 L D, Chloride 97 L, Carbon Dioxide 25, Anion Gap 13.3, BUN 38 H, Creatinine 1.20 H, Estimated Creat Clear 42, Estimated GFR 44 L, Est GFR ( Amer) 54 L, Glucose 214 H, Hemoglobin A1c 5.9, Lactate 2.4 H, Calcium 7.8 L, Magnesium 2.1, Troponin I < 0.01, C- Reactive Protein 305.1 H, Procalcitonin 12.9 H, TSH 0.31 L, Free T4 1.53 07/03/25 06:48: POC Glucose 214 H I & O for Labs for Last 24 Hours: Intake & Output 06/30/25 07/01/25 07/02/25 07/03/25 23:59 23:59 23:59 23:59 Intake Total 100 / 724.573 8956.215 / 3340.215 Output Total 900 / 900 Balance 100 / 233.179 3362.215 / 2440.215 Weight 140 lb 133 lb 9.602 oz Microbiology Reports for the Last 24 Hours: Microbiology 07/03/25 00:13 Sputum - Endotracheal Tube Aspirate Gram Stain - Final Constitutional: Present severe distress Comment:: Intubated and Sedated Head: Present normocephalic and atraumatic ENT: Present normal exam, normal oropharynx and mucous membranes moist Neck: Present normal inspection and full ROM Respiratory: Present diminished air movement; Absent prolonged expiratory phase, wheezes or crackles Cardiac: Present S1/S2, Tachycardia and radial pulses present GI: Present soft and distention; Absent tenderness or guarding Rectal (female): Present deferred (female): Present deferred Skin: Present intact; Absent cyanosis or jaundice Neuro: Absent alert, awake or oriented x 3 Comment:: Intubated and sedated Extremities: Present normal inspection; Absent clubbing or cyanosis Psychiatric: Present unable to assess Meds Home Medications and Allergies Home Medications ?Medication ?Instructions ?Recorded ?Confirmed ?Type alendronate 70 mg tablet 70 mg PO WEEKLY Osteoporosis 04/14/21 07/03/25 History aspirin 81 mg tablet,delayed 81 mg PO HS heart health 04/14/21 07/03/25 History release fluticasone fur. 100 mcg-umeclid 1 puff inhalation FELIPE LY 04/14/21 07/03/25 History 62.5 mcg-vilant 25 mcg inhalat.powder albuterol sulfate 90 mcg/actuation 2 puff inhalation Q 4HP PRN 04/21/21 07/03/25 History aerosol inhaler Shortness Of Breath cholecalciferol (vitamin D3) 25 1,000 unit PO BID Supp lement 03/15/22 07/03/25 History mcg (1,000 unit) capsule atorvastatin 40 mg tablet 40 mg PO HS 03/16/22 5 History furosemide 20 mg tablet 20 mg PO Q48H Fluid 03/16/22 07/03/25 History dapagliflozin propanediol 5 mg 5 mg PO DAILY 07/03/25 07/03/25 History tablet (Farxiga) metformin 1,000 mg tablet 1,000 mg PO BID 07/03/25 History New Prescriptions to Start Prescriptions: Allergies Allergy/AdvReac Type Severity Reaction Status Date / Time erythromycin base Allergy Unknown NA-NAUSEA/V Verified 01/03/24 15:26 (ERYTHROMYCIN BASE) OMITING Results Laboratory Findings 07/03/25 05:00 07/03/25 05:00 ABG ABG pH 7.21 mmol/L (7.35-7.45) L* 07/03/25 01:18 ABG pCO2 48.4 mmhg (35.0-45.0) H 07/03/25 01:18 ABG pO2 77.9 mmhg (80-100) L 07/03/25 01:18 ABG O2 Saturation 93 % (90-100) 07/03/25 01:18 Abnormal lab findings: Abnormal Labs 07/02/25 07/02/25 07/03/25 22:34 23:20 00:12 WBC 27.9 H* RBC Hgb MCHC 31.7 L MPV 10.8 H Neut % (Auto) 83.9 H Lymph % (Auto) 5.3 L Eos % (Auto) 0.0 L Neut # (Auto) 23.4 H Lymph # (Auto) [place] # (Auto) 1.4 H Neutrophils % (Manual) 85 H Lymphocytes % (Manual) 9 L ABG pH ABG pCO2 ABG pO2 ABG HCO3 ABG Total CO2 ABG Base Excess VBG pH 7.23 L 7.27 L VBG pO2 VBG HCO3 17.8 L 18.1 L VBG Total CO2 19.1 L 19.3 L VBG O2 Saturation VBG Base Excess -9.9 L -8.8 L VBG Lactic Acid 3.0 H 3.2 H Sodium Potassium Chloride 95 L Carbon Dioxide 18 L Anion Gap 27.3 H BUN 38 H Creatinine 1.40 H Estimated GFR 37 L Est GFR ( Amer) 45 L Glucose 185 H POC Glucose Lactate Calcium 8.1 L Total Bilirubin 1.8 H Direct Bilirubin C-Reactive Protein NT-Pro-B Natriuret Pep 2620 H Globulin 3.4 H Procalcitonin TSH Urine Bilirubin 2+ A 07/03/25 07/03/25 07/03/25 01:18 02:05 02:30 WBC RBC Hgb MCHC MPV Neut % (Auto) Lymph % (Auto) Eos % (Auto) Neut # (Auto) Lymph # (Auto) [place] # (Auto) Neutrophils % (Manual) Lymphocytes % (Manual) ABG pH 7.21 L* ABG pCO2 48.4 H ABG pO2 77.9 L ABG HCO3 18.8 L ABG Total CO2 20.3 L ABG Base Excess -9.1 L VBG pH VBG pO2 VBG HCO3 VBG Total CO2 VBG O2 Saturation VBG Base Excess VBG Lactic Acid Sodium Potassium Chloride Carbon Dioxide Anion Gap BUN Creatinine Estimated GFR Est GFR ( Amer) Glucose POC Glucose 239 H Lactate 3.0 H Calcium Total Bilirubin Direct Bilirubin 0.9 H C-Reactive Protein NT-Pro-B Natriuret Pep Globulin Procalcitonin TSH Urine Bilirubin 07/03/25 07/03/25 05:00 06:48 WBC 33.2 H* RBC 4.04 L Hgb 12.1 L MCHC 31.3 L MPV 11.4 H Neut % (Auto) 84.1 H Lymph % (Auto) 1.8 L Eos % (Auto) 0.0 L Neut # (Auto) 27.9 H Lymph # (Auto) 0.6 L [place] # (Auto) 1.5 H Neutrophils % (Manual) Lymphocytes % (Manual) ABG pH ABG pCO2 ABG pO2 ABG HCO3 ABG Total CO2 ABG Base Excess VBG pH VBG pO2 72.7 H VBG HCO3 22.6 L VBG Total CO2 VBG O2 Saturation 94.4 H VBG Base Excess -3.3 L VBG Lactic Acid 2.6 H Sodium 132 L Potassium 3.3 L D Chloride 97 L Carbon Dioxide Anion Gap BUN 38 H Creatinine 1.20 H Estimated GFR 44 L Est GFR ( Amer) 54 L Glucose 214 H POC Glucose 214 H Lactate 2.4 H Calcium 7.8 L Total Bilirubin Direct Bilirubin C-Reactive Protein 305.1 H NT-Pro-B Natriuret Pep Globulin Procalcitonin 12.9 H TSH 0.31 L Urine Bilirubin Assessment and Plan *Assessment and plan (1) Acute exacerbation of chronic obstructive pulmonary disease: Status: Acute Category: Medical Code(s): J44.1 - Chronic obstructive pulmonary disease with (acute) exacerbation (2) Pneumonia: Status: Acute Qualifiers: Laterality: left Lung location: lower lobe of lung Pneumonia type: due to unspecified organism Qualified Code(s): J18.9 - Pneumonia, unspecified organism Category: Medical Code(s): J18.9 - Pneumonia, unspecified organism (3) On mechanically assisted ventilation: Status: Acute Category: Medical Code(s): Z99.11 - Dependence on respirator [ventilator] status (4) Acute and chronic respiratory failure with hypoxia: Status: Acute Category: Medical Code(s): J96.21 - Acute and chronic respiratory failure with hypoxia Plan Patient intubated and sedated. Much of the history is obtained from chart review and family. Ms. Phoenix is a 70-year-old female with reported history of COPD heart failure preserved action fraction dyslipidemia diabetes presented to the ER with worsening respiratory distress needing intubation mechanical ventilatory support and pulmonary was called for further evaluation and management. History obtained from family, current smoker greater than [id number] smoking is using oxygen supplementation chronically at baseline at 2 L. Admits worsening mentation, worsening respiratory distress, balance issues and more frequent falls in the last couple of days that prompted family to bring the patient to the ER for further evaluation and management. Febrile Tmax of greater than 100.2, upon admission. neutrophilic predominant leukocytosis. Comprehensive respiratory viral PCR panel negative. Blood gas upon admission mixed respiratory and metabolic acidosis. Most recent blood gas improved pH of 7.33 pCO2 44.1. Chest x-ray upon admission dense left lower lobe consolidative changes. ET tube in place, 4 cm above the seamus no pleural effusions appreciated. CT chest February 2025 upper lobe predominant centrilobular emphysematous changes. 3 cm anterior mediastinal mass. Currently receiving vancomycin and Zosyn, DuoNebs Q6 scheduled on methylprednisolone 40 every 12 scheduled. Plan: Continue mechanical ventilatory support. Wean sedation to perform SBT Currently on minimal ventilator settings, settings weaned to PEEP of 5 FiO2 50% with a rate of 22 and tidal volume of 380. DuoNebs every 6 hours along with Pulmicort every 12 scheduled Currently receiving vancomycin and Zosyn, and follow-up blood culture and have a low threshold to de-escalate antibiotics. Tracheal aspirate cultures no organisms seen. Chest x-ray left lower lobe pulmonary infiltrate. ET tube in place. 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 TSH low on his hospital admission T4 elevated from February. Will follow-up with thyroid panel. Patient not receiving any thyroid supplementation for medication review. - Continue mechanical ventilatory support - Continue AnalgoSedation with Propofol and Fentanyl with CPOT gal less than or euqal to 2 and RASS goal of to 2 (No need for deep sedation) - VAP bundle Recommend elevate head of the bed at 30 to 45 degrees Recommend oral care with chlorhexidne Recommend GI ulcer prophylaxis - Famotidine 20mg IV BID Recommend chemical DVT prophylaxis Total critical care time spent on this patient is 35 minutes managing acute hypoxic respiratory failure needing mechanical ventilation. This time spent include reviewing test results including interpreting chest x-rays, labs and arterial blood gas, optimizing the ventilator settings,formulating plan of care, discussing the plan of care with the team and the nursing staff.
--- NOTE | 2025-07-03 09:29 | HMH.PHAAMS2 ---
- Antimicrobial Stewardship Review culture & sensitivity review Stewardship interventions: reviewed - no change Comments: CULTURES PENDING, EMPIRIC THERAPY WITH ZOSYN AND DOXYCYCLINE
[2025-07-03 09:41] LABS: POC Glucose,Bedside 177 gm/dL (70-110)
[2025-07-03 11:43] LABS: Free Thyroxine Index 2.6 ug/dL (5.93-13.13); T4 (Thyroxine) 6.0 ug/dl (5.53-11.0); Triiodothryronine (T3) Uptake 43 % (23.5-40.5)
[2025-07-03 11:57] LABS: Thyroid Stimulating Hormone 0.33 uIU/mL (0.465-4.68)
[2025-07-03] MEDS: NOREPINEPHRINE BITARTRATE/D5W 8 MG/250 ML PLAST..BAG 20.63 MG IV (12:32)
[2025-07-03] MEDS: FENTANYL CITRATE/PF 1,000 MCG in 0.9 % SODIUM CHLORIDE 80 ML 2.5 MCG IV (13:18)
[2025-07-03] MEDS: PIPERCILLIN/TAZO 3.375 GM in 0.9 % SODIUM CHLORIDE 50 ML IV ×2 (13:19→18:40)
[2025-07-03 13:41] LABS: POC Glucose,Bedside 185 gm/dL (70-110)
--- NOTE | 2025-07-03 13:52 | PC.NURSE ---
WEANED VERSED OFF AND FENTANYL OFF. PATIENT EXHIBITS NO SIGNS OF PAIN. CONTINUES TO BE MODERATELY SEDATED. NOT RESPONDING MUCH TO VERBAL OR PHYSICAL STIMULI AT THIS TIME. BP HAS INCREASED SEDATION HAS DECREASED SO LEVOPHED DECREASED NEEDED. ORAL CARE HAS BEEN PROVIDED [id number]. NOTED TO BE VERY MOIST. FSBS WITHIN STABLE LIMITS. Q2 TURNS PROVIDED. NO SIGNS OF OPEN AREAS. FAMILY HAS BEEN AT BEDSIDE AND EDUCATED CARE PROVIDED WELL PLAN OF CARE. POTASSIUM RUNS DELAYED BECAUSE OF iv ACCESS AND OTHER MEDICATIONS GOING.
[2025-07-03 14:26] LABS: ABG HCO3 24.2 mmhg (22.0-26.0); ABG PCO2 48.3 mmhg (35.0-45.0); ABG PH 7.32 mmol/L (7.35-7.45); ABG PO2 62.3 mmhg (80-100); ABG TCO2 25.6 mmhg (23-27)
--- NOTE | 2025-07-03 14:47 | CT_ITS ---
FINAL REPORT TECHNIQUE: multiple axial CT images were performed from the foramen magnum to the vertex without enhancement. CLINICAL HISTORY: Presented alert with pneumonia, s/p intubated COMPARISON: None FINDINGS: There is [id number] atrophy with proportional ventriculomegaly. There is periventricular white matter change likely related to small vessel disease. There is no evidence of hemorrhage. No masses are identified. No extra-axial fluid is seen. The paranasal sinuses are normal. IMPRESSION: Atrophy and chronic changes without acute process. Reviewed, Interpreted and Dictated by Devin Sotelo MD Transcribed by Reena Fofana Authenticated and [facility]
--- NOTE | 2025-07-03 15:59 | PC.NURSE ---
Addendum entered by Sita Lee RN 07/03/25 16:05: also noted patient has a lot of secretions yellow and thick Original Note: patient taken down to ct scanner. sedation remains off. md was made aware of lack of response originally however right before ct and and md arrival patient opened eyes, and started moving more in bed. vitals remained within stable limits during transport. bp remained about 126/98 and sats 96%, now resting in bed with family at bedside. educated family as care provided. heels elevated off bed.
--- NOTE | 2025-07-03 17:35 | PC.NURSE ---
patient remains off sedation and is resting in bed. family has been visiting. restraints remain in place. noted when awake at brief periods she becomes restless and starts attempting to pull at ET tube. restraints have been removed and skin assessed along with range of motion. md on rounds stated to wait on tube feeds for now. would like to use propofol over versed if patient becomes restless and uncomfortable over night.
[2025-07-03] MEDS: BUDESONIDE 0.5MG/2ML NEB 0.5 MG IH (18:22)
[2025-07-03 18:32] LABS: POC Glucose,Bedside 173 gm/dL (70-110)
[2025-07-03] MEDS: 0.9 % SODIUM CHLORIDE 1000ML 1,000 ML 50 ML IV (20:45)
[2025-07-03] MEDS: DOXYCYCLINE HYCLATE 100 MG in 0.9 % SODIUM CHLORIDE 250 ML 166.7 MG IV (20:46)
[2025-07-03] MEDS: SODIUM CHLORIDE 0.9% 10ML VIAL 10 ML IV (20:47)
[2025-07-03] MEDS: PANTOPRAZOLE 40MG VIAL 40 MG IV (20:47)
--- NOTE | 2025-07-03 22:55 | PC.NURSE ---
Pt awake alert and restless attempting to sit up in bed and bring hands to ETT. Pt is able to follow commands and can answer yes/no questions by shaking head. Pt asked if she was uncomfortable and pt shook head yes. Fentanyl gtt restarted and titrated up per protocol. Pt becoming more restless and agitated and coughing against ventilator. Octavia Briones notified and ordered to restart propofol at his time. Propofol started and titrated up to 15mcg/kg/min. Fentanyl @ 50mcg/hr. Pt is much more comfortable at this time. RASS 0.
[2025-07-03 22:59] LABS: NT Pro Brain Natriuretic Pep. 4190 pg/mL (0-125)
[2025-07-03] MEDS: VANCOMYCIN HCL 1,000 MG in 0.9 % SODIUM CHLORIDE 250 ML 125 MG IV (23:23)
[2025-07-04] VITALS (53 sets, daily range): BP systolic 87–127; BP diastolic 35–66; PULSE 70–111; RESP 15–24; TEMP 35.6–36.8; O2SAT 89–100; BMI 24.5
[2025-07-04] MEDS: IPRATROPIUM/ALBUTEROL 3 ML NEB IH ×5 (00:31→23:05)
[2025-07-04 01:04] LABS: POC Glucose,Bedside 150 gm/dL (70-110)
[2025-07-04] MEDS: PIPERCILLIN/TAZO 3.375 GM in 0.9 % SODIUM CHLORIDE 50 ML IV ×2 (01:20→06:09)
--- NOTE | 2025-07-04 02:59 | PC.NURSE ---
Notified Octavia Briones restraint order has exceeded 24 hours and we will need new order to initiate restraints. Octavia Briones states he will evaluate patient for need and enter order.
[2025-07-04 05:51] LABS: Lactate Venous 1.4 mmol/L (0.4-2.0); VBG HCO3 22.3 mmol/L (23-30); VBG PCO2 39.1 mmol/L (35-51); VBG PH 7.37 mmol/L (7.31-7.41); VBG PO2 100.9 mmol/L (28-40)
[2025-07-04 05:58] LABS: Hematocrit 36.9 % (37.0-47.0); Hemoglobin 11.6 g/dL (12.2-16.2); Immature Granulocytes % 6.2 %; Mean Corpuscular HGB Conc 31.4 g/dL (31.8-35.4); Mean Corpuscular Hemoglobin 30.1 pg (27.0-31.2); Mean Corpuscular Volume 95.6 fl (81-99); Nucleated Red Blood Cells % 0 %; Platelet Count 117 K/mm3 (142-424); Red Blood Count 3.86 M/mm3 (4.20-5.40); Red Cell Distribution Width-SD 53.4 fL; White Blood Count 19.0 K/mm3 (4.8-10.8)
--- NOTE | 2025-07-04 06:00 | XR_ITS ---
PROCEDURE INFORMATION: Exam: XR Chest Exam date and time: 07/04/2025 5:40 AM Age: 70 years old Clinical indication: Device placement; Ett placement (vent status); Additional info: Intubation TECHNIQUE: Imaging protocol: Radiologic exam of the chest. Views: 1 view. COMPARISON: CR XR CHEST PORTABLE 07/03/2025 12:01 AM FINDINGS: Tubes, catheters and devices: Endotracheal tube 4 cm above the seamus. Nasogastric tube looped overlying left upper quadrant of the abdomen. Lungs: Persistent left lateral mid and lower lung field opacity. Low lung volumes. Prominent left hilar bronchovascular structures. Pleural spaces: Blunted left costophrenic sulcus. Heart/Mediastinum: Cardiac silhouette left lateral margins indistinct. Vasculature: Partially visualized abdominal aortic endoprostheses. Diaphragm: Elevated left hemidiaphragm. Bones/joints: Right acromioclavicular degenerative changes. IMPRESSION: Persistent left mid and lower lung field pneumonia.
[2025-07-04] MEDS: BUDESONIDE 0.5MG/2ML NEB 0.5 MG IH ×2 (06:01→18:48)
[2025-07-04 06:04] LABS: Anion Gap 11.1 mEq/L (5-15); Blood Urea Nitrogen 34 mg/dl (7-17); Calcium 8.0 mg/dl (8.4-10.2); Carbon Dioxide 22 mmol/L (22.0-30.0); Chloride 104 mmol/L (98-107); Creatinine Clearance Estimated 50 mL/min (50-200); Creatinine,Serum 0.90 mg/dl (0.52-1.04); Estimated Glomerular Filt Rate 62 ml/min (>60); GFR (African American) 75 ML/MIN (>60); Glucose 171 mg/dl (74-100); Potassium 4.1 mmoL/L (3.5-5.1); Sodium 133 mmol/L (136-145)
[2025-07-04 07:24] LABS: POC Glucose,Bedside 166 gm/dL (70-110)
--- NOTE | 2025-07-04 07:32 | PC.NURSE ---
Started SBT at 0725. Currently pt is on 40% Fi02, peep5, ps5.
[2025-07-04 07:36] LABS: RBC Morphology Normal; Total Cells Counted 100
[2025-07-04] MEDS: NOREPINEPHRINE BITARTRATE/D5W 8 MG/250 ML PLAST..BAG 11.25 MG IV (08:12)
--- NOTE | 2025-07-04 08:29 | EXP.PULM.CON ---
[facility] Disclaimer: The information contained in this section may have been updated after the patient was seen, as this information can be updated by other users. Medical History (Updated 07/03/25 @ 10:56 by Chauncey Mims MD) Acute and chronic respiratory failure with hypoxia On mechanically assisted ventilation Thyroid nodule Social History Smoking Status: Current every day smoker tobacco type: cigarettes packs per day: 1 second hand exposure: No alcohol intake: never substance use type: denies use current occupational status: retired Travel in the last 8 weeks?: None household members: family housing: house current occupational exposures/hazards: No caffeine: Yes Have you lived/traveled outside [place] in past 30 days?: No Contact w/someone who lives/traveled outside US past 30 days?: No Exposure to someone with infectious disease in past 14 days?: No Do you have a fever (greater than 100.4 F or 38 C)?: No Have you tested positive for COVID-19?: No Exposed to someone with COVID-19 in past 14 days?: No Do you have a sore throat?: No Do you have a cough?: No Do you have any weakness?: No Do you have any diarrhea?: No Are you experiencing any unusual bleeding?: No Do you have any muscle aches/pain?: No Do you have any abdominal pain?: No Are you experiencing loss of taste or smell?: No Pulmonology Exam Inpatient Vital signs and Labs for Last 24 Hours: Temp Pulse Resp BP Pulse Ox O2 Del Method FiO2 96.4 F L 95 H 20 88/45 L 95 Mechanical Ventilation 40 07/04/25 07:00 07/04/25 07:00 07/04/25 07:25 07/04/25 07:00 07/04/25 07:25 07/04/25 07:00 07/04/25 07:25 Laboratory Results - last 24 hr 07/03/25 05:00: Hemoglobin A1c 5.9, Magnesium 2.1, C-Reactive Protein 305.1 H, Procalcitonin 12.9 H, TSH 0.31 L 07/03/25 05:00: TSH 0.33 L, Free T4 Index 2.6 L, Thyroxine (T4) 6.0, T3 Uptake 43 H 07/03/25 09:32: POC Glucose 177 H 07/03/25 13:30: POC Glucose 185 H 07/03/25 14:13: ABG pH 7.32 L, ABG pCO2 48.3 H, ABG pO2 62.3 L, ABG HCO3 24.2, ABG Total CO2 25.6, ABG O2 Saturation 91, ABG Base Excess -2.0 07/03/25 17:53: POC Glucose 173 H 07/03/25 22:22: NT-Pro-B Natriuret Pep 4190 H 07/04/25 00:57: POC Glucose 150 H 07/04/25 05:37: WBC 19.0 H D, RBC 3.86 L, Hgb 11.6 L, Hct 36.9 L, MCV 95.6, MCH 30.1, MCHC 31.4 L, RDW 15.2, Plt Count 117 L D, MPV 11.2 H, Neut % (Auto) 87.5 H, Lymph % (Auto) 2.5 L, [place] % (Auto) 2.9, Eos % (Auto) 0.6, Baso % (Auto) 0.3, Neut # (Auto) 16.6 H, Lymph # (Auto) 0.5 L, [place] # (Auto) 0.6, Eos # (Auto) 0.1, Baso # (Auto) 0.1, Total Counted 100, Neutrophils % (Manual) 97 H, Lymphocytes % (Manual) 1 L, Monocytes % (Manual) 2, Platelet Estimate Slight decrease, RBC Morphology Normal, Specimen Source Cancelled, O2 % Cancelled, ABG pH Cancelled, ABG pCO2 Cancelled, ABG pO2 Cancelled, ABG HCO3 Cancelled, ABG Total CO2 Cancelled, ABG O2 Saturation Cancelled, ABG Base Excess Cancelled, Zuhair Test Cancelled, VBG pH 7.37, VBG pCO2 39.1, VBG pO2 100.9 H, VBG HCO3 22.3 L, VBG Total CO2 23.5, VBG O2 Saturation 97.8 H, VBG Base Excess -2.9 L, VBG Lactic Acid 1.4, Vent Rate Cancelled, Tidal Volume Cancelled, PEEP Cancelled, Sodium 133 L, Potassium 4.1 D, Chloride 104, Carbon Dioxide 22, Anion Gap 11.1, BUN 34 H, Creatinine 0.90 D, Estimated Creat Clear 50, Estimated GFR 62, Est GFR ( Amer) 75 D, Glucose 171 H, Calcium 8.0 L 07/04/25 06:48: POC Glucose 166 H I & O for Labs for Last 24 Hours: Intake & Output 07/01/25 07/02/25 07/03/25 07/04/25 23:59 23:59 23:59 23:59 Intake Total 100 / 199.156 0628.151 / 4947.784 733.519 / 733.519 Output Total 1405 / 1405 300 / 300 Balance 100 / 802.213 8759.151 / 3542.784 433.519 / 433.519 Weight 140 lb 133 lb 9.602 oz 138 lb 3.677 oz Microbiology Reports for the Last 24 Hours: Microbiology 07/02/25 23:29 Blood Blood Culture - Preliminary NO GROWTH AFTER 24 HOURS 07/02/25 22:45 Blood Blood Culture - Preliminary NO GROWTH AFTER 24 HOURS 07/03/25 00:13 Sputum - Endotracheal Tube Aspirate Gram Stain - Final Meds Home Medications and Allergies Home Medications ?Medication ?Instructions ?Recorded ?Confirmed ?Type alendronate 70 mg tablet 70 mg PO WEEKLY Osteoporosis 04/14/21 07/03/25 History aspirin 81 mg tablet,delayed 81 mg PO heart health 04/14/21 07/03/25 History release fluticasone fur. 100 mcg-umeclid 1 puff inhalation DAILY 04/14/21 07/03/25 History 62.5 mcg-vilant 25 mcg inhalat.powder albuterol sulfate 90 mcg/actuation 2 puff inhalation Q4HP PRN 04/21/21 07/03/25 History aerosol inhaler Shortness Of Breath cholecalciferol (vitamin D3) 25 1,000 unit PO BID Supplement 03/15/22 07/03/25 History mcg (1,000 unit) capsule atorvastatin 40 mg tablet 40 mg PO HS 03/16/22 07/03/25 History furosemide 20 mg tablet 20 mg PO Q48H Fluid 03/16/22 07/03/25 History dapagliflozin propanediol 5 mg 5 mg PO DAILY 07/03/25 07/03/25 History tablet (Farxiga) metformin 1,000 mg tablet 1,000 mg PO BID 07/03/25 07/03/25 History New Prescriptions to Start Prescriptions: Allergies Allergy/AdvReac Type Severity Reaction Status Date / Time erythromycin base Allergy Unknown NA-NAUSEA/V Verified 01/03/24 15:26 (ERYTHROMYCIN BASE) OMITING Results Laboratory Findings 07/04/25 05:37 07/04/25 05:37 ABG ABG pH Cancelled 07/04/25 05:37 ABG pCO2 Cancelled 07/04/25 05:37 ABG pO2 Cancelled 07/04/25 05:37 ABG O2 Saturation Cancelled 07/04/25 05:37 Abnormal lab findings: Abnormal Labs 07/02/25 07/02/25 07/03/25 22:34 23:20 00:12 WBC 27.9 H* RBC Hgb Hct MCHC 31.7 L Plt Count MPV 10.8 H Neut % (Auto) 83.9 H Lymph % (Auto) 5.3 L Eos % (Auto) 0.0 L Neut # (Auto) 23.4 H Lymph # (Auto) [place] # (Auto) 1.4 H Neutrophils % (Manual) 85 H Lymphocytes % (Manual) 9 L ABG pH ABG pCO2 ABG pO2 ABG HCO3 ABG Total CO2 ABG Base Excess VBG pH 7.23 L 7.27 L VBG pO2 VBG HCO3 17.8 L 18.1 L VBG Total CO2 19.1 L 19.3 L VBG O2 Saturation VBG Base Excess -9.9 L -8.8 L VBG Lactic Acid 3.0 H 3.2 H Sodium Potassium Chloride 95 L Carbon Dioxide 18 L Anion Gap 27.3 H BUN 38 H Creatinine 1.40 H Estimated GFR 37 L Est GFR ( Amer) 45 L Glucose 185 H POC Glucose Lactate Calcium 8.1 L Total Bilirubin 1.8 H Direct Bilirubin C-Reactive Protein NT-Pro-B Natriuret Pep 2620 H Globulin 3.4 H Procalcitonin TSH Free T4 Index T3 Uptake Urine Bilirubin 2+ A 07/03/25 07/03/25 07/03/25 01:18 02:05 02:30 WBC RBC Hgb Hct MCHC Plt Count MPV Neut % (Auto) Lymph % (Auto) Eos % (Auto) Neut # (Auto) Lymph # (Auto) [place] # (Auto) Neutrophils % (Manual) Lymphocytes % (Manual) ABG pH 7.21 L* ABG pCO2 48.4 H ABG pO2 77.9 L ABG HCO3 18.8 L ABG Total CO2 20.3 L ABG Base Excess -9.1 L VBG pH VBG pO2 VBG HCO3 VBG Total CO2 VBG O2 Saturation VBG Base Excess VBG Lactic Acid Sodium Potassium Chloride Carbon Dioxide Anion Gap BUN Creatinine Estimated GFR Est GFR ( Amer) Glucose POC Glucose 239 H Lactate 3.0 H Calcium Total Bilirubin Direct Bilirubin 0.9 H C-Reactive Protein NT-Pro-B Natriuret Pep Globulin Procalcitonin TSH Free T4 Index T3 Uptake Urine Bilirubin 07/03/25 07/03/25 07/03/25 05:00 05:00 06:48 WBC 33.2 H* RBC 4.04 L Hgb 12.1 L Hct MCHC 31.3 L Plt Count MPV 11.4 H Neut % (Auto) 84.1 H Lymph % (Auto) 1.8 L Eos % (Auto) 0.0 L Neut # (Auto) 27.9 H Lymph # (Auto) 0.6 L [place] # (Auto) 1.5 H Neutrophils % (Manual) Lymphocytes % (Manual) ABG pH ABG pCO2 ABG pO2 ABG HCO3 ABG Total CO2 ABG Base Excess VBG pH VBG pO2 72.7 H VBG HCO3 22.6 L VBG Total CO2 VBG O2 Saturation 94.4 H VBG Base Excess -3.3 L VBG Lactic Acid 2.6 H Sodium 132 L Potassium 3.3 L D Chloride 97 L Carbon Dioxide Anion Gap BUN 38 H Creatinine 1.20 H Estimated GFR 44 L Est GFR ( Amer) 54 L Glucose 214 H POC Glucose 214 H Lactate 2.4 H Calcium 7.8 L Total Bilirubin Direct Bilirubin C-Reactive Protein 305.1 H NT-Pro-B Natriuret Pep Globulin Procalcitonin 12.9 H TSH 0.31 L 0.33 L Free T4 Index 2.6 L T3 Uptake 43 H Urine Bilirubin 07/03/25 07/03/25 07/03/25 09:32 13:30 14:13 WBC RBC Hgb Hct MCHC Plt Count MPV Neut % (Auto) Lymph % (Auto) Eos % (Auto) Neut # (Auto) Lymph # (Auto) [place] # (Auto) Neutrophils % (Manual) Lymphocytes % (Manual) ABG pH 7.32 L ABG pCO2 48.3 H ABG pO2 62.3 L ABG HCO3 ABG Total CO2 ABG Base Excess VBG pH VBG pO2 VBG HCO3 VBG Total CO2 VBG O2 Saturation VBG Base Excess VBG Lactic Acid Sodium Potassium Chloride Carbon Dioxide Anion Gap BUN Creatinine Estimated GFR Est GFR ([facility]) Glucose POC Glucose 177 H 185 H Lactate Calcium Total Bilirubin Direct Bilirubin C-Reactive Protein NT-Pro-B Natriuret Pep Globulin Procalcitonin TSH Free T4 Index T3 Uptake Urine Bilirubin 07/03/25 07/03/25 07/04/25 17:53 22:22 00:57 WBC RBC Hgb Hct MCHC Plt Count MPV Neut % (Auto) Lymph % (Auto) Eos % (Auto) Neut # (Auto) Lymph # (Auto) [place] # (Auto) Neutrophils % (Manual) Lymphocytes % (Manual) ABG pH ABG pCO2 ABG pO2 ABG HCO3 ABG Total CO2 ABG Base Excess VBG pH VBG pO2 VBG HCO3 VBG Total CO2 VBG O2 Saturation VBG Base Excess VBG Lactic Acid Sodium Potassium Chloride Carbon Dioxide Anion Gap BUN Creatinine Estimated GFR Est GFR ([facility]) Glucose POC Glucose 173 H 150 H Lactate Calcium Total Bilirubin Direct Bilirubin C-Reactive Protein NT-Pro-B Natriuret Pep 4190 H Globulin Procalcitonin TSH Free T4 Index T3 Uptake Urine Bilirubin 07/04/25 07/04/25 05:37 06:48 WBC 19.0 H D RBC 3.86 L Hgb 11.6 L Hct 36.9 L MCHC 31.4 L Plt Count 117 L D MPV 11.2 H Neut % (Auto) 87.5 H Lymph % (Auto) 2.5 L Eos % (Auto) Neut # (Auto) 16.6 H Lymph # (Auto) 0.5 L [place] # (Auto) Neutrophils % (Manual) 97 H Lymphocytes % (Manual) 1 L ABG pH ABG pCO2 ABG pO2 ABG HCO3 ABG Total CO2 ABG Base Excess VBG pH VBG pO2 100.9 H VBG HCO3 22.3 L VBG Total CO2 VBG O2 Saturation 97.8 H VBG Base Excess -2.9 L VBG Lactic Acid Sodium 133 L Potassium Chloride Carbon Dioxide Anion Gap BUN 34 H Creatinine Estimated GFR Est GFR ([facility]) Glucose 171 H POC Glucose 166 H Lactate Calcium 8.0 L Total Bilirubin Direct Bilirubin C-Reactive Protein NT-Pro-B Natriuret Pep Globulin Procalcitonin TSH Free T4 Index T3 Uptake Urine Bilirubin Assessment and Plan *Assessment and plan (1) Acute exacerbation of chronic obstructive pulmonary disease: Status: Acute Category: Medical Code(s): J44.1 - Chronic obstructive pulmonary disease with (acute) exacerbation (2) Pneumonia: Status: Acute Qualifiers: Laterality: left Lung location: lower lobe of lung Pneumonia type: due to unspecified organism Qualified Code(s): J18.9 - Pneumonia, unspecified organism Category: Medical Code(s): J18.9 - Pneumonia, unspecified organism (3) On mechanically assisted ventilation: Status: Acute Category: Medical Code(s): Z99.11 - Dependence on respirator [ventilator] status (4) Acute and chronic respiratory failure with hypoxia: Status: Acute Category: Medical Code(s): J96.21 - Acute and chronic respiratory failure with hypoxia Plan Patient intubated and sedated. Much of the history is obtained from chart review and family. Ms. Phoenix is a 70-year-old female with reported history of COPD heart failure preserved action fraction dyslipidemia diabetes presented to the ER with worsening respiratory distress needing intubation mechanical ventilatory support and pulmonary was called for further evaluation and management. History obtained from family, current smoker greater than [id number] smoking is using oxygen supplementation chronically at baseline at 2 L. Admits worsening mentation, worsening respiratory distress, balance issues and more frequent falls in the last couple of days that prompted family to bring the patient to the ER for further evaluation and management. Febrile Tmax of greater than 100.2, upon admission. neutrophilic predominant leukocytosis. Comprehensive respiratory viral PCR panel negative. Blood gas upon admission mixed respiratory and metabolic acidosis. Most recent blood gas improved pH of 7.33 pCO2 44.1. Chest x-ray upon admission dense left lower lobe consolidative changes. ET tube in place, 4 cm above the seamus no pleural effusions appreciated. CT chest February 2025 upper lobe predominant centrilobular emphysematous changes. 3 cm anterior mediastinal mass. Currently receiving vancomycin and Zosyn, DuoNebs Q6 scheduled on methylprednisolone 40 every 12 scheduled. Interval update: No acute respiratory vents overnight. Continue to remain on minimal ventilator settings. CT head no acute changes. Gradually improving mentation. BUN/creatinine improving/improving urine output. Improving leukocytosis. Blood cultures no growth 24 hours. Continue to receive vancomycin and Zosyn and doxycycline. Plan: Continue mechanical ventilatory support. Wean sedation to perform SBT Currently on minimal ventilator settings, settings weaned to PEEP of 5 FiO2 50% with a rate of 22 and tidal volume of 380. BUN DuoNebs every 6 hours along with Pulmicort every 12 scheduled Currently receiving vancomycin and Zosyn, and follow-up blood culture and have a low threshold to de-escalate antibiotics. Tracheal aspirate cultures no organisms seen. Chest x-ray left lower lobe pulmonary infiltrate. ET tube in place. 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 TSH low on his hospital admission T4 elevated from February. Will follow-up with thyroid panel. Patient not receiving any thyroid supplementation for medication review. - Continue mechanical ventilatory support - Continue AnalgoSedation with Propofol and Fentanyl with CPOT gal less than or euqal to 2 and RASS goal of to 2 (No need for deep sedation) - VAP bundle Recommend elevate head of the bed at 30 to 45 degrees Recommend oral care with chlorhexidne Recommend GI ulcer prophylaxis - Famotidine 20mg IV BID Recommend chemical DVT prophylaxis Total critical care time spent on this patient is 35 minutes managing acute hypoxic respiratory failure needing mechanical ventilation. This time spent include reviewing test results including interpreting chest x-rays, labs and arterial blood gas, optimizing the ventilator settings,formulating plan of care, discussing the plan of care with the team and the nursing staff.
--- NOTE | 2025-07-04 09:45 | P.PN_ITS ---
Subjective *Date: 07/04/25 *Time: 09:45 Pulmonology Exam Inpatient Vital signs and Labs for Last 24 Hours: Temp Pulse Resp BP Pulse Ox O2 Del Method FiO2 96.4 F L 96 H 20 88/45 L 95 Mechanical Ventilation 40 07/04/25 07:00 07/04/25 08:00 07/04/25 07:25 07/04/25 07:00 07/04/25 07:25 07/04/25 07:00 07/04/25 07:25 Laboratory Results - last 24 hr 07/03/25 05:00: TSH 0.33 L, Free T4 Index 2.6 L, Thyroxine (T4) 6.0, T3 Uptake 43 H 07/03/25 13:30: POC Glucose 185 H 07/03/25 14:13: ABG pH 7.32 L, ABG pCO2 48.3 H, ABG pO2 62.3 L, ABG HCO3 24.2, ABG Total CO2 25.6, ABG O2 Saturation 91, ABG Base Excess -2.0 07/03/25 17:53: POC Glucose 173 H 07/03/25 22:22: NT-Pro-B Natriuret Pep 4190 H 07/04/25 00:57: POC Glucose 150 H 07/04/25 05:37: WBC 19.0 H D, RBC 3.86 L, Hgb 11.6 L, Hct 36.9 L, MCV 95.6, MCH 30.1, MCHC 31.4 L, RDW 15.2, Plt Count 117 L D, MPV 11.2 H, Neut % (Auto) 87.5 H , Lymph % (Auto) 2.5 L, [place] % (Auto) 2.9, Eos % (Auto) 0.6, Baso % (Auto) 0.3, Neut # (Auto) 16.6 H, Lymph # (Auto) 0.5 L, [place] # (Auto) 0.6, Eos # (Auto) 0.1, Baso # (Auto) 0.1, Total Counted 100, Neutrophils % (Manual) 97 H, Lymphocytes % (Manual) 1 L, Monocytes % (Manual) 2, Platelet Estimate Slight decrease, RBC Morphology Normal, Specimen Source Cancelled, O2 % Cancelled, ABG pH Cancelled, ABG pCO2 Cancelled, ABG pO2 Cancelled, ABG HCO3 Cancelled, ABG Total CO2 Cancelled, ABG O2 Saturation Cancelled, ABG Base Excess Cancelled, Zuhair Test Cancelled, VBG pH 7.37, VBG pCO2 39.1, VBG pO2 100.9 H, VBG HCO3 22.3 L, VBG Total CO2 23.5, VBG O2 Saturation 97.8 H, VBG Base Excess -2.9 L, VBG Lactic Acid 1.4, Vent Rate Cancelled, Tidal Volume Cancelled, PEEP Cancelled, Sodium 133 L, Potassium 4.1 D, Chloride 104, Carbon Dioxide 22, Anion Gap 11.1, BUN 34 H, Creatinine 0.90 D, Estimated Creat Clear 50, Estimated GFR 62, Est GFR ( Amer) 75 D, Glucose 171 H, Calcium 8.0 L 07/04/25 06:48: POC Glucose 166 H I & O for Labs for Last 24 Hours: Intake & Output 07/01/25 07/02/25 07/03/25 07/04/25 23:59 23:59 23:59 23:59 Intake Total 100 / 838.832 7968.151 / 4947.784 736.039 / 736.039 Output Total 1405 / 1405 380 / 380 Balance 100 / 422.492 3236.151 / 3542.784 356.039 / 356.039 Weight 140 lb 133 lb 9.602 oz 138 lb 3.677 oz Microbiology Reports for the Last 24 Hours: Microbiology 07/03/25 00:13 Sputum - Endotracheal Tube Aspirate Gram Stain - Final 07/03/25 00:13 Sputum - Endotracheal Tube Aspirate Sputum Culture - Preliminary 07/02/25 23:29 Blood Blood Culture - Preliminary NO GROWTH AFTER 24 HOURS 07/02/25 22:45 Blood Blood Culture - Preliminary NO GROWTH AFTER 24 HOURS Assessment and Plan *Assessment and plan (1) Acute exacerbation of chronic obstructive pulmonary disease: Status: Acute Category: Medical Code(s): J44.1 - Chronic obstructive pulmonary disease with (acute) exacerbation (2) Pneumonia: Status: Acute Qualifiers: Laterality: left Lung location: lower lobe of lung Pneumonia type: due to unspecified organism Qualified Code(s): J18.9 - Pneumonia, unspecified organism Category: Medical Code(s): J18.9 - Pneumonia, unspecified organism (3) On mechanically assisted ventilation: Status: Acute Category: Medical Code(s): Z99.11 - Dependence on respirator [ventilator] status (4) Acute and chronic respiratory failure with hypoxia: Status: Acute Category: Medical Code(s): J96.21 - Acute and chronic respiratory failure with hypoxia Plan Patient intubated and sedated. Much of the history is obtained from chart review and family. Ms. Phoenix is a 70-year-old female with reported history of COPD heart failure preserved action fraction dyslipidemia diabetes presented to the ER with worsening respiratory distress needing intubation mechanical ventilatory support and pulmonary was called for further evaluation and management. History obtained from family, current smoker greater than [id number] smoking is using oxygen supplementation chronically at baseline at 2 L. Admits worsening mentation, worsening respiratory distress, balance issues and more frequent falls in the last couple of days that prompted family to bring the patient to the ER for further evaluation and management. Febrile Tmax of greater than 100.2, upon admission. neutrophilic predominant leukocytosis. Comprehensive respiratory viral PCR panel negative. Blood gas upon admission mixed respiratory and metabolic acidosis. Most recent blood gas improved pH of 7.33 pCO2 44.1. Chest x-ray upon admission dense left lower lobe consolidative changes. ET tube in place, 4 cm above the seamus no pleural effusions appreciated. CT chest February 2025 upper lobe predominant centrilobular emphysematous changes. 3 cm anterior mediastinal mass. Currently receiving vancomycin and Zosyn, DuoNebs Q6 scheduled on methylprednisolone 40 every 12 scheduled. Interval update: No acute respiratory vents overnight. Continue to remain on minimal ventilator settings. CT head no acute changes. Gradually improving mentation. BUN/creatinine improving/improving urine output. Improving leukocytosis. Blood cultures no growth 24 hours. Continue to receive vancomycin and Zosyn and doxycycline. Plan: Continue mechanical ventilatory support. Undergoing SBT this morning, successful, lethargic, will continue to monitor for mentation improvement for extubation to BiPAP Currently on minimal ventilator settings, settings weaned to PEEP of 5 FiO2 50% with a rate of 22 and tidal volume of 380. Continue DuoNebs every 6 hours along with Pulmicort every 12 scheduled Chest x-ray continue to show left sided consolidative changes not significantly worse from prior. Hemodynamically stable on vasopressors. 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 - Continue mechanical ventilatory support - Continue AnalgoSedation with Propofol and Fentanyl with CPOT gal less than or euqal to 2 and RASS goal of to 2 (No need for deep sedation) - VAP bundle Recommend elevate head of the bed at 30 to 45 degrees Recommend oral care with chlorhexidne Recommend GI ulcer prophylaxis - Famotidine 20mg IV BID Recommend chemical DVT prophylaxis Total critical care time spent on this patient is 35 minutes managing acute hypoxic respiratory failure needing mechanical ventilation. This time spent include reviewing test results including interpreting chest x-rays, labs and arterial blood gas, optimizing the ventilator settings,formulating plan of care, discussing the plan of care with the team and the nursing staff.
[2025-07-04] MEDS: HEPARIN SODIUM 5,000 UNIT/ML VIAL 5000 UNIT SUBCUT ×3 (10:31→21:13)
[2025-07-04] MEDS: DOXYCYCLINE HYCLATE 100 MG in 0.9 % SODIUM CHLORIDE 250 ML 166 MG IV ×2 (10:32→21:14)
[2025-07-04] MEDS: NICOTINE 21MG/24HR PATCH 21 MG TD (10:34)
--- NOTE | 2025-07-04 10:59 | PC.NURSE ---
0712 SBT started by A Megan RT. 1045 pt extubated by a Megan MONTERRSOO. Nadege Rebolledo at bedside. pt placed on bipap
--- NOTE | 2025-07-04 11:03 | PC.NURSE ---
Pt. extubated at 1045am to Bipap 16,20,40%
[2025-07-04 11:20] LABS: POC Glucose,Bedside 157 gm/dL (70-110)
[2025-07-04 12:57] LABS: Lactate Venous 1.3 mmol/L (0.4-2.0); VBG HCO3 22.5 mmol/L (23-30); VBG PCO2 37.7 mmol/L (35-51); VBG PH 7.39 mmol/L (7.31-7.41); VBG PO2 58.7 mmol/L (28-40)
[2025-07-04] MEDS: PIPERACILLIN/TAZO 4.5 GM in 0.9 % SODIUM CHLORIDE 100 ML IV ×2 (13:23→18:40)
[2025-07-04 19:47] LABS: POC Glucose,Bedside 128 gm/dL (70-110)
[2025-07-04] MEDS: PANTOPRAZOLE 40MG VIAL 40 MG IV (21:13)
[2025-07-04] MEDS: SODIUM CHLORIDE 0.9% 10ML VIAL 10 ML IV (21:13)
[2025-07-04] MEDS: VANCOMYCIN HCL 1,000 MG in 0.9 % SODIUM CHLORIDE 250 ML 125 MG IV (21:13)
--- NOTE | 2025-07-04 21:47 | P.PN_ITS ---
Subjective *Date: 07/14/25 *Time: 10:38 Interval history: Patient undergoing SBT this morning. Alert and following commands this morning. Extubated later in the morning, transition to BiPAP and now on 5 L nasal cannula. Continue vancomycin, Zosyn for pneumonia. Wean O2 as tolerated. Exam Data for Last 24 hours Vital signs and Labs for Last 24 Hours: Temp Pulse Resp BP Pulse Ox O2 Del Method O2 Flow Rate 98.1 F 90 18 104/51 L 90 L Nasal Cannula 5 07/04/25 21:00 07/04/25 21:00 07/04/25 21:00 07/04/25 21:00 07/04/25 21:00 07/04/25 21:00 07/04/25 21:00 FiO2 40 07/04/25 15:19 Laboratory Results - last 24 hr 07/03/25 22:22: NT-Pro-B Natriuret Pep 4190 H 07/04/25 00:57: POC Glucose 150 H 07/04/25 05:37: WBC 19.0 H D, RBC 3.86 L, Hgb 11.6 L, Hct 36.9 L, MCV 95.6, MCH 30.1, MCHC 31.4 L, RDW 15.2, Plt Count 117 L D, MPV 11.2 H, Neut % (Auto) 87.5 H , Lymph % (Auto) 2.5 L, [place] % (Auto) 2.9, Eos % (Auto) 0.6, Baso % (Auto) 0.3, Neut # (Auto) 16.6 H, Lymph # (Auto) 0.5 L, [place] # (Auto) 0.6, Eos # (Auto) 0.1, Baso # (Auto) 0.1, Total Counted 100, Neutrophils % (Manual) 97 H, Lymphocytes % (Manual) 1 L, Monocytes % (Manual) 2, Platelet Estimate Slight decrease, RBC Morphology Normal, Specimen Source Cancelled, O2 % Cancelled, ABG pH Cancelled, ABG pCO2 Cancelled, ABG pO2 Cancelled, ABG HCO3 Cancelled, ABG Total CO2 Cancelled, ABG O2 Saturation Cancelled, ABG Base Excess Cancelled, [place] Test Cancelled, VBG pH 7.37, VBG pCO2 39.1, VBG pO2 100.9 H, VBG HCO3 22.3 L, VBG Total CO2 23.5, VBG O2 Saturation 97.8 H, VBG Base Excess -2.9 L, VBG Lactic Acid 1.4, Vent Rate Cancelled, Tidal Volume Cancelled, PEEP Cancelled, Sodium 133 L, Potassium 4.1 D, Chloride 104, Carbon Dioxide 22, Anion Gap 11.1, BUN 34 H, Creatinine 0.90 D, Estimated Creat Clear 50, Estimated GFR 62, Est GFR ( Amer) 75 D, Glucose 171 H, Calcium 8.0 L 07/04/25 06:48: POC Glucose 166 H 07/04/25 11:13: POC Glucose 157 H 07/04/25 13:00: VBG pH 7.39, VBG pCO2 37.7, VBG pO2 58.7 H, VBG HCO3 22.5 L, VBG Total CO2 23.6, VBG O2 Saturation 92.1 H, VBG Base Excess -2.4, VBG Lactic Acid 1.3 07/04/25 19:32: POC Glucose 128 H I & O for Last 24 hours: Intake & Output 07/01/25 07/02/25 07/03/25 07/04/25 23:59 23:59 23:59 23:59 Intake Total 100 / 675.306 8919.151 / 4947.784 1309.059 / 1309.059 Output Total 1405 / 1405 695 / 695 Balance 100 / 000.846 6926.151 / 3542.784 614.059 / 614.059 Weight 63.503 kg 60.6 kg 62.7 kg Microbiology Reports for the Last 24 Hours: Microbiology 07/03/25 02:00 Rectum CRE Surveillance Culture - Final Negative 07/03/25 00:13 Sputum - Endotracheal Tube Aspirate Gram Stain - Final 07/03/25 00:13 Sputum - Endotracheal Tube Aspirate Sputum Culture - Preliminary 07/02/25 23:29 Blood Blood Culture - Preliminary NO GROWTH AFTER 24 HOURS 07/02/25 22:45 Blood Blood Culture - Preliminary NO GROWTH AFTER 24 HOURS Constitutional Constitutional: mild distress *Routine HEENT Exam Head: Present normocephalic Eye: Present EOMI and PERRL ENT: Present mucous membranes moist *Routine Neck Exam Neck: Present supple; Absent lymphadenopathy *Routine Respiratory Exam Respiratory: Present wheezes, crackles and distant breath sounds; Absent CTA bilaterally *Routine Cardiovascular Exam Cardiovascular: Present RRR *Routine Abdominal Exam Abdominal: Present soft and normoactive bowel sounds; Absent tenderness *Routine Extremities Exam Extremities: Absent cyanosis, clubbing or edema *Routine Skin Exam Skin: Present warm; Absent rash *Routine Neurological Exam Neurological: Present alert and oriented X3 Assessment and Plan *Assessment and plan (1) Acute and chronic respiratory failure with hypoxia: Status: Acute Category: Medical Code(s): J96.21 - Acute and chronic respiratory failure with hypoxia (2) Pneumonia: Problem Comment: Streptococcus pneumoniae Status: Acute Qualifiers: Laterality: left Lung location: lower lobe of lung Pneumonia type: due to unspecified organism Qualified Code(s): J18.9 - Pneumonia, unspecified organism Category: Medical Code(s): J18.9 - Pneumonia, unspecified organism Plan Sabra Phoenix is a 70-year-old female with medical history significant for COPD and HFpEF presented with shortness of breath and was admitted for community- acquired pneumonia after intubation for hypoxic respiratory failure. #Acute on chronic hypoxic respiratory failure #Mechanical ventilation, resolved #COPD exacerbation #Community-acquired pneumonia, strep pneumonia #Sepsis ? Presented with shortness of breath was found to have left lower lobe pneumonia on initial CXR. Initial WBC 28, with tachycardia. ? Required intubation for hypoxia in ER, extubated on 07/04/2025. Transitioned from BiPAP to 6 L nasal cannula. ? WBC improved to 19.0 today. ? Discussed with pulmonology today, continue vancomycin and Zosyn pending final sputum cultures. ? Continue DuoNebs every 4 hours, Mucomyst every 6 hours, Pulmicort twice daily. ? Follow-up PT/OT recommendations. #HFpEF ? Follow-up ECHO. ? Continue IV Lasix 40 mg daily. Creatinine stable at 0.90. #Normocytic anemia ? Hemoglobin around 11.0 Stable. Continue to monitor. Full code DVT prophylaxis: IPC's due to thrombocytopenia Medications: Completed.
[2025-07-04 23:46] LABS: Lactate Venous 1.5 mmol/L (0.4-2.0); VBG HCO3 22.2 mmol/L (23-30); VBG PCO2 40.0 mmol/L (35-51); VBG PH 7.36 mmol/L (7.31-7.41); VBG PO2 62.3 mmol/L (28-40)
[2025-07-05] VITALS (26 sets, daily range): BP systolic 93–125; BP diastolic 45–63; PULSE 84–116; RESP 16–22; TEMP 36.4–37.4; O2SAT 90–99; BMI 24.6
[2025-07-05] MEDS: PIPERACILLIN/TAZO 4.5 GM in 0.9 % SODIUM CHLORIDE 100 ML IV ×4 (00:33→17:57)
[2025-07-05 00:52] LABS: POC Glucose,Bedside 131 gm/dL (70-110)
[2025-07-05] MEDS: IPRATROPIUM/ALBUTEROL 3 ML NEB IH ×5 (05:54→23:25)
[2025-07-05] MEDS: BUDESONIDE 0.5MG/2ML NEB 0.5 MG IH ×2 (05:54→17:55)
[2025-07-05 06:25] LABS: POC Glucose,Bedside 115 gm/dL (70-110)
[2025-07-05 07:10] LABS: Lactate Venous 1.5 mmol/L (0.4-2.0); VBG HCO3 22.1 mmol/L (23-30); VBG PCO2 36.6 mmol/L (35-51); VBG PH 7.40 mmol/L (7.31-7.41); VBG PO2 44.3 mmol/L (28-40)
[2025-07-05 07:20] LABS: Hematocrit 35.2 % (37.0-47.0); Hemoglobin 11.0 g/dL (12.2-16.2); Immature Granulocytes % 0.7 %; Mean Corpuscular HGB Conc 31.3 g/dL (31.8-35.4); Mean Corpuscular Hemoglobin 30.3 pg (27.0-31.2); Mean Corpuscular Volume 97.0 fl (81-99); Nucleated Red Blood Cells % 0 %; Platelet Count 106 K/mm3 (142-424); Red Blood Count 3.63 M/mm3 (4.20-5.40); Red Cell Distribution Width-SD 54.7 fL; White Blood Count 9.7 K/mm3 (4.8-10.8)
[2025-07-05 07:28] LABS: Anion Gap 12.9 mEq/L (5-15); Blood Urea Nitrogen 36 mg/dl (7-17); Calcium 8.3 mg/dl (8.4-10.2); Carbon Dioxide 23 mmol/L (22.0-30.0); Chloride 106 mmol/L (98-107); Creatinine Clearance Estimated 52 mL/min (50-200); Creatinine,Serum 0.90 mg/dl (0.52-1.04); Estimated Glomerular Filt Rate 62 ml/min (>60); GFR (African American) 75 ML/MIN (>60); Glucose 118 mg/dl (74-100); Potassium 3.9 mmoL/L (3.5-5.1); Sodium 138 mmol/L (136-145)
--- NOTE | 2025-07-05 08:50 | HMH.PHAAMS2 ---
- Antimicrobial Stewardship Review culture & sensitivity review Stewardship interventions: culture & sensitivity review Comments: ON VANCOMYCIN/DOXYCYCLINE/ZOSYN FOR SEPSIS/PNEUMONIA. BLOOD CX NO GROWTH AT 48 HRS, SPUTUM CX GROWING GRAM POSITIVE COCCI WITH FINAL ID/SENSITIVITY PENDING.
--- NOTE | 2025-07-05 09:04 | XR_ITS ---
PROCEDURE INFORMATION: Exam: XR Chest Exam date and time: 07/05/2025 9:01 AM Age: 70 years old Clinical indication: Other: Post extubating; Additional info: Post extubation TECHNIQUE: Imaging protocol: Radiologic exam of the chest. Views: 1 view. COMPARISON: CR XR CHEST PORTABLE 07/04/2025 5:40 AM FINDINGS: Lungs: There is poor ventilation of the lungs, with perihilar vascular crowding and a diffuse increase in pulmonary parenchymal density. Patchy and coalescent opcity in left lower lobe is reidentified. Pleural spaces: Moderate left pleural effusion. Heart/Mediastinum: Unremarkable. No cardiomegaly. Bones/joints: Unremarkable. IMPRESSION: 1. Patchy and coalescent opcity in left lower lobe is reidentified. 2. Moderate left pleural effusion.
[2025-07-05] MEDS: SODIUM CHLORIDE 3% 15ML NEB 3 ML IH (09:08)
[2025-07-05 09:39] LABS: POC Glucose,Bedside 111 gm/dL (70-110)
[2025-07-05] MEDS: DOXYCYCLINE HYCLATE 100 MG in 0.9 % SODIUM CHLORIDE 250 ML 166 MG IV (10:20)
[2025-07-05] MEDS: HEPARIN SODIUM 5,000 UNIT/ML VIAL 5000 UNIT SUBCUT ×3 (10:21→20:48)
[2025-07-05] MEDS: NICOTINE 21MG/24HR PATCH 21 MG TD (10:24)
[2025-07-05] MEDS: FUROSEMIDE 40MG/4ML VIAL 40 MG IV (10:34)
--- NOTE | 2025-07-05 12:59 | PC.NURSE ---
1030 bedside swallow eval performed by RN. pt tolerated sips of water from open cup, no obvious signs of aspiration noted. pt was then given sips of water from straw. again no obvious signs of aspiration noted. Dr Escalante notified of results of swallow eval, per ok to place patient on clear liquid diet
[2025-07-05 17:33] LABS: POC Glucose,Bedside 106 gm/dL (70-110)
[2025-07-05] MEDS: PANTOPRAZOLE 40MG VIAL 40 MG IV (20:48)
[2025-07-05] MEDS: DOXYCYCLINE HYCLATE 100 MG in 0.9 % SODIUM CHLORIDE 250 ML 167 MG IV (20:52)
[2025-07-05] MEDS: humaLOG 100 UNITS/ML 10ML VIAL (SSI) SUBCUT (21:15)
[2025-07-05 21:42] LABS: Vancomycin,Trough 10.7 ug/mL (5.0-10.0)
[2025-07-05] MEDS: VANCOMYCIN HCL 1,000 MG in 0.9 % SODIUM CHLORIDE 250 ML 125 MG IV (21:55)
--- NOTE | 2025-07-05 22:13 | P.PN_ITS ---
Subjective *Date: 07/14/25 *Time: 10:46 Interval history: Patient continues to have thick, copious mucus production. Saturating appropriately on 4-6L nasal cannula. Continue DuoNebs, vancomycin, Zosyn, doxycycline. Consider steroids in the morning. Advance diet to soft diet. Exam Data for Last 24 hours Vital signs and Labs for Last 24 Hours: Temp Pulse Resp BP Pulse Ox O2 Del Method O2 Flow Rate 99.3 F 100 H 19 93/49 L 96 Nasal Cannula 6 07/05/25 20:00 07/05/25 20:00 07/05/25 20:00 07/05/25 20:00 07/05/25 20:00 07/05/25 21:00 07/05/25 21:00 FiO2 40 07/04/25 15:19 Laboratory Results - last 24 hr 07/04/25 23:38: VBG pH 7.36, VBG pCO2 40.0, VBG pO2 62.3 H, VBG HCO3 22.2 L, VBG Total CO2 23.5, VBG O2 Saturation 92.6 H, VBG Base Excess -3.2 L, VBG Lactic Acid 1.5 07/05/25 00:41: POC Glucose 131 H 07/05/25 06:00: VBG pH 7.40, VBG pCO2 36.6, VBG pO2 44.3 H, VBG HCO3 22.1 L, VBG Total CO2 23.2, VBG O2 Saturation 85.4 H, VBG Base Excess -2.7 L, VBG Lactic Acid 1.5 07/05/25 06:13: POC Glucose 115 H 07/05/25 07:00: WBC 9.7 D, RBC 3.63 L, Hgb 11.0 L, Hct 35.2 L, MCV 97.0, MCH 30.3, MCHC 31.3 L, RDW 15.2, Plt Count 106 L, MPV 11.3 H, Neut % (Auto) 88.6 H, Lymph % (Auto) 7.6 L, [place] % (Auto) 2.8, Eos % (Auto) 0.0 L, Baso % (Auto) 0.3, Neut # (Auto) 8.6 H, Lymph # (Auto) 0.7, [place] # (Auto) 0.3, Eos # (Auto) 0.0, Baso # (Auto) 0.0, Sodium 138, Potassium 3.9, Chloride 106, Carbon Dioxide 23, Anion Gap 12.9, BUN 36 H, Creatinine 0.90, Estimated Creat Clear 52, Estimated GFR 62, Est GFR ( Amer) 75, Glucose 118 H, Calcium 8.3 L 07/05/25 09:02: POC Glucose 111 H 07/05/25 16:47: POC Glucose 106 07/05/25 21:13: Vancomycin Trough 10.7 H I & O for Last 24 hours: Intake & Output 07/02/25 07/03/25 07/04/25 07/05/25 23:59 23:59 23:59 23:59 Intake Total 100 / 580.884 7448.151 / 4947.784 1851.218 / 1851.218 990 / 990 Output Total 1405 / 1405 695 / 895 2930 / 2930 Balance 100 / 296.907 5169.151 / 3542.784 1156.218 / 956.218 -1940 / -1940 Weight 63.503 kg 60.6 kg 62.7 kg 63 kg Microbiology Reports for the Last 24 Hours: Microbiology 07/03/25 00:13 Sputum - Endotracheal Tube Aspirate Gram Stain - Final 07/03/25 00:13 Sputum - Endotracheal Tube Aspirate Sputum Culture - Preliminary Gram Positive Cocci 07/02/25 23:29 Blood Blood Culture - Preliminary NO GROWTH AFTER 48 HOURS 07/02/25 22:45 Blood Blood Culture - Preliminary NO GROWTH AFTER 48 HOURS Constitutional Constitutional: mild distress *Routine HEENT Exam Head: Present normocephalic Eye: Present EOMI and PERRL ENT: Present mucous membranes moist *Routine Neck Exam Neck: Present supple; Absent lymphadenopathy *Routine Respiratory Exam Respiratory: Present wheezes, crackles and distant breath sounds; Absent CTA bilaterally *Routine Cardiovascular Exam Cardiovascular: Present RRR *Routine Abdominal Exam Abdominal: Present soft and normoactive bowel sounds; Absent tenderness *Routine Extremities Exam Extremities: Absent cyanosis, clubbing or edema *Routine Skin Exam Skin: Present warm; Absent rash *Routine Neurological Exam Neurological: Present alert and oriented X3 Assessment and Plan *Assessment and plan (1) Acute and chronic respiratory failure with hypoxia: Status: Acute Category: Medical Code(s): J96.21 - Acute and chronic respiratory failure with hypoxia (2) Pneumonia: Problem Comment: Streptococcus pneumoniae Status: Acute Qualifiers: Laterality: left Lung location: lower lobe of lung Pneumonia type: due to unspecified organism Qualified Code(s): J18.9 - Pneumonia, unspecified organism Category: Medical Code(s): J18.9 - Pneumonia, unspecified organism Nagi Phoenix is a 70-year-old female with medical history significant for COPD and HFpEF presented with shortness of breath and was admitted for community- acquired pneumonia after intubation for hypoxic respiratory failure. #Acute on chronic hypoxic respiratory failure #Mechanical ventilation, resolved #COPD exacerbation #Community-acquired pneumonia, strep pneumonia #Sepsis ? Presented with shortness of breath was found to have left lower lobe pneumonia on initial CXR. Initial WBC 28, with tachycardia. ? Required intubation for hypoxia in ER, extubated on 07/04/2025. ? WBC improved to 9.7 today. ? Discussed with pulmonology today, continue vancomycin and Zosyn pending final sputum cultures. ? Continue DuoNebs every 4 hours, Mucomyst every 6 hours, Pulmicort twice daily. ? Still requiring 4 to 6 L nasal cannula. Will consider steroids in the morning. ? Follow-up PT/OT recommendations. #HFpEF ? Follow-up ECHO. ? Continue IV Lasix 40 mg daily. Creatinine stable at 0.90. #Normocytic anemia ? Hemoglobin around 11.0 Stable. Continue to monitor. Full code DVT prophylaxis: IPC's due to thrombocytopenia Medications: Completed.
[2025-07-06] VITALS (15 sets, daily range): BP systolic 103–117; BP diastolic 51–78; PULSE 83–101; RESP 13–20; TEMP 36.9–37.2; O2SAT 94–98; BMI 24.6
[2025-07-06] MEDS: PIPERACILLIN/TAZO 4.5 GM in 0.9 % SODIUM CHLORIDE 100 ML IV ×3 (00:14→14:30)
--- NOTE | 2025-07-06 00:20 | HMH.ITSTN ---
Per comment in XR order, discontinue when extubated , XR Port Chest order for 07/06/2025 cancelled after calling ICU to verify pt extubation
[2025-07-06] MEDS: IPRATROPIUM/ALBUTEROL 3 ML NEB IH ×4 (06:12→23:07)
[2025-07-06] MEDS: BUDESONIDE 0.5MG/2ML NEB 0.5 MG IH ×2 (06:12→18:27)
[2025-07-06 06:13] LABS: POC Glucose,Bedside 119 gm/dL (70-110)
--- NOTE | 2025-07-06 06:54 | PC.NURSE ---
Called lab to verify they are coming to collect VBG
[2025-07-06 07:45] LABS: Lactate Venous 1.2 mmol/L (0.4-2.0); VBG HCO3 24.2 mmol/L (23-30); VBG PCO2 37.6 mmol/L (35-51); VBG PH 7.43 mmol/L (7.31-7.41); VBG PO2 64.8 mmol/L (28-40)
[2025-07-06 07:48] LABS: Hematocrit 34.0 % (37.0-47.0); Hemoglobin 10.5 g/dL (12.2-16.2); Immature Granulocytes % 0.9 %; Mean Corpuscular HGB Conc 30.9 g/dL (31.8-35.4); Mean Corpuscular Hemoglobin 29.7 pg (27.0-31.2); Mean Corpuscular Volume 96.3 fl (81-99); Nucleated Red Blood Cells % 0 %; Platelet Count 91 K/mm3 (142-424); Red Blood Count 3.53 M/mm3 (4.20-5.40); Red Cell Distribution Width-SD 54.5 fL; White Blood Count 5.5 K/mm3 (4.8-10.8)
[2025-07-06 08:21] LABS: Anion Gap 8.3 mEq/L (5-15); Blood Urea Nitrogen 34 mg/dl (7-17); Calcium 8.2 mg/dl (8.4-10.2); Carbon Dioxide 27 mmol/L (22.0-30.0); Chloride 107 mmol/L (98-107); Creatinine Clearance Estimated 52 mL/min (50-200); Creatinine,Serum 0.90 mg/dl (0.52-1.04); Estimated Glomerular Filt Rate 62 ml/min (>60); GFR (African American) 75 ML/MIN (>60); Glucose 127 mg/dl (74-100); Potassium 3.3 mmoL/L (3.5-5.1); Sodium 139 mmol/L (136-145)
--- NOTE | 2025-07-06 10:17 | HMH.PHAAMS2 ---
- Antimicrobial Stewardship Review culture & sensitivity review Stewardship interventions: culture & sensitivity review Comments: SPUTUM GROWING GRAM POSITIVE COCCI WITH ID/SENSITIVITY STILL PENDING, PATIENT ON VANCOMYCIN, DOXYCYLINE, ZOSYN FOR ICU PNEUMONIA
[2025-07-06] MEDS: DOXYCYCLINE HYCLATE 100 MG in 0.9 % SODIUM CHLORIDE 250 ML 167 MG IV (10:20)
[2025-07-06] MEDS: HEPARIN SODIUM 5,000 UNIT/ML VIAL 5000 UNIT SUBCUT ×2 (10:20→14:31)
[2025-07-06] MEDS: METHYLPREDNISOLONE SOD SUCC 40MG VIAL 40 MG IV (10:21)
[2025-07-06] MEDS: NICOTINE 21MG/24HR PATCH 21 MG TD (10:22)
--- NOTE | 2025-07-06 10:26 | HMH.PHAAMS2 ---
- Antimicrobial Stewardship Review 48 hour timeout review Stewardship interventions: 48 hour timeout review Comments: ON DOXYCYLINE, VANCOMYCIN, ZOSYN 48 HRS. TREATING ICU PNEUMONIA/SEPSIS. SPUTUM CX PENDING ID WITH GRAM POSITIVE COCCI. RECOMMEND 5 DAYS OF ANTIBIOTICS.
--- NOTE | 2025-07-06 10:42 | HMH.PTEV ---
Physical Therapy Evaluation Rehab PT IP Evaluation Start: 07/03/25 03:31 Freq: ONCE Status: Active Protocol: Document 07/06/25 10:23 TIM (Rec: 07/06/25 10:41 TIM [id number]) Subjective/History History History This is a 70-year-old female who is known to our service line and has a past medical history significant for COPD most likely end-stage, HFpEF, vitamin D deficiency, osteoporosis, hyperlipidemia, seasonal allergies, and diabetes who presents with a chief complaint of shortness of breath. Patient underwent RSI in the emergency room; as a result, her review of systems is limited. The majority of information was obtained from the ER provider and chart review. According to ER provider, patient presented due to respiratory distress. ER provider did inform me that patient fell and hit her coccyx last night but had no significant injury warranting immediate evaluation. She presents today with shortness of air. EMS reports her oxygen saturations was in the 70s on her home O2 regimen, patient's blood pressure was 73/40 , she was febrile with a temperature of 101.5, and her heart rate was increased at 137. Due to patient failing noninvasive ventilation, family was in agreeance for patient to undergo RSI. Patient was intubated and imaging of the chest revealed left lower lobe pneumonia. Clinically, patient has a septic picture. As a result, hospital medicine was consulted for further management. During my evaluation of the patient, she could provide no meaningful data. She was resting on the ventilator with some intermittent movements. While in the emergency room, patient was placed on fentanyl and Versed drip. I encouraged nursing staff to titrate to a RASS of -2 or see part of 4. Additional pertinent vitals obtained include a white blood cell count of 27. 9, neutrophils 83.9%, venous blood gas revealed a pH of 7.23/bicarb of 17.8, chloride of 95, carbon oxide of 18, BUN of 38, creatinine 1.40, GFR of 37, blood glucose 185, total bilirubin 1.8, BNP 2620, and respiratory panel was negative. Subjective Subjective Pt in bed upon arrival with daughter at bedside. Pt is alert and oriented x3. Pt reports that she lives in a house with her daughter who helps her with her typical ADLs. Pt reports that prior to her hospitalization, she used a cane for most mobility. Per nursing, pt was extubated on Monday and was extremely agitated. Pt has settled down and was cleared for OOB mobility by nursing. New diagnosis of No cancer in past 12 months? [facility] How much help from another person do you currently need... Turning from your A little back to your side while in a flat bed without using bedrails? Moving from lying on A lot back to sitting on the side of a flat bed without using bedrails? Moving to and from a A lot bed to a chair ( including a wheelchair)? Standing up from a A lot chair using your arms? (e.g., wheelchair, bedside chair) Walking in hospital A lot room? Climbing 3-5 steps Total with a railing? Mobility Score 12 Mobility Level [facility] Mobility 4 Move to chair/commode Mobility Calculator Rehab PT IP Eval Objective Appearance Patient Behavior Appropriate,Patient Baseline Patient Orientation Person,Place,Time Difficulty following none instructions Speech Pattern Patient Baseline Ambulation Patient Able to Yes Ambulate Ambulation Observation IP General Gait Shuffling Step Pattern Observation Ambulation Distance 2 (feet) Ambulation Assistive None Device Ambulation Ability Moderate x 1 (50% assist) Balance Ability to Arise Able, uses arms to help Sitting Balance Steady, safe Standing Balance Unsteady Dynamic Sitting Fair Balance Ability Dynamic Standing Poor Balance Ability Transfers Bed Transfer Ability Moderate x 1 (50% assist) Sit to Stand Bed Moderate x 1 (50% assist) Transfer Ability Sit to Stand Chair Moderate x 1 (50% assist) Transfer Ability Rehab PT IP prob,goals,plan Problems Date of Evaluation: 07/06/25 PT IP Problems Bed Mobility,Transfers,Gait,Balance,Self care,Safety Rehab Potential Rehab Potential Fair Equipment Needs Assistive Devices None / NA Plan PT Intervention Plan Bed Mobility,Transfers,Gait,Balance,Self care,Safety, Therapeutic Exercise PT Plan Frequency Daily Duration LOS Discharge Goals Bed Transfer Ability Independent Sit to Stand Chair Independent Transfer Ability Ambulation Assistive Straight Cane Device Ambulation Distance 50 (feet) Discharge Plan PT Discharge Plan Pt presents below baseline for all functional mobility at this time. Skilled PT is indicated for this pt during her acute stay. Pt is also unfit for a safe discharge to home at this time. Pt requires more assistance with mobility than is able to be offered by her daughter. Pt would best benefit from a discharge to Rehab for further therapy, when deemed medically stable. Eval Complexity Eval Charge Codes 44243 - High Complexity PHYSICIAN CERTIFICATION: I certify the specified therapy services for [facility] are required, authorized, and reviewed every 30 days.
[2025-07-06 11:35] LABS: POC Glucose,Bedside 140 gm/dL (70-110)
--- NOTE | 2025-07-06 16:44 | EXP.PN ---
Subjective *Date: 07/06/25 *Time: 16:44 Interval history: Patient states she is doing about the same as yesterday, continues to require 6 L nasal cannula with airway restriction. Continue DuoNebs, steroids, Pulmicort. Started Mucomyst. Respiratory culture growing strep pneumonia, de-escalated antibiotics to Zosyn. Exam Data for Last 24 hours Vital signs and Labs for Last 24 Hours: Temp Pulse Resp BP Pulse Ox O2 Del Method O2 Flow Rate 98.6 F 91 H 18 103/78 L 97 Nasal Cannula 6 07/06/25 16:14 07/06/25 16:14 07/06/25 16:14 07/06/25 16:14 07/06/25 16:14 07/06/25 16:14 07/06/25 16:14 FiO2 40 07/04/25 15:19 Laboratory Results - last 24 hr 07/05/25 16:47: POC Glucose 106 07/05/25 21:13: Vancomycin Trough 10.7 H 07/06/25 06:06: POC Glucose 119 H 07/06/25 07:11: WBC 5.5 D, RBC 3.53 L, Hgb 10.5 L, Hct 34.0 L, MCV 96.3, MCH 29.7, MCHC 30.9 L, RDW 15.3, Plt Count 91 L, MPV 11.4 H, Neut % (Auto) 76.0, Lymph % (Auto) 16.5, [place] % (Auto) 6.2, Eos % (Auto) 0.2, Baso % (Auto) 0.2, Neut # (Auto) 4.1, Lymph # (Auto) 0.9, [place] # (Auto) 0.3, Eos # (Auto) 0.0, Baso # (Auto) 0.0, VBG pH 7.43 H, VBG pCO2 37.6, VBG pO2 64.8 H, VBG HCO3 24.2, VBG Total CO2 25.3, VBG O2 Saturation 93.3 H, VBG Base Excess -0.2, VBG Lactic Acid 1.2, Sodium 139, Potassium 3.3 L, Chloride 107, Carbon Dioxide 27, Anion Gap 8.3, BUN 34 H, Creatinine 0.90, Estimated Creat Clear 52, Estimated GFR 62, Est GFR ( Amer) 75, Glucose 127 H, Calcium 8.2 L 07/06/25 11:22: POC Glucose 140 H I & O for Last 24 hours: Intake & Output 07/03/25 07/04/25 07/05/25 07/06/25 23:59 23:59 23:59 23:59 Intake Total 4944.151 / 4947.784 1851.218 / 2094.739 8957 / 1480 1280 / 1280 Output Total 1405 / 1405 695 / 895 2930 / 3230 500 / 500 Balance 3539.151 / 3542.784 1156.218 / 956.218 -1690 / -1750 780 / 780 Weight 60.6 kg 62.7 kg 63 kg 63.1 kg Microbiology Reports for the Last 24 Hours: Microbiology 07/03/25 00:13 Sputum - Endotracheal Tube Aspirate Gram Stain - Final 07/03/25 00:13 Sputum - Endotracheal Tube Aspirate Sputum Culture - Final Streptococcus pneumoniae 07/02/25 22:45 Blood Blood Culture - Preliminary Constitutional Constitutional: mild distress and chronically ill appearing *Routine HEENT Exam Head: Present normocephalic Eye: Present EOMI and PERRL ENT: Present mucous membranes moist *Routine Neck Exam Neck: Present supple; Absent lymphadenopathy *Routine Respiratory Exam Respiratory: Present rhonchi and diminished air movement; Absent CTA bilaterally *Routine Cardiovascular Exam Cardiovascular: Present RRR *Routine Abdominal Exam Abdominal: Present soft and normoactive bowel sounds; Absent tenderness *Routine Extremities Exam Extremities: Absent cyanosis, clubbing or edema *Routine Skin Exam Skin: Present warm; Absent rash *Routine Neurological Exam Neurological: Present alert and oriented X3 Assessment and Plan *Assessment and plan (1) Acute and chronic respiratory failure with hypoxia: Status: Acute Category: Medical Code(s): J96.21 - Acute and chronic respiratory failure with hypoxia (2) Pneumonia: Status: Acute Qualifiers: Laterality: left Lung location: lower lobe of lung Pneumonia type: due to unspecified organism Qualified Code(s): J18.9 - Pneumonia, unspecified organism Category: Medical Code(s): J18.9 - Pneumonia, unspecified organism Plan Sabra Phoenix is a 70-year-old female with medical history significant for COPD and HFpEF presented with shortness of breath and was admitted for community-acquired pneumonia after intubation for hypoxic respiratory failure. #Acute on chronic hypoxic respiratory failure #Mechanical ventilation, resolved #COPD exacerbation #Community-acquired pneumonia, strep pneumonia #Severe sepsis, resolved ? Presented with shortness of breath was found to have left lower lobe pneumonia on initial CXR. Initial WBC 28, with tachycardia. ? Required intubation for hypoxia in ER, extubated on 07/04/2025. ? Respiratory culture positive for strep pneumonia. WBC improved to 5.5 today. ? Patient states she is doing about the same as yesterday, continues to require 6 L nasal cannula with airway restriction. ? Discussed with pulmonology today, weaned antibiotics to IV Zosyn 3.375 g every 6 hours, discontinue vancomycin and doxycycline. ? Continue DuoNebs every 4 hours, Mucomyst every 6 hours, Pulmicort twice daily. ? Started IV Solu-Medrol 40 mg daily. ? Currently requiring 6 L, wean to baseline 2 L as tolerated. ? PT evaluated, recommending SNF at this time. #HFpEF ? Follow-up ECHO. ? Continue IV Lasix 40 mg daily. Creatinine stable at 0.90. #Normocytic anemia ? Hemoglobin 10.5. Stable. Continue to monitor. #Thrombocytopenia ? Platelets 91. Slightly downtrending during admission. Continue monitor. Full code DVT prophylaxis: IPC's due to thrombocytopenia Medications: Completed.
[2025-07-06] MEDS: FUROSEMIDE 40MG/4ML VIAL 40 MG IV (16:58)
[2025-07-06] MEDS: humaLOG 100 UNITS/ML 10ML VIAL (SSI) SUBCUT ×2 (16:59→20:06)
--- NOTE | 2025-07-06 17:42 | PC.NURSE ---
Pt has remained in bed this shift. she was able to work at bedside with PT. lung sounds are diminished with scattered rhonchi, bowel sounds are hyperactive. pt has had 5 BM this shift. MD was notified that pt has had frequent bm this shift and it was noted to be foul smelling. no acute distress. pt family has been at bedside periodically this shift. nad noted. pt is a/o x 4. pt has dark yellow urine draining per velásquez cath, pt remains on 6lpm and has very loose sounding, slightly productive cough. pt is able to suction herself orally as need.
[2025-07-06 17:53] LABS: Acinetobacter calcoaceticus-ba Not Detected; Bacteroides fragilis Not Detected; Candida auris Not Detected; Candida glabrata Not Detected; Enterobacterales Not Detected; Enterococcus faecalis Not Detected; Enterococcus faecium Not Detected; Klebsiella aerogenes Not Detected; Klebsiella pneumoniae grp Not Detected; Proteus spp. Not Detected; Salmonella spp. Not Detected; Serratia marcescens Not Detected; Staphylococcus epidermidis Not Detected; Staphylococcus lugdunensis Not Detected; Staphylococcus spp. Not Detected; Stenotrophomonas maltophilia Not Detected; Streptococcus agalactiae(GrpB) Not Detected; Streptococcus pyogenes Group A Not Detected; Streptococcus spp. Not Detected
[2025-07-06 19:08] LABS: Legionella pneumophila Urinary Negative (Negative)
[2025-07-06 20:00] LABS: POC Glucose,Bedside 207 gm/dL (70-110)
[2025-07-06] MEDS: PIPERACILLIN/TAZO 3.375 GM in 0.9 % SODIUM CHLORIDE 100 ML IV (20:05)
[2025-07-06] MEDS: PANTOPRAZOLE 40MG VIAL 40 MG IV (20:06)
[2025-07-06] MEDS: SODIUM CHLORIDE 0.9% 10ML FLUSH SYRINGE 10 ML IV (20:07)
[2025-07-06] MEDS: ASPIRIN EC 81MG TABLET 81 MG PO (20:10)
[2025-07-07] VITALS (11 sets, daily range): BP systolic 98–121; BP diastolic 45–70; PULSE 82–97; RESP 14–22; TEMP 36.8–37.3; O2SAT 90–97; BMI 24.7
--- NOTE | 2025-07-07 00:02 | HMH.ITSTN ---
Per comment in XR order, discontinue when extubated , XR Port Chest order for 07/07/2025 cancelled after calling ICU to verify pt extubation
[2025-07-07] MEDS: PIPERACILLIN/TAZO 3.375 GM in 0.9 % SODIUM CHLORIDE 100 ML IV ×2 (01:59→08:30)
--- NOTE | 2025-07-07 06:00 | CA_ITS ---
APPROVED REPORT EXAM: Comprehensive 2D, Doppler, and color-flow Echocardiogram Research And Development Specialist: Blanche Hickman CRT Ht: 5 ft 2 in Wt: 139lbs BSA: 1.64 BP: 108/56 mmHg Indications: Congestive Heart Failure, COPD end stage, Diabetes, Hyperlipidemia, smoker 2D Dimensions LA Volume 36.40 mL LA Volume Index 21.70 mL/m2 (M/F) 16-34 M-Mode Dimensions RVDd 2.22 cm (0.9-2.6) LA Diam 3.28 cm (1.9-4.0) LVDd 4.29 cm (3.5-5.7) LVDs 3.01 cm (3.5-5.7) IVSd 2.25 cm (0.6-1.1) PWd 1.04 cm (0.6-1.1) EF (Teich) 57.30% FS 29.80% EDV (Teich) 82.60 mL TAPSE 1.72 (<1.7) ESV (Teich) 35.30 mL LV Diastology E Decel Time 127 (160-240 msec) E/A Ratio 0.85 MED A' 12.80 cm/s LAT A' 12.40 cm/s Aortic Valve AO Peak GR. 6.50 mmHg Mitral Valve MV E Max Ayad. 63.0 (40-130 cm/s) MV A Velocity 74.0 (40-130 cm/s) E/A Ratio 0.85 MV PHT 37.0 ms Pulmonary Valve PV Peak Velocity 127.0 (50-150 cm/s) Tricuspid Valve TR P. Velocity 222.00 cm/s RAP Estimate 10.00 mmHg RVSP 29.70 mmHg Left Ventricle The left ventricle is normal size. Left ventricular systolic function is normal. The left ventricular ejection fraction is within the normal range. There is normal left ventricular wall thickness. There is mild apical hypokinesis. The left ventricular diastolic function is normal. LVEF is 55% Right Ventricle The right ventricle is mildly dilated. The right ventricular systolic function is normal. Atria Left atrium is mildly dilated. Right atrium is mildly dilated. There is no color Doppler evidence of interatrial shunt. Aortic Valve The aortic valve is mildy thickened. There is no hemodynamically significant aortic valvular stenosis. Trace aortic regurgitation is present. Mitral Valve The mitral valve is normal in structure. No evidence of mitral valve stenosis. Mild mitral regurgitation is present. Tricuspid Valve The tricuspid valve leaflets are thin and pliable. Trace tricuspid regurgitation. There is insufficient TR jet to estimate RVSP. Pulmonic Valve The pulmonary valve is grossly normal in structure. Trace pulmonic valve regurgitation is present. Great Vessels The aortic root is normal in size. IVC is normal in size and collapses >50% with inspiration. Pericardium There is no pericardial effusion. Other Information Study Quality: Fair Conclusion Normal biventricular systolic function. Mild apical hypokinesis. Mild RV dilation. Mild MR. Electronically signed by : Alina Estevez MD 07/07/2025 23:25:05
[2025-07-07 06:19] LABS: Lactate Venous 1.4 mmol/L (0.4-2.0); VBG HCO3 29.1 mmol/L (23-30); VBG PCO2 35.6 mmol/L (35-51); VBG PH 7.53 mmol/L (7.31-7.41); VBG PO2 91.1 mmol/L (28-40)
[2025-07-07] MEDS: humaLOG 100 UNITS/ML 10ML VIAL (SSI) SUBCUT ×3 (06:23→16:43)
[2025-07-07 06:25] LABS: POC Glucose,Bedside 269 gm/dL (70-110)
[2025-07-07 06:36] LABS: Hematocrit 31.7 % (37.0-47.0); Hemoglobin 10.1 g/dL (12.2-16.2); Immature Granulocytes % 1.2 %; Mean Corpuscular HGB Conc 31.9 g/dL (31.8-35.4); Mean Corpuscular Hemoglobin 30.4 pg (27.0-31.2); Mean Corpuscular Volume 95.5 fl (81-99); Nucleated Red Blood Cells % 0 %; Platelet Count 90 K/mm3 (142-424); Red Blood Count 3.32 M/mm3 (4.20-5.40); Red Cell Distribution Width-SD 51.9 fL; White Blood Count 4.2 K/mm3 (4.8-10.8)
[2025-07-07] MEDS: IPRATROPIUM/ALBUTEROL 3 ML NEB IH (06:38)
[2025-07-07] MEDS: BUDESONIDE 0.5MG/2ML NEB 0.5 MG IH (06:38)
[2025-07-07 06:49] LABS: Anion Gap 7.5 mEq/L (5-15); Blood Urea Nitrogen 29 mg/dl (7-17); Calcium 8.5 mg/dl (8.4-10.2); Carbon Dioxide 31 mmol/L (22.0-30.0); Chloride 101 mmol/L (98-107); Creatinine Clearance Estimated 52 mL/min (50-200); Creatinine,Serum 0.70 mg/dl (0.52-1.04); Estimated Glomerular Filt Rate 83 ml/min (>60); GFR (African American) 100 ML/MIN (>60); Glucose 268 mg/dl (74-100); Potassium 3.5 mmoL/L (3.5-5.1); Sodium 136 mmol/L (136-145)
[2025-07-07] MEDS: FUROSEMIDE 40MG/4ML VIAL 40 MG IV (08:30)
[2025-07-07] MEDS: METHYLPREDNISOLONE SOD SUCC 40MG VIAL 40 MG IV (08:30)
--- NOTE | 2025-07-07 08:59 | HMH.PHAAMS2 ---
- Antimicrobial Stewardship Review culture & sensitivity review Stewardship interventions: culture & sensitivity review (PT ON ZOSYN VANCO STOPPED BY , WBC DECREASED FROM 33.2K TO 4.2K, AFEBRILE, STREP PNEUMO IN SPUTUM,ENDO TUBE CX.)
--- NOTE | 2025-07-07 09:24 | SW/DCPLANNER ---
Addendum entered by [facility] 07/09/25 12:57: Per Aria scott/ [facility] patient has been approved SNF level of care. I will update MD. Patient will discharge today. Addendum entered by [facility] 07/09/25 12:08: Per insurance auth is still pending at this time. Addendum entered by [facility] 07/09/25 07:38: Updated patient information faxed to Aria scott/ [facility]. Addendum entered by [facility] 07/08/25 11:23: Per Aria auth is still pending at this time. Addendum entered by [facility] 07/07/25 12:35: Aria scott/ [facility] stated that patient has out of network benefits and they can accept patient pending auth. Auth will be started today. I did update Aria that patient is not medically stable for discharge today. Addendum entered by [facility] 07/07/25 09:40: Per Brian scott/ Jonas Fischer no open beds at this time. Patient information has been faxed to Aria scott/ [facility]. Addendum entered by [facility] 07/07/25 09:27: Per Antonietta scott/ [facility] no beds at this time. Original Note: I spoke w/ patient and her daughter regarding plans once medically stable for discharge. PT/OT evaluated patient and recommended SNF level of care. Patient currently resides at home w/ her daughter but is agreeable to placement short term. Patient is only agreeable to placement in [place]. If patient is not able to stay in [place] both patient and daughter voiced she would return back home w/ daughter. I will reach out to local facilities and continue to follow up. Discharge date is unknown at this time.
--- NOTE | 2025-07-07 09:30 | P.PN_ITS ---
Subjective *Date: 07/07/25 *Time: 15:24 Interval history: No acute respiratory vents overnight. Patient admits continued improvement in her respiratory symptoms. Pulmonology Exam Inpatient Vital signs and Labs for Last 24 Hours: Temp Pulse Resp BP Pulse Ox O2 Del Method O2 Flow Rate 98.4 F 90 18 100/45 L 94 L Nasal Cannula 3 07/07/25 04:00 07/07/25 08:00 07/07/25 04:00 07/07/25 04:00 07/07/25 08:00 07/07/25 08:00 07/07/25 08:00 FiO2 40 07/04/25 15:19 Laboratory Results - last 24 hr 07/03/25 00:12: Ur L.pneumophila Ag Negative 07/06/25 11:22: POC Glucose 140 H 07/06/25 19:50: POC Glucose 207 H 07/06/25 22:45: A. baumannii (PCR) Not detected, Bacteroides fragilis Not detected, Raquel albicans (PCR) Not detected, Raquel auris (PCR) Not detected, C. glabrata (PCR) Not detected, C. krusei (PCR) Not detected, C. parapsilosis (PCR) Not detected, C. tropicalis (PCR) Not detected, Cryptococcus neoformans PCR Not detected, Enterobacterales (PCR) Not detected, Enterococc faecalis PCR Not detected, Enterococc faecium PCR Not detected, E. coli (PCR) Not detected, H. influenzae DNA Not detected, Klebsiella aerogenes (PCR) Not detected, Klebsiella oxytoca PCR Not detected, K. pneumoniae group (PCR) Not detected, List. monocytogenes PCR Not detected, N. meningitidis (PCR) Not detected, Proteus species (PCR) Not detected, Salmonella spp. (PCR) Not detected, Serratia marcescens PCR Not detected, Staphylococcus sp PCR Not detected, Staph aureus (PCR) Not detected, mecA/C & MREJ Resist Gene Not applicable, mecA/C-Methicil Resis Gene Not applicable, Staph epidermidis (PCR) Not detected, Staph lugdunensis (TEM-PCR) Not detected, S. maltophilia (PCR) Not detected, Streptococcus sp PCR Not detected, S.agalactiae Grp B JANE Not detected, Strep pneumoniae (PCR) Not detected, S. pyogenes GrpA JANE Not detected, P. aeruginosa (PCR) Not detected, Toña/B-Vanco Res Genes Not applicable, blaIMP Car res Gene PCR Not applicable, KPC-Carbap Res Gene PCR Not applicable, blaNDM Car Res Gene PCR Not applicable, OXA-48 Carbapenem Resis Gene (PCR) Not applicable, blaVIM Car Res Gene PCR Not applicable, CTX-M Gene Resistance (PCR) Not applicable, MCR-1 Resistance Gene Not applicable 07/07/25 05:58: WBC 4.2 L, RBC 3.32 L, Hgb 10.1 L, Hct 31.7 L, MCV 95.5, MCH 30.4, MCHC 31.9, RDW 14.7, Plt Count 90 L, MPV 11.2 H, Neut % (Auto) 75.7, Lymph % (Auto) 16.3, Bartholomew % (Auto) 6.6, Eos % (Auto) 0.0 L, Baso % (Auto) 0.2, Neut # (Auto) 3.2, Lymph # (Auto) 0.7, Bartholomew # (Auto) 0.3, Eos # (Auto) 0.0, Baso # (Auto) 0.0, VBG pH 7.53 H, VBG pCO2 35.6, VBG pO2 91.1 H, VBG HCO3 29.1, VBG Total CO2 30.2 H, VBG O2 Saturation 97.8 H, VBG Base Excess 6.4 H, VBG Lactic Acid 1.4, Sodium 136, Potassium 3.5, Chloride 101, Carbon Dioxide 31 H, Anion Gap 7.5, BUN 29 H, Creatinine 0.70 D, Estimated Creat Clear 52, Estimated GFR 83, Est GFR ( Amer) 100 D, Glucose 268 H D, Calcium 8.5 07/07/25 06:08: POC Glucose 269 H Temp Pulse Resp BP Pulse Ox O2 Del Method FiO2 98.2 F 101 H 22 101/52 L 95 Mechanical Ventilation 60 07/03/25 08:00 07/03/25 08:00 07/03/25 08:00 07/03/25 08:00 07/03/25 08:00 07/03/25 07:15 07/03/25 07:00 Laboratory Results - last 24 hr 07/02/25 22:34: WBC 27.9 H*, RBC 4.33, Hgb 13.2, Hct 41.7, MCV 96.3, MCH 30.5, MCHC 31.7 L, RDW 15.2, Plt Count 184, MPV 10.8 H, Neut % (Auto) 83.9 H, Lymph % (Auto) 5.3 L, Bartholomew % (Auto) 4.9, Eos % (Auto) 0.0 L, Baso % (Auto) 0.4, Neut # (Auto) 23.4 H, Lymph # (Auto) 1.5, Bartholomew # (Auto) 1.4 H, Eos # (Auto) 0.0, Baso # (Auto) 0.1, Total Counted 100, Neutrophils % (Manual) 85 H, Band Neutrophils % 2.0, Lymphocytes % (Manual) 9 L, Monocytes % (Manual) 3, Myelocytes % 1, Platelet Estimate Normal, Giant Platelets 1+, Polychromasia 1+, Poikilocytosis 1+, Anisocytosis 1+, Macrocytosis 1+, Target Cells 1+, Tear Drop Cells 1+, Ovalocytes 1+, VBG pH 7.23 L, VBG pCO2 43.9, VBG pO2 31.9, VBG HCO3 17.8 L, VBG Total CO2 19.1 L, VBG O2 Saturation 54.9, VBG Base Excess -9.9 L, VBG Lactic Acid 3.0 H, Sodium 136, Potassium 4.3, Chloride 95 L, Carbon Dioxide 18 L, Anion Gap 27.3 H, BUN 38 H, Creatinine 1.40 H, Estimated GFR 37 L, Est GFR ( Amer) 45 L, Glucose 185 H, Calcium 8.1 L, Total Bilirubin 1.8 H, AST 26, ALT 25, Alkaline Phosphatase 77, Troponin I < 0.01, NT-Pro-B Natriuret Pep 2620 H, Total Protein 7.5, Albumin 4.1, Globulin 3.4 H, Albumin/Globulin Ratio 1.2, HCV Ab ALESSANDRA w/Rflx PCR Qn Negative, HIV Ag/Ab Combo Qual Negative 07/02/25 23:20: VBG pH 7.27 L, VBG pCO2 40.4, VBG pO2 32.5, VBG HCO3 18.1 L, VBG Total CO2 19.3 L, VBG O2 Saturation 58.7, VBG Base Excess -8.8 L, VBG Lactic Acid 3.2 H 07/02/25 23:53: Chlamy pneumoniae PCR Not detected, Adenovirus (PCR) Not detected, B. pertussis DNA (PCR) Not detected, Coronavirus OC43 (PCR) Not detected, Coronavirus HKU1 (PCR) Not detected, Coronavirus 229E (PCR) Not detected, SARS-CoV-2 (PCR) Not detected, Coronavirus NL63 (PCR) Not detected, Human Metapneumovir PCR Not detected, Influenza A (H1) PCR Not detected, Influ A (H1N1/09) PCR Not detected, Influenza A (H3) PCR Not detected, Influenza Type A (PCR) Not detected, Influenza Type B (PCR) Not detected, M. pneumoniae (PCR) Not detected, Parainfluenza 1 (PCR) Not detected, Parainfluenza 2 (PCR) Not detected, Parainfluenza 3 (PCR) Not detected, Parainfluenza 4 (PCR) Not detected, RSV (PCR) Not detected, Entero/Rhino (PCR) Not detected 07/03/25 00:12: Urine Color Yellow, Urine Appearance Clear, Urine pH 5.5, Ur Specific [place] >= 1.030, Urine Protein Trace, Urine Glucose (UA) 3+, Urine Ketones 1+, Urine Blood Negative, Urine Nitrate Negative, Urine Bilirubin 2+ A, Urine Urobilinogen 0.2, Ur Leukocyte Esterase Negative, Urine RBC 3-5, Urine WBC None, Ur Squamous Epith Cells 3-5, Amorphous Sediment 1+, Urine Bacteria 1+, Hyaline Casts 3-5, Fine Granular Casts Occasional 07/03/25 01:18: Specimen Source Left radial, O2 % 70, ABG pH 7.21 L*, ABG pCO2 48.4 H, ABG pO2 77.9 L, ABG HCO3 18.8 L, ABG Total CO2 20.3 L, ABG O2 Saturation 93, ABG Base Excess -9.1 L, Zuhair Test Patient unable, Vent Rate 20, Tidal Volume 380, PEEP 8 07/03/25 02:05: POC Glucose 239 H 07/03/25 02:30: Lactate 3.0 H, Total Bilirubin 1.3, Direct Bilirubin 0.9 H, Conjugated Bilirubin 0.0, Indirect Bilirubin 0.4, Unconjugated Bilirubin 0.5, Troponin I < 0.01 07/03/25 05:00: WBC 33.2 H*, RBC 4.04 L, Hgb 12.1 L, Hct 38.6, MCV 95.5, MCH 30.0, MCHC 31.3 L, RDW 15.2, Plt Count 175, MPV 11.4 H, Neut % (Auto) 84.1 H, Lymph % (Auto) 1.8 L, Bartholomew % (Auto) 4.5, Eos % (Auto) 0.0 L, Baso % (Auto) 0.4, Neut # (Auto) 27.9 H, Lymph # (Auto) 0.6 L, Bartholomew # (Auto) 1.5 H, Eos # (Auto) 0.0, Baso # (Auto) 0.1, VBG pH 7.33, VBG pCO2 44.1, VBG pO2 72.7 H, VBG HCO3 22.6 L, VBG Total CO2 24.0, VBG O2 Saturation 94.4 H, VBG Base Excess -3.3 L, VBG Lactic Acid 2.6 H, Sodium 132 L, Potassium 3.3 L D, Chloride 97 L, Carbon Dioxide 25, Anion Gap 13.3, BUN 38 H, Creatinine 1.20 H, Estimated Creat Clear 42, Estimated GFR 44 L, Est GFR ( Amer) 54 L, Glucose 214 H, Hemoglobin A1c 5.9, Lactate 2.4 H, Calcium 7.8 L, Magnesium 2.1, Troponin I < 0.01, C- Reactive Protein 305.1 H, Procalcitonin 12.9 H, TSH 0.31 L, Free T4 1.53 07/03/25 06:48: POC Glucose 214 H I & O for Labs for Last 24 Hours: Intake & Output 07/04/25 07/05/25 07/06/25 07/07/25 23:59 23:59 23:59 23:59 Intake Total 1851.218 / 7376.006 4615 / 1480 1620 / 1620 200 / 200 Output Total 695 / 895 2930 / 3230 3100 / 3100 1000 / 1000 Balance 1156.218 / 956.218 -1690 / -1750 -1480 / -1480 -800 / -800 Weight 138 lb 3.677 oz 138 lb 14.259 oz 139 lb 1.787 oz 139 lb 12.369 oz Intake & Output 06/30/25 07/01/25 07/02/25 07/03/25 23:59 23:59 23:59 23:59 Intake Total 100 / 965.661 8100.215 / 3340.215 Output Total 900 / 900 Balance 100 / 189.032 1291.215 / 2440.215 Weight 140 lb 133 lb 9.602 oz Microbiology Reports for the Last 24 Hours: Microbiology 07/02/25 23:29 Blood Blood Culture - Preliminary NO GROWTH AFTER 4 DAYS 07/03/25 00:13 Sputum - Endotracheal Tube Aspirate Gram Stain - Final 07/03/25 00:13 Sputum - Endotracheal Tube Aspirate Sputum Culture - Final Streptococcus pneumoniae 07/02/25 22:45 Blood Blood Culture - Preliminary Microbiology 07/03/25 00:13 Sputum - Endotracheal Tube Aspirate Gram Stain - Final Constitutional: Present moderate distress Comment:: Intubated and Sedated Head: Present normocephalic and atraumatic ENT: Present normal exam, normal oropharynx and mucous membranes moist Neck: Present normal inspection and full ROM Respiratory: Present respiratory distress, rhonchi and diminished air movement; Absent prolonged expiratory phase, wheezes or crackles Cardiac: Present S1/S2, Tachycardia and radial pulses present GI: Present soft and distention; Absent tenderness or guarding Rectal (female): Present deferred (female): Present deferred Skin: Present intact; Absent cyanosis or jaundice Neuro: Present alert, awake and oriented x 3 Extremities: Present normal inspection; Absent clubbing or cyanosis Psychiatric: Present normal affect and unable to assess Assessment and Plan *Assessment and plan (1) Acute exacerbation of chronic obstructive pulmonary disease: Status: Acute Category: Medical Code(s): J44.1 - Chronic obstructive pulmonary disease with (acute) exacerbation (2) Pneumonia: Status: Acute Qualifiers: Laterality: left Lung location: lower lobe of lung Pneumonia type: due to unspecified organism Qualified Code(s): J18.9 - Pneumonia, unspecified organism Category: Medical Code(s): J18.9 - Pneumonia, unspecified organism (3) On mechanically assisted ventilation: Status: Acute Category: Medical Code(s): Z99.11 - Dependence on respirator [ventilator] status (4) Acute and chronic respiratory failure with hypoxia: Status: Acute Category: Medical Code(s): J96.21 - Acute and chronic respiratory failure with hypoxia Plan Ms. Phoenix is a 70-year-old female with reported history of COPD heart failure preserved action fraction dyslipidemia diabetes presented to the ER with worsening respiratory distress needing intubation mechanical ventilatory support and pulmonary was called for further evaluation and management. History obtained from family, current smoker greater than [id number] smoking is using oxygen supplementation chronically at baseline at 2 L. Admits worsening mentation, worsening respiratory distress, balance issues and more frequent falls in the last couple of days that prompted family to bring the patient to the ER for further evaluation and management. Febrile Tmax of greater than 100.2, upon admission. neutrophilic predominant leukocytosis. Comprehensive respiratory viral PCR panel negative. Blood gas upon admission mixed respiratory and metabolic acidosis. Most recent blood gas improved pH of 7.33 pCO2 44.1. Chest x-ray upon admission dense left lower lobe consolidative changes. ET tube in place, 4 cm above the seamus no pleural effusions appreciated. CT chest February 2025 upper lobe predominant centrilobular emphysematous changes. 3 cm anterior mediastinal mass. Status post successful extubation to nasal cannula. Increasing appointments with copious amounts of thick mucoid secretions.. Interval update: Continued improvement in leukocytosis. Antibiotics weaned to Zosyn yesterday. Sputum cultures repeat growing Streptococcus pneumonia. No significant respiratory distress on examination. On 3 L nasal cannula saturating 90% and above. Chest x-ray from this morning improving airspace disease. Blood gas from this morning continue to show respiratory alkalosis with a pH of 7.63 and pCO2 of 28.1 Plan: Trelegy 100 inhaler along with DuoNebs 4 times daily as needed Antibiotics can be weaned to cefdinir to complete a total of 7-day course. Incentive spirometry and flutter valve Continue oxygen supplementation to maintain O2 saturation goal of 90% and above No need for NIV at this point of time # Thank you for involving pulmonary in this patient care. Will continue to follow.
--- NOTE | 2025-07-07 09:31 | XR_ITS ---
FINAL REPORT CLINICAL HISTORY: PNM COMPARISON: 07/05/2025 FINDINGS: A portable view of the chest was obtained. The heart is stable in size. There has been no change in pulmonary vascular congestion, left greater than right basilar opacity, or bilateral pleural effusions. There is no pneumothorax. IMPRESSION: Stable chest x-ray. Reviewed, Interpreted and Dictated by Miraym Lawrence MD Transcribed by Reena Fofana Authenticated and . [facility]
[2025-07-07] MEDS: NICOTINE 21MG/24HR PATCH 21 MG TD (09:45)
--- NOTE | 2025-07-07 09:46 | HMH.OTEV ---
OT Evaluation Rehab OT IP Evaluation Start: 07/03/25 03:31 Freq: ONCE Status: Active Protocol: Document 07/07/25 09:41 [facility] (Rec: 07/07/25 09:45 [facility] [id number]) Rehab OT IP Assessment Subjective History Pt oriented x 3 on arrival. Pt agreeable to engage in therapy evaluation. Pt admitted on 07/03/25 due to sepsis and PNA. History and physical: This is a 70-year-old female who is known to our service line and has a past medical history significant for COPD most likely end-stage, HFpEF, vitamin D deficiency, osteoporosis, hyperlipidemia, seasonal allergies, and diabetes who presents with a chief complaint of shortness of breath. Patient underwent RSI in the emergency room; as a result, her review of systems is limited. The majority of information was obtained from the ER provider and chart review. According to ER provider, patient presented due to respiratory distress. ER provider did inform me that patient fell and hit her coccyx last night but had no significant injury warranting immediate evaluation. She presents today with shortness of air. EMS reports her oxygen saturations was in the 70s on her home O2 regimen, patient's blood pressure was 73/40 , she was febrile with a temperature of 101.5, and her heart rate was increased at 137. Due to patient failing noninvasive ventilation, family was in agreeance for patient to undergo RSI. Patient was intubated and imaging of the chest revealed left lower lobe pneumonia. Clinically, patient has a septic picture. As a result, hospital medicine was consulted for further management. Subjective Pt in bed upon arrival with daughter at bedside. Pt is alert and oriented x3. Pt reports that she lives in a house with her daughter who helps her with her with some ADLs such as bathing for safety purposes. Normally she is able to dress and feed herself. She is dependent upon her family for completion of all IADLs. Pt reports that prior to her hospitalization, she used a cane for most functional transfers. She no longer drive Objective Patient Orientation Person,Place,Birthday Right Upper Min Limitation <25% Extremity Gross ROM Left Upper Extremity Min Limitation <25% Gross ROM Shoulder ROM Muscle Weakness Limitations Elbow ROM Muscle Weakness Limitations Wrist Limitations of Muscle Weakness Range of Motion Bed Mobility bed mobility-scooting,bed mobility - supine/sit Assist Level Minimal x 1 (25% assist) Transfer Training Sit/Stand/Step Transfer Assist Level Minimal x 1 (25% assist) Feeding Ability Assist with Tray Set Up Lower Body Dressing Maximum Assistance Ability Rehab OT IP prob,goals,plan Problems Date of Evaluation: 07/07/25 OT IP Problems Bed Mobility,Transfers,Balance,Self care,Safety Rehab Potential Rehab Potential Good Equipment Needs Assistive Devices Rolling / Wheeled Walker Plan OT intervention Plan Bed Mobility,Transfers,Balance,Self care,Safety, Therapeutic Exercise OT Plan Frequency Daily Duration LOS Discharge Goals Bed Mobility Ability Standby Assistance Sit to Stand Chair Contact Guard/Hand Hold Transfer Ability Chair Transfer Contact Guard/Hand Hold Ability Chair Transfer Sit to/from Ambulatory Technique Chair Transfer Rolling Walker Assistive Devices Lower Body Dressing Moderate Assistance Ability Upper Body Dressing Contact Guard Ability Performing Toilet Moderate Assistance Hygiene Ability Overall Commode/ Contact Guard,Minimal Assistance Toilet Transfer Ability Commode/Toilet Sit to/from Ambulatory Transfer Technique Oral Care Assist Standby Assistance Decrease in Yes Endurance Discharge Plan OT Discharge Plan Pt will continue to be seen for OT services while at [facility]. Pt would benefit most from short term rehab at SNF following discharge from hospital due to a decline in functional ability. Continued skilled therapy is important in order for patient to improve strength, safety, endurance, ADL independence, and functional transfers to reach PLOF. Eval Complexity Eval Charge Codes 03722 - Moderate Complexity PHYSICIAN CERTIFICATION: I certify the specified therapy services for Sabra Phoenix are required, authorized, and reviewed every 30 days.
[2025-07-07 11:15] LABS: POC Glucose,Bedside 196 gm/dL (70-110)
[2025-07-07 12:29] LABS: Lactate Venous 1.7 mmol/L (0.4-2.0); VBG HCO3 28.8 mmol/L (23-30); VBG PCO2 28.1 mmol/L (35-51); VBG PO2 171.8 mmol/L (28-40)
--- NOTE | 2025-07-07 12:30 | PC.NURSE ---
Kaiaied Alen Hutchins of patients vbg results. Patient pH is 7.628 and lactic is 1.69
[2025-07-07 12:32] LABS: VBG PH 7.63 mmol/L (7.31-7.41)
--- NOTE | 2025-07-07 12:49 | P.PN_ITS ---
Subjective *Date: 07/07/25 *Time: 12:49 Interval history: Patient feeling much better today, breathing easier. Denies chest pain, shortness of breath. Weaned to 3 L nasal cannula. Still quite weak. Will try to ambulate, and sit in bedside chair today. PT recommending SNF, case manage ment assisting. Exam Data for Last 24 hours Vital signs and Labs for Last 24 Hours: Temp Pulse Resp BP Pulse Ox O2 Del Method O2 Flow Rate 99.1 F 97 H 17 116/54 L 93 L Nasal Cannula 3 07/07/25 12:00 07/07/25 12:00 07/07/25 12:00 07/07/25 12:00 07/07/25 12:00 07/07/25 12:00 07/07/25 12:00 FiO2 40 07/04/25 15:19 Laboratory Results - last 24 hr 07/03/25 00:12: Ur L.pneumophila Ag Negative 07/06/25 19:50: POC Glucose 207 H 07/06/25 22:45: A. baumannii (PCR) Not detected, Bacteroides fragilis Not detected, Raquel albicans (PCR) Not detected, Raquel auris (PCR) Not detected, C. glabrata (PCR) Not detected, C. krusei (PCR) Not detected, C. parapsilosis (PCR) Not detected, C. tropicalis (PCR) Not detected, Cryptococcus neoformans PCR Not detected, Enterobacterales (PCR) Not detected, Enterococc faecalis PCR Not detected, Enterococc faecium PCR Not detected, E. coli (PCR) Not detected, H. influenzae DNA Not detected, Klebsiella aerogenes (PCR) Not detected, Klebsiella oxytoca PCR Not detected, K. pneumoniae group (PCR) Not detected, List. monocytogenes PCR Not detected, N. meningitidis (PCR) Not detected, Proteus species (PCR) Not detected, Salmonella spp. (PCR) Not detected, Serratia marcescens PCR Not detected, Staphylococcus sp PCR Not detected, Staph aureus (PCR) Not detected, mecA/C & MREJ Resist Gene Not applicable, mecA/C-Methicil Resis Gene Not applicable, Staph epidermidis (PCR) Not detected, Staph lugdunensis (TEM-PCR) Not detected, S. maltophilia (PCR) Not detected, Streptococcus sp PCR Not detected, S.agalactiae Grp B JANE Not detected, Strep pneumoniae (PCR) Not detected, S. pyogenes GrpA JANE Not detected, P. aeruginosa (PCR) Not detected, Toña/B-Vanco Res Genes Not applicable, blaIMP Car res Gene PCR Not applicable, KPC-Carbap Res Gene PCR Not applicable, blaNDM Car Res Gene PCR Not applicable, OXA-48 Carbapenem Resis Gene (PCR) Not applicable, blaVIM Car Res Gene PCR Not applicable, CTX-M Gene Resistance (PCR) Not applicable, MCR-1 Resistance Gene Not applicable 07/07/25 05:58: WBC 4.2 L, RBC 3.32 L, Hgb 10.1 L, Hct 31.7 L, MCV 95.5, MCH 30.4, MCHC 31.9, RDW 14.7, Plt Count 90 L, MPV 11.2 H, Neut % (Auto) 75.7, Lymph % (Auto) 16.3, [place] % (Auto) 6.6, Eos % (Auto) 0.0 L, Baso % (Auto) 0.2, Neut # (Auto) 3.2, Lymph # (Auto) 0.7, [place] # (Auto) 0.3, Eos # (Auto) 0.0, Baso # (Auto) 0.0, VBG pH 7.53 H, VBG pCO2 35.6, VBG pO2 91.1 H, VBG HCO3 29.1, VBG Total CO2 30.2 H, VBG O2 Saturation 97.8 H, VBG Base Excess 6.4 H, VBG Lactic Acid 1.4, Sodium 136, Potassium 3.5, Chloride 101, Carbon Dioxide 31 H, Anion Gap 7.5, BUN 29 H, Creatinine 0.70 D, Estimated Creat Clear 52, Estimated GFR 83, Est GFR ( Amer) 100 D, Glucose 268 H D, Calcium 8.5 07/07/25 06:08: POC Glucose 269 H 07/07/25 11:07: POC Glucose 196 H 07/07/25 12:30: VBG pH 7.63 H, VBG pCO2 28.1 L, VBG pO2 171.8 H, VBG HCO3 28.8, VBG Total CO2 29.6 H, VBG O2 Saturation 99.3 H, VBG Base Excess 7.7 H, VBG Lactic Acid 1.7 I & O for Last 24 hours: Intake & Output 07/04/25 07/05/25 07/06/25 07/07/25 23:59 23:59 23:59 23:59 Intake Total 1851.218 / 9312.197 4510 / 1480 1620 / 1620 920 / 920 Output Total 695 / 895 2930 / 3230 3100 / 3100 1275 / 1275 Balance 1156.218 / 956.218 -1690 / -1750 -1480 / -1480 -355 / -355 Weight 62.7 kg 63 kg 63.1 kg 63.4 kg Microbiology Reports for the Last 24 Hours: Microbiology 07/02/25 23:29 Blood Blood Culture - Preliminary NO GROWTH AFTER 4 DAYS 07/03/25 00:13 Sputum - Endotracheal Tube Aspirate Gram Stain - Final 07/03/25 00:13 Sputum - Endotracheal Tube Aspirate Sputum Culture - Final Streptococcus pneumoniae 07/02/25 22:45 Blood Blood Culture - Preliminary Constitutional Constitutional: no acute distress and chronically ill appearing *Routine HEENT Exam Head: Present normocephalic Eye: Present EOMI and PERRL ENT: Present mucous membranes moist *Routine Neck Exam Neck: Present supple; Absent lymphadenopathy *Routine Respiratory Exam Respiratory: Present CTA bilaterally; Absent rhonchi or diminished air movement *Routine Cardiovascular Exam Cardiovascular: Present RRR *Routine Abdominal Exam Abdominal: Present soft and normoactive bowel sounds; Absent tenderness *Routine Extremities Exam Extremities: Absent cyanosis, clubbing or edema *Routine Skin Exam Skin: Present warm; Absent rash *Routine Neurological Exam Neurological: Present alert and oriented X3 Assessment and Plan *Assessment and plan (1) Acute and chronic respiratory failure with hypoxia: Status: Acute Category: Medical Code(s): J96.21 - Acute and chronic respiratory failure with hypoxia (2) Pneumonia: Status: Acute Qualifiers: Laterality: left Lung location: lower lobe of lung Pneumonia type: due to unspecified organism Qualified Code(s): J18.9 - Pneumonia, unspecified organism Category: Medical Code(s): J18.9 - Pneumonia, unspecified organism Plan Sabra Phoenix is a 70-year-old female with medical history significant for COPD and HFpEF presented with shortness of breath and was admitted for community- acquired pneumonia after intubation for hypoxic respiratory failure. #Acute on chronic hypoxic respiratory failure #Mechanical ventilation, resolved #COPD exacerbation #Community-acquired pneumonia, strep pneumonia #Severe sepsis, resolved ? Presented with shortness of breath was found to have left lower lobe pneumonia on initial CXR. Initial WBC 28, with tachycardia. ? Required intubation for hypoxia in ER, extubated on 07/04/2025. ? Respiratory culture positive for strep pneumonia, only sensitivity was gentamicin and resistant. WBC improved to 4.2, peaked at 33. ? Patient feeling much better today, able to breathe better. Less thick mucus production. Scheduled Mucomyst, Solu-Medrol started yesterday. ? Discussed with pulmonology today, wean antibiotics to levofloxacin 750 mg daily for total of 7 days. Had been empirically treated with vancomycin, Zosyn. ? Pulmonology started Trelegy 100, discontinue scheduled DuoNebs and Pulmicort. ? Continue IV Solu-Medrol 40 mg daily. ? Weaned to 3 L nasal cannula. Continue to wean as tolerated. ? PT evaluated, recommending SNF at this time. #HFpEF exacerbation ? Follow-up ECHO. ? Continue IV Lasix 40 mg daily. Diuresing well. Creatinine stable at 0.70. #Normocytic anemia ? Hemoglobin 10.1. Stable. Continue to monitor. #Thrombocytopenia ? Platelets 90. Slightly downtrending during admission, in the setting of acute illness. Continue monitor. Full code DVT prophylaxis: IPC's due to thrombocytopenia Medications: Completed.
--- NOTE | 2025-07-07 13:50 | DIET.NUTRFU ---
Patient is tolerating soft diet and po intake is improving 75% for breakfast and 50% for lunch. Also added glucerna with trays to improve po intake. LBM 07/07. BS have been elevated wth insulin in place. will change to MSOFT chopped diabetic
[2025-07-07 16:40] LABS: POC Glucose,Bedside 331 gm/dL (70-110)
[2025-07-07 21:09] LABS: POC Glucose,Bedside 136 gm/dL (70-110)
[2025-07-07] MEDS: PANTOPRAZOLE 40MG VIAL 40 MG IV (21:20)
[2025-07-07] MEDS: ASPIRIN EC 81MG TABLET 81 MG PO (21:20)
[2025-07-07] MEDS: ATORVASTATIN 40MG TABLET 40 MG PO (21:20)
[2025-07-08] VITALS (13 sets, daily range): BP systolic 99–126; BP diastolic 55–80; PULSE 66–98; RESP 14–34; TEMP 36.7–37; O2SAT 89–96; BMI 25.2
[2025-07-08 05:19] LABS: Lactate Venous 1.3 mmol/L (0.4-2.0); VBG HCO3 33.8 mmol/L (23-30); VBG PCO2 44.9 mmol/L (35-51); VBG PH 7.49 mmol/L (7.31-7.41); VBG PO2 55.0 mmol/L (28-40)
[2025-07-08 05:57] LABS: POC Glucose,Bedside 186 gm/dL (70-110)
[2025-07-08] MEDS: humaLOG 100 UNITS/ML 10ML VIAL (SSI) SUBCUT ×4 (06:12→21:16)
[2025-07-08 06:19] LABS: Hematocrit 35.1 % (37.0-47.0); Immature Granulocytes % 2.0 %; Mean Corpuscular HGB Conc 32.2 g/dL (31.8-35.4); Mean Corpuscular Hemoglobin 30.3 pg (27.0-31.2); Mean Corpuscular Volume 94.1 fl (81-99); Nucleated Red Blood Cells % 0 %; Platelet Count 108 K/mm3 (142-424); Red Blood Count 3.73 M/mm3 (4.20-5.40); Red Cell Distribution Width-SD 49.9 fL; White Blood Count 8.0 K/mm3 (4.8-10.8)
[2025-07-08 06:25] LABS: Hemoglobin 11.1 g/dL (12.2-16.2)
[2025-07-08] MEDS: FLUTICASONE/UMECLIDIN/VILANTER 100/62.5/25MCG INHALER 1 PUFF IH (06:33)
--- NOTE | 2025-07-08 08:00 | PC.NURSE ---
Temp Sensing Garcia removed at 0800.
--- NOTE | 2025-07-08 08:34 | HMH.PHAAMS2 ---
- Antimicrobial Stewardship Review de-escalation/chg therapy Stewardship interventions: culture & sensitivity review (PT ON LEVAQUIN, WBC DECREASED FROM 33.2 TO 8.0K FROM ADMISSION, AFEBRILE, STREP PNEUMO IN SPUTUM CX.)
[2025-07-08] MEDS: FUROSEMIDE 40MG/4ML VIAL 40 MG IV (08:45)
[2025-07-08] MEDS: METHYLPREDNISOLONE SOD SUCC 40MG VIAL 40 MG IV (08:45)
[2025-07-08] MEDS: NICOTINE 21MG/24HR PATCH 21 MG TD (08:45)
[2025-07-08 08:58] LABS: Anion Gap 6.9 mEq/L (5-15); Blood Urea Nitrogen 31 mg/dl (7-17); Calcium 8.7 mg/dl (8.4-10.2); Carbon Dioxide 34 mmol/L (22.0-30.0); Chloride 97 mmol/L (98-107); Creatinine Clearance Estimated 53 mL/min (50-200); Creatinine,Serum 0.70 mg/dl (0.52-1.04); Estimated Glomerular Filt Rate 83 ml/min (>60); GFR (African American) 100 ML/MIN (>60); Glucose 183 mg/dl (74-100); Sodium 135 mmol/L (136-145)
[2025-07-08 09:03] LABS: Potassium 2.9 mmoL/L (3.5-5.1)
--- NOTE | 2025-07-08 09:25 | PC.NURSE ---
Patient up to the chair at this time. was assisted by therapy
--- NOTE | 2025-07-08 09:46 | PC.NURSE ---
Patient complaining of her nose hurting from the nasal cannula. Dr. tejada has ordered nasal spray order put in by pharmacy. replace electrolytes and once patient electrolytes have been replaced patient can have bp checked every 8 hours and can also come off of the telemetry. Waiting on authorization for patient to go to rehab facility.
--- NOTE | 2025-07-08 09:46 | EXP.PULM.PN ---
Subjective *Date: 07/08/25 *Time: 13:42 Interval history: No acute respiratory vents overnight. Patient denies any new respiratory complaints Pulmonology Exam Inpatient Vital signs and Labs for Last 24 Hours: Temp Pulse Resp BP Pulse Ox O2 Del Method O2 Flow Rate 98.2 F 75 21 120/80 91 L Nasal Cannula 2 07/08/25 08:08 07/08/25 08:08 07/08/25 08:08 07/08/25 08:08 07/08/25 08:08 07/08/25 08:08 07/08/25 08:08 FiO2 28 07/07/25 19:50 Laboratory Results - last 24 hr 07/07/25 11:07: POC Glucose 196 H 07/07/25 12:30: VBG pH 7.63 H, VBG pCO2 28.1 L, VBG pO2 171.8 H, VBG HCO3 28.8, VBG Total CO2 29.6 H, VBG O2 Saturation 99.3 H, VBG Base Excess 7.7 H, VBG Lactic Acid 1.7 07/07/25 16:15: POC Glucose 331 H* 07/07/25 21:01: POC Glucose 136 H 07/08/25 05:11: WBC 8.0 D, RBC 3.73 L, Hgb 11.1 L, Hct 35.1 L, MCV 94.1, MCH 30.3, MCHC 32.2, RDW 14.4, Plt Count 108 L, MPV 11.5 H, Neut % (Auto) 66.8, Lymph % (Auto) 22.4, [place] % (Auto) 8.2, Eos % (Auto) 0.2, Baso % (Auto) 0.4, Neut # (Auto) 5.4, Lymph # (Auto) 1.8, [place] # (Auto) 0.7, Eos # (Auto) 0.0, Baso # (Auto) 0.0, VBG pH 7.49 H, VBG pCO2 44.9, VBG pO2 55.0 H, VBG HCO3 33.8 H, VBG Total CO2 35.1 H, VBG O2 Saturation 91.1 H, VBG Base Excess 10.5 H, VBG Lactic Acid 1.3, Sodium 135 L, Potassium 2.9 L*, Chloride 97 L, Carbon Dioxide 34 H, Anion Gap 6.9, BUN 31 H, Creatinine 0.70, Estimated Creat Clear 53, Estimated GFR 83, Est GFR ( Amer) 100, Glucose 183 H D, Calcium 8.7 07/08/25 05:49: POC Glucose 186 H Temp Pulse Resp BP Pulse Ox O2 Del Method FiO2 98.2 F 101 H 22 101/52 L 95 Mechanical Ventilation 60 07/03/25 08:00 07/03/25 08:00 07/03/25 08:00 07/03/25 08:00 07/03/25 08:00 07/03/25 07:15 07/03/25 07:00 Laboratory Results - last 24 hr 07/02/25 22:34: WBC 27.9 H*, RBC 4.33, Hgb 13.2, Hct 41.7, MCV 96.3, MCH 30.5, MCHC 31.7 L, RDW 15.2, Plt Count 184, MPV 10.8 H, Neut % (Auto) 83.9 H, Lymph % (Auto) 5.3 L, [place] % (Auto) 4.9, Eos % (Auto) 0.0 L, Baso % (Auto) 0.4, Neut # (Auto) 23.4 H, Lymph # (Auto) 1.5, [place] # (Auto) 1.4 H, Eos # (Auto) 0.0, Baso # (Auto) 0.1, Total Counted 100, Neutrophils % (Manual) 85 H, Band Neutrophils % 2.0, Lymphocytes % (Manual) 9 L, Monocytes % (Manual) 3, Myelocytes % 1, Platelet Estimate Normal, Giant Platelets 1+, Polychromasia 1+, Poikilocytosis 1+, Anisocytosis 1+, Macrocytosis 1+, Target Cells 1+, Tear Drop Cells 1+, Ovalocytes 1+, VBG pH 7.23 L, VBG pCO2 43.9, VBG pO2 31.9, VBG HCO3 17.8 L, VBG Total CO2 19.1 L, VBG O2 Saturation 54.9, VBG Base Excess -9.9 L, VBG Lactic Acid 3.0 H, Sodium 136, Potassium 4.3, Chloride 95 L, Carbon Dioxide 18 L, Anion Gap 27.3 H, BUN 38 H, Creatinine 1.40 H, Estimated GFR 37 L, Est GFR ( Amer) 45 L, Glucose 185 H, Calcium 8.1 L, Total Bilirubin 1.8 H, AST 26, ALT 25, Alkaline Phosphatase 77, Troponin I < 0.01, NT-Pro-B Natriuret Pep 2620 H, Total Protein 7.5, Albumin 4.1, Globulin 3.4 H, Albumin/Globulin Ratio 1.2, HCV Ab ALESSANDRA w/Rflx PCR Qn Negative, HIV Ag/Ab Combo Qual Negative 07/02/25 23:20: VBG pH 7.27 L, VBG pCO2 40.4, VBG pO2 32.5, VBG HCO3 18.1 L, VBG Total CO2 19.3 L, VBG O2 Saturation 58.7, VBG Base Excess -8.8 L, VBG Lactic Acid 3.2 H 07/02/25 23:53: Chlamy pneumoniae PCR Not detected, Adenovirus (PCR) Not detected, B. pertussis DNA (PCR) Not detected, Coronavirus OC43 (PCR) Not detected, Coronavirus HKU1 (PCR) Not detected, Coronavirus 229E (PCR) Not detected, SARS-CoV-2 (PCR) Not detected, Coronavirus NL63 (PCR) Not detected, Human Metapneumovir PCR Not detected, Influenza A (H1) PCR Not detected, Influ A (H1N1/09) PCR Not detected, Influenza A (H3) PCR Not detected, Influenza Type A (PCR) Not detected, Influenza Type B (PCR) Not detected, M. pneumoniae (PCR) Not detected, Parainfluenza 1 (PCR) Not detected, Parainfluenza 2 (PCR) Not detected, Parainfluenza 3 (PCR) Not detected, Parainfluenza 4 (PCR) Not detected, RSV (PCR) Not detected, Entero/Rhino (PCR) Not detected 07/03/25 00:12: Urine Color Yellow, Urine Appearance Clear, Urine pH 5.5, Ur Specific [place] >= 1.030, Urine Protein Trace, Urine Glucose (UA) 3+, Urine Ketones 1+, Urine Blood Negative, Urine Nitrate Negative, Urine Bilirubin 2+ A, Urine Urobilinogen 0.2, Ur Leukocyte Esterase Negative, Urine RBC 3-5, Urine WBC None, Ur Squamous Epith Cells 3-5, Amorphous Sediment 1+, Urine Bacteria 1+, Hyaline Casts 3-5, Fine Granular Casts Occasional 07/03/25 01:18: Specimen Source Left radial, O2 % 70, ABG pH 7.21 L*, ABG pCO2 48.4 H, ABG pO2 77.9 L, ABG HCO3 18.8 L, ABG Total CO2 20.3 L, ABG O2 Saturation 93, ABG Base Excess -9.1 L, [place] Test Patient unable, Vent Rate 20, Tidal Volume 380, PEEP 8 07/03/25 02:05: POC Glucose 239 H 07/03/25 02:30: Lactate 3.0 H, Total Bilirubin 1.3, Direct Bilirubin 0.9 H, Conjugated Bilirubin 0.0, Indirect Bilirubin 0.4, Unconjugated Bilirubin 0.5, Troponin I < 0.01 07/03/25 05:00: WBC 33.2 H*, RBC 4.04 L, Hgb 12.1 L, Hct 38.6, MCV 95.5, MCH 30.0, MCHC 31.3 L, RDW 15.2, Plt Count 175, MPV 11.4 H, Neut % (Auto) 84.1 H, Lymph % (Auto) 1.8 L, [place] % (Auto) 4.5, Eos % (Auto) 0.0 L, Baso % (Auto) 0.4, Neut # (Auto) 27.9 H, Lymph # (Auto) 0.6 L, [place] # (Auto) 1.5 H, Eos # (Auto) 0.0, Baso # (Auto) 0.1, VBG pH 7.33, VBG pCO2 44.1, VBG pO2 72.7 H, VBG HCO3 22.6 L, VBG Total CO2 24.0, VBG O2 Saturation 94.4 H, VBG Base Excess -3.3 L, VBG Lactic Acid 2.6 H, Sodium 132 L, Potassium 3.3 L D, Chloride 97 L, Carbon Dioxide 25, Anion Gap 13.3, BUN 38 H, Creatinine 1.20 H, Estimated Creat Clear 42, Estimated GFR 44 L, Est GFR ( Amer) 54 L, Glucose 214 H, Hemoglobin A1c 5.9, Lactate 2.4 H, Calcium 7.8 L, Magnesium 2.1, Troponin I < 0.01, C-Reactive Protein 305.1 H, Procalcitonin 12.9 H, TSH 0.31 L, Free T4 1.53 07/03/25 06:48: POC Glucose 214 H I & O for Labs for Last 24 Hours: Intake & Output 07/05/25 07/06/25 07/07/25 07/08/25 23:59 23:59 23:59 23:59 Intake Total 1240 / 1480 1620 / 1620 1420 / 1420 942 / 942 Output Total 2930 / 3230 3100 / 3100 2475 / 2475 200 / 200 Balance -1690 / -1750 -1480 / -1480 -1055 / -1055 742 / 742 Weight 138 lb 14.259 oz 139 lb 1.787 oz 139 lb 12.369 oz 142 lb 3.17 oz Intake & Output 06/30/25 07/01/25 07/02/25 07/03/25 23:59 23:59 23:59 23:59 Intake Total 100 / 182.719 0823.215 / 3340.215 Output Total 900 / 900 Balance 100 / 094.558 0372.215 / 2440.215 Weight 140 lb 133 lb 9.602 oz Microbiology Reports for the Last 24 Hours: Microbiology 07/02/25 23:29 Blood Blood Culture - Final NO GROWTH AFTER 5 DAYS Microbiology 07/03/25 00:13 Sputum - Endotracheal Tube Aspirate Gram Stain - Final Constitutional: Present moderate distress Comment:: Intubated and Sedated Head: Present normocephalic and atraumatic ENT: Present normal exam, normal oropharynx and mucous membranes moist Neck: Present normal inspection and full ROM Respiratory: Present respiratory distress and rhonchi; Absent prolonged expiratory phase, wheezes or crackles Cardiac: Present S1/S2, Tachycardia and radial pulses present GI: Present soft and distention; Absent tenderness or guarding Rectal (female): Present deferred (female): Present deferred Skin: Present intact; Absent cyanosis or jaundice Neuro: Present alert, awake and oriented x 3 Extremities: Present normal inspection; Absent clubbing or cyanosis Psychiatric: Present normal affect and unable to assess Assessment and Plan *Assessment and plan (1) Acute exacerbation of chronic obstructive pulmonary disease: Status: Acute Category: Medical Code(s): J44.1 - Chronic obstructive pulmonary disease with (acute) exacerbation (2) Pneumonia: Status: Acute Qualifiers: Laterality: left Lung location: lower lobe of lung Pneumonia type: due to unspecified organism Qualified Code(s): J18.9 - Pneumonia, unspecified organism Category: Medical Code(s): J18.9 - Pneumonia, unspecified organism (3) On mechanically assisted ventilation: Status: Acute Category: Medical Code(s): Z99.11 - Dependence on respirator [ventilator] status (4) Acute and chronic respiratory failure with hypoxia: Status: Acute Category: Medical Code(s): J96.21 - Acute and chronic respiratory failure with hypoxia Plan Ms. Phoenix is a 70-year-old female with reported history of COPD heart failure preserved action fraction dyslipidemia diabetes presented to the ER with worsening respiratory distress needing intubation mechanical ventilatory support and pulmonary was called for further evaluation and management. History obtained from family, current smoker greater than [id number] smoking is using oxygen supplementation chronically at baseline at 2 L. Admits worsening mentation, worsening respiratory distress, balance issues and more frequent falls in the last couple of days that prompted family to bring the patient to the ER for further evaluation and management. Febrile Tmax of greater than 100.2, upon admission. neutrophilic predominant leukocytosis. Comprehensive respiratory viral PCR panel negative. Blood gas upon admission mixed respiratory and metabolic acidosis. Most recent blood gas improved pH of 7.33 pCO2 44.1. Chest x-ray upon admission dense left lower lobe consolidative changes. ET tube in place, 4 cm above the seamus no pleural effusions appreciated. CT chest February 2025 upper lobe predominant centrilobular emphysematous changes. 3 cm anterior mediastinal mass. Status post successful extubation to nasal cannula. Increasing appointments with copious amounts of thick mucoid secretions.. Interval update: No acute respiratory vents overnight. Improving chest x-ray. Antibiotics weaned to levofloxacin for the noted streptococcal pneumonia on day 7 today. Complete 7-day course Plan: Trelegy 100 inhaler along with DuoNebs 4 times daily as needed Complete 7-day course of antibiotics for streptococcal pneumonia Incentive spirometry and flutter valve Continue oxygen supplementation to maintain O2 saturation goal of 90% and above No need for NIV at this point of time # Thank you for involving pulmonary in this patient care. Will continue to follow.
[2025-07-08] MEDS: POTASSIUM CHLORIDE 20MEQ TAB 40 MEQ PO ×3 (09:55→17:09)
[2025-07-08] MEDS: SODIUM CHLORIDE NASAL SPRAY 44ML NS ×2 (09:56→21:28)
[2025-07-08 11:42] LABS: POC Glucose,Bedside 242 gm/dL (70-110)
--- NOTE | 2025-07-08 14:39 | EXP.ACUTE.PN ---
Subjective *Date: 07/08/25 *Time: 14:39 Interval history: Patient states he is feeling better today. Current wants nasal cannula oxygen with O2 sats above 90. Blood pressure doing well. Still having significant sputum production but doing better. Tolerating p.o. intake. Alert and oriented x 4. Family at bedside. Denies any fever, nausea, vomiting Medical Exam Vital signs and Labs for Last 24 Hours: Vital Signs Temp Pulse Resp BP Pulse Ox O2 Del Method O2 Flow Rate 07/08/25 13:00 Nasal Cannula 2 07/08/25 12:30 98.1 F 89 19 124/58 L 90 L Nasal Cannula 2 07/08/25 12:00 96 H 07/08/25 11:00 Nasal Cannula 2 07/08/25 09:00 Nasal Cannula 2 07/08/25 08:08 98.2 F 75 21 120/80 91 L Nasal Cannula 2 07/08/25 08:00 94 L Nasal Cannula 2 07/08/25 08:00 96 H 07/08/25 07:00 Nasal Cannula 2 07/08/25 06:48 Nasal Cannula 3 07/08/25 05:00 Nasal Cannula 3 07/08/25 04:00 88 14 91 L 07/08/25 04:00 88 07/08/25 03:09 Nasal Cannula 3 07/08/25 03:00 97 H 21 90 L 07/08/25 02:00 98.6 F 98 H 20 91 L 07/08/25 01:09 98.6 F 91 H 15 99/55 L 89 L 07/08/25 01:00 Nasal Cannula 3 07/08/25 00:00 90 07/08/25 00:00 98.6 F 66 16 92 L 07/07/25 22:59 Nasal Cannula 2 07/07/25 22:00 99.0 F 92 H 19 93 L 07/07/25 21:00 Nasal Cannula 2 07/07/25 20:05 99.1 F 89 14 112/61 93 L 07/07/25 20:00 90 07/07/25 20:00 94 L Nasal Cannula 2 07/07/25 19:50 Nasal Cannula 2 07/07/25 18:57 Nasal Cannula 2 07/07/25 18:03 99.0 F 84 19 121/70 90 L 07/07/25 17:00 Nasal Cannula 3 07/07/25 16:00 99.0 F 89 18 98/58 L 95 Nasal Cannula 3 07/07/25 16:00 94 L Nasal Cannula 2 07/07/25 16:00 90 07/07/25 15:00 Nasal Cannula 3 FiO2 07/08/25 13:00 07/08/25 12:30 07/08/25 12:00 07/08/25 11:00 07/08/25 09:00 07/08/25 08:08 07/08/25 08:00 07/08/25 08:00 07/08/25 07:00 07/08/25 06:48 07/08/25 05:00 07/08/25 04:00 07/08/25 04:00 07/08/25 03:09 07/08/25 03:00 07/08/25 02:00 07/08/25 01:09 07/08/25 01:00 07/08/25 00:00 07/08/25 00:00 07/07/25 22:59 07/07/25 22:00 07/07/25 21:00 07/07/25 20:05 07/07/25 20:00 07/07/25 20:00 07/07/25 19:50 28 07/07/25 18:57 07/07/25 18:03 07/07/25 17:00 07/07/25 16:00 07/07/25 16:00 07/07/25 16:00 07/07/25 15:00 Intake and Output 07/07/25 07/08/25 07/08/25 23:59 07:59 15:59 Intake Total 240 / 1420 702 / 1062 360 / 1062 Output Total 100 / 2475 200 / 650 450 / 650 Balance 140 / -1055 502 / 412 -90 / 412 Intake: Intake, Oral Amount 240 / 1220 702 / 1062 360 / 1062 Output: Output, Urine Amount 100 / 2200 200 / 650 450 / 650 Other: Number of Unmeasured Voids 0 0 Number of Bowel Movements 1 1 Weight 64.5 kg Patient Weight 07/08/25 23:59 Weight 64.5 kg Laboratory Results - last 24 hr 07/07/25 16:15: POC Glucose 331 H* 07/07/25 21:01: POC Glucose 136 H 07/08/25 05:11: WBC 8.0 D, RBC 3.73 L, Hgb 11.1 L, Hct 35.1 L, MCV 94.1, MCH 30.3, MCHC 32.2, RDW 14.4, Plt Count 108 L, MPV 11.5 H, Neut % (Auto) 66.8, Lymph % (Auto) 22.4, [place] % (Auto) 8.2, Eos % (Auto) 0.2, Baso % (Auto) 0.4, Neut # (Auto) 5.4, Lymph # (Auto) 1.8, [place] # (Auto) 0.7, Eos # (Auto) 0.0, Baso # (Auto) 0.0, VBG pH 7.49 H, VBG pCO2 44.9, VBG pO2 55.0 H, VBG HCO3 33.8 H, VBG Total CO2 35.1 H, VBG O2 Saturation 91.1 H, VBG Base Excess 10.5 H, VBG Lactic Acid 1.3, Sodium 135 L, Potassium 2.9 L*, Chloride 97 L, Carbon Dioxide 34 H, Anion Gap 6.9, BUN 31 H, Creatinine 0.70, Estimated Creat Clear 53, Estimated GFR 83, Est GFR ( Amer) 100, Glucose 183 H D, Calcium 8.7 07/08/25 05:49: POC Glucose 186 H 07/08/25 11:34: POC Glucose 242 H I & O for Labs for Last 24 Hours: Intake & Output 07/05/25 07/06/25 07/07/25 07/08/25 23:59 23:59 23:59 23:59 Intake Total 1240 / 1480 1620 / 1620 1420 / 1420 1062 / 1062 Output Total 2930 / 3230 3100 / 3100 2475 / 2475 650 / 650 Balance -1690 / -1750 -1480 / -1480 -1055 / -1055 412 / 412 Weight 63 kg 63.1 kg 63.4 kg 64.5 kg Microbiology Reports for the Last 24 Hours: Microbiology 07/02/25 23:29 Blood Blood Culture - Final NO GROWTH AFTER 5 DAYS Constitutional: Present no acute distress, average body habitus, chronically ill appearing and cooperative Head: Present atraumatic and normocephalic Respiratory: Present prolonged expiratory phase, rhonchi, wheezes and normal respiratory effort; Absent respiratory distress or crackles Cardiac: Present Reg Rate and Rhythm GI: Present normal bowel sounds; Absent tenderness Extremities: Present normal inspection and full ROM Skin: Present intact; Absent erythema Neuro: Present Grossly Intact, alert, awake, oriented x 3 and moves all extremities Assessment and Plan *Assessment and plan (1) Acute and chronic respiratory failure with hypoxia: Status: Acute Category: Medical Code(s): J96.21 - Acute and chronic respiratory failure with hypoxia (2) Pneumonia: Problem Comment: Streptococcus pneumoniae Status: Acute Qualifiers: Laterality: left Lung location: lower lobe of lung Pneumonia type: due to unspecified organism Qualified Code(s): J18.9 - Pneumonia, unspecified organism Category: Medical Code(s): J18.9 - Pneumonia, unspecified organism (3) Severe sepsis: Problem Comment: Present on admission Status: Acute Category: Medical Code(s): A41.9 - Sepsis, unspecified organism; R65.20 - Severe sepsis without septic shock (4) Abdominal aortic aneurysm (AAA) 3.0 cm to 5.0 cm in diameter in female: Status: Acute Category: Medical Code(s): I71.40 - Abdominal aortic aneurysm, without rupture, unspecified Plan Sabra [place] is a 70-year-old female with medical history significant for COPD and HFpEF presented with shortness of breath and was admitted for community-acquired pneumonia after intubation for hypoxic respiratory failure. Stable for several days off mechanical ventilation. Continues to show gradual improvement. Awaiting insurance approval for placement. #Acute on chronic hypoxic respiratory failure #Mechanical ventilation, resolved #COPD exacerbation #Community-acquired pneumonia, strep pneumonia #Severe sepsis, resolved ? Presented with shortness of breath was found to have left lower lobe pneumonia on initial CXR. Initial WBC 28, with tachycardia. ? Required intubation for hypoxia in ER, extubated on 07/04/2025. ? Respiratory culture positive for strep pneumonia, only sensitivity was gentamicin resistant. ? Patient feeling much better today, able to breathe better. Less thick mucus production. Scheduled Mucomyst, Solu-Medrol ? PT evaluated, recommending SNF at this time. - Discussed case with pulmonology, she is positive for strep pneumo, will complete 7 days total of therapy. Complete 1 more dose of Levaquin for 7 days total of antibiotics. - Continue Trelegy 100 inhaler. Continue DuoNebs 4 times a day as needed. Incentive spirometry and flutter valve throughout day. Supplemental oxygen for goal sats greater 90%, currently on 2 L. #HFpEF exacerbation ? Echo with normal BiV function ? Continue IV Lasix 40 mg daily. Diuresing well. Creatinine stable at 0.70. - White count remains normal at 8, hemoglobin 11. Kidney function stable with BUN 31, creatinine 0.7. Potassium low today at 2.9, replacing per electrolyte protocol. #Normocytic anemia ? Hemoglobin 11, Stable. Continue to monitor. #Thrombocytopenia ? Platelets 108; no active bleeding. Repeat CBC, CMP, magnesium ordered for the morning. Full code DVT prophylaxis: IPC's due to thrombocytopenia Regular diet
[2025-07-08 15:13] LABS: POC Glucose,Bedside 233 gm/dL (70-110)
[2025-07-08 15:14] LABS: POC Glucose,Bedside 239 gm/dL (70-110)
[2025-07-08 15:16] LABS: POC Glucose,Bedside 105 gm/dL (70-110)
[2025-07-08 15:16] LABS: POC Glucose,Bedside 111 gm/dL (70-110)
[2025-07-08 20:12] LABS: POC Glucose,Bedside 209 gm/dL (70-110)
[2025-07-08] MEDS: ATORVASTATIN 40MG TABLET 40 MG PO (21:17)
[2025-07-08] MEDS: ASPIRIN EC 81MG TABLET 81 MG PO (21:17)
[2025-07-08] MEDS: PANTOPRAZOLE 40MG VIAL 40 MG IV (21:17)
[2025-07-09] VITALS (12 sets, daily range): BP systolic 97–131; BP diastolic 47–88; PULSE 76–100; RESP 15–21; TEMP 36.5–36.7; O2SAT 89–95; BMI 23.4
[2025-07-09 06:10] LABS: POC Glucose,Bedside 176 gm/dL (70-110)
[2025-07-09] MEDS: humaLOG 100 UNITS/ML 10ML VIAL (SSI) SUBCUT ×2 (06:14→12:01)
[2025-07-09 06:19] LABS: Hematocrit 38.6 % (37.0-47.0); Hemoglobin 12.4 g/dL (12.2-16.2); Immature Granulocytes % 4.1 %; Mean Corpuscular HGB Conc 32.1 g/dL (31.8-35.4); Mean Corpuscular Hemoglobin 30.5 pg (27.0-31.2); Mean Corpuscular Volume 95.1 fl (81-99); Nucleated Red Blood Cells % 0 %; Platelet Count 122 K/mm3 (142-424); Red Blood Count 4.06 M/mm3 (4.20-5.40); Red Cell Distribution Width-SD 50.6 fL; White Blood Count 7.5 K/mm3 (4.8-10.8)
[2025-07-09 06:37] LABS: Blood Urea Nitrogen 34 mg/dl (7-17); Calcium 9.0 mg/dl (8.4-10.2); Carbon Dioxide 34 mmol/L (22.0-30.0); Creatinine Clearance Estimated 50 mL/min (50-200); Creatinine,Serum 0.80 mg/dl (0.52-1.04); Estimated Glomerular Filt Rate 71 ml/min (>60); GFR (African American) 86 ML/MIN (>60); Glucose 189 mg/dl (74-100)
[2025-07-09] MEDS: FLUTICASONE/UMECLIDIN/VILANTER 100/62.5/25MCG INHALER 1 PUFF IH (06:37)
[2025-07-09 07:26] LABS: Anion Gap 6.2 mEq/L (5-15); Chloride 97 mmol/L (98-107); Potassium 4.2 mmoL/L (3.5-5.1); Sodium 133 mmol/L (136-145)
[2025-07-09] MEDS: METHYLPREDNISOLONE SOD SUCC 40MG VIAL 40 MG IV (08:37)
[2025-07-09] MEDS: NICOTINE 21MG/24HR PATCH 21 MG TD (08:37)
[2025-07-09] MEDS: FUROSEMIDE 40MG/4ML VIAL 40 MG IV (08:37)
--- NOTE | 2025-07-09 08:42 | HMH.PHAAMS2 ---
- Antimicrobial Stewardship Review discontinue antimicrobial Stewardship interventions: discontinue antimicrobial, reviewed - no change Comments: COMPLETED COURSE
[2025-07-09 11:44] LABS: POC Glucose,Bedside 271 gm/dL (70-110)
--- NOTE | 2025-07-09 13:26 | EXP.DC.SUM ---
General Admission date:: 07/03/25 Discharge date: 07/08/25 HPI HPI HPI: This is a 70-year-old female who is known to our service line and has a past medical history significant for COPD most likely end-stage, HFpEF, vitamin D deficiency, osteoporosis, hyperlipidemia, seasonal allergies, and diabetes who presents with a chief complaint of shortness of breath. Patient underwent RSI in the emergency room; as a result, her review of systems is limited. The majority of information was obtained from the ER provider and chart review. According to ER provider, patient presented due to respiratory distress. ER provider did inform me that patient fell and hit her coccyx last night but had no significant injury warranting immediate evaluation. She presents today with shortness of air. EMS reports her oxygen saturations was in the 70s on her home O2 regimen, patient's blood pressure was 73/40, she was febrile with a temperature of 101.5, and her heart rate was increased at 137. Due to patient failing noninvasive ventilation, family was in agreeance for patient to undergo RSI. Patient was intubated and imaging of the chest revealed left lower lobe pneumonia. Clinically, patient has a septic picture. As a result, hospital medicine was consulted for further management. During my evaluation of the patient, she could provide no meaningful data. She was resting on the ventilator with some intermittent movements. While in the emergency room, patient was placed on fentanyl and Versed drip. I encouraged nursing staff to titrate to a RASS of -2 or see part of 4. Additional pertinent vitals obtained include a white blood cell count of 27.9, neutrophils 83.9%, venous blood gas revealed a pH of 7.23/bicarb of 17.8, chloride of 95, carbon oxide of 18, BUN of 38, creatinine 1.40, GFR of 37, blood glucose 185, total bilirubin 1.8, BNP 2620, and respiratory panel was negative. Hospital Course Hospital Course Hospital Course: Sabra [place] is a 70-year-old female with medical history significant for COPD and HFpEF presented with shortness of breath and was admitted for community-acquired pneumonia after intubation for hypoxic respiratory failure. Showed improvement was able to extubate on 07/04. Stable for several days off mechanical ventilation. Has completed her empiric antibiotic course of 7 days. Continues to show gradual improvement. Stable discharge to rehab for further management. Has been accepted by [facility] for further care. Will discharge for further care. Problems addressed as follows: #Acute on chronic hypoxic respiratory failure #Mechanical ventilation, resolved #COPD exacerbation #Community-acquired pneumonia, strep pneumonia #Severe sepsis, resolved ? Presented with shortness of breath was found to have left lower lobe pneumonia on initial CXR. Initial WBC 28, with tachycardia. Required intubation for hypoxia in ER, extubated on 07/04/2025. Respiratory culture positive for strep pneumonia, only sensitivity was gentamicin resistant. Completed 7 days total of antibiotics on 07/08. No further antibiotics needed at this time. Pulmonology assisted with care during admission. Has seen gradual improvement in her mucus production. Therapy evaluated, recommend placement in skilled rehab for improvement mobility prior to returning home. Will discharge to [facility] and rehab for further care. Continue Trelegy 100 inhaler, DuoNebs 4 times a day as needed. Continue oxygen as needed with goal sats greater 90%. Currently on 2 to 3 L. Continue incentive spirometry and flutter valve throughout the day #HFpEF exacerbation ? Echo with normal BiV function. Continue IV Lasix 40 mg daily. Diuresing well. White count remains normal at 7.5, hemoglobin 12.4. Kidney function stable with BUN 35, creatinine 0.8. Electrolytes normal with potassium 4.2. Needs repeat labs in 1 week to monitor kidney function with BMP #Normocytic anemia ? Hemoglobin 12, Stable. Continue to monitor. #Thrombocytopenia ? Platelets 122; improved during admission. No active signs of bleeding. Anemia/diabetes: A1c 5.9 on admission. Appears well-controlled. Continue metformin and Farxiga Total time spent on discharge 32 minutes in counseling, documentation, chart review, and direct care with patient. Exam Data for Last 24 hours Vital signs and Labs for Last 24 Hours: Temp Pulse Resp BP Pulse Ox O2 Del Method O2 Flow Rate 98.6 F 88 14 99/55 L 91 L Nasal Cannula 3 07/08/25 02:00 07/08/25 04:00 07/08/25 04:00 07/08/25 01:09 07/08/25 04:00 07/08/25 06:48 07/08/25 06:48 FiO2 28 07/07/25 19:50 Laboratory Results - last 24 hr 07/07/25 11:07: POC Glucose 196 H 07/07/25 12:30: VBG pH 7.63 H, VBG pCO2 28.1 L, VBG pO2 171.8 H, VBG HCO3 28.8, VBG Total CO2 29.6 H, VBG O2 Saturation 99.3 H, VBG Base Excess 7.7 H, VBG Lactic Acid 1.7 07/07/25 16:15: POC Glucose 331 H* 07/07/25 21:01: POC Glucose 136 H 07/08/25 05:11: WBC 8.0 D, RBC 3.73 L, Hgb 11.1 L, Hct 35.1 L, MCV 94.1, MCH 30.3, MCHC 32.2, RDW 14.4, Plt Count 108 L, MPV 11.5 H, Neut % (Auto) 66.8, Lymph % (Auto) 22.4, [place] % (Auto) 8.2, Eos % (Auto) 0.2, Baso % (Auto) 0.4, Neut # (Auto) 5.4, Lymph # (Auto) 1.8, [place] # (Auto) 0.7, Eos # (Auto) 0.0, Baso # (Auto) 0.0, VBG pH 7.49 H, VBG pCO2 44.9, VBG pO2 55.0 H, VBG HCO3 33.8 H, VBG Total CO2 35.1 H, VBG O2 Saturation 91.1 H, VBG Base Excess 10.5 H, VBG Lactic Acid 1.3 07/08/25 05:49: POC Glucose 186 H I & O for Last 24 hours: Intake & Output 07/05/25 07/06/25 07/07/25 07/08/25 23:59 23:59 23:59 23:59 Intake Total 1240 / 1480 1620 / 1620 1420 / 1420 702 / 702 Output Total 2930 / 3230 3100 / 3100 2475 / 2475 200 / 200 Balance -1690 / -1750 -1480 / -1480 -1055 / -1055 502 / 502 Weight 63 kg 63.1 kg 63.4 kg 64.5 kg Microbiology Reports for the Last 24 Hours: Microbiology 07/02/25 23:29 Blood Blood Culture - Final NO GROWTH AFTER 5 DAYS Constitutional Constitutional: mild distress (Chronic), thin, chronically ill appearing and cooperative *Routine HEENT Exam Head: Present normocephalic Eye: Present EOMI and PERRL ENT: Present mucous membranes moist *Routine Neck Exam Neck: Present supple; Absent lymphadenopathy *Routine Respiratory Exam Respiratory: Present prolonged expiratory phase, rhonchi and wheezes; Absent crackles *Routine Cardiovascular Exam Cardiovascular: Present RRR *Routine Abdominal Exam Abdominal: Present soft and normoactive bowel sounds; Absent tenderness *Routine Rectal Exam Patient deferred: visual exam *Routine Exam Patient deferred: external exam *Routine Extremities Exam Extremities: Absent cyanosis, clubbing or edema *Routine Skin Exam Skin: Present intact and warm; Absent rash *Routine Neurological Exam Neurological: Present alert, oriented X3 and moving all extremities; Absent altered mental status Results Data Completed and Pending Labs on day of discharge: Labs from last 24 hours 07/08/25 07/08/25 07/07/25 05:49 05:11 21:01 WBC 8.0 D RBC 3.73 L Hgb 11.1 L Hct 35.1 L MCV 94.1 MCH 30.3 MCHC 32.2 RDW 14.4 Plt Count 108 L MPV 11.5 H Neut % (Auto) 66.8 Lymph % (Auto) 22.4 [place] % (Auto) 8.2 Eos % (Auto) 0.2 Baso % (Auto) 0.4 Neut # (Auto) 5.4 Lymph # (Auto) 1.8 [place] # (Auto) 0.7 Eos # (Auto) 0.0 Baso # (Auto) 0.0 VBG pH 7.49 H VBG pCO2 44.9 VBG pO2 55.0 H VBG HCO3 33.8 H VBG Total CO2 35.1 H VBG O2 Saturation 91.1 H VBG Base Excess 10.5 H VBG Lactic Acid 1.3 POC Glucose 186 H 136 H 07/07/25 07/07/25 07/07/25 16:15 12:30 11:07 WBC RBC Hgb Hct MCV MCH MCHC RDW Plt Count MPV Neut % (Auto) Lymph % (Auto) [place] % (Auto) Eos % (Auto) Baso % (Auto) Neut # (Auto) Lymph # (Auto) [place] # (Auto) Eos # (Auto) Baso # (Auto) VBG pH 7.63 H VBG pCO2 28.1 L VBG pO2 171.8 H VBG HCO3 28.8 VBG Total CO2 29.6 H VBG O2 Saturation 99.3 H VBG Base Excess 7.7 H VBG Lactic Acid 1.7 POC Glucose 331 H* 196 H Preliminary micro results at discharge 07/02/25 22:45 Blood Culture - Preliminary Blood DS: Diagnosis Discharge Diagnosis (1) Acute exacerbation of chronic obstructive pulmonary disease: Status: Acute Code(s): J44.1 - Chronic obstructive pulmonary disease with (acute) exacerbation (2) Pneumonia: Status: Acute Code(s): J18.9 - Pneumonia, unspecified organism Qualifiers: Laterality: left Lung location: lower lobe of lung Pneumonia type: due to unspecified organism Qualified Code(s): J18.9 - Pneumonia, unspecified organism Problem details: Streptococcus pneumoniae (3) On mechanically assisted ventilation: Status: Acute Code(s): Z99.11 - Dependence on respirator [ventilator] status (4) Acute and chronic respiratory failure with hypoxia: Status: Acute Code(s): J96.21 - Acute and chronic respiratory failure with hypoxia (5) Hyperglycemia: Status: Acute Code(s): R73.9 - Hyperglycemia, unspecified Problem details: secondary to type 2 diabetes. Managed with oral medication (6) Severe sepsis: Status: Acute Code(s): A41.9 - Sepsis, unspecified organism; R65.20 - Severe sepsis without septic shock Problem details: Present on admission (7) Anemia: Status: Acute Code(s): D64.9 - Anemia, unspecified Meds Home Medications and Allergies Home Medications ?Medication ?Instructions ?Recorded ?Confirmed ?Type alendronate 70 mg tablet 70 mg PO WEEKLY Osteoporosis 04/14/21 07/03/25 History aspirin 81 mg tablet,delayed 81 mg PO [facility] 04/14/21 07/03/25 History release fluticasone fur. 100 mcg-umeclid 1 puff inhalation DAILY 04/14/21 07/03/25 History 62.5 mcg-vilant 25 mcg inhalat.powder albuterol sulfate 90 mcg/actuation 2 puff inhalation Q4HP PRN 04/21/21 07/03/25 History aerosol inhaler Shortness Of Breath cholecalciferol (vitamin D3) 25 1,000 unit PO BID Supplement 03/15/22 07/03/25 History mcg (1,000 unit) capsule atorvastatin 40 mg tablet 40 mg PO HS 03/16/22 07/03/25 History dapagliflozin propanediol 5 mg 5 mg PO DAILY 07/03/25 07/03/25 History tablet (Farxiga) metformin 1,000 mg tablet 1,000 mg PO BID 07/03/25 07/03/25 History furosemide 20 mg tablet 40 mg (2 x 20 mg) PO DAILY Fluid 07/09/25 07/03/25 Rx 30 days #0 tabs ipratropium 0.5 mg-albuterol 3 mg 3 ml inhalation Q6HP PRN Shortness 07/09/25 Rx (2.5 mg base)/3 mL nebulization Of Breath 30 days #180 mL soln nicotine 21 mg/24 hr daily 21 mg transdermal DAILY 30 days 07/09/25 Rx transdermal patch #30 ea New Prescriptions to Start Prescriptions: ipratropium-albuterol Esteban Whitman nicotine Esteban Whitman Allergies Allergy/AdvReac Type Severity Reaction Status Date / Time erythromycin base Allergy Unknown NA-NAUSEA/V Verified 01/03/24 15:26 (ERYTHROMYCIN BASE) OMITING Discharge Plan Disposition Patient Disposition: er [facility] Condition: Fair Discharge Order Discharge Orders: Discharge Order (Routine); Ordered 07/09/25 Ordered By: Esteban Whitman Follow up Plan Follow up with: Chauncey Mims MD [Physician, Pulmonology] - Enter time for follow up Prescriptions/Medication Reconciliation: New ipratropium-albuterol 0.5 mg-3 mg(2.5 mg base)/3 mL Solution For Nebulization 3 ml inhalation Q6HP PRN (Reason: Shortness Of Breath) 30 Days Qty: 180 0RF nicotine 21 mg/24 hr Patch 24 Hour 21 mg transdermal DAILY 30 Days Qty: 30 0RF Continued alendronate 70 MG tablet 70 mg PO WEEKLY aspirin 81 MG tablet,delayed release (DR/EC) 81 mg PO HS [id number] 1 EACH blister with device 1 puff inhalation DAILY albuterol sulfate 8.5 GM HFA aerosol inhaler 2 puff inhalation Q4HP PRN (Reason: Shortness Of Breath) cholecalciferol (vitamin D3) 1,000 UNIT capsule 1,000 unit PO BID atorvastatin 40 MG tablet 40 mg PO HS metformin 1,000 mg tablet 1,000 mg PO BID dapagliflozin propanediol [Farxiga] 5 mg tablet 5 mg PO DAILY Changed furosemide 20 MG tablet 40 mg PO DAILY 30 Days Qty: 0 0RF Problem Reconciliation Problems Reviewed?: Yes Patient Discharge Instructions ACTIVITY: Continue current activity DIET: continue same diet Patient Instructions: Intubation and Mechanical Ventilation, Chronic Obstructive Pulmonary Disease, DI for Hyperglycemia in Adults, DI for Respiratory Failure, DI for Hypoxia, Catheter-Associated Urinary Tract Infection, Stop Light Pneumonia, Stop Light COPD Print Language: Slovenian Providers Primary Care Provider: Sheeba Peterson Admit Provider: Jose Escalante Attending Provider: Jose Escalante
--- NOTE | 2025-07-09 15:57 | PC.NURSE ---
report called to Reena at [facility] and rehab. [id number]
[2025-07-11 12:20] LABS: POC Glucose,Bedside 242 gm/dL (70-110)
== END 2025-07-09 15:50 | DRG 871 ==
LOC: ER 07-03 00:57 → ICU 07-03 00:59
PROVIDERS: Emergency Medicine; Internal Medicine Pulmonary Disease; Nurse Practitioner Family; Admitting Provider Student in an Organized Health Care Education/Training Program; Emergency Provider Student in an Organized Health Care Education/Training Program; PCP Nurse Practitioner Family; Visit Provider Student in an Organized Health Care Education/Training Program
DX: A41.9 Sepsis, unspecified organism (principal); I50.33 Acute on chronic diastolic (congestive) heart failure; J96.21 Acute and chronic respiratory failure with hypoxia; J13 Pneumonia due to Streptococcus pneumoniae; J44.1 Chronic obstructive pulmonary disease with (acute) exacerbation; J44.0 Chronic obstructive pulmonary disease with (acute) lower respiratory infection; E87.4 Mixed disorder of acid-base balance; N17.9 Acute kidney failure, unspecified; Z16.29 Resistance to other single specified antibiotic; R65.20 Severe sepsis without septic shock; D64.9 Anemia, unspecified; D69.6 Thrombocytopenia, unspecified; I71.40 Abdominal aortic aneurysm, without rupture, unspecified; E78.5 Hyperlipidemia, unspecified; E80.6 Other disorders of bilirubin metabolism; R79.89 Other specified abnormal findings of blood chemistry; E11.65 Type 2 diabetes mellitus with hyperglycemia; Z79.82 Long term (current) use of aspirin; Z79.899 Other long term (current) drug therapy; Z79.84 Long term (current) use of oral hypoglycemic drugs; Z88.1 Allergy status to other antibiotic agents
CPT/HCPCS: 0223U; 36415; 36600; 51702; 70450; 71045; 80048; 80053; 80202; 81001; 82247; 82248; 82803; 82962; 83036; 83605; 83735; 83880; 84145; 84436; 84439; 84443; 84479; 84484; 85007; 85025; 86140; 86803; 87040; 87070; 87077; 87081; 87154; 87186; 87205; 87389; 87449; 93005; 93306; 94002; 94640; 94660; 94761; 97163; 97166; 97530; 99285; J0330; J0456; J0696; J1644; J1938; J2251; J2470; J2543; J2704; J2919; J3010; J3373; J3375; J3475; J3480; J7030; J7050; J7120